=== PATIENT | female | born 1955 | race Caucasian/White ===

== ENCOUNTER 2023-07-20 09:46 | Outpatient (OUT) | payer MEDICARE, SELFPAY ==
--- NOTE | 2023-07-20 09:49 | MM_ITS ---
Patient Name: DYLLAN CONWAY MR#: [id number] : 1955 Exam Date: 07/20/2023 Ordering Doctor: DR Elin Kauffman M.D. RADIOLOGY REPORT PROCEDURE: MM TOMOSYNTHESIS SCREENING BI COMPARISON: MG MAMM SCREEN 3D OMAR CAD, 07/14/2021. MG MAMM SCREEN 3D OMAR CAD, 07/19/2022. INDICATIONS: screening Calculator Name NCI Breast Cancer Risk Assessment Tool 5 Year Breast Cancer Risk 1.80% Lifetime Breast Cancer Risk 6.60% Personal Breast Cancer No Personal Ovarian Cancer No Treatments None Family Cancers Aunt-maternal with breast cancer at age ~60. LOCATION: [facility] BREAST COMPOSITION: Scattered areas fibroglandular density. FINDINGS: DIAGNOSTIC CATEGORY 2--BENIGN FINDING. NO CHANGE FROM COMPARISON. Scattered benign-appearing nodules are present. Scattered benign-appearing calcifications are present. Scattered benign-appearing lymph nodes are present. RIGHT BREAST: No significant suspicious finding. LEFT BREAST: No significant suspicious finding. RECOMMENDATIONS: ROUTINE MAMMOGRAM AND CLINICAL EVALUATION IN 12 MONTHS. PLEASE NOTE: A NORMAL MAMMOGRAM DOES NOT EXCLUDE THE POSSIBILITY OF BREAST CANCER. A CLINICALLY SUSPICIOUS PALPABLE LUMP SHOULD BE BIOPSIED. Dictated by: Colton Guevara MD on 07/20/2023 at 12:49 Approved by: Colton Guevara MD on 07/20/2023 at 12:50
== END 2023-07-20 09:47 | disposition home or self-care (01) ==
LOC: MAMMO 09:46
PROVIDERS: PCP Family Medicine; Visit Provider Family Medicine
DX: Z12.31 Encounter for screening mammogram for malignant neoplasm of breast (principal); Z80.3 Family history of malignant neoplasm of breast
CPT/HCPCS: 77063; 77067

== ENCOUNTER 2023-11-14 07:26 | Outpatient (OUT) | payer MEDICARE, SELFPAY ==
--- OUTSIDE RECORDS SUMMARY | 2023-11-14 07:32 | XMS_ITS | CCD ---
Author Organization [facility] Care Team Providers Care Silk Brusher Name Role Phone ABHISHEK, DR DOTTIE Alejo Consulting Unavailable YUSUF, DR ELIN Chopra Primary Care Unavailable ENMA MONTES DE OCA Attending Unavailable ENMA MONTES DE OCA Admitting Unavailable KAUFFMAN, DR ELIN Chopra Consulting Unavailable ENMA MONTES DE OCA Consulting Unavailable ZENAIDA, DR William Andrews Consulting Unavailable KAUFFMAN, DR ELIN Chopra Primary Care Unavailable JAZMINE ., DR KORI Delgado Attending Unavailable LUCERO ., DR KORI Delgado Admitting Unavailable WEST, DR DOTTIE Alejo Consulting Unavailable LUCERO ., DR KORI Delgado Consulting Unavailable WEST, DR DOTTIE Alejo Consulting Unavailable YUSUF, DR ELIN Chopra Primary Care Unavailable KAUFFMAN, DR ELIN Chopra Attending Unavailable KAUFFMAN, DR ELIN Chopra Admitting Unavailable KAUFFMAN, DR ELIN Chopra Consulting Unavailable LUCERO ., DR KORI Delgado Consulting Unavailable KAUFFMAN, DR ELIN Chopra Primary Care Unavailable LUCERO ., DR KORI Delgado Attending Unavailable LUCERO ., DR KORI Delgado Admitting Unavailable MIGUEL .LEO Consulting Unavailable KAUFFMAN, DR ELIN Chopra Consulting Unavailable KAUFFMAN, DR ELIN Chopra Primary Care Unavailable LUCERO ., DR KORI Delgado Attending Unavailable LUCERO ., DR KORI Delgado Admitting Unavailable LUCERO ., DR KORI Delgado Consulting Unavailable KAUFFMAN, DR ELIN Chopra Primary Care Unavailable JAZMINE ., DR KORI Delgado Attending Unavailable LUCERO ., DR KORI Delgado Admitting Unavailable KAUFFMAN, DR ELIN Chopra Consulting Unavailable KAUFFMAN, DR ELIN Chopra Primary Care Unavailable KAUFFMAN, DR ELIN Chopra Attending Unavailable KAUFFMAN, DR ELIN Chopra Admitting Unavailable KAUFFMAN, DR ELIN Chopra Consulting Unavailable KAUFFMAN, DR ELIN Chopra Primary Care Unavailable KAUFFMAN, DR ELIN Chopra Attending Unavailable KAUFFMAN, DR ELIN Chopra Admitting Unavailable KAUFFMAN, DR ELIN Chopra Consulting Unavailable KAUFFMAN, DR ELIN Chopra Primary Care Unavailable KAUFFMAN, DR ELIN Chopra Attending Unavailable KAUFFMAN, DR ELIN Chopra Admitting Unavailable SHEAJOSH Garber Consulting Unavailable Problems Active Problems Problem Classification Problem Date Documented Da te Episodic/Chronic Joint disorders and dislocations; trauma-related (4 sources) Unspecified internal derangement of left knee; Translations: [UNS INTERNAL DERANGEMENT LEFT KNEE] Onset: 01-20-2022 Chronic Osteoarthritis (2 sources) Unilateral primary osteoarthritis, right knee; Translations: [Unilateral primary osteoarthritis, left knee] Onset: 02-27-2022 Chronic Other screening for suspected conditions (not mental disorders or infectious disease) (4 sources) Encounter for screening mammogram for malignant neoplasm of breast; Translations: [ENC SCR MAMMO MALIG NEOPLASM BREAST] Onset: 07-19-2022 Episodic Residual codes; unclassified (1 source) Family history of malignant neoplasm of breast; Translations: [FAMILY HX MALIG NEOPLASM OF BREAST] Onset: 07-20-2022 Episodic Past or Other Problems Problem Classification Problem Date Documented Da te Episodic/Chronic Joint disorders and dislocations; trauma-related (1 source) Complex tear of medial meniscus, current injury, left knee, initial encounter; Translations: [COMPLEX TEAR MM CURR LT KNEE INIT] Onset: 01-21-2022 Episodic Other connective tissue disease (1 source) Other muscle spasm; Translations: [OTHER MUSCLE SPASM] Onset: 02-27-2022 Episodic Other non-traumatic joint disorders (5 sources) Pain in left knee; Translations: [PAIN IN LEFT KNEE] Onset: 02-27-2022 Episodic Other non-traumatic joint disorders (5 sources) Pain in right knee; Translations: [PAIN IN RIGHT KNEE] Onset: 02-22-2022 Episodic Results Test Name Value Interpretation Reference Range Facility CBC AUTO DIFFon 09-27-2022 BASO # 0.1 103/ul Normal 0.0-0.1 [facility] Comment on above: Performed By: #### C BC #### [facility] [address] [place] [address] Dr. Sharif Farooq Basophils/100 WBC (Bld) 1.9 % Normal 0.2-2.0 [facility] Comment on above: Performed By: #### C BC #### [facility] [address] [address] [address] Sharif Farooq EO # 0.1 103/ul Normal 0.0-0.7 [facility] Comment on above: Performed By: #### C BC #### [facility] [address] [place] [address] Dr. Sharif Farooq Eosinophils/100 WBC (Bld) 2.3 % Normal 0.9-7.0 [facility] Comment on above: Performed By: #### C BC #### [facility] [address] [place] [address] Dr. Sharif Farooq Erythrocyte distribution width (RBC) [Ratio] 14.6 % Normal 11.0-15.0 [facility] Comment on above: Performed By: #### C BC #### [facility] [address] [place] [address] Dr. Sharif Farooq Hematocrit (Bld) [Volume fraction] 41.7 % Normal 36.0-48.0 [facility] Comment on above: Performed By: #### C BC #### [facility] [address] [place] [address] Dr. Sharif Farooq Hemoglobin (Bld) [Mass/Vol] 13.7 g/dL Normal 12.0-16.0 [facility] Comment on above: Performed By: #### C BC #### [facility] [address] [place] [address] Dr. Sharif Farooq IG # 0.01 10e3/ul Normal 0.00-0.03 [facility] Comment on above: Performed By: #### C BC #### [facility] [address] [place] [address] Dr. Sharif Farooq IG % 0.2 % Normal 0.0-0.5 [facility] Comment on above: Performed By: #### C BC #### [facility] [address] [place] [address] Dr. Sharif Farooq LYMPH # 1.6 103/ul Normal 1.2-3.8 [facility] Comment on above: Performed By: #### C BC #### [facility] [address] [place] [address] Dr. Sharif Farooq Lymphocytes/100 WBC (Bld) 34.0 % Normal 20.5-60.0 [facility] Comment on above: Performed By: #### C BC #### [facility] [address] [place] [address] Dr. Sharif Farooq MANUAL DIFF REQ NO Normal [facility] Comment on above: Performed By: #### C BC #### [facility] [address] [place] [address] Dr. Sharif Farooq MCH (RBC) [Entitic mass] 27.5 pg Normal 26.7-34.0 [facility] Comment on above: Performed By: #### C BC #### [facility] [address] [place] [address] Dr. Sharif Farooq MCHC (RBC) [Mass/Vol] 32.9 g/dL Normal 29.9-35.2 [facility] Comment on above: Performed By: #### C BC #### [facility] [address] [place] [address] Dr. Sharif Farooq MCV (RBC) [Entitic vol] 83.7 fL Normal 81.0-99.0 [facility] Comment on above: Performed By: #### C BC #### [facility] [address] [place] [address] Dr. Sharif Farooq MONO # 0.5 103/ul Normal 0.3-0.8 [facility] Comment on above: Performed By: #### C BC #### [facility] [address] [place] [address] Dr. Sharif Farooq Monocytes/100 WBC (Bld) 9.5 % Normal 1.7-12.0 [facility] Comment on above: Performed By: #### C BC #### [facility] [address] [place] [address] Dr. Sharif Farooq NEUT # 2.5 103/ul Normal 1.4-6.5 [facility] Comment on above: Performed By: #### C BC #### [facility] [address] [place] [address] Dr. Sharif Farooq Neutrophils/100 WBC (Bld) 52.1 % Normal 43.0-75.0 [facility] Comment on above: Performed By: #### C BC #### [facility] [address] [place] [address] Dr. Sharif Farooq Platelet mean volume (Bld) [Entitic vol] 10.3 fL Normal 9.5-13.5 [facility] Comment on above: Performed By: #### C BC #### [facility] [address] [place] [address] Dr. Sharif Farooq PLT 250 103/ul Normal 150-450 [facility] Comment on above: Performed By: #### C BC #### [facility] [address] [place] [address] Dr. Sharif Farooq RBC 4.98 106/ul Normal 4.20-5.40 [facility] Comment on above: Performed By: #### C BC #### [facility] [address] [place] [address] Dr. Sharif Farooq WBC 4.8 103/ul Normal 4.0-11.0 [facility] Comment on above: Performed By: #### C BC #### [facility] [address] [place] [address] Dr. Sharif Farooq GLYCOHEMOGLOBIN A1Con 2022 ADA RECOMMENDATION SEE BELOW Normal [facility] Comment on above: Result Comment: ADA RECOMMENDED LIMIT 4.0 - 6.0 ADA THERAPEUTIC TARGET < 7.0 ACTION SUGGESTED > 7.0 Performed By: #### A 1C #### [facility] [address] [place] [address] Dr. Sharif Farooq Glucose [Mass/Vol] 111 mg/dL Normal [facility] Comment on above: Performed By: #### A 1C #### [facility] [address] [place] [address] Dr. Sharif Farooq HbA1c (Bld) [Mass fraction] 5.5 % Normal 4.5-6.2 [facility] Comment on above: Performed By: #### A 1C #### [facility] [address] [place] [address] Dr. Sharif Farooq LIPID PROFILEon 09-27-2022 CHOL-HDL RATIO NORM SEE BELOW Normal [facility] Comment on above: Result Comment: 3.3 - 4.4 LOW RISK 4.4 - 7.1 AVERAGE RISK 7.1 - 11.0 MODERATE RISK >11.0 HIGH RISK Performed By: #### C BC #### [facility] [address] [place], [place] [address] Dr. Sharif Farooq Cholesterol [Mass/Vol] 180 mg/dL Normal <=200 [facility] Comment on above: Performed By: #### C BC #### [facility] [address] [place], [place] [address] Dr. Sharif Farooq Cholesterol in HDL [Mass/Vol] 61 mg/dL Critically high 40-60 [facility] Comment on above: Performed By: #### C BC #### [facility] [address] [address] [address] Sharif Farooq Cholesterol in LDL [Mass/Vol] 103.2 mg/dL Normal [facility] Comment on above: Performed By: #### C BC #### [facility] [address] [address] [address] Sharif Farooq Cholesterol.total/Cho lesterol in HDL [Mass ratio] 3.0 {ratio} Normal [facility] Comment on above: Performed By: #### C BC #### [facility] [address] [address] [address] Sharif Farooq HDL NORMAL > or = 60 mg/dl - LO W CARDIOVASCULAR RISK <40 mg/dl - HIGH CARDIOVASCULAR RISK Normal [facility] Comment on above: Performed By: #### C BC #### [facility] [address] [address] [address] Sharif Farooq LDL CALC NORMAL SEE BELOW Normal [facility] Comment on above: Result Comment: <100 mg/dl OPTIMAL 100 - 129 mg/dl NEAR OR ABOVE OPTIMAL 130 - 159 mg/dl BORDERLINE HIGH 160 - 189 mg/dl HIGH >190 mg/dl VERY HIGH Performed By: #### C BC #### [facility] [address] [address] [address] Sharif Farooq Triglyceride [Mass/Vol] 79 mg/dL Normal <=150 [facility] Comment on above: Performed By: #### C BC #### [facility] [address] [address] [address] Sharif Farooq VLDL CALC 15.8 mg/dL Normal [facility] Comment on above: Performed By: #### C BC #### [facility] [address] [place] [address] Dr. Sharif Farooq PROF 14(COMP METB)on 023 Albumin [Mass/Vol] 3.9 g/dL Normal 3.4-5.0 [facility] Comment on above: Performed By: #### C BC #### [facility] [address] [place] [address] Dr. Sharif Farooq Albumin/Globulin [Mass ratio] 1.0 {ratio} Normal [facility] Comment on above: Performed By: #### C BC #### [facility] [address] [place] [address] Dr. Sharif Farooq ALP [Catalytic activity/Vol] 84 U/L Normal 46-116 [facility] Comment on above: Performed By: #### C BC #### [facility] [address] [place] [address] Dr. Sharif Farooq ALT [Catalytic activity/Vol] 37 U/L Normal 14-59 [facility] Comment on above: Performed By: #### C BC #### [facility] [address] [place] [address] Dr. Sharif Farooq Anion gap [Moles/Vol] 13.4 mmol/L Normal [facility] Comment on above: Performed By: #### C BC #### [facility] [address] [place] [address] Dr. Sharif Farooq AST [Catalytic activity/Vol] 21 U/L Normal 15-37 [facility] Comment on above: Performed By: #### C BC #### [facility] [address] [place] [address] Dr. Sharif Farooq Bilirubin [Mass/Vol] 0.8 mg/dL Normal 0.2-1.0 [facility] Comment on above: Performed By: #### C BC #### [facility] [address] [place] [address] Dr. Sharif Farooq Calcium [Mass/Vol] 9.7 mg/dL Normal 8.5-10.1 [facility] Comment on above: Performed By: #### C BC #### [facility] [address] [address] [address] Sharif Farooq Chloride [Moles/Vol] 105 mmol/L Normal 98-107 [facility] Comment on above: Performed By: #### C BC #### [facility] [address] [address] [address] Sharif Farooq CO2 [Moles/Vol] 26.8 mmol/L Normal 21.0-32.0 [facility] Comment on above: Performed By: #### C BC #### [facility] [address] [address] [address] Sharif Farooq Creatinine [Mass/Vol] 0.94 mg/dL Normal 0.55-1.02 [facility] Comment on above: Performed By: #### C BC #### [facility] [address] [place] [address] Dr. Sharif Farooq EGFR-AF BAHRAINI >60 Normal >=60 [facility] Comment on above: Performed By: #### C BC #### [facility] [address] [address] [address] Sharif Farooq EGFR-NON AF BAHRAINI 60 mL/min/1.73m2 Normal >=60 [facility] Comment on above: Performed By: #### C BC #### [facility] [address] [place] [address] Dr. Sharif Farooq Globulin (S) [Mass/Vol] 3.9 g/dL Normal [facility] Comment on above: Performed By: #### C BC #### [facility] [address] [address] [address] Sharif Farooq Glucose [Mass/Vol] 105 mg/dL Normal 74-106 [facility] [place] Comment on above: Performed By: #### C BC #### [facility] [address] [address] [address] Sharif Farooq Potassium [Moles/Vol] 4.2 mmol/L Normal 3.5-5.1 [facility] Comment on above: Performed By: #### C BC #### [facility] [address] [address] [address] Sharif Farooq Protein [Mass/Vol] 7.8 g/dL Normal 6.4-8.2 [facility] [place] Comment on above: Performed By: #### C BC #### [facility] [address] [address] [address] Sharif Farooq Sodium [Moles/Vol] 141 mmol/L Normal 136-145 [facility] [place] Comment on above: Performed By: #### C BC #### [facility] [address] [address] [address] Sharif Farooq Urea nitrogen [Mass/Vol] 21.0 mg/dL Critically high 7.0-18.0 [facility] Comment on above: Performed By: #### C BC #### [facility] [address] [address] [address] Sharif Farooq Urea nitrogen/Creatinine [Mass ratio] 22.3 mg/mg Normal [facility] Comment on above: Performed By: #### C BC #### [facility] [address] [address] [address] Sharif Farooq TSHon 09-27-2022 TSH 3.122 uIU/mL Normal 0.358-3.740 [facility] Comment on above: Performed By: #### C BC #### [facility] [id number] Sharif Farooq MG MAMM SCREEN 3D OMAR CADon 07-19-2022 MG MAMM SCREEN 3D OMAR CAD Patient: DLYLAN CONWAY Exam Date: 07/19/2022 : 1955 Gender:F Ordering : DR ELIN KAUFFMAN M.D. Admission #: [id number] Family : Order #: [id number] CLICK HERE TO VIEW EXAM RADIOLOGY REPORT PROCEDURE: MAMMOGRAM SCREENING 3D BILATERAL CAD COMPARISON: MG MAMM SCREEN 3D OMAR CAD, 07/14/2021. MG MAMM SCREEN OMAR W CAD, 07/08/2020. INDICATIONS: Screening mammography Calculator Name NCI Breast Cancer Risk Assessment Tool 5 Year Breast Cancer Risk 1.70% Lifetime Breast Cancer Risk 6.90% Personal Breast Cancer No Personal Ovarian Cancer No Treatments None Family Cancers Aunt-maternal with breast cancer at age 60. LOCATION: [facility] BREAST COMPOSITION: Scattered areas fibroglandular density. FINDINGS: DIAGNOSTIC CATEGORY 2--BENIGN FINDING. NO CHANGE FROM COMPARISON. Scattered benign-appearing nodules are present. Scattered benign-appearing calcifications are present. Scattered benign-appearing lymph nodes are present. RIGHT BREAST: No significant suspicious finding. LEFT BREAST: No significant suspicious finding. RECOMMENDATIONS: ROUTINE MAMMOGRAM AND CLINICAL EVALUATION IN 12 MONTHS. PLEASE NOTE: A NORMAL MAMMOGRAM DOES NOT EXCLUDE THE POSSIBILITY OF BREAST CANCER. A CLINICALLY SUSPICIOUS PALPABLE LUMP SHOULD BE BIOPSIED. Dictated by: Dottie Weiss MD on 07/20/2022 at 09:20 Approved by: Dottie Weiss MD on 07/20/2022 at 09:22 Normal [facility] MRI KNEE LT WO CONon MRI KNEE LT WO CON EXAMINATION: MRI KNE E LT WO CON HISTORY: Derangement of knee COMPARISON: No relevant comparison available. TECHNIQUE: A complete multi-planar MRI was performed. FINDINGS: MEDIAL COMPARTMENT MEDIAL MENISCUS: Thinned and partially extruded. Complex tear of the body and posterior horn having a vertical and horizontal component CARTILAGE: Mild chondromalacia BONES: Mild to moderate joint space narrowing with marginal osteophyte formation MCL AND MEDIAL CAPSULE: Normal medial collateral ligament and medial capsule. LATERAL COMPARTMENT LATERAL MENISCUS: Partially extruded. Thinned body without definitive tear CARTILAGE: Moderate chondromalacia BONES: Moderate marginal osteophyte formation LCL/POSTEROLAT COMPLEX: Normal lateral collateral ligament, fascicles, lateral capsule and ligaments. ANTERIOR COMPARTMENT PATELLA: No acute fracture or dislocation. Moderate osteoarthritis CARTILAGE: Moderate to severe chondromalacia TENDONS: Normal. EFFUSION: Small joint effusion ACL: 10 in appearance possibly representing remote partial tear PCL: Increased signal proximally suggests strain MENISCOFEMORAL: Normal meniscofemoral ligaments. OTHER: Negative. IMPRESSION: Moderate tricompartmental osteoarthritis with joint space narrowing marginal osteophyte formation and chondromalacia Complex tear body and posterior horn of medial meniscus Electronically authenticated by: DOTTIE WEISS Date: 2022-01-20 18:22 Normal [facility] XR KNEE LT 4V or >on XR KNEE LT 4V or > EXAM: XR KNEE LT 4V or > HISTORY: Pain of left knee joint Knee examination Findings: There is narrowing of the medial compartment of the knee, as well as the patellofemoral joint. Osteophyte formation is seen. No acute fracture is identified. No focal lesions are identified. IMPRESSION: Degenerative changes are noted at the knee. No fracture, is seen. If there is high index of suspicion, consider MRI. Electronically authenticated by: JOSH SHEA Date: 2021-12-06 18:26 Normal [facility] CBC AUTO DIFFon 10-12-2021 BASO # 0.1 103/ul Normal 0.0-0.1 [facility] Comment on above: Performed By: #### C BC #### [facility] [address] [address] [address] Sharif Farooq Basophils/100 WBC (Bld) 1.8 % Normal 0.2-2.0 [facility] Comment on above: Performed By: #### C BC #### [facility] [address] [place] [address] Dr. Sharif Farooq EO # 0.1 103/ul Normal 0.0-0.7 [facility] Comment on above: Performed By: #### C BC #### [facility] [address] [address] [address] Sharif Farooq Eosinophils/100 WBC (Bld) 2.0 % Normal 0.9-7.0 [facility] Comment on above: Performed By: #### C BC #### [facility] [address] [address] [address] Sharif Farooq Erythrocyte distribution width (RBC) [Ratio] 14.1 % Normal 11.0-15.0 [facility] Comment on above: Performed By: #### C BC #### [facility] [address] [place] [address] Dr. Sharif Farooq Hematocrit (Bld) [Volume fraction] 41.9 % Normal 36.0-48.0 [facility] Comment on above: Performed By: #### C BC #### [facility] [address] [place] [address] Dr. Sharif Farooq Hemoglobin (Bld) [Mass/Vol] 13.6 g/dL Normal 12.0-16.0 [facility] Comment on above: Performed By: #### C BC #### [facility] [address] [place] [address] Dr. Sharif Farooq IG # 0.01 10e3/ul Normal 0.00-0.03 [facility] Comment on above: Performed By: #### C BC #### [facility] [address] [place] [address] Dr. Sharif Farooq IG % 0.2 % Normal 0.0-0.5 [facility] Comment on above: Performed By: #### C BC #### [facility] [address] [place] [address] Dr. Sharif Farooq LYMPH # 2.1 103/ul Normal 1.2-3.8 [facility] Comment on above: Performed By: #### C BC #### [facility] [address] [place] [address] Dr. Sharif Farooq Lymphocytes/100 WBC (Bld) 34.7 % Normal 20.5-60.0 [facility] Comment on above: Performed By: #### C BC #### [facility] [address] [place] [address] Dr. Sharif Farooq MANUAL DIFF REQ NO Normal [facility] Comment on above: Performed By: #### C BC #### [facility] [address] [place] [address] Dr. Sharif Farooq MCH (RBC) [Entitic mass] 27.6 pg Normal 26.7-34.0 [facility] Comment on above: Performed By: #### C BC #### [facility] [address] [place] [address] Dr. Sharif Farooq MCHC (RBC) [Mass/Vol] 32.5 g/dL Normal 29.9-35.2 [facility] Comment on above: Performed By: #### C BC #### [facility] [address] [place] [address] Dr. Sharif Farooq MCV (RBC) [Entitic vol] 85.2 fL Normal 81.0-99.0 [facility] Comment on above: Performed By: #### C BC #### [facility] [address] [place] [address] Dr. Sharif Farooq MONO # 0.6 103/ul Normal 0.3-0.8 [facility] Comment on above: Performed By: #### C BC #### [facility] [address] [place] [address] Dr. Sharif Farooq Monocytes/100 WBC (Bld) 9.8 % Normal 1.7-12.0 [facility] Comment on above: Performed By: #### C BC #### [facility] [address] [place] [address] Dr. Sharif Farooq NEUT # 3.1 103/ul Normal 1.4-6.5 [facility] Comment on above: Performed By: #### C BC #### [facility] [address] [place] [address] Dr. Sharif Farooq Neutrophils/100 WBC (Bld) 51.5 % Normal 43.0-75.0 [facility] Comment on above: Performed By: #### C BC #### [facility] [address] [place] [address] Dr. Sharif Farooq Platelet mean volume (Bld) [Entitic vol] 9.9 fL Normal 9.5-13.5 [facility] Comment on above: Performed By: #### C BC #### [facility] [address] [place] [address] Dr. Sharif Farooq PLT 233 103/ul Normal 150-450 [facility] Comment on above: Performed By: #### C BC #### [facility] [address] [place] [address] Dr. Sharif Farooq RBC 4.92 106/ul Normal 4.20-5.40 [facility] Comment on above: Performed By: #### C BC #### [facility] [address] [place] [address] Dr. Sharif Farooq WBC 6.0 103/ul Normal 4.0-11.0 [facility] Comment on above: Performed By: #### C BC #### [facility] [address] [place] [address] Dr. Sharif Farooq GLYCOHEMOGLOBIN A1Con 2021 ADA RECOMMENDATION SEE BELOW Normal [facility] Comment on above: Result Comment: ADA RECOMMENDED LIMIT 4.0 - 6.0 ADA THERAPEUTIC TARGET < 7.0 ACTION SUGGESTED > 7.0 Performed By: #### A 1C #### [facility] [address] [address] [address] Sharif Farooq Glucose [Mass/Vol] 114 mg/dL Normal [facility] Comment on above: Performed By: #### A 1C #### [facility] [address] [address] [address] Sharif Farooq HbA1c (Bld) [Mass fraction] 5.6 % Normal 4.5-6.2 [facility] Comment on above: Performed By: #### A 1C #### [facility] [address] [place] [address] Dr. Sharif Farooq LIPID PROFILEon 10-12-2021 CHOL-HDL RATIO NORM SEE BELOW Normal [facility] Comment on above: Result Comment: 3.3 - 4.4 LOW RISK 4.4 - 7.1 AVERAGE RISK 7.1 - 11.0 MODERATE RISK >11.0 HIGH RISK Performed By: #### C BC #### [facility] [address] [place] [address] Dr. Sharif Farooq Cholesterol [Mass/Vol] 157 mg/dL Normal <=200 [facility] Comment on above: Performed By: #### C BC #### [facility] [address] [address] [address] Sharif Farooq Cholesterol in HDL [Mass/Vol] 68 mg/dL Critically high 40-60 [facility] Comment on above: Performed By: #### C BC #### [facility] [address] [address] [address] Sharif Farooq Cholesterol in LDL [Mass/Vol] 66.0 mg/dL Normal [facility] Comment on above: Performed By: #### C BC #### [facility] [address] [place] [address] Dr. Sharif Farooq Cholesterol.total/Cho lesterol in HDL [Mass ratio] 2.3 {ratio} Normal [facility] Comment on above: Performed By: #### C BC #### [facility] [address] [address] [address] Sharif Farooq HDL NORMAL > or = 60 mg/dl - LO W CARDIOVASCULAR RISK <40 mg/dl - HIGH CARDIOVASCULAR RISK Normal [facility] Comment on above: Performed By: #### C BC #### [facility] [address] [place] [address] Dr. Sharif Farooq LDL CALC NORMAL SEE BELOW Normal [facility] Comment on above: Result Comment: <100 mg/dl OPTIMAL 100 - 129 mg/dl NEAR OR ABOVE OPTIMAL 130 - 159 mg/dl BORDERLINE HIGH 160 - 189 mg/dl HIGH >190 mg/dl VERY HIGH Performed By: #### C BC #### [facility] [address] [place] [address] Dr. Sharif Farooq Triglyceride [Mass/Vol] 115 mg/dL Normal <=150 [facility] Comment on above: Performed By: #### C BC #### [facility] [address] [place] [address] Dr. Sharif Farooq VLDL CALC 23.0 mg/dL Normal [facility] Comment on above: Performed By: #### C BC #### [facility] [address] [place] [address] Dr. Sharif Farooq PROF 14(COMP METB)on 022 Albumin [Mass/Vol] 4.0 g/dL Normal 3.4-5.0 [facility] Comment on above: Performed By: #### C BC #### [facility] [address] [place] [address] Dr. Sharif Farooq Albumin/Globulin [Mass ratio] 1.1 {ratio} Normal [facility] Comment on above: Performed By: #### C BC #### [facility] [address] [place] [address] Dr. Sharif Farooq ALP [Catalytic activity/Vol] 74 U/L Normal 46-116 [facility] Comment on above: Performed By: #### C BC #### [facility] [address] [place] [address] Dr. Sharif Farooq ALT [Catalytic activity/Vol] 34 U/L Normal 14-59 [facility] Comment on above: Performed By: #### C BC #### [facility] [address] [place] [address] Dr. Sharif Farooq Anion gap [Moles/Vol] 12.1 mmol/L Normal [facility] Comment on above: Performed By: #### C BC #### [facility] [address] [address] [address] Sharif Farooq AST [Catalytic activity/Vol] 22 U/L Normal 15-37 [facility] Comment on above: Performed By: #### C BC #### [facility] [address] [place] [address] Dr. Sharif Farooq Bilirubin [Mass/Vol] 1.5 mg/dL Critically high 0.2-1.0 [facility] Comment on above: Performed By: #### C BC #### [facility] [address] [place] [address] Dr. Sharif Farooq Calcium [Mass/Vol] 9.1 mg/dL Normal 8.5-10.1 [facility] Comment on above: Performed By: #### C BC #### [facility] [address] [place] [address] Dr. Sharif Farooq Chloride [Moles/Vol] 103 mmol/L Normal 98-107 [facility] Comment on above: Performed By: #### C BC #### [facility] [address] [place] [address] Dr. Sharif Farooq CO2 [Moles/Vol] 27.9 mmol/L Normal 21.0-32.0 [facility] Comment on above: Performed By: #### C BC #### [facility] [address] [place] [address] Dr. Sharif Farooq Creatinine [Mass/Vol] 0.93 mg/dL Normal 0.55-1.02 [facility] Comment on above: Performed By: #### C BC #### [facility] [address] [place] [address] Dr. Sharif Farooq EGFR-AF BAHRAINI >60 Normal >=60 [facility] Comment on above: Performed By: #### C BC #### [facility] [address] [address] [address] Sharif Farooq EGFR-NON AF BAHRAINI >60 Normal >=60 [facility] Comment on above: Performed By: #### C BC #### [facility] [address] [address] [address] Sharif Farooq Globulin (S) [Mass/Vol] 3.7 g/dL Normal [facility] Comment on above: Performed By: #### C BC #### [facility] [address] [address] [address] Sharif Farooq Glucose [Mass/Vol] 118 mg/dL Critically high 74-[address] [facility] Comment on above: Performed By: #### C BC #### [facility] [address] [place] [address] Dr. Sharif Farooq Potassium [Moles/Vol] 4.0 mmol/L Normal 3.5-5.1 [facility] Comment on above: Performed By: #### C BC #### [facility] [address] [place] [address] Dr. Sharif Farooq Protein [Mass/Vol] 7.7 g/dL Normal 6.1-8.2 [facility] Comment on above: Performed By: #### C BC #### [facility] [address] [place] [address] Dr. Sharif Farooq Sodium [Moles/Vol] 139 mmol/L Normal 136-145 [facility] [place] Comment on above: Performed By: #### C BC #### [facility] [address] [address] [address] Sharif Farooq Urea nitrogen [Mass/Vol] 14.0 mg/dL Normal 7.0-18.0 [facility] Comment on above: Performed By: #### C BC #### [facility] [address] [place] [address] Dr. Sharif Farooq Urea nitrogen/Creatinine [Mass ratio] 15.1 mg/mg Normal [facility] Comment on above: Performed By: #### C BC #### [facility] [address] [address] [address] Sharif Farooq TSHon 10-12-2021 TSH 2.998 uIU/mL Normal 0.470-4.680 [facility] Comment on above: Performed By: #### C BC #### [facility] [address] [place], [place] [address] Dr. Sharif Farooq TSH RANGE SEE BELOW Normal [facility] Comment on above: Result Comment: <0.3 4 UIU/ml HYPERTHYROID 0.34-5.60 UIU/ml EUTHYROID >5.60 UIU/ml HYPOTHYROID Performed By: #### C BC #### [facility] [address] [address] [address] Sharif Farooq Encounters Encounter Date Encounter Type Care Provider Facility Start: 10-02-2022 Encounter for genera l adult medical examination without abnormal findings DR ELIN KAUFFMAN [facility] Start: 09-27-2022 End: 09-28-[address] ELIN KAUFFMAN Facility:[facility] Start: 09-27-2022 End: 09-28-2022 Encounter for general adult medical examination without abnormal findings DR ELIN KAUFFMAN Facility:[facility] Start: 07-19-2022 End: 07-20-[address] DOTTIE WEISS Facility:[facility] Start: 03-22-2022 End: 03-23-[address] KORI Stafford Facility:[facility] Start: 03-01-[address] ELIN KAUFFMAN [facility] ity:[facility] Start: 02-22-2022 End: 02-23-[address] William PARNELL Facility:[facility] Start: 02-22-2022 End: 02-23-[address] ELIN KAUFFMAN Facility:[facility] Start: 01-20-2022 End: 01-21-[address] DOTTEI WEISS Facility:[facility] Start: 12-06-2021 End: 12-07-[address] ELIN KAUFFMAN Facility:[facility] Start: 10-12-2021 End: 10-13-[address] ELIN KAUFFMAN Facility:[facility] Payers Date Payer Category Payer Unknown [id number] 2019 Unknown [id number] 1955 Unknown [id number] 2.16.84 [id number] 1955 Unknown [id number] 2.16.84 [id number] 1955 Unknown [id number] 2.16.84 [id number] 1955 Unknown [id number] 2.16.84 [id number] 1955 Unknown [id number] 2.16.84 [id number] 1957 Unknown [id number] 2.16.84 [id number] 1955 Unknown [id number] 2.16.84 [id number] 1955 Unknown [id number] 2.16.84 [id number] 1955 Unknown [id number] 2.16.84 [id number] Consultation note 03-22-2022 Note Date & Type Note Facility 03-22-2022 Note CONSULTATION CONSULTATION DATE: 03/22/2022 CHIEF COMPLAINT: Bilateral knee pain. HISTORY OF PRESENT ILLNESS: This is a 66-year-old female who has pain along the medial aspect of her knees bilaterally. We had performed trigger point injections and had done some myofascial release. This afforded the patient substantial improvement. The patient has been applying a topical heat rub to her knees and massaging this area. The patient was also changed over to diclofenac which is affording her increased improvement along with the magnesium glycinate. The patient states pushing, pulling, activities, climbing stairs aggravate the pain; however, it is much more manageable. She rates the pain at a 2/10, a burning, throbbing sensation. The patient's PAST MEDICAL HISTORY / SURGICAL HISTORY / REVIEW OF SYSTEMS are noted on the chart, along with the MEDICATION LIST / ALLERGIES and X-RAY which was reviewed in office with the patient. PHYSICAL EXAMINATION: GENERAL: Upon physical examination, this is a pleasant, cooperative female, who does not appear to be in any acute distress, and appears to be significantly more comfortable. VITAL SIGNS: Her blood pressure is elevated at 177/88 with a heart rate of 62. At a height a 5'6 , the patient weighs 108 kg. FOCUSED EVALUATION ALONG THE LEGS: Decreased tenderness is noted along the vastus lateralis bilaterally. With regards to the vastus medialis, right hand side still has some fullness. The patient ambulates without any assistive devices. Fluid in her gait. IMPRESSION: Current working diagnosis on the patient is early arthritic changes noted on the left hand side with a slight lateral listhesis. Bilateral knee pain. PLAN: The patient will add Vitamin D3 to her regimen. Extension exercises with weights have been suggested for quad strengthening of the legs bilaterally. The patient is discharged from the office, to return on a p.r.n. basis. CC: Elin Kauffman M.D. [facility] Clinical Note 02-22-2022 Note Date & Type Note Facility 02-22-2022 Note PROCEDURE: XR KNEE R T 4V or > COMPARISON: None. HISTORY: Pain in right knee FINDINGS: BONES:No acute fracture or dislocation. Mild to moderate tricompartmental osteoarthropathy with marginal osteophyte formation SOFT TISSUES:Negative. No visible soft tissue swelling. EFFUSION:None visible. OTHER: Negative. IMPRESSION: Mild to moderate osteoarthritis Electronically authenticated by: DOTTIE WEISS Date: 2022-02-22 15:12 [facility] Consultation note 02-22-2022 Note Date & Type Note Facility 02-22-2022 Note CONSULTATION CONSULTATION DATE: 02/22/2022 CHIEF COMPLAINT: Bilateral knee pain. HISTORY OF PRESENT ILLNESS: This is a very pleasant, 66-year-old female who is referred to us by Dr. Parnell. The patient has left knee pathology. The patient has had left knee steroid injections with improvement; however, the pain continues. She rates the pain in the left knee as 5/10. Her right knee is also bothering her, which she rates as a 7/10; a throbbing, aching, burning sensation on the right knee, at times gets to a 9/10. The patient does not have any radiological images of her right knee. Sitting mitigates the pain. Lying down, activities aggravate the patient's pain. The patient has recently retired and has been very active. She states she attributes part of her discomfort to that. The patient takes nabumetone or ibuprofen on a p.r.n. basis, Tylenol on a p.r.n. basis, and uses the Voltaren gel. The patient's PAST MEDICAL HISTORY / SURGICAL HISTORY / REVIEW OF SYSTEMS are noted on the chart, along with the MEDICATION LIST / ALLERGIES and the X-RAY and the MRI of the right knee. PHYSICAL EXAMINATION: GENERAL APPEARANCE: Upon physical examination, this is a pleasant, cooperative female, who is endomorphic in structure. VITAL SIGNS: Stable at 184/87 with a heart rate of 71. At a height of 5'6 , the patient weighs 108 kg. FOCUSED EVALUATION OF THE KNEE: The patient has slight favoring when she stands up. The patient has lateral discomfort on her knee. Effusion is noted in the left knee. Drawer test is negative. Slight crepitus is present; however, not extreme. On the right knee same. With regards to the musculature, the vastus lateralis and vastus medialis have significant trigger points that are able to reproduce a component of the patient's pain symptomatology. Motor examination is within normal limits. NEUROLOGICALLY: The patient is intact. PSYCHIATRICALLY: Affect is appropriate. IMPRESSION: Bilateral knee pain, osteoarthritis of the left knee, spasming along the vastus lateralis and vastus medialis muscle. PLAN: We have suggested an x-ray of the right knee. The patient is to apply a heat rub to her knee on a nightly basis. She will add magnesium glycinate 400 mg. Diclofenac 75 mg b.i.d. has been prescribed for the patient. We will perform trigger point injections along the knees bilaterally, along the vastus medialis and vastus lateralis. The patient understands and would like to progress. CC: Joe Parnell D.O. [facility] Consultation note 02-22-2022 Note Date & Type Note Facility 02-22-2022 Note CONSULTATION PROCEDURE DATE: 02/22/2022 PREOPERATIVE DIAGNOSIS: Bilateral knee pain, spasming along the vastus lateralis and vastus medialis muscle. POSTOPERATIVE DIAGNOSIS: Bilateral knee pain, spasming along the vastus lateralis and vastus medialis muscle. PROCEDURE: Subsequent to obtaining informed consent, the patient was placed in the sitting position. Alcohol prep was used to sterilize the site. A 25 gauge needle was advanced along trigger points that were identified along the knees bilaterally, along the vastus lateralis and vastus medialis. Negative aspiration. Marcaine 0.125% along with Kenalog 20 mg per side. Positive heme on the left hand side. Compression was applied. The patient tolerated the procedure well without any overt complication. Will be followed up in the office in four weeks. [facility] Summary Purpose Family History No Family History Records Found Advance Directives No Advanced Directives Records Found Additional Source Comments INFORMATION SOURCE (unrecogn ized section and content) DATE CREATED AUTHOR 10/02/2022 [facility] FOR RECORDS PERTAINING TO PATIENTS WHO ARE OR HAVE BEEN ENROLLED IN A CHEMICAL DEPENDENCY/SUBSTANCEABUSE PROGRAM, SOME INFORMATION MAY BE OMITTED. This clinical summary was aggregated from multiple sources. Caution should be exercised in using it in the provision of clinical care. This summary normalizes information from multiple sources, and as a consequence, information in this document may materially change the coding, format and clinical context of patient data. In addition, data may be omitted in some cases. CLINICAL DECISIONS SHOULD BE BASED ON THE PRIMARY CLINICAL RECORDS. [employer] provides no warranty or guarantee of the accuracy or completeness of information in this document.
[2023-11-14 08:15] LABS: Basophils Absolute Auto 0.1 10^3/uL (0.0-0.1); Basophils Percent Auto 2.3 % (0.2-2.0); Eosinophils Absolute Auto 0.2 10^3/uL (0.0-0.7); Eosinophils Percent Auto 3.1 % (0.9-7.0); Hematocrit 38.9 % (36.0-48.0); Hemoglobin 12.6 g/dL (12.0-16.0); Immature Granulocytes Abs Auto 0.02 10^3/uL (0.00-0.03); Immature Granulocytes Pct Auto 0.3 % (0.0-0.5); Lymphocytes Absolute Auto 2.1 10^3/uL (1.2-3.8); Lymphocytes Percent Auto 37.4 % (20.5-60.0); Mean Corpuscular HGB Conc 32.4 g/dL (29.9-35.2); Mean Corpuscular Hemoglobin 27.8 pg (26.7-34.0); Mean Corpuscular Volume 85.9 fL (81.0-99.0); Mean Platelet Volume 10.5 fL (9.5-13.5); Monocytes Absolute Auto 0.6 10^3/uL (0.3-0.8); Monocytes Percent Auto 9.6 % (1.7-12.0); Neutrophils Absolute Auto 2.7 10^3/uL (1.4-6.5); Neutrophils Percent Auto 47.3 % (43.0-75.0); Platelet Count 244 10^3/uL (150-450); Red Blood Count 4.53 10^6/uL (4.20-5.40); Red Cell Distribution Width 13.6 % (11.0-15.0); White Blood Count 5.7 10^3/uL (4.0-11.0)
[2023-11-14 08:43] LABS: Alanine Aminotransferase 35 U/L (14-59); Albumin Globulin Ratio 1.2; Albumin Level 3.8 g/dL (3.4-5.0); Alkaline Phosphatase 121 U/L (46-116); Anion Gap 11.1; Aspartate Amino Transferase 20 U/L (15-37); BUN Creatinine Ratio 21.1; Calcium 9.2 mg/dL (8.5-10.1); Chloride 105 mmol/L (98-107); Chol HDL Ratio 2.4; Cholesterol 163 mg/dL (<=200); Estimated GFR (African America >60 (>=60); Estimated GFR (Non-African Ame 59 (>=60); Globulin 3.3 g/dL; Glucose 93 mg/dL (74-106); HDL Cholesterol 69 mg/dL (40-60); Potassium 4.1 mmol/L (3.5-5.1); Sodium 142 mmol/L (136-145); Total Protein 7.1 g/dL (6.4-8.2); Triglycerides 64 mg/dL (<=150); VLDL CHOLESTEROL 12.8 mg/dL
[2023-11-14 09:37] LABS: Microalbumin Urine Random <1.3 mg/dL (<=30.0)
== END 2023-11-14 07:27 | disposition home or self-care (01) ==
LOC: LAB 07:29
PROVIDERS: PCP Family Medicine; Visit Provider Family Medicine
DX: E78.5 Hyperlipidemia, unspecified (principal); E03.9 Hypothyroidism, unspecified; I10 Essential (primary) hypertension
CPT/HCPCS: 36415; 80053; 80061; 82043; 84439; 84443; 85025

== ENCOUNTER 2024-07-23 09:55 | Outpatient (OUT) | payer MEDICARE, SELFPAY ==
--- NOTE | 2024-07-23 09:57 | MM_ITS ---
Patient Name: DYLLAN CONWAY MR#: [id number] : 1955 Exam Date: 07/23/2024 Ordering Doctor: DR Elin Kauffman M.D. RADIOLOGY REPORT PROCEDURE: MM TOMOSYNTHESIS SCREENING BI COMPARISON: MM TOMOSYNTHESIS SCREENING BI, 07/20/2023. MG MAMM SCREEN 3D OMAR CAD, 07/19/2022. INDICATIONS: Screening Calculator Name NCI Breast Cancer Risk Assessment Tool 5 Year Breast Cancer Risk 1.80% Lifetime Breast Cancer Risk 6.40% Personal Breast Cancer No Personal Ovarian Cancer No Treatments None Family Cancers Aunt-maternal with breast cancer at age ~60. LOCATION: [facility] BREAST COMPOSITION: There are scattered areas of fibroglandular density. FINDINGS: DIAGNOSTIC CATEGORY 2--BENIGN FINDING. NO CHANGE FROM COMPARISON. Scattered benign-appearing nodules are present. Scattered benign-appearing calcifications are present. Scattered benign-appearing lymph nodes are present. RIGHT BREAST: No significant suspicious finding. LEFT BREAST: No significant suspicious finding. RECOMMENDATIONS: ROUTINE MAMMOGRAM AND CLINICAL EVALUATION IN 12 MONTHS. PLEASE NOTE: A NORMAL MAMMOGRAM DOES NOT EXCLUDE THE POSSIBILITY OF BREAST CANCER. A CLINICALLY SUSPICIOUS PALPABLE LUMP SHOULD BE BIOPSIED. Dictated by: Colton Guevara MD on 07/23/2024 at 11:36 Approved by: Colton Guevara MD on 07/23/2024 at 11:37
--- OUTSIDE RECORDS SUMMARY | 2024-07-23 10:11 | XMS_ITS | CCD ---
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 Name Role Phone ABHISHEK, DR DOTTIE Alejo Consulting Unavailable GOLDBERG, DR ELIN Chopra Primary Care Unavailable ENMA WYNNE Attending Unavailable RICCI, ENMA Obando Admitting Unavailable GOLDBERG, DR ELIN Chopra Consulting Unavailable ENMA WYNNE Consulting Unavailable SOHEILA, DR William Andrews Consulting Unavailable GOLDBERG, DR ELIN Chopra Primary Care Unavailable KAN ., DR KORI Delgado Attending Unavailable KAN ., DR KORI Delgado Admitting Unavailable WEST, DR DOTTIE Alejo Consulting Unavailable KAN ., DR KORI Delgado Consulting Unavailable WEST, DR DOTTIE Alejo Consulting Unavailable GOLDBERG, DR ELIN Chopra Primary Care Unavailable GOLDBERG, DR ELIN Chopra Attending Unavailable GOLDBERG, DR ELIN Chopra Admitting Unavailable GOLDBERG, DR ELIN Chopra Consulting Unavailable KAN ., DR KORI Delgado Consulting Unavailable GOLDBERG, DR ELIN Chopra Primary Care Unavailable KAN ., DR KORI Delgado Attending Unavailable KAN ., DR KORI Delgado Admitting Unavailable MIGUEL .LEO Consulting Unavailable GOLDBERG, DR ELIN Chpora Consulting Unavailable GOLDBERG, DR ELIN Chopra Primary Care Unavailable KAN ., DR KORI Delgado Attending Unavailable KAN ., DR KORI Delgado Admitting Unavailable KAN ., DR KORI Delgado Consulting Unavailable GOLDBERG, DR ELIN Chopra Primary Care Unavailable KAN ., DR KROI Delgado Attending Unavailable KAN ., DR KORI Delgado Admitting Unavailable GOLDBERG, DR ELIN Chopra Consulting Unavailable GOLDBERG, DR ELIN Chopra Primary Care Unavailable GOLDBERG, DR ELIN Chopra Attending Unavailable GOLDBERG, DR ELIN Chopra Admitting Unavailable GOLDBERG, DR ELIN Chopra Consulting Unavailable GOLDBERG, DR ELIN Chopra Primary Care Unavailable GOLDBERG, DR ELIN Chopra Attending Unavailable GOLDBERG, DR ELIN Chopra Admitting Unavailable GOLDBERG, DR ELIN Chopra Consulting Unavailable GOLDBERG, DR ELIN Chopra Primary Care Unavailable GOLDBERG, DR ELIN Chopra Attending Unavailable GOLDBERG, DR ELIN Chopra Admitting Unavailable SHEAJOSH Garber Consulting Unavailable ENMA WYNNE Attending Unavailable DEREK PARNELL Attending Unavailable DEREK PARNELL Attending Unavailable DEREK PARNELL Attending Unavailable RUPAL BUCKNER Attending Unavailable Elin Goldberg MD Primary Care Provider Allergies Allergy Classification Reported Allergen(s) Allergy Type Date of Onset Reaction(s) Facility (14 sources) Prednisone Allergy to substance 01-31-2024 Unknown [facility] Medications Current Medications Medication Drug Class(es) Dates Sig (Normalized) Sig (Original) calcium carbonate 500 mg oral tablet (14 sources) calcium carbonat e (Os-Richard) 1250 (500 Ca) MG tablet Take by mouth Daily Active diclofenac sodium 75 mg delayed release oral tablet (14 sources) Nonsteroidal Anti-inflammatory Drug Start: 12-28-2023 diclofenac (Voltaren) 75 MG EC tablet 12/28/2023 Active estradiol 0.1 mg/ml vaginal cream (2 sources) Estrogen Start: 04-24-2024 End: 05-24-2024 estradiol (Estrace) 0.1 MG/GM vaginal cream Indications: Menopausal state Insert 2 g into the vagina Daily Apply 1/2 APPLICATOR daily for 2 weeks, then twice weekly thereafter. 42.5 g 11 04/24/2024 05/24/2024 Active levothyroxine sodium 0.088 mg oral tablet (19 sources) l-Thyroxine Start: 01-30-2024 levothyroxine (Synthroid, Levoxyl) 88 MCG tablet 01/30/2024 Active End: 02-13-2024 Synthroid 75 MCG tablet 1 (o ne) time each day at the same time 02/13/2024 Discontinued (Med list cleanup) magnesium gluconate 550 mg oral tablet (14 sources) take 1 tablet by mouth in the morning magnesium 30 MG tablet Take 30 mg by mouth in the morning and 30 mg before bedtime. Active 24 hr metoprolol succinate 100 mg extended release oral tablet (14 sources) beta-Adrenergic Paulette metoprolol succinate XL (Toprol-XL) 100 MG 24 hr tablet 1 (one) time each day at the same time Active rosuvastatin calcium 10 mg oral tablet (14 sources) HMG-CoA Reductase Inhibitor take 1 tablet by mouth once daily Crestor 10 MG tablet take 1 tablet by oral route every day Oral Active Completed/Discontinued Medications Medication Drug Class(es) Dates Sig (Normalized) Sig (Original) etodolac 400 mg oral tablet (5 sources) Nonsteroidal Anti-inflammatory Drug End: 02-13-2024 etodolac (Lodine) 400 MG tablet every 12 (twelve) hours 02/13/2024 Discontinued (Therapy completed) 2 ml sodium hyaluronate 10 mg/ml prefilled syringe (12 sources) Start: 02-27-2024 End: 02-27-2024 Sodium Hyaluronate (Viscosup) injection 2 mL Start: 02-27-2024 End: 02-27-2024 2 mL, Intra-articular, Once PRN Procedure, Starting on Mon02/27/24 at 1019, For 1 dose Start: 02-20-2024 End: 02-20-2024 Sodium Hyaluronate (Viscosup ) injection 2 mL Start: 02-20-2024 End: 02-20-2024 2 mL, Intra-articular, Once PRN Procedure, Starting on Mon02/20/24 at 1026, For 1 dose Start: 02-13-2024 End: 02-13-2024 Sodium Hyaluronate (Viscosup ) injection 2 mL Start: 02-13-2024 End: 02-13-2024 2 mL, Intra-articular, Once PRN Procedure, Starting on Mon02/13/24 at 1227, For 1 dose ibuprofen 600 mg oral tablet (5 sources) Nonsteroidal Anti-inflammatory Drug End: 02-13-2024 ibuprofen 600 MG tablet every 8 (eight) hours 02/13/2024 Discontinued (Therapy completed) 1 ml methylPREDNISolone acetate 40 mg/ml injection (4 sources) Corticosteroid Start: 01-31-2024 End: 01-31-2024 methylPREDNISolone acetate (DEPO-Medrol) injection 40 mg Start: 01-31-2024 End: 01-31-2024 40 mg, Intra-articular, Once PRN Procedure, Starting on Mon01/31/24 at 1105, For 1 dose nabumetone 500 mg oral tablet (5 sources) Nonsteroidal Anti-inflammatory Drug Start: 01-25-2022 End: 02-13-2024 nabumetone (Relafen) 500 MG tablet every 12 (twelve) hours 01/25/2022 02/13/2024 Discontinued (Therapy completed) Problems Active Problems Problem Classification Problem Date Documented Da te Episodic/Chronic Disorders of lipid metabolism (14 sources) Hyperlipidemia; Translations: [Hyperlipidemia, unspecified] Onset: 03-12-2013 01-31-2024 Chronic Essential hypertension (14 sources) Essential hypertension; Translations: [Essential (primary) hypertension] Onset: 03-12-2013 01-31-2024 Chronic Joint disorders and dislocations; trauma-related (18 sources) Unspecified internal derangement of left knee; Translations: [Derangement of left knee] Onset: 01-20-2022 Chronic Menopausal disorders (4 sources) Menopausal syndrome; Translations: [Menopausal and female climacteric states] Onset: 04-24-2024 04-24-2024 Chronic Osteoarthritis (20 sources) Unilateral primary osteoarthritis, right knee; Translations: [Unilateral primary osteoarthritis, left knee] Onset: 02-27-2022 01-31-2024 Chronic Other nervous system disorders (14 sources) Chronic pain; Translations: [Other chronic pain] Onset: 01-31-2024 01-31-2024 Chronic Other screening for suspected conditions (not mental disorders or infectious disease) (4 sources) Encounter for screening mammogram for malignant neoplasm of breast; Translations: [ENC SCR MAMMO MALIG NEOPLASM BREAST] Onset: 07-19-2022 Episodic Prolapse of female genital organs (2 sources) Uterine prolapse; Translations: [Uterovaginal prolapse, unspecified] 04-23-2024 Chronic Residual codes; unclassified (1 source) Family history of malignant neoplasm of breast; Translations: [FAMILY HX MALIG NEOPLASM OF BREAST] Onset: 07-20-2022 Episodic Past or Other Problems Problem Classification Problem Date Documented Da te Episodic/Chronic Headache; including migraine (14 sources) Headache; Translations: [Headache] Onset: 03-12-2013 01-31-2024 Episodic Joint disorders and dislocations; trauma-related (1 source) Complex tear of medial meniscus, current injury, left knee, initial encounter; Translations: [COMPLEX TEAR MM CURR LT KNEE INIT] Onset: 01-21-2022 Episodic Other connective tissue disease (1 source) Other muscle spasm; Translations: [OTHER MUSCLE SPASM] Onset: 02-27-2022 Episodic Other connective tissue disease (14 sources) Pain in limb; Translations: [Pain in unspecified limb] Onset: 01-31-2024 01-31-2024 Episodic Other non-traumatic joint disorders (9 sources) Pain in left knee; Translations: [Pain in joint, lower leg] Onset: 02-27-2022 Episodic Other non-traumatic joint disorders (5 sources) Pain in right knee; Translations: [PAIN IN RIGHT KNEE] Onset: 02-22-2022 Episodic Results Test Name Value Interpretation Reference Range Facility No Panel Informationon 02-26 Derek Parnell, DO 02/27/2024 3:31 PM L Inj/Asp: L knee on 02/27/2024 10:19 AM Indications: pain Details: 21 G needle, anterolateral approach Medications: 2 mL SynoJoynt 20 MG/2ML Outcome: tolerated well, no immediate complications Procedure, treatment alternatives, risks and benefits explained, specific risks discussed. Consent was given by the patient. [facility] No Panel Informationon 02-19 Derek Parnell, DO 02/20/2024 3:56 PM L Inj/Asp: L knee on 02/20/2024 10:26 AM Indications: pain Details: 21 G needle, anterolateral approach Medications: 2 mL SynoJoynt 20 MG/2ML Outcome: tolerated well, no immediate complications Procedure, treatment alternatives, risks and benefits explained, specific risks discussed. Consent was given by the patient. [facility] No Panel Informationon 02-12 Derek Parnell, DO 02/13/2024 2:38 PM L Inj/Asp: L knee on 02/13/2024 12:27 PM Indications: pain Details: 21 G needle, anterolateral approach Medications: 2 mL SynoJoynt 20 MG/2ML Outcome: tolerated well, no immediate complications Procedure, treatment alternatives, risks and benefits explained, specific risks discussed. Consent was given by the patient. [facility] No Panel Informationon 01-30 Enma Wynne NP 01/31/2024 11:07 AM L Inj/Asp: L knee on 01/31/2024 11:05 AM Indications: pain Details: 20 G needle, anterolateral approach Medications: 40 mg methylPREDNISolone acetate 40 MG/ML UTILIZING ASEPTIC TECHNIQUE PT GIVEN INJECTION IN LEFT KNEE, NEUROVASC INTACT S/P INJ, TOLERATED WELL Procedure, treatment alternatives, risks and benefits explained, specific risks discussed. Consent was given by the patient. [facility] CBC AUTO DIFFon 09-27-2022 BASO # 0.1 103/ul Normal 0.0-0.1 [facility] Comment on above: Performed By: #### C BC #### [facility] [address] [address] [address] Sharif Farooq Basophils/100 WBC (Bld) 1.9 % Normal 0.2-2.0 [facility] Comment on above: Performed By: #### C BC #### [facility] [address] [place] [address] Dr. Sharif Farooq EO # 0.1 103/ul Normal 0.0-0.7 [facility] Comment on above: Performed By: #### C BC #### [facility] [address] [place] [address] Dr. Sharif Farooq Eosinophils/100 WBC (Bld) 2.3 % Normal 0.9-7.0 [facility] Comment on above: Performed By: #### C BC #### [facility] [address] [place] [address] Dr. Sharif Farooq Erythrocyte distribution width (RBC) [Ratio] 14.6 % Normal 11.0-15.0 [facility] Comment on above: Performed By: #### C BC #### [facility] [address] [place] [address] Dr. Sharif Farooq Hematocrit (Bld) [Volume fraction] 41.7 % Normal 36.0-48.0 [facility] Comment on above: Performed By: #### C BC #### [facility] [address] [place] [address] Dr. Sharif Farooq Hemoglobin (Bld) [Mass/Vol] 13.7 g/dL Normal 12.0-16.0 [facility] Comment on above: Performed By: #### C BC #### [facility] [address] [place] [address] Dr. Sharif Farooq IG # 0.01 10e3/ul Normal 0.00-0.03 [facility] Comment on above: Performed By: #### C BC #### [facility] [address] [place] [address] Dr. Sharif Farooq IG % 0.2 % Normal 0.0-0.5 [facility] Comment on above: Performed By: #### C BC #### [facility] [address] [place] [address] Dr. Sharif Farooq LYMPH # 1.6 103/ul Normal 1.2-3.8 [facility] Comment on above: Performed By: #### C BC #### [facility] [address] [place] [address] Dr. Sharif Farooq Lymphocytes/100 WBC (Bld) 34.0 % Normal 20.5-60.0 [facility] Comment on above: Performed By: #### C BC #### [facility] [address] [place] [address] Dr. Sharif Farooq MANUAL DIFF REQ NO Normal [place] Comment on above: Performed By: #### C BC #### [facility] [address] [place] [address] Dr. Sharif Farooq MCH (RBC) [Entitic mass] 27.5 pg Normal 26.7-34.0 [facility] Comment on above: Performed By: #### C BC #### [facility] [address] [place] [address] Dr. Sharif Farooq MCHC (RBC) [Mass/Vol] 32.9 g/dL Normal 29.9-35.2 [facility] Comment on above: Performed By: #### C BC #### [facility] [address] [place] [address] Dr. Sharif Farooq MCV (RBC) [Entitic vol] 83.7 fL Normal 81.0-99.0 [facility] Comment on above: Performed By: #### C BC #### [facility] [address] [place] [address] Dr. Sharif Farooq MONO # 0.5 103/ul Normal 0.3-0.8 [facility] Comment on above: Performed By: #### C BC #### [facility] [address] [place] [address] Dr. Sharif Farooq Monocytes/100 WBC (Bld) 9.5 % Normal 1.7-12.0 [facility] Comment on above: Performed By: #### C BC #### [facility] [address] [place] [address] Dr. Sharif Farooq NEUT # 2.5 103/ul Normal 1.4-6.5 [facility] Comment on above: Performed By: #### C BC #### [facility] [address] [place] [address] Dr. Sharif Farooq Neutrophils/100 WBC (Bld) 52.1 % Normal 43.0-75.0 [facility] Comment on above: Performed By: #### C BC #### [facility] [address] [place] [address] Dr. Sharif Farooq Platelet mean volume (Bld) [Entitic vol] 10.3 fL Normal 9.5-13.5 [facility] Comment on above: Performed By: #### C BC #### [facility] [address] [place] [address] Dr. Sharif Farooq PLT 250 103/ul Normal 150-450 [facility] Comment on above: Performed By: #### C BC #### [facility] [address] [place] [address] Dr. Sharif Farooq RBC 4.98 106/ul Normal 4.20-5.40 [facility] Comment on above: Performed By: #### C BC #### [facility] [address] [place] [address] Dr. Sharif Farooq WBC 4.8 103/ul Normal 4.0-11.0 [facility] Comment on above: Performed By: #### C BC #### [facility] [address] [place] [address] Dr. Sharif Farooq GLYCOHEMOGLOBIN A1Con 2022 ADA RECOMMENDATION SEE BELOW Normal [facility] Comment on above: Result Comment: ADA RECOMMENDED LIMIT 4.0 - 6.0 ADA THERAPEUTIC TARGET < 7.0 ACTION SUGGESTED > 7.0 Performed By: #### A 1C #### [facility] [address] [place] [address] Dr. Sharif Farooq Glucose [Mass/Vol] 111 mg/dL Normal [facility] Comment on above: Performed By: #### A 1C #### [facility] [address] [place] [address] Dr. Sharif Farooq HbA1c (Bld) [Mass fraction] 5.5 % Normal 4.5-6.2 [facility] Comment on above: Performed By: #### A 1C #### [facility] [address] [place] [address] Dr. Sharif Farooq LIPID PROFILEon 09-27-2022 CHOL-HDL RATIO NORM SEE BELOW Normal [facility] Comment on above: Result Comment: 3.3 - 4.4 LOW RISK 4.4 - 7.1 AVERAGE RISK 7.1 - 11.0 MODERATE RISK >11.0 HIGH RISK Performed By: #### C BC #### [facility] [address] [place] [address] Dr. Sharif Farooq Cholesterol [Mass/Vol] 180 mg/dL Normal <=200 [facility] Comment on above: Performed By: #### C BC #### [facility] [address] [place] [address] Dr. Sharif Farooq Cholesterol in HDL [Mass/Vol] 61 mg/dL Critically high 40-60 [facility] Comment on above: Performed By: #### C BC #### [facility] [address] [place] [address] Dr. Sharif Farooq Cholesterol in LDL [Mass/Vol] 103.2 mg/dL Normal [facility] Comment on above: Performed By: #### C BC #### [facility] [address] [place] [address] Dr. Sharif Farooq Cholesterol.total/Ch olesterol in HDL [Mass ratio] 3.0 {ratio} Normal [facility] Comment on above: Performed By: #### C BC #### [facility] [address] [place] [address] Dr. Sharif Farooq HDL NORMAL > or = 60 mg/dl - LO W CARDIOVASCULAR RISK <40 mg/dl - HIGH CARDIOVASCULAR RISK Normal [facility] Comment on above: Performed By: #### C BC #### [facility] [address] [place] [address] Dr. Sharif Farooq LDL CALC NORMAL SEE BELOW Normal [place] Comment on above: Result Comment: <100 mg/dl OPTIMAL 100 - 129 mg/dl NEAR OR ABOVE OPTIMAL 130 - 159 mg/dl BORDERLINE HIGH 160 - 189 mg/dl HIGH >190 mg/dl VERY HIGH Performed By: #### C BC #### [facility] [address] [address] [address] Sharif Farooq Triglyceride [Mass/Vol] 79 mg/dL Normal <=150 [facility] Comment on above: Performed By: #### C BC #### [facility] [address] [address] [address] Sharif Farooq VLDL CALC 15.8 mg/dL Normal [facility] Comment on above: Performed By: #### C BC #### [facility] [address] [place] [address] Dr. Sharif Farooq PROF 14(COMP METB)on 023 Albumin [Mass/Vol] 3.9 g/dL Normal 3.4-5.0 [facility] Comment on above: Performed By: #### C BC #### [facility] [address] [place] [address] Dr. Sharif Farooq Albumin/Globulin [Mass ratio] 1.0 {ratio} Normal [facility] Comment on above: Performed By: #### C BC #### [facility] [address] [place] [address] Dr. Sharif Farooq ALP [Catalytic activity/Vol] 84 U/L Normal 46-116 [facility] Comment on above: Performed By: #### C BC #### [facility] [address] [place] [address] Dr. Sharif Farooq ALT [Catalytic activity/Vol] 37 U/L Normal 14-59 [facility] Comment on above: Performed By: #### C BC #### [facility] [address] [place] [address] Dr. Sharif Farooq Anion gap [Moles/Vol] 13.4 mmol/L Normal [facility] Comment on above: Performed By: #### C BC #### [facility] [address] [place] [address] Dr. Sharif Farooq AST [Catalytic activity/Vol] 21 U/L Normal 15-37 [facility] Comment on above: Performed By: #### C BC #### [facility] [address] [address] [address] Sharif Farooq Bilirubin [Mass/Vol] 0.8 mg/dL Normal 0.2-1.0 [facility] Comment on above: Performed By: #### C BC #### [facility] [address] [address] [address] Sharif Farooq Calcium [Mass/Vol] 9.7 mg/dL Normal 8.5-10.1 [facility] Comment on above: Performed By: #### C BC #### [facility] [address] [address] [address] Sharif Farooq Chloride [Moles/Vol] 105 mmol/L Normal 98-107 [facility] Comment on above: Performed By: #### C BC #### [facility] [address] [address] [address] Sharif Farooq CO2 [Moles/Vol] 26.8 mmol/L Normal 21.0-32.0 [facility] Comment on above: Performed By: #### C BC #### [facility] [address] [place] [address] Dr. Sharif Farooq Creatinine [Mass/Vol] 0.94 mg/dL Normal 0.55-1.02 [facility] Comment on above: Performed By: #### C BC #### [facility] [address] [address] [address] Sharif Farooq EGFR-AF MALIAN >60 Normal >=60 [facility] Comment on above: Performed By: #### C BC #### [facility] [address] [address] [address] Sharif Farooq EGFR-NON AF MALIAN 60 mL/min/1.73m2 Normal >=60 [facility] Comment on above: Performed By: #### C BC #### [facility] [address] [address] [address] Sharif Farooq Globulin (S) [Mass/Vol] 3.9 g/dL Normal [facility] Comment on above: Performed By: #### C BC #### [facility] [address] [place] [address] Dr. Sharif Farooq Glucose [Mass/Vol] 105 mg/dL Normal 74-106 [facility] Comment on above: Performed By: #### C BC #### [facility] [address] [address] [address] Sharif Farooq Potassium [Moles/Vol] 4.2 mmol/L Normal 3.5-5.1 [facility] Comment on above: Performed By: #### C BC #### [facility] [address] [place] [address] Dr. Sharif Farooq Protein [Mass/Vol] 7.8 g/dL Normal 6.4-8.2 [facility] Comment on above: Performed By: #### C BC #### [facility] [address] [place] [address] Dr. Sharif Farooq Sodium [Moles/Vol] 141 mmol/L Normal 136-145 [facility] Comment on above: Performed By: #### C BC #### [facility] [address] [place] [address] Dr. Sharif Farooq Urea nitrogen [Mass/Vol] 21.0 mg/dL Critically high 7.0-18.0 [facility] Comment on above: Performed By: #### C BC #### [facility] [address] [place] [address] Dr. Sharif Farooq Urea nitrogen/Creatinine [Mass ratio] 22.3 mg/mg Normal [facility] Comment on above: Performed By: #### C BC #### [facility] [address] [address] [address] Sharif Farooq TSHon 09-27-2022 TSH 3.122 uIU/mL Normal 0.358-3.740 [facility] Comment on above: Performed By: #### C BC #### [facility] [address] [place] [address] Dr. Sharif Farooq MG MAMM SCREEN 3D OMAR CADon 07-19-2022 MG MAMM SCREEN 3D OMAR CAD Patient: IRINA XIONG Exam Date: 07/19/2022 : 1955 Gender:F Ordering : DR ELIN GOLDBERG M.D. Admission #: [id number] Family : Order #: [id number] CLICK HERE TO VIEW EXAM RADIOLOGY REPORT [...] breast cancer at age 62. LOCATION: [facility] BREAST COMPOSITION: Scattered areas fibroglandular density. FINDINGS: [...] Weiss MD on 07/20/2022 at 09:22 Normal [facility] MRI KNEE LT WO CONon 11-2 022 MRI KNEE LT WO CON EXAMINATION: MRI [...] by: DOTTIE WEISS Date: 2022-01-20 18:22 Normal [facility] XR KNEE LT 4V or >on 022 XR KNEE LT 4V or > EXAM: [...] JOSH SHEA Date: 2021-12-06 18:26 Normal [facility] CBC AUTO DIFFon 10-12-2021 BASO # 0.1 103/ul Normal 0.0-0.1 [facility] Comment on above: Performed By: #### C BC #### [facility] [address] [place] [address] Dr. Sharif Farooq Basophils/100 WBC (Bld) 1.8 % Normal 0.2-2.0 [facility] Comment on above: Performed By: #### C BC #### [facility] [address] [place] [address] Dr. Sharif Farooq EO # 0.1 103/ul Normal 0.0-0.7 [facility] Comment on above: Performed By: #### C BC #### [facility] [address] [place] [address] Dr. Sharif Farooq Eosinophils/100 WBC (Bld) 2.0 % Normal 0.9-7.0 [facility] Comment on above: Performed By: #### C BC #### [facility] [address] [place] [address] Dr. Sharif Farooq Erythrocyte distribution width (RBC) [Ratio] 14.1 % Normal 11.0-15.0 [facility] Comment on above: Performed By: #### C BC #### [facility] [address] [place] [address] Dr. Sharif Faroqo Hematocrit (Bld) [Volume fraction] 41.9 % Normal 36.0-48.0 [facility] Comment on above: Performed By: #### C BC #### [facility] [address] [place] [address] Dr. Sharif Farooq Hemoglobin (Bld) [Mass/Vol] 13.6 g/dL Normal 12.0-16.0 [facility] Comment on above: Performed By: #### C BC #### [facility] [address] [place] [address] Dr. Sharif Farooq IG # 0.01 10e3/ul Normal 0.00-0.03 [facility] Comment on above: Performed By: #### C BC #### [facility] [address] [place] [address] Dr. Sharif Farooq IG % 0.2 % Normal 0.0-0.5 [facility] Comment on above: Performed By: #### C BC #### [facility] [address] [place] [address] Dr. Sharif Farooq LYMPH # 2.1 103/ul Normal 1.2-3.8 [facility] Comment on above: Performed By: #### C BC #### [facility] [address] [place] [address] Dr. Sharif Farooq Lymphocytes/100 WBC (Bld) 34.7 % Normal 20.5-60.0 [facility] Comment on above: Performed By: #### C BC #### [facility] [address] [place] [address] Dr. Sharif Farooq MANUAL DIFF REQ NO Normal [place] Comment on above: Performed By: #### C BC #### [facility] [address] [place] [address] Dr. Sharif Farooq MCH (RBC) [Entitic mass] 27.6 pg Normal 26.7-34.0 [facility] Comment on above: Performed By: #### C BC #### [facility] [address] [address] [address] Sharif Farooq MCHC (RBC) [Mass/Vol] 32.5 g/dL Normal 29.9-35.2 [facility] Comment on above: Performed By: #### C BC #### [facility] [address] [place] [address] Dr. Sharif Farooq MCV (RBC) [Entitic vol] 85.2 fL Normal 81.0-99.0 [facility] Comment on above: Performed By: #### C BC #### [facility] [address] [place] [address] Dr. Sharif Farooq MONO # 0.6 103/ul Normal 0.3-0.8 [facility] Comment on above: Performed By: #### C BC #### [facility] [address] [place] [address] Dr. Sharif Farooq Monocytes/100 WBC (Bld) 9.8 % Normal 1.7-12.0 [facility] Comment on above: Performed By: #### C BC #### [facility] [address] [place] [address] Dr. Sharif Farooq NEUT # 3.1 103/ul Normal 1.4-6.5 [facility] Comment on above: Performed By: #### C BC #### [facility] [address] [place] [address] Dr. Sharif Farooq Neutrophils/100 WBC (Bld) 51.5 % Normal 43.0-75.0 [facility] Comment on above: Performed By: #### C BC #### [facility] [address] [place] [address] Dr. Sharif Farooq Platelet mean volume (Bld) [Entitic vol] 9.9 fL Normal 9.5-13.5 [facility] Comment on above: Performed By: #### C BC #### [facility] [address] [place] [address] Dr. Sharif Farooq PLT 233 103/ul Normal 150-450 [facility] Comment on above: Performed By: #### C BC #### [facility] [address] [address] [address] Sharif Farooq RBC 4.92 106/ul Normal 4.20-5.40 [facility] Comment on above: Performed By: #### C BC #### [facility] [address] [place] [address] Dr. Sharif Farooq WBC 6.0 103/ul Normal 4.0-11.0 [facility] Comment on above: Performed By: #### C BC #### [facility] [address] [place] [address] Dr. Sharif Farooq GLYCOHEMOGLOBIN A1Con 2021 ADA RECOMMENDATION SEE BELOW Normal [facility] Comment on above: Result Comment: ADA RECOMMENDED LIMIT 4.0 - 6.0 ADA THERAPEUTIC TARGET < 7.0 ACTION SUGGESTED > 7.0 Performed By: #### A 1C #### [facility] [address] [place] [address] Dr. Sharif Farooq Glucose [Mass/Vol] 114 mg/dL Normal [facility] Comment on above: Performed By: #### A 1C #### [facility] [address] [place] [address] Dr. Sharif Farooq HbA1c (Bld) [Mass fraction] 5.6 % Normal 4.5-6.2 [facility] Comment on above: Performed By: #### A 1C #### [facility] [address] [place] [address] Dr. Sharif Farooq LIPID PROFILEon 10-12-2021 CHOL-HDL RATIO NORM SEE BELOW Normal [facility] Comment on above: Result Comment: 3.3 - 4.4 LOW RISK 4.4 - 7.1 AVERAGE RISK 7.1 - 11.0 MODERATE RISK >11.0 HIGH RISK Performed By: #### C BC #### [facility] [address] [place] [address] Dr. Sharif Farooq Cholesterol [Mass/Vol] 157 mg/dL Normal <=200 [facility] Comment on above: Performed By: #### C BC #### [facility] [address] [address] [address] Sharif Farooq Cholesterol in HDL [Mass/Vol] 68 mg/dL Critically high 40-60 [facility] Comment on above: Performed By: #### C BC #### [facility] [id number] Sharif Farooq Cholesterol in LDL [Mass/Vol] 66.0 mg/dL Normal [facility] Comment on above: Performed By: #### C BC #### [facility] [address] [address] [address] Sharif Farooq Cholesterol.total/Ch olesterol in HDL [Mass ratio] 2.3 {ratio} Normal [facility] Comment on above: Performed By: #### C BC #### [facility] [address] [place] [address] Dr. Sharif Farooq HDL NORMAL > or = 60 mg/dl - LO W CARDIOVASCULAR RISK <40 mg/dl - HIGH CARDIOVASCULAR RISK Normal [facility] Comment on above: Performed By: #### C BC #### [facility] [address] [address] [address] Shairf Farooq LDL CALC NORMAL SEE BELOW Normal [facility] Comment on above: Result Comment: <100 mg/dl OPTIMAL 100 - 129 mg/dl NEAR OR ABOVE OPTIMAL 130 - 159 mg/dl BORDERLINE HIGH 160 - 189 mg/dl HIGH >190 mg/dl VERY HIGH Performed By: #### C BC #### [facility] [address] [place] [address] Dr. Sharif Farooq Triglyceride [Mass/Vol] 115 mg/dL Normal <=150 [facility] Comment on above: Performed By: #### C BC #### [facility] [address] [address] [address] Sharif Farooq VLDL CALC 23.0 mg/dL Normal [facility] Comment on above: Performed By: #### C BC #### [facility] [address] [address] [address] Sharif Farooq PROF 14(COMP METB)on 022 Albumin [Mass/Vol] 4.0 g/dL Normal 3.4-5.0 [facility] Comment on above: Performed By: #### C BC #### [facility] [address] [address] [address] Sharif Farooq Albumin/Globulin [Mass ratio] 1.1 {ratio} Normal [facility] Comment on above: Performed By: #### C BC #### [facility] [address] [place] [address] Dr. Sharif Farooq ALP [Catalytic activity/Vol] 74 U/L Normal 46-116 [facility] Comment on above: Performed By: #### C BC #### [facility] [address] [place] [address] Dr. Sharif Farooq ALT [Catalytic activity/Vol] 34 U/L Normal 14-59 [facility] Comment on above: Performed By: #### C BC #### [facility] [address] [place] [address] Dr. Sharif Farooq Anion gap [Moles/Vol] 12.1 mmol/L Normal [facility] Comment on above: Performed By: #### C BC #### [facility] [address] [place] [address] Dr. Sharif Farooq AST [Catalytic activity/Vol] 22 U/L Normal 15-37 [facility] Comment on above: Performed By: #### C BC #### [facility] [address] [place] [address] Dr. Sharif Farooq Bilirubin [Mass/Vol] 1.5 mg/dL Critically high 0.2-1.0 [facility] Comment on above: Performed By: #### C BC #### [facility] [address] [place] [address] Dr. Sharif Farooq Calcium [Mass/Vol] 9.1 mg/dL Normal 8.5-10.1 [facility] Comment on above: Performed By: #### C BC #### [facility] [address] [place] [address] Dr. Sharif Farooq Chloride [Moles/Vol] 103 mmol/L Normal 98-107 [facility] Comment on above: Performed By: #### C BC #### [facility] [address] [address] [address] Sharif Farooq CO2 [Moles/Vol] 27.9 mmol/L Normal 21.0-32.0 [facility] Comment on above: Performed By: #### C BC #### [facility] [address] [address] [address] Sharif Farooq Creatinine [Mass/Vol] 0.93 mg/dL Normal 0.55-1.02 [facility] Comment on above: Performed By: #### C BC #### [facility] [address] [address] [address] Sharif Farooq EGFR-AF MALIAN >60 Normal >=60 [facility] Comment on above: Performed By: #### C BC #### [facility] [address] [place] [address] Dr. Sharif Farooq EGFR-NON AF MALIAN >60 Normal >=60 [facility] Comment on above: Performed By: #### C BC #### [facility] [address] [address] [address] Sharif Farooq Globulin (S) [Mass/Vol] 3.7 g/dL Normal [facility] Comment on above: Performed By: #### C BC #### [facility] [address] [place] [address] Dr. Sharif Farooq Glucose [Mass/Vol] 118 mg/dL Critically high 74-106 [facility] Comment on above: Performed By: #### C BC #### [facility] [address] [place] [address] Dr. Sharif Farooq Potassium [Moles/Vol] 4.0 mmol/L Normal 3.5-5.1 [facility] Comment on above: Performed By: #### C BC #### [facility] [address] [place] [address] Dr. Sharif Farooq Protein [Mass/Vol] 7.7 g/dL Normal 6.1-8.2 [facility] Comment on above: Performed By: #### C BC #### [facility] [address] [place] [address] Dr. Sharif Farooq Sodium [Moles/Vol] 139 mmol/L Normal 136-145 [facility] Comment on above: Performed By: #### C BC #### [facility] [address] [place] [address] Dr. Sharif Farooq Urea nitrogen [Mass/Vol] 14.0 mg/dL Normal 7.0-18.0 [facility] Comment on above: Performed By: #### C BC #### [facility] [address] [place] [address] Dr. Sharif Farooq Urea nitrogen/Creatinine [Mass ratio] 15.1 mg/mg Normal [facility] Comment on above: Performed By: #### C BC #### [facility] [address] [place] [address] Dr. Sharif Farooq TSHon 10-12-2021 TSH 2.998 uIU/mL Normal 0.470-4.680 [facility] Comment on above: Performed By: #### C BC #### [facility] [address] [place] [address] Dr. Sharif Farooq TSH RANGE SEE BELOW Normal [facility] Comment on above: Result Comment: <0.3 4 UIU/ml HYPERTHYROID 0.34-5.60 UIU/ml EUTHYROID >5.60 UIU/ml HYPOTHYROID Performed By: #### C BC #### [facility] [address] [place] [address] Dr. Sharif Farooq Cytology Cervical or vaginal smear or scraping studyon 04-23-2021 [facility] Vital Signs Date Time Vital Sign Value Performing Clinician Faci lity 04-23-2024 13:50-0500 Body height 167.6 cm Rupal HERMAN Work Phone: [facility] 04-23-2024 13:50-0500 Body mass index (BMI) [Ratio] 32.35 kg/m2 Rupal HERMAN Work Phone: [facility] 04-23-2024 13:50-0500 Body weight 90.9 kg Rupal HERMAN Work Phone: [facility] 04-23-2024 13:50-0500 Diastolic blood pressure 84 mm[Hg] Rupal HERMAN Work Phone: [facility] 04-23-2024 13:50-0500 Systolic blood pressure 136 mm[Hg] Rupal HERMAN Work Phone: [facility] 01-31-2024 10:27-0400 Body height 167.6 cm Enma Merazing SENIOR MANUFACTURING TECHNICIAN Work Phone: [facility] 01-31-2024 10:27-0400 Body mass index (BMI) [Ratio] 32.28 kg/m2 Enma Apling SENIOR MANUFACTURING TECHNICIAN Work Phone: [facility] 01-31-2024 10:270400 Body weight 90.72 kg Enma Apling SENIOR MANUFACTURING TECHNICIAN Work Phone: [facility] Encounters Encounter Date Encounter Type Care Provider Facility Start: 04-23-2024 End: 04-23-2024 Bamboo flowsheet Rupal HERMAN Work Phone: [facility] Start: 04-23-2024 End: 04-23-2024 Bamboo flowsheet Rupal HERMAN Work Phone: [facility] Start: 04-23-2024 End: 04-23-2024 Office outpatient visit 15 minutes Rupal HERMAN Work Phone: [facility] Comment on above: Uterine prolapse; Menopausal state Start: 04-23-2024 End: 04-23-2024 ambulatory RUPAL BUCKNER Not Available Start: 02-27-2024 End: 02-27-2024 Bamboo flowsheet Derek Parnell DO Work Phone: [facility] Start: 02-27-2024 End: 02-27-2024 Bamboo flowsheet Derek Parnell DO Work Phone: [facility] Start: 02-27-2024 End: 02-27-2024 Postop follow up visit related to original px Derek Parnell DO Work Phone: [facility] Comment on above: Arthritis of left kn ee Start: 02-27-2024 End: 02-27-2024 ambulatory DEREK PARNELL Not Available Start: 02-20-2024 End: 02-20-2024 Bamboo flowsheet Derek Parnell DO Work Phone: [facility] Start: 02-20-2024 End: 02-20-2024 Bamboo flowsheet Derek Parnell DO Work Phone: [facility] Start: 02-20-2024 End: 02-20-2024 Postop follow up visit related to original px Derek Parnell DO Work Phone: [facility] Comment on above: Arthritis of left kn ee Start: 02-20-2024 End: 02-20-2024 ambulatory DEREK PARNELL Not Available Start: 02-13-2024 End: 02-13-2024 Bamboo flowsheet Derek Parnell DO Work Phone: [facility] Start: 02-13-2024 End: 02-13-2024 Bamboo flowsheet Derek Parnell DO Work Phone: [facility] Start: 02-13-2024 End: 02-13-2024 Office outpatient visit 25 minutes Derek Parnell DO Work Phone: [facility] Comment on above: Left knee pain, unsp ecified chronicity (Primary Dx); Arthritis of left knee Start: 02-13-2024 End: 02-13-2024 ambulatory DEREK PARNELL Not Available Start: 01-31-2024 End: 01-31-2024 Bamboo flowsheet Enma Obando Apling SENIOR MANUFACTURING TECHNICIAN Work Phone: [facility] Start: 01-31-2024 End: 01-31-2024 Bamboo flowsheet Enma Obando Apling SENIOR MANUFACTURING TECHNICIAN Work Phone: [facility] Start: 01-31-2024 End: 01-31-2024 Office outpatient visit 25 minutes Enma Obando Apldoug SENIOR MANUFACTURING TECHNICIAN Work Phone: [facility] Comment on above: Arthritis of left kn ee (Primary Dx); Left knee pain, unspecified chronicity Start: 01-31-2024 End: 01-31-2024 ambulatory ENMA WYNNE Not Available Start: 10-02-2022 Encounter for genera l adult medical examination without abnormal findings DR ELIN GOLDBERG [facility] Start: 09-27-2022 End: 09-28-[address] ELIN GOLDBERG Facility:[facility] Start: 09-27-2022 End: 09-28-2022 Encounter for general adult medical examination without abnormal findings DR ELIN GOLDBERG Facility:[facility] Start: 07-19-2022 End: 07-20-[address] DOTTIE WEISS Facility:[facility] Start: 03-22-2022 End: 03-23-[address] KORI Stafford Facility:[facility] Start: 03-01-[address] ELIN GOLDBERG [facility] ity:[facility] Start: 02-22-2022 End: 02-23-[address] William PARNELL Facility:[facility] Start: 02-22-2022 End: 02-23-[address] ELIN GOLDBERG Facility:[facility] Start: 01-20-2022 End: 01-21-[address] DOTTIE WEISS Facility:[facility] Start: 12-06-2021 End: 12-07-[address] ELIN GOLDBERG Facility:[facility] Start: 10-12-2021 End: 10-13-[address] ELIN GOLDBERG Facility:[facility] Procedures Date Procedure Procedure Detail Performing Clinician Start: 02-27-2024 Arthrocentesis aspir &/inj major jt/bursa w/o us Derek Parnell DO Work Phone: Start: 02-20-2024 Arthrocentesis aspir &/inj major jt/bursa w/o us Derek Parnell DO Work Phone: Start: 02-13-2024 Arthrocentesis aspir &/inj major jt/bursa w/o us Derek Parnell DO Work Phone: Start: 01-31-2024 Arthrocentesis aspir &/inj major jt/bursa w/o us Enma Wynne SENIOR MANUFACTURING TECHNICIAN Work Phone: Start: 04-23-2021 Cytp cerv/vag auto t hin layer prep mnl screen Elin Goldberg MD Work Phone: Plan of Treatment Date Care Activity Detail Author Start: 06-18-2024 End: 06-18-2024 Patient encounter procedure 06/18/2024 8:30 AM EST Office Visit [facility] [address] [place] [id number] Rupal Buckner PA [address] [place] [address] [facility] Start: 02-27-2024 End: 02-27-2024 Patient encounter procedure [facility] Comment on above: Arthritis of left kn ee Start: 02-20-2024 End: 02-20-2024 Patient encounter procedure [facility] Comment on above: Arthritis of left kn ee Start: 02-13-2024 End: 02-13-2024 Patient encounter procedure 02/13/2024 10:15 AM EDT Office Visit [facility] [address] [place] [address] Derek Parnell DO [address] [place] [address] Arrived [facility] Comment on above: Arrived Start: 02-11-2024 Influenza vaccination Influenza Vacc ine (#1) [facility] Start: 01-31-2024 End: 01-31-2024 Patient encounter procedure 01/31/2024 10:30 AM EDT Office Visit [facility] [address] [place] [address] Enma Wynne, SENIOR MANUFACTURING TECHNICIAN [address] [place] [address] Left knee pain, unspecified chronicity [facility] Comment on above: Left knee pain, unsp ecified chronicity Start: 1997 Screening for malign ant neoplasm of breast Mammogram [facility] Start: 1957 Screening for malign ant neoplasm of colon [facility] Immunizations Immunization Date Immunization Notes Care Provider Michael palmer 02-15-2024 influenza virus vacc ine, unspecified formulation Derek Parnell DO Work Phone: [facility] 02-15-2023 Influenza, Seasonal, Quadrivalent, Adjuvanted Enma Apling SENIOR MANUFACTURING TECHNICIAN Work Phone: [facility] 02-15-2023 Pneumococcal Conjuga te PCV 20 Enma Apling SENIOR MANUFACTURING TECHNICIAN Work Phone: [facility] 02-15-2023 influenza virus vacc ine, unspecified formulation Enma Apling SENIOR MANUFACTURING TECHNICIAN Work Phone: [facility] 03-03-2022 Influenza, injectabl e, Madin [place] Canine Kidney, preservative free, quadrivalent Enma Apling SENIOR MANUFACTURING TECHNICIAN Work Phone: [facility] 04-20-2009 novel influenza-H1N1 -09, preservative-free, injectable Enma Apling SENIOR MANUFACTURING TECHNICIAN Work Phone: [facility] Payers Date Payer Category Payer Private Health Insurance [id number] 2024 Private Health Insurance CLI [id number] 2022 Medicare [id number] 2022 Medicare [id number] 2022 Unknown [id number] 2019 Unknown [id number] 1957 Unknown [id number] 2.16.84 [id number] 1957 Unknown [id number] 2.16.84 [id number] 1957 Unknown [id number] 2.16.84 [id number] 1957 Unknown [id number] 2.16.84 [id number] 1957 Unknown [id number] 2.16.84 [id number] 1957 Unknown [id number] 2.16.84 [id number] 1957 Unknown [id number] 2.16.84 [id number] 1957 Unknown [id number] 2.16.84 [id number] 1957 Unknown [id number] 2.16.84 [id number] 1957 Unknown [id number] 2.16.84 [id number] 1957 Unknown [id number] 2.16.84 [id number] 1957 Unknown [id number] 2.16.84 [id number] 1957 Unknown [id number] 2.16.84 [id number] 1957 Unknown [id number] 2.16.84 [id number] Social History Date Type Detail Facility Start: 01-31-2024 Tobacco smoking status NJIS Never smoked tobacco [facility] Start: 01-31-2024 Tobacco use and exposure Smokeless tobacco non-user [facility] Start: 01-31-2024 History of Social function [facility] Start: 01-31-2024 Tobacco use panel [facility] Start: 1955 Sex assigned at Not on file [facility] Tobacco smoking status NJIS Tobacco smoking consumption unknown [facility] NEGATED: Highlighted rowStart: NINF History of tobacco use Passive smoker [facility] Clinical Notes 02-22-2022 to 04-23-2024 VIRGIL Monzon - 04/23/2024 1:40 PM Nirali Parnell DO - 02/27/2024 10:15 AM Randee Juliana oSheila, DO - 02/20/2024 10:15 AM Randee Juliana Soheila, DO - 02/13/2024 10:15 AM EDT Note Date & Type Note Facility 04-23-2024 History of Present illness Narrative Reason for Appointment: Patient ID: Irina Xiong is a 68 y.o. female who presents for Bladder Prolapse (Patient voiced that about a week ago she felt a prolapse vaginally. Denies urinary incontinence, but does have frequency. ) Patient presents today for Acute Visit. MEDICATIONS Current Outpatient Medications Medication Instructions calcium carbonate (Os-Richard) 1250 (500 Ca) MG tablet Oral, Daily Crestor 10 MG tablet take 1 tablet by oral route every day Oral diclofenac (Voltaren) 75 MG EC tablet levothyroxine (Synthroid, Levoxyl) 88 MCG tablet magnesium 30 mg, Oral, 2 times daily metoprolol succinate XL (Toprol-XL) 100 MG 24 hr tablet Every 24 hours ALLERGIES Allergies Allergen Reactions Prednisone Unknown PROBLEMS Active Ambulatory Problems Diagnosis Date Noted Essential hypertension ([facility]/HCC) 03/12/2013 Headache 03/12/2013 Pain in limb 01/31/2024 Hyperlipidemia (CMS/HCC) 03/12/2013 Arthritis of left knee 01/31/2024 Internal derangement of left knee 01/31/2024 Other chronic pain 01/31/2024 Osteoarthritis of knee 01/31/2024 Primary osteoarthritis 01/31/2024 Resolved Ambulatory Problems Diagnosis Date Noted No Resolved Ambulatory Problems Past Medical History: Diagnosis Date Hypertension ([facility]) HISTORY PAST MEDICAL HISTORY SOCIAL HISTORY Past Medical History: Diagnosis Date Hyperlipidemia ([facility]) Hypertension ([facility]) Social History Tobacco Use Smoking status: Never Passive exposure: Never Smokeless tobacco: Never Substance Use Topics Alcohol use: Not on file Drug use: Not on file FAMILY HISTORY No family history on file. SURGICAL HISTORY Past Surgical History: Procedure Laterality Date CHOLECYSTECTOMY 2014 lap REVIEW OF SYSTEMS Review of Systems: Review of Systems Constitutional: Negative. HENT: Negative. Eyes: Negative. Respiratory: Negative. Cardiovascular: Negative. Gastrointestinal: Negative. Genitourinary: Negative. Musculoskeletal: Negative. Skin: Negative. Neurological: Negative. Psychiatric/Behavioral: Negative. All other systems reviewed and are negative. Hematological: Negative. Endocrine: Negative. Allergic/Immunologic: Negative. OBJECTIVE Objective: Physical Exam Constitutional: Appearance: Normal appearance. She is normal weight. Genitourinary: No vaginal discharge. No vaginal prolapse present. No vaginal atrophy present. Uterus is prolapsed. HENT: Head: Normocephalic. Cardiovascular: Rate and Rhythm: Normal rate. Pulses: Normal pulses. Pulmonary: Effort: Pulmonary effort is normal. Breath sounds: Normal breath sounds. Abdominal: Palpations: Abdomen is soft. Musculoskeletal: General: Normal range of motion. Neurological: General: No focal deficit present. Mental Status: She is alert and oriented to person, place, and time. Psychiatric: Mood and Affect: Mood normal. Behavior: Behavior normal. Thought Content: Thought content normal. Judgment: Judgment normal. Vitals and nursing note reviewed. Vitals: Estimated body mass index is 32.35 kg/m as calculated from the following: Height as of this encounter: 5' 6 . Weight as of this encounter: 200 lb 6.4 oz. BP: 136/84 No LMP recorded. ASSESSMENT & PLAN ICD-10-CM 1. Uterine prolapse N81.4 Patient evaluated today for uterine prolapse. Patient examined by DR Dickson. Surgical options discussed. Patient is going to use estrogen cream for the next several weeks as discussed and follow up via telehealth in 6-8 weeks to see if irritation has improved. We will readdress surgical options at that time. Documented by VIRGIL Monzon on behalf of: VIRGIL Monzon documented in this encounter [facility] 02-27-2024 History of Present illness Narrative Associated Order(s): L Inj/Asp: L knee Post-Procedure Diagnose(s): Arthritis of left knee Images from the original note were not included. Patient ID: Irina Xiong is a 68 y.o. female. L Inj/Asp: L knee on 02/27/2024 10:19 AM Indications: pain Details: 21 G needle, anterolateral approach Medications: 2 mL SynoJoynt 20 MG/2ML Outcome: tolerated well, no immediate complications Procedure, treatment alternatives, risks and benefits explained, specific risks discussed. Consent was given by the patient. Follow up in 6 weeks, any issues/concerns follow up sooner. Dr. Parnell obtained history and examined the patient, I am acting as scribe for Dr. Parnell/patrick documented in this encounter [facility] 02-20-2024 History of Present illness Narrative Associated Order(s): L Inj/Asp: L knee Post-Procedure Diagnose(s): Arthritis of left knee Images from the original note were not included. Patient ID: Irina Xiong is a 68 y.o. female. L Inj/Asp: L knee on 02/20/2024 10:26 AM Indications: pain Details: 21 G needle, anterolateral approach Medications: 2 mL SynoJoynt 20 MG/2ML Outcome: tolerated well, no immediate complications Procedure, treatment alternatives, risks and benefits explained, specific risks discussed. Consent was given by the patient. Follow up in one week, any issues/concerns follow up sooner. Dr. Parnell obtained history and examined the patient, I am acting as scribe for Dr. Parnell/patrick documented in this encounter [facility] 02-13-2024 History of Present illness Narrative Associated Order(s): L Inj/Asp: L knee Post-Procedure Diagnose(s): Arthritis of left knee Images from the original note were not included. HISTORY OF PRESENT ILLNESS: Irina Xiong is an 68 y.o. @ female. Chief complaint LT knee pain LT Knee: 2 weeks s/p depo injx 01/30 by Erica with 15% improvement. Had two kenalog injections December 2021 (Erica) and had an MRI at [facility]. She went to pain management at [facility] with dr. Kan for injection (trigger point) in 02/2022. Dr. Kan had given her diclofenac oral and had been helping with the pain. Beginning of January 2024, she was in the pool playing volleyball and she went up and when she came down she landed in the bottom of the pool standing up and she felt something pop in the knee. She notes she has been waiting to see if it gets better. She notes on 01/27 she went up a lot of bleachers and had a lot of pain later in the evening. Pain is medial, pain at rest 0/10 with activities (she notes intermittent locking and twisting increases the pain) 6-10/10. She notes sometimes in the am she has to hang on to things due to increased pain in the am. The more active she is the more it hurts. Admits stiffness. She has not gotten back to where she was prior to 2021. Taking diclofenac bid and vicks prn, magnesium and capsicin. Not using ice or heat. Wearing a knee sleeve prn. Does not usually wake her at HS. She does not walk normally . [place]: XR [facility] 12/06/21, kenalog injection 12/22/21,and 01/05/22, MRI [facility] 01/20/22, pain management 02/2022 dr kan, magnesium, taking osteobiflex, diclofenac, depo injx 01/31/24 (Erica) MEDICATION: Current Outpatient Medications on File Prior to Visit Medication Sig Dispense Refill calcium carbonate (Os-Richard) 1250 (500 Ca) MG tablet Take by mouth Daily Crestor 10 MG tablet take 1 tablet by oral route every day Oral diclofenac (Voltaren) 75 MG EC tablet levothyroxine (Synthroid, Levoxyl) 88 MCG tablet magnesium 30 MG tablet Take 30 mg by mouth in the morning and 30 mg before bedtime. metoprolol succinate XL (Toprol-XL) 100 MG 24 hr tablet 1 (one) time each day at the same time Synthroid 75 MCG tablet 1 (one) time each day at the same time [DISCONTINUED] etodolac (Lodine) 400 MG tablet every 12 (twelve) hours [DISCONTINUED] ibuprofen 600 MG tablet every 8 (eight) hours [DISCONTINUED] nabumetone (Relafen) 500 MG tablet every 12 (twelve) hours No current facility-administered medications on file prior to visit. MEDICAL HISTORY: No past medical history on file. ALLERGIES: Allergies Allergen Reactions Prednisone Unknown VITALS: Visit Vitals Smoking Status Never PHYSICAL EXAM: Ortho Exam [place]. Tenderness over the medial joint line of the left knee. Mild crepitus. Range of motion is 10-95. There is no instability. IMAGING: X-rays of the left knee from the [facility] dated December 06, 2021. The x-rays are nonweightbearing. On the x-rays there are marginal osteophytes noted Both in the medial and lateral joint line. Patella is sitting laterally within the femoral trochlea. MRI from the [facility] dated January 20, 2022. MRI reveals absence of articular cartilage along the undersurface of patella with subchondral edema in the patella. There is also marked thinning of the articular cartilage throughout the remaining portions the need with areas of what appeared to be complete loss of articular cartilage along the medial femoral condyle and extrusion of the medial meniscus. No fractures noted. ASSESSMENT: ICD-10-CM 1. Left knee pain, unspecified chronicity M25.562 2. Arthritis of left knee M17.12 L Inj/Asp: L knee L Inj/Asp: L knee on 02/13/2024 12:27 PM Indications: pain Details: 21 G needle, anterolateral approach Medications: 2 mL SynoJoynt 20 MG/2ML Outcome: tolerated well, no immediate complications Procedure, treatment alternatives, risks and benefits explained, specific risks discussed. Consent was given by the patient. PLAN: I explained the diagnosis and reviewed treatment options. I discussed options of viscosupplementation. I advised the patient of risks associated with an injection including a reaction to medication, infection, failure to improve and possible worsening. The patient demonstrated understanding. Patient requesting injection. She would like to try this. Injection requested. 2ml of Synojoynt injected into Left knee using aseptic technique, patient tolerated well. Follow up in one week. Dr. Parnell obtained history and examined the patient, I am acting as scribe for Dr. Parnell/patrick. Joe Parnell D.O. documented in this encounter [facility] 01-31-2024 History of Present illness Narrative Associated Order(s): L Inj/Asp: L knee Post-Procedure Diagnose(s): Arthritis of left knee Subjective Patient ID: Irina Xiong is a 68 y.o. female. LT Knee no recent studies *Previously saw Erica in December of 2021 for LT knee pain and received two kenalog injections and had an MRI at [facility]. She went to pain management at [facility] with dr. Kan for injection (trigger point) in 02/2022. Dr. Kan had given her diclofenac oral and had been helping with the pain. Beginning of January 2024, she was in the pool playing volleyball and she went up and when she came down she landed in the bottom of the pool standing up and she felt something pop in the knee. She notes she has been waiting to see if it gets better. She notes on Monday she went up a lot of bleachers and had a lot of pain later in the evening. Pain is medial, pain at rest 0/10 with activities (she notes intermittent locking and twisting increases the pain) 6-10/10. She notes sometimes in the am she has to hang on to things due to increased pain in the am. She notes somedays she has pain and other days she does not. She always has stiffness. She has not gotten back to where she was prior to 2021. Using voltaren gel prn and vicks prn, magnesium and capsicin. Not using ice or heat. Wearing a knee sleeve prn. TX: XR [facility] 12/06/21, kenalog injection 12/22/21,and 01/05/22, MRI [facility] 01/20/22, pain management 02/2022 dr kan, diclofenac Objective Ortho Exam Knee Musculoskeletal Exam Inspection Left Erythema: none Effusion: mild Edema: none Ecchymosis: none Palpation Left Crepitus: patellofemoral Tenderness: present Medial joint line: moderate Range of Motion Left Active extension: 0 Active flexion: 90 Strength Left Extension: 4/5. Flexion: 4/5. L Inj/Asp: L knee on 01/31/2024 11:05 AM Indications: pain Details: 20 G needle, anterolateral approach Medications: 40 mg methylPREDNISolone acetate 40 MG/ML UTILIZING ASEPTIC TECHNIQUE PT GIVEN INJECTION IN LEFT KNEE, NEUROVASC INTACT S/P INJ, TOLERATED WELL Procedure, treatment alternatives, risks and benefits explained, specific risks discussed. Consent was given by the patient. Assessment/Plan Encounter Diagnoses: ICD-10-CM 1. Arthritis of left knee M17.12 2. Left knee pain, unspecified chronicity M25.562 Discussion of options, pt notes she would like an injection, side effects of bleeding and infection discussed, would like to proceed with the injection, using aspectic technique 40 mg of depo medrol was injected into the left lateral knee, pt tolerated well, bandaid applied, may do activities as tolerated, f/u in 2 weeks. Will have her f/U with dr. Parnell in [facility] to possible visco injections documented in this encounter [facility] 03-22-2022 Note CONSULTATION CONSULTATION DATE: 03/22/2022 CHIEF [...] return on a p.r.n. basis. CC: Elin Goldberg M.D. [facility] 02-22-2022 Note PROCEDURE: XR KNEE R T 4V or > COMPARISON: None. HISTORY: Pain in right knee FINDINGS: BONES:No acute fracture or dislocation. Mild to moderate tricompartmental osteoarthropathy with marginal osteophyte formation SOFT TISSUES:Negative. No visible soft tissue swelling. EFFUSION:None visible. OTHER: Negative. IMPRESSION: Mild to moderate osteoarthritis Electronically authenticated by: DOTTIE WEISS Date: 2022-02-22 15:12 [facility] 02-22-2022 Note CONSULTATION CONSULTATION DATE: 02/22/2022 CHIEF [...] understands and would like to progress. CC: Jeo Parnell D.O. [facility] 02-22-2022 Note CONSULTATION PROCEDURE DATE: 02/22/2022 PREOPERATIVE [...] in the office in four weeks. [facility] Evaluation note Diagnosis Uterine prolapse Uterine prolapse without mention of vaginal wall prolapse Menopausal state Symptomatic menopausal or female climacteric states [facility] Diagnosis Arthritis of left knee [facility] Diagnosis Arthritis of left knee- Primary Left knee pain, unspecified chronicity [facility] Diagnosis Left knee pain, unspecified chronicity- Primary Arthritis of left knee [facility] Diagnosis Arthritis of left knee documented [facility] Summary Purpose Family History No Family History Records FoundNo Family History Records Found Advance Directives No Advanced Directives Records FoundNo Advanced Directives Records Found Reason for Referral Specialty Diagnoses / Procedures Referred By Garrett roberts Referred To Contact Orthopaedic Surgery Diagnoses Arthritis of left knee Procedures L Inj/Asp: L knee Derek Parnell, DO [address] [place] [address] Referral ID Status Reason Start Date Expiration Date V isits Requested Visits Authorized [id number] Authorized 02/27/2024 08/25/2024 1 1 Specialty Diagnoses / Procedures Referred By Contac t Referred To Contact Orthopaedic Surgery Diagnoses Arthritis of left knee Procedures L Inj/Asp: L knee Ricci Enma Obando, SENIOR MANUFACTURING TECHNICIAN [address] [place] [address] Referral ID Status Reason Start Date Expiration Date V isits Requested Visits Authorized [id number] Authorized 01/31/2024 07/29/2024 1 1 Referral ID Status Reason Start Date Expiration Date V isits Requested Visits Authorized [id number] Authorized 02/13/2024 08/11/2024 1 1 Referral ID Status Reason Start Date Expiration Date V isits Requested Visits Authorized [id number] Authorized 02/20/2024 08/18/2024 1 1 Additional Source Comments INFORMATION SOURCE (unrecogn ized section and content) DATE CREATED AUTHOR 10/02/2022 [facility] DATE CREATED AUTHOR AUTHOR'S ORGANIZ ATION 04/25/2024 [facility] EPIC Care Teams (unrecognized sec tion and content) Cloth Dyeing Range Tender Relationship Specialty Start Date End Date Elin Goldberg MD [address] [place] [address] PCP - General Family Medicine 01/31/24 Cloth Dyeing Range Tender Relationship Specialty Start Date End Date Elin Goldberg MD [address] [place] [id number] PCP - General Family Medicine 01/31/24 Cloth Dyeing Range Tender Relationship Specialty Start Date End Date Elin Goldberg MD [address] [place] [address] PCP - General Family Medicine 01/31/24 Cloth Dyeing Range Tender Relationship Specialty Start Date End Date Elin Goldberg MD [address] [place] [facility] [place] [address] PCP - General Family Medicine 01/31/24 Cloth Dyeing Range Tender Relationship Specialty Start Date End Date Elin Goldberg MD [address] [facility] [place] [address] PCP - General Family Medicine 01/31/24 Cloth Dyeing Range Tender Relationship Specialty Start Date End Date Elin Goldberg MD [address] [facility] [place] [address] PCP - General Family Medicine 01/31/24 Cloth Dyeing Range Tender Relationship Specialty Start Date End Date Elin Goldberg MD [address] [facility] [place] [address] PCP - General Family Medicine 01/31/24 Cloth Dyeing Range Tender Relationship Specialty Start Date End Date Elin Goldberg MD [address] [facility] [place] [address] PCP - General Family Medicine 01/31/24 Cloth Dyeing Range Tender Relationship Specialty Start Date End Date Elin Goldberg MD [address] [place] [facility] [place] [address] PCP - General Family Medicine 01/31/24 Cloth Dyeing Range Tender Relationship Specialty Start Date End Date Elin Goldberg MD [address] [facility] [place] [address] PCP - General Family Medicine 01/31/24 Reason for Visit (unrecogniz ed section and content) Reason Comments Bladder Prolapse Patient voiced that about a week ago she felt a prolapse vaginally. Denies urinary incontinence, but does have frequency. Reason Comments Injections Reason Comments Follow-up FOR RECORDS PERTAINING TO PATIENTS WHO ARE [...] BE BASED ON THE PRIMARY CLINICAL RECORDS. [employer] provides no warranty or guarantee of the accuracy or completeness of information in this document.
== END 2024-07-23 09:56 | disposition home or self-care (01) ==
LOC: MAMMO 09:55
PROVIDERS: PCP Family Medicine; Visit Provider Family Medicine
DX: Z12.31 Encounter for screening mammogram for malignant neoplasm of breast (principal); Z80.3 Family history of malignant neoplasm of breast
CPT/HCPCS: 77063; 77067

== ENCOUNTER 2024-07-31 15:20 | Outpatient (RCR) | payer MEDICARE, SELFPAY | END 2024-09-14 11:54 | disposition home or self-care (01) | LOC: PT 15:20 | PROVIDERS: PCP Family Medicine; Visit Provider Family Medicine | DX: M51.361 Other intervertebral disc degeneration, lumbar region with lower extremity pain only (principal); M54.50 Low back pain, unspecified; M54.16 Radiculopathy, lumbar region | CPT/HCPCS: 97010; 97012; 97110; 97113; 97140; 97162; G0283 ==

== ENCOUNTER 2024-07-31 17:01 | Outpatient (OUT) | payer MEDICARE, SELFPAY ==
--- NOTE | 2024-07-31 | XR_ITS ---
The [place] [id number] Patient Name: DYLLAN CONWAY MRN: [id number] date: 1955 Sex: F Assigned Patient Location: [facility] Current Patient Location: Accession/Order Number: [id number] Exam Date: 08/01/2024 12:47 Report Date: 08/01/2024 12:49 At the request of: CHRISTIANO GOLDBERG MD Procedure: XR lumbar spine 2-3V LUMBAR SPINE - 2 views CLINICAL HISTORY: Sciatica of left side COMPARISON: None FINDINGS: Vertebral body heights appear maintained. Scattered endplate and facet joint degenerative changes with diffuse disc space narrowing, worst at L5-S1. There is approximately 8 mm of anterolisthesis of L3 on L4. SI joints demonstrate degenerative change. XR/XR lumbar spine 2-3V IMPRESSION: DIFFUSE DEGENERATIVE DISC DISEASE WORST AT L5-S1 WITH 8 MM OF ANTEROLISTHESIS OF L3 ON L4. Impression dictated by: Stephen Lay Jr., DRiveraORivera08/01/2024 12:49 PM Dictation Location: [facility] Electronically authenticated by: [id number] Y Date: 08/01/2024 12:49
== END 2024-07-31 17:02 | disposition home or self-care (01) ==
PROVIDERS: PCP Family Medicine; Visit Provider Family Medicine
DX: M54.32 Sciatica, left side (principal); M51.369 Other intervertebral disc degeneration, lumbar region without mention of lumbar back pain or lower extremity pain
CPT/HCPCS: 72100

== ENCOUNTER 2024-08-16 08:43 | Outpatient (OUT) | payer MEDICARE, SELFPAY ==
--- NOTE | 2024-08-16 08:45 | XR_ITS ---
The [place] [id number] Patient Name: DYLLAN CONWAY MRN: [id number] date: 1955 Sex: F Assigned Patient Location: MRI Current Patient Location: MRI Accession/Order Number: [id number] Exam Date: 08/16/2024 10:19 Report Date: 08/16/2024 10:22 At the request of: ROSALBA CALDERÓN APRN Procedure: XR hip LT 2V w/ pelvis LEFT HIP WITH AP PELVIS - 3 views COMPARISON: None available CLINICAL DATA: Left hip pain chronically, without history. AP view of the pelvis as well as AP and frog-lateral views of the left hip were obtained. No fracture or dislocation is identified. The hip joint spaces are maintained. There is no significant arthritic disease. Mild enthesophyte formation is seen at the iliac crests and greater trochanters. The SI joints are intact. There is suggestion of slight dextroscoliotic curvature as well as degenerative change at the lower imaged lumbar spine. No soft tissue abnormalities are present. XR/XR hip LT 2V w/ pelvis IMPRESSION: NO ACUTE BONY FINDINGS. Impression dictated by: Sharlene Dangelo M.D.08/16/2024 10:22 AM Dictation Location: [place] [address] Electronically authenticated by: [id number] Y Date: 08/16/2024 10:22
--- NOTE | 2024-08-16 08:46 | MR_ITS ---
[address] [address] Patient Name: DYLLAN CONWAY MRN: [facility]:[id number] date: 1955 Sex: F Assigned Patient Location: MRI Current Patient Location: Accession/Order Number: [id number] Exam Date: 08/17/2024 17:08 Report Date: 08/17/2024 17:23 At the request of: ROSALBA CALDERÓN APRN Procedure: MR lumbar spine wo con MRI Lumbar Spine withoutcontrast TECHNIQUE: Multiplanar T1 and T2-weighted imaging of lumbar spine obtained without contrast. HISTORY: Acute lumbar pain with radiculopathy. Left hip pain for 5 weeks. COMPARISON: Plain film imaging 07/31/2024 The last fully segmented vertebral pair is operationally defined as L5/S1. POST SURGERY CHANGES: None BONE MARROW INFILTRATION: None BONE MARROW EDEMA: None BONY ALIGNMENT: Adequate bony alignment identified. SPINAL CANAL: No significant central canal narrowing. LUMBAR FRACTURE: None BONY LESIONS: None KIDNEYS: No hydronephrosis is identified. AORTA: No aortic aneurysm is seen. CONUS MEDULLARIS : The distal spinal cord is in adequate position without abnormality. Additional findings CONJOINED NERVE ROOT: None Lower thoracic level: Unremarkable L1-2 :Mild disc space narrowing. No obvious disc bulge. No central canal stenosis. Mild Posterior elements are present. Mild bilateral neural foraminal narrowing. L2-3: Unremarkable space narrowing. Diffuse disc bulge with flattening of the anterior thecal sac. Severe central canal stenosis. Posterior element hypertrophy. Facet diastases. Marked bilateral neural foramina narrowing. L3-4: Mild disc space narrowing. The diffuse disc central disc protrusion. Concavity of the intrathecal sac. Moderate to severe central canal stenosis. Posterior element hypertrophy. Facet diastases. Moderate bilateral neural foraminal narrowing. L4-5: Moderate disc space narrowing. Mild degenerative anterolisthesis. A diffuse disc bulge. Mild to moderate central canal stenosis. Posterior element hypertrophy. Facet diastases. Moderate bilateral neural foraminal narrowing L5-S1: Moderate disc space narrowing. Endplate spurring. Mild anterolisthesis. A diffuse disc bulge. No central canal stenosis. Posterior element hypertrophy. Moderate left and mild right neural foraminal narrowing MR/MR lumbar spine wo con IMPRESSION: Multilevel discovertebral degenerative changes. Significant stenoses at L2-3, L3-4 and L4-5 levels. Neuroforaminal narrowing as above. Pre-MRI plain film assessment: None Impression dictated by: Gopal Blas M.D.08/17/2024 5:23 PM Dictation Location: [place] [address] Electronically authenticated by: [id number] Y Date: 08/17/2024 17:23
--- OUTSIDE RECORDS SUMMARY | 2024-08-16 09:05 | XMS_ITS | CCD ---
Author Organization [facility] Care Team Providers Care Churn Operator Name Role Phone ABHISHEK, DR DOTTIE Alejo Consulting Unavailable GOLDBERG, DR ELIN Chopra Primary Care Unavailable ENMA WYNNE Attending Unavailable FALGUNI, ENMA Obando Admitting Unavailable GOLDBERG, DR ELIN [...] MIGUEL .LEO Consulting Unavailable GOLDBERG, DR ELIN Chopra Consulting Unavailable [...] MG tablet Take by mouth Daily Active Diclofenac Sodium 75 mg tablet,delayed release (DR/EC) (2 sources) Start: 12-28-2023 Diclofenac Sodium 75 mg tablet,delayed release (DR/EC) Active 0 .ROUTE .COMPLEX 180 December 28, 2023 7:50am TAKE 1 TABLET TWICE DAILY estradiol 0.1 mg/ml vaginal cream (4 sources) Estrogen Start: 07-26-2024 Estradiol 0.01 % (0.1 mg/gram) cream Active 1 APPLICATOR VAGINAL Daily July 26, 2024 12:00am for 14 days Start: 04-24-2024 End: 05-24-2024 estradiol (Estrace) 0.1 MG/G M vaginal cream Indications: Menopausal state Insert 2 g into the vagina Daily Apply 1/2 APPLICATOR daily for 2 weeks, then twice weekly thereafter. 42.5 g 04/24/2024 05/24/2024 Active levothyroxine sodium 0.088 mg oral tablet (20 sources) l-Thyroxine Start: 01-30-2024 Levothyroxine 88 mcg tablet Active 0 .ROUTE .COMPLEX January 30, 2024 7:36am TAKE 1 TABLET EVERY DAY Start: 11-16-2023 End: 01-30-2024 take 1 tablet by mouth once daily Levothyroxine 88 mcg tablet Discontinued 88 MCG PO Daily November 16, 2023 10:20am January 30, 2024 7:36am Start: 08-15-2023 End: 02-13-2024 take 1 tablet by mouth once daily Levothyroxine (Synthroid) 75 mcg tablet Discontinued 75 MCG PO Daily August 15, 2023 12:00am November 16, 2023 10:21am FreeTextSig: TAKE 1 TABLET EVERY DAY; Note: Source Status: Start; Refills: 3; Qty: 90 Tablet; Provider: Daly Worthington ( ) magnesium gluconate 550 mg oral tablet (14 sources) take 1 tablet by mouth in the morning magnesium 30 MG tablet Take 30 mg by mouth in the morning and 30 mg before bedtime. Active 24 hr metoprolol succinate 100 mg extended release oral tablet (18 sources) beta-Adrenergic Paulette Start: 03-12-2024 Metoprolol Succinate 100 mg tablet extended release 24 hr Active 0 .ROUTE .COMPLEX March 12, 2024 9:58am TAKE 1 TABLET EVERY DAY Start: 08-15-2023 End: 03-12-2024 take 1 tablet by mouth once daily Metoprolol Succinate 100 mg tablet extended release 24 hr Discontinued 100 MG PO Daily August 15, 2023 12:00am March 12, 2024 9:58am FreeTextSig: TAKE 1 TABLET EVERY DAY; Note: Source Status: Start; Refills: 3; Qty: 90 Tablet; Provider: Daly Worthington ( ) rosuvastatin (18 sources) HMG-CoA Reductase Inhibitor Start: 03-12-2024 Rosuvastatin 10 mg t ablet Active 0 .ROUTE .COMPLEX March 12, 2024 9:58am TAKE 1 TABLET EVERY DAY Start: 08-15-2023 End: 03-12-2024 take 1 tablet by mouth once daily Rosuvastatin 10 mg tablet Discontinued 10 MG PO Daily August 15, 2023 12:00am March 12, 2024 9:58am FreeTextSig: TAKE 1 TABLET EVERY DAY; Note: Source Status: Start; Refills: 3; Qty: 90 Tablet; Provider: Daly Worthington ( ) Completed/Discontinued Medications Medication Drug Class(es) Dates Sig (Normalized) Sig (Original) diclofenac sodium 75 mg delayed release oral tablet (20 sources) Nonsteroidal Anti-inflammatory Drug Start: 08-03-2023 End: 12-28-2023 take 1 tablet by mouth twice daily Diclofenac Sodium 75 mg tablet,delayed release (DR/EC) Discontinued 75 MG PO Twice daily 60 August 03, 2023 2:10pm December 28, 2023 7:51am etodolac 400 mg oral tablet (5 sources) [...] Da te Episodic/Chronic Disorders of lipid metabolism (16 sources) Hyperlipidemia; Translations: [Hyperlipidemia, unspecified] Onset: 03-12-2013 01-31-2024 Chronic Essential hypertension (16 sources) Essential hypertension; Translations: [Essential (primary) hypertension] [...] osteoarthritis, left knee] Onset: 02-27-2022 01-31-2024 Chronic Osteoporosis (2 sources) Senile osteoporosis; Translations: [Age-related osteoporosis without current pathological fracture] Onset: 04-08-2015 08-14-2023 Chronic Other nervous system disorders (14 sources) [...] MALIG NEOPLASM OF BREAST] Onset: 07-20-2022 Episodic Spondylosis; intervertebral disc disorders; other back problems (4 sources) Disorder of left sciatic nerve; Translations: [Sciatica, left side] 07-26-2024 Episodic Thyroid disorders (2 sources) Hypothyroidism; Translations: [Hypothyroidism, unspecified] 08-15-2023 Chronic Past or Other Problems Problem Classification Problem [...] [facility] Facility No Panel Informationon 02-26 Derek Andrews Soheila, DO 02/27/2024 3:31 PM L Inj/Asp: L knee on 02/27/2024 10:19 AM Indications: pain Details: 21 G needle, anterolateral approach Medications: 2 mL SynoJoynt 20 MG/2ML Outcome: tolerated well, no immediate complications Procedure, treatment alternatives, risks and benefits explained, specific risks discussed. Consent was given by the patient. [facility] No Panel Informationon 02-19 Derek Andrews Soheila, DO 02/20/2024 3:56 PM L Inj/Asp: L knee on 02/20/2024 10:26 AM Indications: pain Details: 21 G needle, anterolateral approach Medications: 2 mL SynoJoynt 20 MG/2ML Outcome: tolerated well, no immediate complications Procedure, treatment alternatives, risks and benefits explained, specific risks discussed. Consent was given by the patient. [facility] No Panel Informationon 02-12 Derek Parnell, DO 02/13/2024 2:38 PM L Inj/Asp: L knee on 02/13/2024 12:27 PM Indications: pain Details: 21 G needle, anterolateral approach Medications: 2 mL SynoJoynt 20 MG/2ML Outcome: tolerated well, no immediate complications Procedure, treatment alternatives, risks and benefits explained, specific risks discussed. Consent was given by the patient. [facility] No Panel Informationon 01-30 Enma Wynne [...] discussed. Consent was given by the patient. [facility] CBC AUTO DIFFon 09-27-2022 BASO # 0.1 103/ul Normal 0.0-0.1 [facility] Comment on above: Performed By: #### C BC #### [facility] [address] [address] [address] Sharif Farooq Basophils/100 WBC (Bld) 1.9 % Normal 0.2-2.0 [facility] Comment on above: Performed By: #### C BC #### [facility] [address] [place] [address] Dr. Sharif Farooq EO # 0.1 103/ul Normal 0.0-0.7 [facility] Comment on above: Performed By: #### C BC #### [facility] [address] [place] [address] Dr. Sharif Farooq Eosinophils/100 WBC (Bld) 2.3 % Normal 0.9-7.0 [facility] Comment on above: Performed By: #### C BC #### [facility] [address] [place] [address] Dr. Sharif Farooq Erythrocyte distribution width (RBC) [Ratio] 14.6 % Normal 11.0-15.0 [facility] Comment on above: Performed By: #### C BC #### [facility] [address] [place] [address] Dr. Sharif Farooq Hematocrit (Bld) [Volume fraction] 41.7 % Normal 36.0-48.0 [facility] Comment on above: Performed By: #### C BC #### [facility] [address] [place] [address] Dr. Sharif Farooq Hemoglobin (Bld) [Mass/Vol] 13.7 g/dL Normal 12.0-16.0 [facility] Comment on above: Performed By: #### C BC #### [facility] [address] [place] [address] Dr. Sharif Farooq IG # 0.01 10e3/ul Normal 0.00-0.03 [facility] Comment on above: Performed By: #### C BC #### [facility] [address] [place] [address] Dr. Sharif Farooq IG % 0.2 % Normal 0.0-0.5 [facility] Comment on above: Performed By: #### C BC #### [facility] [address] [place] [address] Dr. Sharif Farooq LYMPH # 1.6 103/ul Normal 1.2-3.8 [facility] Comment on above: Performed By: #### C BC #### [facility] [address] [place] [address] Dr. Sharif Farooq Lymphocytes/100 WBC (Bld) 34.0 % Normal 20.5-60.0 [facility] Comment on above: Performed By: #### C BC #### [facility] [address] [place] [address] Dr. Sharif Farooq MANUAL DIFF REQ NO Normal [facility] Comment on above: Performed By: #### C BC #### [facility] [address] [place] [address] Dr. Sharif Farooq MCH (RBC) [Entitic mass] 27.5 pg Normal 26.7-34.0 [facility] Comment on above: Performed By: #### C BC #### [facility] [address] [place] [address] Dr. Sharif Farooq MCHC (RBC) [Mass/Vol] 32.9 g/dL Normal 29.9-35.2 [facility] Comment on above: Performed By: #### C BC #### [facility] [address] [place] [address] Dr. Sharif Farooq MCV (RBC) [Entitic vol] 83.7 fL Normal 81.0-99.0 [facility] Comment on above: Performed By: #### C BC #### [facility] [address] [place] [address] Dr. Sharif Farooq MONO # 0.5 103/ul Normal 0.3-0.8 [facility] Comment on above: Performed By: #### C BC #### [facility] [address] [place] [address] Dr. Sharif Farooq Monocytes/100 WBC (Bld) 9.5 % Normal 1.7-12.0 [facility] Comment on above: Performed By: #### C BC #### [facility] [address] [place] [address] Dr. Sharif Farooq NEUT # 2.5 103/ul Normal 1.4-6.5 [facility] Comment on above: Performed By: #### C BC #### [facility] [address] [place] [address] Dr. Sharif Farooq Neutrophils/100 WBC (Bld) 52.1 % Normal 43.0-75.0 [facility] Comment on above: Performed By: #### C BC #### [facility] [address] [place] [address] Dr. Sharif Farooq Platelet mean volume (Bld) [Entitic vol] 10.3 fL Normal 9.5-13.5 [facility] Comment on above: Performed By: #### C BC #### [facility] [address] [place] [address] Dr. Sharif Farooq PLT 250 103/ul Normal 150-450 [facility] Comment on above: Performed By: #### C BC #### [facility] [address] [place] [address] Dr. Sharif Farooq RBC 4.98 106/ul Normal 4.20-5.40 [facility] Comment on above: Performed By: #### C BC #### [facility] [address] [place] [address] Dr. Sharif Farooq WBC 4.8 103/ul Normal 4.0-11.0 [facility] Comment on above: Performed By: #### C BC #### [facility] [address] [place] [address] Dr. Sharif Farooq GLYCOHEMOGLOBIN A1Con 2022 ADA RECOMMENDATION SEE BELOW Normal [facility] Comment on above: Result Comment: ADA RECOMMENDED LIMIT 4.0 - 6.0 ADA THERAPEUTIC TARGET < 7.0 ACTION SUGGESTED > 7.0 Performed By: #### A 1C #### [facility] [address] [place] [address] Dr. Sharif Farooq Glucose [Mass/Vol] 111 mg/dL Normal [facility] Comment on above: Performed By: #### A 1C #### [facility] [address] [address] [address] Sharif Farooq HbA1c (Bld) [Mass fraction] 5.5 % Normal 4.5-6.2 [facility] Comment on above: Performed By: #### A 1C #### [facility] [address] [place] [address] Dr. Sharif Farooq LIPID PROFILEon 09-27-2022 CHOL-HDL RATIO NORM SEE BELOW Normal [facility] Comment on above: Result Comment: 3.3 - 4.4 LOW RISK 4.4 - 7.1 AVERAGE RISK 7.1 - 11.0 MODERATE RISK >11.0 HIGH RISK Performed By: #### C BC #### [facility] [address] [place] [address] Dr. Sharif Farooq Cholesterol [Mass/Vol] 180 mg/dL Normal <=200 [facility] Comment on above: Performed By: #### C BC #### [facility] [address] [place] [address] Dr. Sharif Farooq Cholesterol in HDL [Mass/Vol] 61 mg/dL Critically high 40-60 [facility] Comment on above: Performed By: #### C BC #### [facility] [address] [place] [address] Dr. Sharif Farooq Cholesterol in LDL [Mass/Vol] 103.2 mg/dL Normal [facility] Comment on above: Performed By: #### C BC #### [facility] [address] [place] [address] Dr. Sharif Farooq Cholesterol.total/Ch olesterol in HDL [Mass ratio] 3.0 {ratio} Normal [facility] Comment on above: Performed By: #### C BC #### [facility] [address] [address] [address] Sharif Farooq HDL NORMAL > or = 60 mg/dl - LO W CARDIOVASCULAR RISK <40 mg/dl - HIGH CARDIOVASCULAR RISK Normal [facility] Comment on above: Performed By: #### C BC #### [facility] [address] [place] [address] Dr. Sharif Farooq LDL CALC NORMAL SEE BELOW Normal [facility] Comment on above: Result Comment: <100 mg/dl OPTIMAL 100 - 129 mg/dl NEAR OR ABOVE OPTIMAL 130 - 159 mg/dl BORDERLINE HIGH 160 - 189 mg/dl HIGH >190 mg/dl VERY HIGH Performed By: #### C BC #### [facility] [address] [address] [address] Sharif Farooq Triglyceride [Mass/Vol] 79 mg/dL Normal <=150 [facility] Comment on above: Performed By: #### C BC #### [facility] [address] [place] [address] Dr. Sharif Farooq VLDL CALC 15.8 mg/dL Normal [facility] Comment on above: Performed By: #### C BC #### [facility] [address] [place] [address] Dr. Sharif Farooq PROF 14(COMP METB)on 023 Albumin [Mass/Vol] 3.9 g/dL Normal 3.4-5.0 [facility] Comment on above: Performed By: #### C BC #### [facility] [address] [place] [address] Dr. Sharif Farooq Albumin/Globulin [Mass ratio] 1.0 {ratio} Normal [facility] Comment on above: Performed By: #### C BC #### [facility] [address] [address] [address] Sharif Farooq ALP [Catalytic activity/Vol] 84 U/L Normal 46-116 [facility] Comment on above: Performed By: #### C BC #### [facility] [address] [address] [address] Sharif Farooq ALT [Catalytic activity/Vol] 37 U/L Normal 14-59 [facility] Comment on above: Performed By: #### C BC #### [facility] [address] [address] [address] Sharif Farooq Anion gap [Moles/Vol] 13.4 mmol/L Normal [facility] Comment on above: Performed By: #### C BC #### [facility] [address] [address] [address] Sharif Farooq AST [Catalytic activity/Vol] 21 U/L Normal 15-37 [facility] Comment on above: Performed By: #### C BC #### [facility] [address] [address] [address] Sharif Farooq Bilirubin [Mass/Vol] 0.8 mg/dL Normal 0.2-1.0 [facility] Comment on above: Performed By: #### C BC #### [facility] [address] [place] [address] Dr. Sharif Farooq Calcium [Mass/Vol] 9.7 mg/dL Normal 8.5-10.1 [facility] Comment on above: Performed By: #### C BC #### [facility] [address] [address] [address] Sharif Farooq Chloride [Moles/Vol] 105 mmol/L Normal 98-107 [facility] Comment on above: Performed By: #### C BC #### [facility] [address] [place] [address] Dr. Sharif Farooq CO2 [Moles/Vol] 26.8 mmol/L Normal 21.0-32.0 [facility] Comment on above: Performed By: #### C BC #### [facility] [address] [place] [address] Dr. Sharif Farooq Creatinine [Mass/Vol] 0.94 mg/dL Normal 0.55-1.02 [facility] Comment on above: Performed By: #### C BC #### [facility] [address] [place] [address] Dr. Sharif Fraooq EGFR-AF BELIZEAN >60 Normal >=60 [facility] Comment on above: Performed By: #### C BC #### [facility] [address] [address] [address] Sharif Farooq EGFR-NON AF BELIZEAN 60 mL/min/1.73m2 Normal >=60 [facility] Comment on above: Performed By: #### C BC #### [facility] [address] [place] [address] Dr. Sharif Farooq Globulin (S) [Mass/Vol] 3.9 g/dL Normal [facility] Comment on above: Performed By: #### C BC #### [facility] [address] [address] [address] Sharif Farooq Glucose [Mass/Vol] 105 mg/dL Normal 74-106 [facility] Comment on above: Performed By: #### C BC #### [facility] [address] [place] [address] Dr. Sharif Farooq Potassium [Moles/Vol] 4.2 mmol/L Normal 3.5-5.1 [facility] Comment on above: Performed By: #### C BC #### [facility] [address] [place] [address] Dr. Sharif Farooq Protein [Mass/Vol] 7.8 g/dL Normal 6.4-8.2 [facility] Comment on above: Performed By: #### C BC #### [facility] [address] [place] [address] Dr. Sharif Farooq Sodium [Moles/Vol] 141 mmol/L Normal 136-145 [facility] Comment on above: Performed By: #### C BC #### [facility] [address] [place] [address] Dr. Sharif Farooq Urea nitrogen [Mass/Vol] 21.0 mg/dL Critically high 7.0-18.0 [facility] Comment on above: Performed By: #### C BC #### [facility] [address] [place] [address] Dr. Sharif Farooq Urea nitrogen/Creatinine [Mass ratio] 22.3 mg/mg Normal [facility] Comment on above: Performed By: #### C BC #### [facility] [address] [place] [address] Dr. Sharif Farooq TSHon 09-27-2022 TSH 3.122 uIU/mL Normal 0.358-3.740 [facility] Comment on above: Performed By: #### C BC #### [facility] [address] [address] [address] Sharif Farooq MG MAMM SCREEN 3D OMAR CADon 07-19-2022 MG MAMM SCREEN 3D OMAR CAD Patient: IRINA XIONG Exam Date: 07/19/2022 : 1955 Gender:F Ordering : DR ELIN GOLDBERG M.D. Admission #: [id number] Family : Order #: [id number] CLICK HERE TO VIEW EXAM RADIOLOGY REPORT [...] breast cancer at age 62. LOCATION: [facility] BREAST COMPOSITION: Scattered areas fibroglandular density. FINDINGS: [...] MD on 07/20/2022 at 09:[address] [facility] MRI KNEE LT WO CONon 022 MRI KNEE LT WO CON EXAMINATION: [...] DOTTIE WEISS Date: 2022-01-20 18:[address] [facility] XR KNEE LT 4V or >on 12-06- 022 XR KNEE LT 4V or > [...] JOSH SHEA Date: 2021-12-06 18:[address] [facility] CBC AUTO DIFFon 10-12-2021 BASO # 0.1 103/ul Normal 0.0-0.[address] [facility] Comment on above: Performed By: #### C BC #### [facility] [address] [address] [address] Sharif Farooq Basophils/100 WBC (Bld) 1.8 % Normal 0.2-2.0 [facility] Comment on above: Performed By: #### C BC #### [facility] [address] [address] [address] Sharif Farooq EO # 0.1 103/ul Normal 0.0-0.7 [facility] Comment on above: Performed By: #### C BC #### [facility] [address] [place] [address] Dr. Sharif Farooq Eosinophils/100 WBC (Bld) 2.0 % Normal 0.9-7.[address] [facility] Comment on above: Performed By: #### C BC #### [facility] [address] [place] [address] Dr. Sharif Farooq Erythrocyte distribution width (RBC) [Ratio] 14.1 % Normal 11.0-15.[address] [facility] Comment on above: Performed By: #### C BC #### [facility] [address] [place] [address] Dr. Sharif Farooq Hematocrit (Bld) [Volume fraction] 41.9 % Normal 36.0-48.[address] [facility] Comment on above: Performed By: #### C BC #### [facility] [address] [place] [address] Dr. Sharif Farooq Hemoglobin (Bld) [Mass/Vol] 13.6 g/dL Normal 12.0-16.[address] [facility] Comment on above: Performed By: #### C BC #### [facility] [address] [place] [address] Dr. Sharif Farooq IG # 0.01 10e3/ul Normal 0.00-0.[address] [facility] Comment on above: Performed By: #### C BC #### [facility] [address] [place] [address] Dr. Sharif Farooq IG % 0.2 % Normal 0.0-0.[address] [facility] Comment on above: Performed By: #### C BC #### [facility] [address] [place] [address] Dr. Sharif Farooq LYMPH # 2.1 103/ul Normal 1.2-3.[address] [facility] Comment on above: Performed By: #### C BC #### [facility] [address] [place] [address] Dr. Sharif Farooq Lymphocytes/100 WBC (Bld) 34.7 % Normal 20.5-60.[address] [facility] Comment on above: Performed By: #### C BC #### [facility] [address] [place] [address] Dr. Sharif Farooq MANUAL DIFF REQ NO Normal [facility] Comment on above: Performed By: #### C BC #### [facility] [address] [place] [address] Dr. Sharif Farooq MCH (RBC) [Entitic mass] 27.6 pg Normal 26.7-34.0 [facility] Comment on above: Performed By: #### C BC #### [facility] [address] [place] [address] Dr. Sharif Farooq MCHC (RBC) [Mass/Vol] 32.5 g/dL Normal 29.9-35.2 [facility] Comment on above: Performed By: #### C BC #### [facility] [address] [place] [address] Dr. Sharif Farooq MCV (RBC) [Entitic vol] 85.2 fL Normal 81.0-99.0 [facility] Comment on above: Performed By: #### C BC #### [facility] [address] [place] [address] Dr. Sharif Farooq MONO # 0.6 103/ul Normal 0.3-0.8 [facility] Comment on above: Performed By: #### C BC #### [facility] [address] [place] [address] Dr. Sharif Farooq Monocytes/100 WBC (Bld) 9.8 % Normal 1.7-12.0 [facility] Comment on above: Performed By: #### C BC #### [facility] [address] [place] [address] Dr. Sharif Farooq NEUT # 3.1 103/ul Normal 1.4-6.[address] [facility] Comment on above: Performed By: #### C BC #### [facility] [address] [place] [address] Dr. Sharif Farooq Neutrophils/100 WBC (Bld) 51.5 % Normal 43.0-75.0 [facility] Comment on above: Performed By: #### C BC #### [facility] [address] [place] [address] Dr. Sharif Farooq Platelet mean volume (Bld) [Entitic vol] 9.9 fL Normal 9.5-13.5 [facility] Comment on above: Performed By: #### C BC #### [facility] [address] [place] [address] Dr. Sharif Farooq PLT 233 103/ul Normal 150-450 [facility] Comment on above: Performed By: #### C BC #### [facility] [address] [place] [address] Dr. Sharif Farooq RBC 4.92 106/ul Normal 4.20-5.40 [facility] Comment on above: Performed By: #### C BC #### [facility] [address] [place] [address] Dr. Sharif Farooq WBC 6.0 103/ul Normal 4.0-11.0 [facility] Comment on above: Performed By: #### C BC #### [facility] [address] [place] [address] Dr. Sharif Farooq GLYCOHEMOGLOBIN A1Con 2021 ADA RECOMMENDATION SEE BELOW Normal [facility] Comment on above: Result Comment: ADA RECOMMENDED LIMIT 4.0 - 6.0 ADA THERAPEUTIC TARGET < 7.0 ACTION SUGGESTED > 7.0 Performed By: #### A 1C #### [facility] [address] [place] [address] Dr. Sharif Farooq Glucose [Mass/Vol] 114 mg/dL Normal [facility] Comment on above: Performed By: #### A 1C #### [facility] [address] [place] [address] Dr. Sharif Farooq HbA1c (Bld) [Mass fraction] 5.6 % Normal 4.5-6.2 [facility] Comment on above: Performed By: #### A 1C #### [facility] [address] [place] [address] Dr. Sharif Farooq LIPID PROFILEon 10-12-2021 CHOL-HDL RATIO NORM SEE BELOW Normal [facility] Comment on above: Result Comment: 3.3 - 4.4 LOW RISK 4.4 - 7.1 AVERAGE RISK 7.1 - 11.0 MODERATE RISK >11.0 HIGH RISK Performed By: #### C BC #### [facility] [address] [place], [place] [address] Dr. Sharif Farooq Cholesterol [Mass/Vol] 157 mg/dL Normal <=200 [facility] Comment on above: Performed By: #### C BC #### [facility] [address] [place], [place] [address] Dr. Sharif Farooq Cholesterol in HDL [Mass/Vol] 68 mg/dL Critically high 40-60 [facility] Comment on above: Performed By: #### C BC #### [facility] [address] [place] [address] [address] Sharif Farooq Cholesterol in LDL [Mass/Vol] 66.0 mg/dL Normal [facility] Comment on above: Performed By: #### C BC #### [facility] [address] [address] [address] Sharif Farooq Cholesterol.total/Ch olesterol in HDL [Mass ratio] 2.3 {ratio} Normal [facility] Comment on above: Performed By: #### C BC #### [facility] [address] [address] [address] Sharif Farooq HDL NORMAL > or = 60 mg/dl - LO W CARDIOVASCULAR RISK <40 mg/dl - HIGH CARDIOVASCULAR RISK Normal [facility] Comment on above: Performed By: #### C BC #### [facility] [address] [address] [address] Sharif Farooq LDL CALC NORMAL SEE BELOW Normal [facility] Comment on above: Result Comment: <100 mg/dl OPTIMAL 100 - 129 mg/dl NEAR OR ABOVE OPTIMAL 130 - 159 mg/dl BORDERLINE HIGH 160 - 189 mg/dl HIGH >190 mg/dl VERY HIGH Performed By: #### C BC #### [facility] [address] [address] [address] Sharif Farooq Triglyceride [Mass/Vol] 115 mg/dL Normal <=150 [facility] Comment on above: Performed By: #### C BC #### [facility] [address] [address] [address] Sharif Farooq VLDL CALC 23.0 mg/dL Normal [facility] Comment on above: Performed By: #### C BC #### [facility] [address] [address] [address] Sharif Farooq PROF 14(COMP METB)on 022 Albumin [Mass/Vol] 4.0 g/dL Normal 3.4-5.0 [facility] Comment on above: Performed By: #### C BC #### [facility] [address] [place] [address] Dr. Sharif Farooq Albumin/Globulin [Mass ratio] 1.1 {ratio} Normal [facility] Comment on above: Performed By: #### C BC #### [facility] [address] [place] [address] Dr. Sharif Farooq ALP [Catalytic activity/Vol] 74 U/L Normal 46-116 [facility] Comment on above: Performed By: #### C BC #### [facility] [address] [place] [address] Dr. Sharif Farooq ALT [Catalytic activity/Vol] 34 U/L Normal 14-59 [facility] Comment on above: Performed By: #### C BC #### [facility] [address] [place] [address] Dr. Sharif Farooq Anion gap [Moles/Vol] 12.1 mmol/L Normal [facility] Comment on above: Performed By: #### C BC #### [facility] [address] [place] [address] Dr. Sharif Farooq AST [Catalytic activity/Vol] 22 U/L Normal 15-37 [facility] Comment on above: Performed By: #### C BC #### [facility] [address] [place] [address] Dr. Sharif Farooq Bilirubin [Mass/Vol] 1.5 mg/dL Critically high 0.2-1.0 [facility] Comment on above: Performed By: #### C BC #### [facility] [address] [place] [address] Dr. Sharif Farooq Calcium [Mass/Vol] 9.1 mg/dL Normal 8.5-10.1 [facility] Comment on above: Performed By: #### C BC #### [facility] [address] [address] [address] Sharif Farooq Chloride [Moles/Vol] 103 mmol/L Normal 98-107 [facility] Comment on above: Performed By: #### C BC #### [facility] [address] [address] [address] Sharif Farooq CO2 [Moles/Vol] 27.9 mmol/L Normal 21.0-32.0 [facility] Comment on above: Performed By: #### C BC #### [facility] [address] [address] [address] Sharif Farooq Creatinine [Mass/Vol] 0.93 mg/dL Normal 0.55-1.02 [facility] Comment on above: Performed By: #### C BC #### [facility] [address] [place] [address] Dr. Sharif Farooq EGFR-AF BELIZEAN >60 Normal >=60 [facility] Comment on above: Performed By: #### C BC #### [facility] [address] [place] [address] Dr. Sharif Farooq EGFR-NON AF BELIZEAN >60 Normal >=60 [facility] Comment on above: Performed By: #### C BC #### [facility] [address] [place] [address] Dr. Sharif Farooq Globulin (S) [Mass/Vol] 3.7 g/dL Normal [facility] Comment on above: Performed By: #### C BC #### [facility] [address] [place] [address] Dr. Sharif Farooq Glucose [Mass/Vol] 118 mg/dL Critically high 74-106 [facility] Comment on above: Performed By: #### C BC #### [facility] [address] [place] [address] Dr. Sharif Farooq Potassium [Moles/Vol] 4.0 mmol/L Normal 3.5-5.1 [facility] Comment on above: Performed By: #### C BC #### [facility] [address] [address] [address] Sharif Farooq Protein [Mass/Vol] 7.7 g/dL Normal 6.1-8.2 [facility] Comment on above: Performed By: #### C BC #### [facility] [address] [place] [address] Dr. Sharif Farooq Sodium [Moles/Vol] 139 mmol/L Normal 136-145 [facility] Comment on above: Performed By: #### C BC #### [facility] [address] [address] [address] Sharif Farooq Urea nitrogen [Mass/Vol] 14.0 mg/dL Normal 7.0-18.0 [facility] Comment on above: Performed By: #### C BC #### [facility] [address] [place] [address] Dr. Sharif Farooq Urea nitrogen/Creatinine [Mass ratio] 15.1 mg/mg Normal [facility] Comment on above: Performed By: #### C BC #### [facility] [address] [place] [address] Dr. Sharif Farooq TSHon 10-12-2021 TSH 2.998 uIU/mL Normal 0.470-4.680 [facility] Comment on above: Performed By: #### C BC #### [facility] [address] [place] [address] Dr. Sharif Farooq TSH RANGE SEE BELOW Normal [facility] Comment on above: Result Comment: <0.3 4 UIU/ml HYPERTHYROID 0.34-5.60 UIU/ml EUTHYROID >5.60 UIU/ml HYPOTHYROID Performed By: #### C BC #### [facility] [address] [place] [address] Dr. Sharif Farooq Cytology Cervical or vaginal smear or scraping studyon 04-23-2021 [facility] Vital Signs Date Time Vital Sign Value Performing Clinician Faci lity 08-08-2024 14:38-0500 Body height 167.64 cm [facility] 08-08-2024 14:38-0500 Body mass index (BMI) [Ratio] 32.3 kg/m2 [facility] 08-08-2024 14:38-0500 Body weight 90.7 kg [facility] 07-26-2024 11:30-0500 Body height 167.64 cm [facility] 07-26-2024 11:30-0500 Body mass index (BMI) [Ratio] 33.2 kg/m2 [facility] 07-26-2024 11:30-0500 Body weight 93.44 kg [facility] 07-26-2024 11:30-0500 Diastolic blood pressure 84 mm[Hg] [facility] 07-26-2024 11:30-0500 Heart rate 61 /min [facility] 07-26-2024 11:30-0500 Systolic blood pressure 152 mm[Hg] [facility] 04-23-2024 13:50-0500 Body height 167.6 cm Rupal Buckner PA Work Phone: [facility] 04-23-2024 13:50-0500 Body mass index (BMI) [Ratio] 32.35 kg/m2 Rupal Jayey PA Work Phone: [facility] 04-23-2024 13:50-0500 Body weight 90.9 kg Rupal Jorden PA Work Phone: [facility] 04-23-2024 13:50-0500 Diastolic blood pressure 84 mm[Hg] Rupal Jorden PA Work Phone: [facility] 04-23-2024 13:50-0500 Systolic blood pressure 136 mm[Hg] Rupal Jayey PA Work Phone: [facility] 01-31-2024 10:27-0400 Body height 167.6 cm Enma Apling [employer] Work Phone: [facility] 01-31-2024 10:27-0400 Body mass index (BMI) [Ratio] 32.28 kg/m2 Enma Apling [employer] Work Phone: [facility] 01-31-2024 10:27-0400 Body weight 90.72 kg Enma Apling [employer] Work Phone: [facility] Healthcare Encounters Encounter Date Encounter Type Care Provider Facility Start: 08-08-2024 End: 08-08-2024 ambulatory [facility] Work Phone: Start: 08-08-2024 End: 08-08-2024 Patient encounter procedure [facility] Physician [facility] Work Phone: Start: 07-26-2024 End: 07-26-2024 ambulatory [facility] Work Phone: Start: 07-26-2024 End: 07-26-2024 Patient encounter procedure [facility] Physician [facility] Work Phone: Start: 04-23-2024 End: 04-23-2024 Bamboo flowsheet Rupal HERMAN Work Phone: [facility] Start: 04-23-2024 End: 04-23-2024 Bamboo flowsheet Rupal HERMAN Work Phone: [facility] Start: 04-23-2024 End: 04-23-2024 Office outpatient visit 15 minutes Rupal HERMAN Work Phone: [facility] Comment on above: Uterine prolapse; Menopausal state Start: 04-23-2024 End: 04-23-2024 ambulatory RUPAL BUCKNER Not Available Start: 02-27-2024 End: 02-27-2024 Bamboo flowsheet Derek Parnell DO Work Phone: [facility] Start: 02-27-2024 End: 02-27-2024 Bamboo flowsheet Derek Parnell DO Work Phone: [facility] Start: 02-27-2024 End: 02-27-2024 Postop follow up visit related to original px Derek Parnell DO Work Phone: [facility] Comment on above: Arthritis of left kn ee Start: 02-27-2024 End: 02-27-2024 ambulatory DEREK PARNELL Not Available Start: 02-20-2024 End: 02-20-2024 Bamboo flowsheet Derek Parnell DO Work Phone: [facility] Start: 02-20-2024 End: 02-20-2024 Bamboo flowsheet Derek Parnell DO Work Phone: [facility] Start: 02-20-2024 End: 02-20-2024 Postop follow up visit related to original px Derek Parnell DO Work Phone: [facility] Comment on above: Arthritis of left kn ee Start: 02-20-2024 End: 02-20-2024 ambulatory DEREK PARNELL Not Available Start: 02-13-2024 End: 02-13-2024 Bamboo flowsheet Derek Parnell DO Work Phone: [facility] Start: 02-13-2024 End: 02-13-2024 Bamboo flowsheet Derek Parnell DO Work Phone: [facility] Start: 02-13-2024 End: 02-13-2024 Office outpatient visit 25 minutes Derek Parnell DO Work Phone: [facility] Comment on above: Left knee pain, unsp ecified chronicity (Primary Dx); Arthritis of left knee Start: 02-13-2024 End: 02-13-2024 ambulatory DEREK PARNELL Not Available Start: 01-31-2024 End: 01-31-2024 Bamboo flowsheet Enma Obando Apling [employer] Work Phone: [facility] Start: 01-31-2024 End: 01-31-2024 Bamboo flowsheet Enma Obando Apling [employer] Work Phone: [facility] Start: 01-31-2024 End: 01-31-2024 Office outpatient visit 25 minutes Enma Obando Apling [employer] Work Phone: [facility] Comment on above: Arthritis of left kn ee (Primary Dx); Left knee pain, unspecified chronicity Start: 01-31-2024 End: 01-31-2024 ambulatory ENMA Obando APLING Not Available Start: 08-15-2023 Patient encounter status [facility] Start: 10-02-2022 Encounter for genera l adult medical examination without abnormal findings DR ELIN GOLDBERG [facility] Start: 09-27-2022 End: 09-28-[address] ELIN GOLDBERG Facility:[facility] Start: 09-27-2022 End: 09-28-2022 Encounter for general adult medical examination without abnormal findings DR ELIN GOLDBERG Facility:[facility] Start: 07-19-2022 End: 07-20-[address] DOTTIE WEISS Facility:[facility] Start: 03-22-2022 End: 03-23-[address] KORI Stafford Facility:[facility] Start: 03-01-[address] ELIN GOLDBERG Facil ity:[facility] Start: 02-22-2022 End: 02-23-[address] [...] &/inj major jt/bursa w/o us Enma Wynne [employer] Work Phone: Start: 04-23-2021 Cytp cerv/vag auto t hin layer prep mnl screen Elin Goldberg MD Work Phone: Plan of Treatment Date Care Activity Detail Author Start: 06-18-2024 End: 06-18-2024 Patient encounter procedure 06/18/2024 8:30 AM EST Office Visit [facility] [address] [place] [id number] Rupal Buckner PA [address] [place] [address] [facility] Start: 02-27-2024 End: 02-27-2024 Patient encounter procedure [facility] Comment on above: Arthritis of left kn ee Start: 02-20-2024 End: 02-20-2024 Patient encounter procedure [facility] Comment on above: Arthritis of left kn ee Start: 02-13-2024 End: 02-13-2024 Patient encounter procedure 02/13/2024 10:15 AM EDT Office Visit [facility] [address] [place] [address] Derek Parnell DO [address] [place] [address] Arrived [facility] Comment on above: Arrived Start: 02-11-2024 Influenza vaccination Influenza Vacc ine (#1) [facility] Start: 01-31-2024 End: 01-31-2024 Patient encounter procedure 01/31/2024 10:30 AM EDT Office Visit [facility] [address] [place] [address] Enma Wynne, MARIANA [address] [place] [address] Left knee pain, unspecified chronicity [facility] Comment on above: Left knee pain, unsp ecified chronicity Start: 1997 Screening for malignant neoplasm of breast Mammogram [facility] Start: 1957 Screening for malignant neoplasm of colon [facility] XR Lumbar spine 2 or 3 Views [facility] [place] Immunizations Immunization Date Immunization Notes Care Provider Fa cility 02-15-2024 influenza virus vacc ine, unspecified formulation Derek Parnell DO Work Phone: [facility] 02-15-2023 Influenza, Seasonal, Quadrivalent, Adjuvanted Enma Wynne [employer] Work Phone: [facility] 02-15-2023 Pneumococcal Conjuga te PCV 20 Enma Apldoug [employer] Work Phone: [facility] 02-15-2023 influenza virus vacc ine, unspecified formulation Enma Apling [employer] Work Phone: [facility] 03-03-2022 Influenza, injectabl e, Madin Caldwell Canine Kidney, preservative free, quadrivalent Enma Apling [employer] Work Phone: [facility] 04-20-2009 novel influenza-H1N1 -09, preservative-free, injectable Enma Wynne [employer] Work Phone: [facility] Healthcare Payers Date Payer Category Payer Private Health Insurance [id number] 2024 Private Health Insurance CLI [id number] 2022 Medicare [id number] 2022 Medicare [id number] 2022 Unknown [id number] 2019 Unknown [id number] 1957 Unknown [id number] 2.16.84 [id number] 1957 Unknown [id number] 2.16.84 [id number] 1957 Unknown [id number] 2.16.84 [id number] 1957 Unknown [id number] 2.16.84 [id number] 1957 Unknown [id number] 2.16.84 [id number] 1957 Unknown [id number] 2.16.84 [id number] 1957 Unknown [id number] 2.16.84 [id number] 1957 Unknown [id number] 2.16.84 [id number] 1957 Unknown [id number] 2.16.84 [id number] 1957 Unknown [id number] 2.16.84 0.1.155816.3.579.2.1259 1957 Unknown [id number] 2.16.84 0.1.811726.3.579.2.1259 1957 Unknown [id number] 2.16.84 0.1.185126.3.579.2.1259 1957 Unknown [id number] 2.16.84 [id number] 1957 Unknown [id number] 2.16.84 [id number] Social History Date Type Detail Facility Start: 08-02-2023 End: 01-31-2024 Tobacco smoking status TXIS Never smoked tobacco [facility] Start: 01-31-2024 Tobacco use and exposure Smokeless tobacco non-user [facility] Start: 01-31-2024 History of Social function [facility] Start: 01-31-2024 Tobacco use panel [facility] Start: 1955 Sex assigned at Not on file [facility] Tobacco smoking status TXIS Tobacco smoking consumption unknown [facility] Start: 07-26-2024 End: 08-08-2024 Sex Female (finding) [facility] Start: 1955 Sex Assigned At Female [facility] NEGATED: Highlighted rowStart: NINF History of tobacco use Passive smoker [facility] Clinical Notes 02-22-2022 to 07-26-2024 Note Date & Type Note Facility 07-26-2024 Evaluation note Diagnosis Onset Date Resolution Left sided sciatica acute Febru brien 2024 11:21am [facility] Work Phone: [phone]) 182-345511-12-2024 History of Present illness Narrative* VIRGIL Monzon - 04/23/2024 1:40 PM EST Reason for Appointment: Patient ID: Irina Xiong [...] Ambulatory Problems Diagnosis Date Noted Essential hypertension (CMS/HCC) 03/12/2013 Headache 03/12/2013 Pain in limb 01/31/2024 Hyperlipidemia (CMS/HCC) 03/12/2013 Arthritis of left knee 01/31/2024 Internal derangement of left knee 01/31/2024 Other chronic pain 01/31/2024 Osteoarthritis of knee 01/31/2024 Primary osteoarthritis 01/31/2024 Resolved Ambulatory Problems Diagnosis Date Noted No Resolved Ambulatory Problems Past Medical History: Diagnosis Date Hypertension (CMS/HCC) HISTORY PAST MEDICAL HISTORY SOCIAL HISTORY Past Medical History: Diagnosis Date Hyperlipidemia (CMS/HCC) Hypertension (CMS/HCC) Social History Tobacco Use Smoking status: Never [...] behalf of: VIRGIL Monzon documented in this encounterNevada Regional Medical [id number] History of Present illness Narrative* Derek Parnell, - 02/27/2024 10:15 AM EDTAssociated Order(s): L Inj/Asp: L knee Post-Procedure Diagnose(s): [...] scribe for Dr. Parnell/patrick documented in this encounterNevada Regional Medical [id number] History of Present illness Narrative* Derek Parnell DO - 02/20/2024 10:15 AM EDTAssociated Order(s): L Inj/Asp: L knee Post-Procedure Diagnose(s): [...] scribe for Dr. Parnell/patrick documented in this encounterNevada Regional Medical [id number] History of Present illness Narrative* Derek Parnell DO - 02/13/2024 10:15 AM EDTAssociated Order(s): L Inj/Asp: L knee Post-Procedure Diagnose(s): Arthritis of left knee Images from the original note were not included. HISTORY OF PRESENT ILLNESS: Irina Xiong is an 68 y.o. @ female. Chief complaint LT knee pain LT Knee: 2 weeks s/p depo injx 01/30 by Erica with 15% improvement. Had two kenalog injections December 2021 (Erica) and had an MRI at [facility]. She went to pain management at [facility] with dr. Kan for injection (trigger [...] to hang on to things due to increasedpain in the am. The more active she is the more it hurts. Admits stiffness. She has not gotten backto where she was prior to 2021. Taking diclofenac bid and vicks prn, magnesium and capsicin. Not using ice or heat. Wearing a knee sleeve prn. Does not usually wake her at HS. She does not walk normally . [place]: XR [facility] 12/06/21, kenalog injection 12/22/21,and 01/05/22, MRI [facility] 01/20/22, pain management 02/2022 dr kan, magnesium, [...] X-rays of the left knee from the [facility] dated December 06, 2021. The x- rays are nonweightbearing. On the x-rays there are marginal osteophytes noted Both in the medial and lateral joint line. Patella is sitting laterally within the femoral trochlea. MRI from the [facility] dated January 20, 2022. MRI reveals absence of articular cartilage along the undersurface of patella with subchondral edema in the patella. There is also marked thinningof the articular cartilage throughout the remaining portions [...] well. Follow up in one week. Dr. Pranellobtained history and examined the patient, I am acting as scribe for Dr. Parnell/patrick. Joe Parnell D.O. documented in this encounterNevada Regional Medical [id number] History of Present illness Narrative* Enma Wynne NP - 01/31/2024 10:30 AM EDTAssociated Order(s): L Inj/Asp: L knee Post-Procedure Diagnose(s): Arthritis of left knee Subjective Patient ID: Irina Xiong is a 68 y.o. female. LT Knee no recent studies *Previously saw Erica in December of 2021 for LT knee pain and received two kenalog injections and had an MRI at [facility]. She went to pain management at [facility] with dr. Kan for injection (trigger [...] Wearing a knee sleeve prn. [place]: XR [facility] 12/06/21, kenalog injection 12/22/21,and 01/05/22, MRI [facility] 01/20/22, pain management 02/2022 dr kan, [...] an injection, side effects of bleeding and infectiondiscussed, would like to proceed with the injection, using aspectic technique 40 mg of depo medrol was injected into the left lateral knee, pt tolerated well, bandaid applied, may do activities as tolerated, f/u in 2 weeks. Will have her f/U with [facility] to possible visco injections documented in this encounterNevada Regional Medical [id number] NoteCONSULTATION CONSULTATION DATE: 03/22/2022 CHIEF COMPLAINT: Bilateral knee [...] on a p.r.n. basis. CC: Elin Goldberg M.D.[facility] [id number] NotePROCEDURE: XR KNEE RT 4V or > COMPARISON: None. HISTORY: Pain in right knee FINDINGS: BONES:No acute fracture or dislocation. Mild to moderate tricompartmental osteoarthropathy with marginal osteophyte formation SOFT TISSUES:Negative. No visible soft tissue swelling. EFFUSION:None visible. OTHER: Negative. IMPRESSION: Mild to moderate osteoarthritis Electronically authenticated by: DOTTIE WEISS Date: 2022-02-22 15:12[facility] [id number] NoteCONSULTATION CONSULTATION DATE: 02/22/2022 CHIEF COMPLAINT: Bilateral knee [...] would like to progress. CC: Joe Parnell D.O.[facility] [id number] NoteCONSULTATION PROCEDURE DATE: 02/22/2022 PREOPERATIVE DIAGNOSIS: Bilateral knee [...] followed up in the office in four weeks.[facility]* Diagnosis Uterine prolapse Uterine prolapse without mention [...] in this encounter [facility]* Diagnosis Onset Date Resolution Status Admit Date Left sided sciatica acute Febru brien 2024 11:21am [facility] Work Phone: Summary Purpose Family History No Family History Records FoundNo Family History Records Found Advance Directives Advance Directive Response Recorded Date/ Time Advance Directives No July 10:50am Reason for Referral Specialty Diagnoses / Procedures Referred By Garrett t Referred To Contact Orthopaedic Surgery Diagnoses Arthritis of left knee Procedures L Inj/Asp: L knee Derek Parnell, DO [address] [place] [address] Referral ID Status Reason Start Date Expiration Date V isits Requested Visits Authorized [id number] Authorized 02/27/2024 08/25/2024 1 1 Specialty Diagnoses / Procedures Referred By Garrett t Referred To Contact Orthopaedic Surgery Diagnoses Arthritis of left knee Procedures L Inj/Asp: L knee Enma Wynne, [employer] [address] [place] [address] Referral ID Status Reason Start Date Expiration Date V isits Requested Visits Authorized [id number] Authorized 01/31/2024 07/29/2024 1 1 Referral ID Status Reason Start Date Expiration Date V isits Requested Visits Authorized [id number] Authorized 02/13/2024 08/11/2024 1 1 Referral ID Status Reason Start Date Expiration Date V isits Requested Visits Authorized [id number] Authorized 02/20/2024 08/18/2024 1 1 Chief Complaint and Reason for Visit Chief Complaint Admit Date Back Pain July 26, 2024 11:21am low back pain August 08, 2024 2:32pm Reason for Visit Admit Date Left sided sciatica July 26, 2024 11:21am Chief Complaint Admit Date Back Pain July 26, 2024 11:21am Reason for Visit Admit Date Left sided sciatica July 26, 2024 11:21am Chief Complaint Admit Date Back Pain July 26, 2024 11:21am low back pain August 08, 2024 2:32pm Additional Source Comments INFORMATION SOURCE (unrecogn ized section and content) DATE CREATED AUTHOR 10/02/2022 [facility] DATE CREATED AUTHOR AUTHOR'S ORGANIZ ATSONIA 04/25/2024 [facility] Care Teams (unrecognized sec tion and content) Churn Operator Relationship Specialty Start Date End Date Elin Goldberg MD [address] [place] [address] PCP - General Family Medicine 01/31/24 Churn Operator Relationship Specialty Start Date End Date Elin Goldberg MD [address] [place] [phone] PCP - General Family Medicine 01/31/24 Churn Operator Relationship Specialty Start Date End Date Elin Goldberg MD [address] [place] [address] PCP - General Family Medicine 01/31/24 Churn Operator Relationship Specialty Start Date End Date Elin Goldberg MD [address] [place] [phone] PCP - General Family Medicine 01/31/24 Churn Operator Relationship Specialty Start Date End Date Elin Goldberg MD [address] [place] [phone] PCP - General Family Medicine 01/31/24 Churn Operator Relationship Specialty Start Date End Date Elin Goldberg MD [address] [place] [phone] PCP - General Family Medicine 01/31/24 Churn Operator Relationship Specialty Start Date End Date Elin Goldberg MD [address] [place] [phone] PCP - General Family Medicine 01/31/24 Churn Operator Relationship Specialty Start Date End Date Elin Goldberg MD [address] [place] [phone] PCP - General Family Medicine 01/31/24 Churn Operator Relationship Specialty Start Date End Date Elin Goldberg MD [address] [place] [phone] PCP - General Family Medicine 01/31/24 Churn Operator Relationship Specialty Start Date End Date Elin Goldberg MD [address] [place] [phone] PCP - General Family Medicine 01/31/24 Team Status: Active Member Role Status Dates Elin Goldberg MD Primary Care Provider Active Team Status: Inactive Member Role Status Dates Elin Goldberg MD Primary Care Provide r, Attending Provider Active Start: July 26, 2024 End: July 26, 2024 Team Status: Inactive Member Role Status Dates Elin Goldberg MD Primary Care Provider Active Start: August 08, 2024 End: August 08, 2024 Helene Swan APRN Attending Provider Active Start: August 08, 2024 End: August 08, 2024 Reason for Visit (unrecogniz ed section and content) Reason Comments Bladder Prolapse Patient voiced that about a week ago she felt a prolapse vaginally. Denies urinary incontinence, but does have frequency. Reason Comments Injections Reason Comments Follow-up Goals (unrecognized section and content) Goals may be documented in a n alternate sectionGoals may be documented in an alternate section FOR RECORDS PERTAINING TO PATIENTS WHO ARE [...] BE BASED ON THE PRIMARY CLINICAL RECORDS. [facility] [employer] [facility]. provides no warranty or guarantee of the accuracy or completeness of information in this document.
== END 2024-08-16 08:44 | disposition home or self-care (01) ==
LOC: MRI 08:43
PROVIDERS: PCP Family Medicine
DX: M54.50 Low back pain, unspecified (principal); M54.16 Radiculopathy, lumbar region; M54.32 Sciatica, left side; M25.552 Pain in left hip; M51.369 Other intervertebral disc degeneration, lumbar region without mention of lumbar back pain or lower extremity pain; M48.062 Spinal stenosis, lumbar region with neurogenic claudication
CPT/HCPCS: 72148; 73502

== ENCOUNTER 2024-09-02 13:50 | Outpatient (OUT) | payer MEDICARE, SELFPAY ==
--- NOTE | 2024-09-02 14:50 | P.CN_ITS ---
Consult Note: HPI Data of Consult Patient: new to practice Consult date: 09/02/24 Requesting Physician: Arturo Amos MD Primary Care Provider: Elin Kauffman MD Consult Narrative Reason for consult: low back, bilateral leg pain Narrative: 68yof who presents for evaluation. longstanding history of low back, bilateral lower extremity pain. recently saw back surgeon and states that she would like to remain as conservative as possible. lumbar mri reviewed, significant for multilevel moderate to severe canal stenosis from L2-5. also multilevel spondylosis noted. has continued in physical therapy weekly, without significant lasting benefit. tried flexeril, with some benefit. uses diclofenac. denies adverse med side effects. cc:: CC: Arturo Amos MD Review of Systems ROS Status of ROS 10 or more systems reviewed and unremark able except as noted in history and below Exam Narrative Exam Narrative: Psych-alert and oriented x 3. Attentive and appropriate, constitutionally normal, displays normal mood and affect per situation. There are no obvious deficits in memory, reasoning, or intellect.? Skin-no obvious rashes, bruising, erythema noted to the patient's area of pain.? Extremities- extremities are warm with minimal edema and palpable pulses. Lumbar-tenderness to palpation noted in the lumbar spine and paraspinal musculature. Pain is elicited with flexion, extension, and lateral rotation of the lumbar spine. Range of motion is diminished with these motions. Facet loading maneuvers are positive.? Strength-noted to be unremarkable with the exception of decreased strength rated at 4 out of 5 in bilateral quadriceps femoris, anterior tibialis. Sensory-no notable sensory deficits in the bilateral lower extremities to touch or pinprick in all dermatomal distributions with the exception to decreased sensation to the bilateral L3, 4, 5 dermatomal distribution Sacroiliac - tender to palpation to bilateral PSIS. positive db's bilaterally. positive thigh thrust bilaterally. Coordination remains intact.? Gait remains non-antalgic. Assessment and Plan Assessment and Plan (1) Lumbar stenosis with neurogenic claudication: (2) Lumbar spondylosis: (3) Sacroiliac joint disease: Plan 68yof who presents for evaluation. failed conservative measures, as noted. imaging reviewed, as noted. given symptoms and imaging, prudent to attempt bilateral L3-4 transforaminal epidural steroid injection under fluoroscopic guidance. may even benefit from bilateral si joint injection under fluoroscopic guidance. she is in agreement. meds reviewed, will trial gabapentin 300mg tid and flexeril 5mg tid prn. follow up after procedure.
== END 2024-09-02 13:51 | disposition home or self-care (01) ==
LOC: PM 13:51
PROVIDERS: PCP Family Medicine; Visit Provider Anesthesiology
DX: M48.062 Spinal stenosis, lumbar region with neurogenic claudication (principal); M47.816 Spondylosis without myelopathy or radiculopathy, lumbar region; M53.3 Sacrococcygeal disorders, not elsewhere classified
CPT/HCPCS: G0463

== ENCOUNTER 2024-09-09 06:58 | Day surgery (SDC) | payer MEDICARE, SELFPAY ==
--- OUTSIDE RECORDS SUMMARY | 2024-09-09 07:01 | XMS_ITS | CCD ---
Author Organization [facility] Care Team Providers Care Home Health Administrator Name Role Phone WEST, DR DOTTIE Alejo Consulting Unavailable YUSUF, DR ELIN Chopra Primary Care Unavailable ENMA WYNNE Attending Unavailable ENAM WYNNE Admitting Unavailable YUSUF, DR ELIN Chopra Consulting Unavailable ENMA WYNNE Consulting Unavailable SOHEILA, DR William Andrews Consulting Unavailable GOLDBERG, DR ELIN Chopra Primary Care Unavailable JAZMINE ., DR KROI Delgado Attending Unavailable KAN ., DR KORI Delgado Admitting Unavailable WEST, DR DOTTIE Alejo Consulting Unavailable KAN ., DR KORI Delgado Consulting Unavailable NEW VINEYARD, DR DOTTIE Alejo Consulting Unavailable GOLDBERG, DR ELIN Chopra Primary Care Unavailable GOLDBERG, DR ELIN Chopra Attending Unavailable GOLDBERG, DR ELIN Chopra Admitting Unavailable GOLDBERG, DR ELIN Chopra Consulting Unavailable KAN ., DR KORI Delgado Consulting Unavailable GOLDBERG, DR ELIN Chopra Primary Care Unavailable KAN ., DR KORI Delgado Attending Unavailable KAN ., DR KORI Delgado Admitting Unavailable RIVERA .LEO Consulting Unavailable GOLDBERG, DR ELIN Chopra [...] PARNELL Attending Unavailable RUPAL BUCKNER Attending Unavailable Yusuf CUNNINGHAM, Elin Primary Care Provider Bette CUNNINGHAM, Arturo Blackman Attending Unavailable Allergies Allergy Classification Reported Allergen(s) Allergy Type Date of Onset Reaction(s) Facility (14 sources) Prednisone Allergy to substance 01-31-2024 Unknown [facility] Medications Current Medications Medication Drug Class(es) Dates Sig (Normalized) Sig (Original) calcium carbonate 500 mg oral tablet (14 sources) calcium carbonat e (Os-Richard) 1250 (500 Ca) MG tablet Take by mouth Daily Active Diclofenac Sodium 75 mg tablet,delayed release (DR/EC) (3 sources) Start: 12-28-2023 Diclofenac Sodium 75 mg tablet,delayed release (DR/EC) Active 0 .ROUTE .COMPLEX 180 December 28, 2023 8:50am On Hold: None TAKE 1 TABLET TWICE DAILY Start: 12-28-2023 Diclofenac Sod ium 75 mg tablet,delayed release (DR/EC) Active 0 .ROUTE .COMPLEX 180 December 28, 2023 7:50am TAKE 1 TABLET TWICE DAILY estradiol 0.1 mg/ml vaginal cream (5 sources) Estrogen Start: 07-26-2024 Estradiol 0.01 % (0.1 mg/gram) cream Active 1 APPLICATOR VAGINAL Daily July 26, 2024 1:00am for 14 days Start: 04-24-2024 End: 05-24-2024 estradiol (Estrace) 0.1 MG/G M vaginal cream Indications: Menopausal state Insert 2 g into the vagina Daily Apply 1/2 APPLICATOR daily for 2 weeks, then twice weekly thereafter. 42.5 g 11 04/24/2024 05/24/2024 Active levothyroxine sodium 0.088 mg oral tablet (20 sources) l-Thyroxine Start: 08-22-2024 take 1 tablet by mouth once daily Levothyroxine 88 mcg tablet Active 88 MCG PO Daily August 22, 2024 10:20am Start: 01-30-2024 End: 08-22-2024 Levothyroxine 88 mcg tablet Discontinued 0 .ROUTE .COMPLEX 90 January 30, 2024 8:36am August 22, 2024 10:21am TAKE 1 TABLET EVERY DAY Start: 11-16-2023 End: 01-30-2024 take 1 tablet by mouth once daily Levothyroxine 88 mcg tablet Discontinued 88 MCG PO Daily November 16, 2023 11:20am January 30, 2024 8:36am Start: 08-15-2023 End: 02-13-2024 take 1 tablet by mouth once daily Levothyroxine (Synthroid) 75 mcg tablet Discontinued 75 MCG PO Daily August 15, 2023 1:00am November 16, 2023 11:21am FreeTextSig: TAKE 1 TABLET EVERY DAY; Note: Source Status: Start; Refills: 3; Qty: 90 Tablet; Provider: Yusuf Worthington ( ) magnesium gluconate 550 mg oral tablet (14 sources) take 1 tablet by mouth in the morning magnesium 30 MG tablet Take 30 mg by mouth in the morning and 30 mg before bedtime. Active 24 hr metoprolol succinate 100 mg extended release oral tablet (20 sources) beta-Adrenergic Paulette Start: 08-22-2024 take 1 tablet by mouth once daily Metoprolol Succinate 100 mg tablet extended release 24 hr Active 100 MG PO Daily August 22, 2024 10:21am Start: 03-12-2024 End: 08-22-2024 Metoprolol Succinate 100 mg tablet extended release 24 hr Discontinued 0 .ROUTE .COMPLEX March 12, 2024 10:58am August 22, 2024 10:21am TAKE 1 TABLET EVERY DAY Start: 08-15-2023 End: 03-12-2024 take 1 tablet by mouth once daily Metoprolol Succinate 100 mg tablet extended release 24 hr Discontinued 100 MG PO Daily August 15, 2023 1:00am March 12, 2024 10:58am FreeTextSig: TAKE 1 TABLET EVERY DAY; Note: Source Status: Start; Refills: 3; Qty: 90 Tablet; Provider: Yusuf Worthington ( ) rosuvastatin calcium 10 mg oral tablet (20 sources) HMG-CoA Reductase Inhibitor Start: 08-22-2024 take 1 tablet by mouth once daily Rosuvastatin 10 mg tablet Active 10 MG PO Daily August 22, 2024 10:21am Start: 03-12-2024 End: 08-22-2024 Rosuvastatin 10 mg tablet Discontinued 0 .ROUTE .COMPLEX March 12, 2024 10:58am August 22, 2024 10:21am TAKE 1 TABLET EVERY DAY Start: 03-12-2024 Rosuvastatin 1 0 mg tablet Active 0 .ROUTE .COMPLEX 90 March 12, 2024 9:58am TAKE 1 TABLET EVERY DAY Start: 08-15-2023 End: 03-12-2024 take 1 tablet by mouth once daily Rosuvastatin 10 mg tablet Discontinued 10 MG PO Daily August 15, 2023 1:00am March 12, 2024 10:58am FreeTextSig: TAKE 1 TABLET EVERY DAY; Note: Source Status: Start; Refills: 3; Qty: 90 Tablet; Provider: Yusuf Worthington ( ) Completed/Discontinued Medications Medication Drug Class(es) Dates Sig (Normalized) Sig (Original) diclofenac sodium 75 mg delayed release oral tablet (20 sources) Nonsteroidal Anti-inflammatory Drug Start: 08-03-2023 End: 12-28-2023 take 1 tablet by mouth twice daily Diclofenac Sodium 75 mg tablet,delayed release (DR/EC) Discontinued 75 MG PO Twice daily 60 August 03, 2023 3:10pm December 28, 2023 8:51am etodolac 400 mg oral tablet (5 sources) [...] Da te Episodic/Chronic Disorders of lipid metabolism (17 sources) Hyperlipidemia; Translations: [Hyperlipidemia, unspecified] Onset: 03-12-2013 01-31-2024 Chronic Essential hypertension (17 sources) Essential hypertension; Translations: [Essential (primary) hypertension] [...] left knee] Onset: 02-27-2022 01-31-2024 Chronic Osteoporosis (3 sources) Senile osteoporosis; Translations: [Age-related osteoporosis without current pathological fracture] Onset: 04-08-2015 08-14-2023 Chronic Other nervous system disorders (14 sources) Chronic pain; Translations: [Other chronic pain] Onset: 01-31-2024 01-31-2024 Chronic Other non-traumatic joint disorders (1 source) Hip pain; Translations: [Pain in left hip] 08-08-2024 Episodic Other non-traumatic joint disorders (2 sources) Pain in left hip; Translations: [Pain in joint, pelvic region and thigh] 08-08-2024 Episodic Other screening for suspected conditions (not mental [...] Spondylosis; intervertebral disc disorders; other back problems (13 sources) Disorder of left sciatic nerve; Translations: [Sciatica, left side] 07-26-2024 Episodic Thyroid disorders (3 sources) Hypothyroidism; Translations: [Hypothyroidism, unspecified] 08-15-2023 Chronic [...] Range Facility No Panel Informationon 02-26 Derek Parnell DO 02/27/2024 3:31 PM L Inj/Asp: L knee on 02/27/2024 10:19 AM Indications: pain Details: 21 G needle, anterolateral approach Medications: 2 mL SynoJoynt 20 MG/2ML Outcome: tolerated well, no immediate complications Procedure, treatment alternatives, risks and benefits explained, specific risks discussed. Consent was given by the patient. [facility] No Panel Informationon 02-19 Derek Parnell, DO 02/20/2024 3:56 PM L Inj/Asp: L knee on 02/20/2024 10:26 AM Indications: pain Details: 21 G needle, anterolateral approach Medications: 2 mL SynoJoynt 20 MG/2ML Outcome: tolerated well, no immediate complications Procedure, treatment alternatives, risks and benefits explained, specific risks discussed. Consent was given by the patient. [facility] No Panel Informationon 02-12 Derek Parnell, DO 02/13/2024 2:38 PM L Inj/Asp: L knee on 02/13/2024 12:27 PM Indications: pain Details: 21 G needle, anterolateral approach Medications: 2 mL SynoJoynt 20 MG/2ML Outcome: tolerated well, no immediate complications Procedure, treatment alternatives, risks and benefits explained, specific risks discussed. Consent was given by the patient. [facility] No Panel Informationon 01-30 Enma Wynne NP [...] discussed. Consent was given by the patient. [facility] CBC AUTO DIFFon 09-27-2022 BASO # 0.1 103/ul Normal 0.0-0.1 [facility] Comment on above: Performed By: #### C BC #### [facility] [address] [place] [address] Dr. Sharif Farooq Basophils/100 WBC (Bld) 1.9 % Normal 0.2-2.0 [facility] Comment on above: Performed By: #### C BC #### [facility] [address] [place] [address] Dr. Sharif Farooq EO # 0.1 103/ul Normal 0.0-0.7 [facility] Comment on above: Performed By: #### C BC #### [facility] [address] [place] [address] Dr. Sharif Farooq Eosinophils/100 WBC (Bld) 2.3 % Normal 0.9-7.0 [facility] Comment on above: Performed By: #### C BC #### [facility] [address] [place] [address] Dr. Sharif Farooq Erythrocyte distribution width (RBC) [Ratio] 14.6 % Normal 11.0-15.0 [facility] Comment on above: Performed By: #### C BC #### [facility] [address] [place] [address] Dr. Sharif Farooq Hematocrit (Bld) [Volume fraction] 41.7 % Normal 36.0-48.0 [facility] Comment on above: Performed By: #### C BC #### [facility] [address] [place] [address] Dr. Sharif Farooq Hemoglobin (Bld) [Mass/Vol] 13.7 g/dL Normal 12.0-16.0 [facility] Comment on above: Performed By: #### C BC #### [facility] [address] [place] [address] Dr. Sharif Farooq IG # 0.01 10e3/ul Normal 0.00-0.03 [facility] Comment on above: Performed By: #### C BC #### [facility] [address] [place] [address] Dr. Sharif Farooq IG % 0.2 % Normal 0.0-0.5 [facility] Comment on above: Performed By: #### C BC #### [facility] [address] [place] [address] Dr. Sharif Farooq LYMPH # 1.6 103/ul Normal 1.2-3.8 [facility] Comment on above: Performed By: #### C BC #### [facility] [address] [place] [address] Dr. Sharif Farooq Lymphocytes/100 WBC (Bld) 34.0 % Normal 20.5-60.0 [facility] Comment on above: Performed By: #### C BC #### [facility] [address] [place] [address] Dr. Sharif Farooq MANUAL DIFF REQ NO Normal [facility] Comment on above: Performed By: #### C BC #### [facility] [address] [place] [address] Dr. Sharif Farooq MCH (RBC) [Entitic mass] 27.5 pg Normal 26.7-34.0 [facility] Comment on above: Performed By: #### C BC #### [facility] [address] [place] [address] Dr. Sharif Farooq MCHC (RBC) [Mass/Vol] 32.9 g/dL Normal 29.9-35.2 [facility] Comment on above: Performed By: #### C BC #### [facility] [address] [place] [address] Dr. Sharif Farooq MCV (RBC) [Entitic vol] 83.7 fL Normal 81.0-99.0 [facility] Comment on above: Performed By: #### C BC #### [facility] [address] [place] [address] Dr. Sharif Farooq MONO # 0.5 103/ul Normal 0.3-0.8 [facility] Comment on above: Performed By: #### C BC #### [facility] [address] [place] [address] Dr. Sharif Farooq Monocytes/100 WBC (Bld) 9.5 % Normal 1.7-12.0 [facility] Comment on above: Performed By: #### C BC #### [facility] [address] [place] [address] Dr. Sharif Farooq NEUT # 2.5 103/ul Normal 1.4-6.5 [facility] Comment on above: Performed By: #### C BC #### [facility] [address] [address] [address] Sharif Farooq Neutrophils/100 WBC (Bld) 52.1 % Normal 43.0-75.0 [facility] Comment on above: Performed By: #### C BC #### [facility] [address] [place] [address] Dr. Sharif Farooq Platelet mean volume (Bld) [Entitic vol] 10.3 fL Normal 9.5-13.5 [facility] Comment on above: Performed By: #### C BC #### [facility] [address] [place] [address] Dr. Sharif Farooq PLT 250 103/ul Normal 150-450 [facility] Comment on above: Performed By: #### C BC #### [facility] [address] [place] [address] Dr. Sharif Farooq RBC 4.98 106/ul Normal 4.20-5.40 [facility] Comment on above: Performed By: #### C BC #### [facility] [address] [place] [address] Dr. Sharif Farooq WBC 4.8 103/ul Normal 4.0-11.0 [facility] Comment on above: Performed By: #### C BC #### [facility] [address] [place] [address] Dr. Sharif Farooq GLYCOHEMOGLOBIN A1Con 2022 ADA RECOMMENDATION SEE BELOW Normal [facility] Comment on above: Result Comment: ADA RECOMMENDED LIMIT 4.0 - 6.0 ADA THERAPEUTIC TARGET < 7.0 ACTION SUGGESTED > 7.0 Performed By: #### A 1C #### [facility] [address] [place] [address] Dr. Sharif Farooq Glucose [Mass/Vol] 111 mg/dL Normal The [facility] Comment on above: Performed By: #### A 1C #### [facility] [address] [place] [address] Dr. Sharif Farooq HbA1c (Bld) [Mass fraction] 5.5 % Normal 4.5-6.2 [facility] Comment on above: Performed By: #### A 1C #### [facility] [address] [address] [address] Sharif Farooq LIPID PROFILEon 09-27-2022 CHOL-HDL RATIO NORM SEE BELOW Normal [facility] Comment on above: Result Comment: 3.3 - 4.4 LOW RISK 4.4 - 7.1 AVERAGE RISK 7.1 - 11.0 MODERATE RISK >11.0 HIGH RISK Performed By: #### C BC #### [facility] [address] [address] [address] Sharif Farooq Cholesterol [Mass/Vol] 180 mg/dL Normal <=200 [facility] Comment on above: Performed By: #### C BC #### [facility] [address] [address] [address] Sharif Farooq Cholesterol in HDL [Mass/Vol] 61 mg/dL Critically high 40-60 [facility] Comment on above: Performed By: #### C BC #### [facility] [address] [address] [address] Sharif Farooq Cholesterol in LDL [Mass/Vol] 103.2 mg/dL Normal [facility] Comment on above: Performed By: #### C BC #### [facility] [address] [address] [address] Sharif Farooq Cholesterol.total/Ch olesterol in HDL [Mass ratio] 3.0 {ratio} Normal [facility] Comment on above: Performed By: #### C BC #### [facility] [address] [address] [address] Sharif Farooq HDL NORMAL > or = 60 mg/dl - LO W CARDIOVASCULAR RISK <40 mg/dl - HIGH CARDIOVASCULAR RISK Normal [facility] Comment on above: Performed By: #### C BC #### [facility] [id number] Sharif Farooq LDL CALC NORMAL SEE BELOW Normal [facility] Comment on above: Result Comment: <100 mg/dl OPTIMAL 100 - 129 mg/dl NEAR OR ABOVE OPTIMAL 130 - 159 mg/dl BORDERLINE HIGH 160 - 189 mg/dl HIGH >190 mg/dl VERY HIGH Performed By: #### C BC #### [facility] [address] [place] [address] Dr. Sharif Farooq Triglyceride [Mass/Vol] 79 mg/dL Normal <=150 [facility] Comment on above: Performed By: #### C BC #### [facility] [address] [place] [address] Dr. Sharif Farooq VLDL CALC 15.8 mg/dL Normal [facility] Comment on above: Performed By: #### C BC #### [facility] [address] [place] [address] Dr. Sharif Farooq PROF 14(COMP METB)on 023 Albumin [Mass/Vol] 3.9 g/dL Normal 3.4-5.0 [facility] Comment on above: Performed By: #### C BC #### [facility] [address] [place] [address] Dr. Sharif Farooq Albumin/Globulin [Mass ratio] 1.0 {ratio} Normal [facility] Comment on above: Performed By: #### C BC #### [facility] [address] [place] [address] Dr. Sharif Farooq ALP [Catalytic activity/Vol] 84 U/L Normal 46-116 [facility] Comment on above: Performed By: #### C BC #### [facility] [address] [place] [address] Dr. Sharif Farooq ALT [Catalytic activity/Vol] 37 U/L Normal 14-59 [facility] Comment on above: Performed By: #### C BC #### [facility] [address] [place] [address] Dr. Sharif Farooq Anion gap [Moles/Vol] 13.4 mmol/L Normal [facility] Comment on above: Performed By: #### C BC #### [facility] [address] [place] [address] Dr. Sharif Farooq AST [Catalytic activity/Vol] 21 U/L Normal 15-37 [facility] Comment on above: Performed By: #### C BC #### [facility] [address] [place] [address] Dr. Sharif Farooq Bilirubin [Mass/Vol] 0.8 mg/dL Normal 0.2-1.0 [facility] Comment on above: Performed By: #### C BC #### [facility] [address] [place] [address] Dr. Sharif Farooq Calcium [Mass/Vol] 9.7 mg/dL Normal 8.5-10.1 [facility] Comment on above: Performed By: #### C BC #### [facility] [address] [place] [address] Dr. Sharif Farooq Chloride [Moles/Vol] 105 mmol/L Normal 98-107 [facility] Comment on above: Performed By: #### C BC #### [facility] [address] [place] [address] Dr. Sharif Farooq CO2 [Moles/Vol] 26.8 mmol/L Normal 21.0-32.0 [facility] Comment on above: Performed By: #### C BC #### [facility] [address] [place] [address] Dr. Sharif Farooq Creatinine [Mass/Vol] 0.94 mg/dL Normal 0.55-1.02 [facility] Comment on above: Performed By: #### C BC #### [facility] [address] [place] [address] Dr. Sharif Farooq EGFR-AF LIBERIAN >60 Normal >=60 [facility] Comment on above: Performed By: #### C BC #### [facility] [address] [place] [address] Dr. Sharif Farooq EGFR-NON AF LIBERIAN 60 mL/min/1.73m2 Normal >=60 [facility] Comment on above: Performed By: #### C BC #### [facility] [address] [place] [address] Dr. Sharif Farooq Globulin (S) [Mass/Vol] 3.9 g/dL Normal [facility] Comment on above: Performed By: #### C BC #### [facility] [address] [place] [address] Dr. Sharif Farooq Glucose [Mass/Vol] 105 mg/dL Normal 74-106 The [facility] Comment on above: Performed By: #### C BC #### [facility] [address] [address] [address] Sharif Farooq Potassium [Moles/Vol] 4.2 mmol/L Normal 3.5-5.1 [facility] Comment on above: Performed By: #### C BC #### [facility] [address] [address] [address] Sharif Farooq Protein [Mass/Vol] 7.8 g/dL Normal 6.4-8.2 [facility] Comment on above: Performed By: #### C BC #### [facility] [address] [address] [address] Sharif Farooq Sodium [Moles/Vol] 141 mmol/L Normal 136-145 [facility] Comment on above: Performed By: #### C BC #### [facility] [address] [address] [address] Sharif Farooq Urea nitrogen [Mass/Vol] 21.0 mg/dL Critically high 7.0-18.0 [facility] Comment on above: Performed By: #### C BC #### [facility] [address] [address] [address] Sharif Farooq Urea nitrogen/Creatinine [Mass ratio] 22.3 mg/mg Normal [facility] Comment on above: Performed By: #### C BC #### [facility] [address] [address] [address] Sharif Farooq TSHon 09-27-2022 TSH 3.122 uIU/mL Normal 0.358-3.740 [facility] Comment on above: Performed By: #### C BC #### [facility] [address] [address] [address] Sharif Farooq MG MAMM SCREEN 3D OMAR CADon 07-19-2022 MG MAMM SCREEN 3D OMAR CAD Patient: IRINA XIONG Exam Date: 07/19/2022 : 1955 Gender:F Ordering : DR ELIN GOLDBERG M.D. Admission #: [id number] Family : Order #: [id number] CLICK HERE TO VIEW EXAM RADIOLOGY REPORT [...] breast cancer at age 62. LOCATION: [facility] BREAST COMPOSITION: Scattered areas fibroglandular density. [...] MD on 07/20/2022 at 09:22 Normal [facility] MRI KNEE LT WO CONon 08-11-2 022 MRI KNEE LT WO CON EXAMINATION: [...] DOTTIE WEISS Date: 2022-01-20 18:22 Normal [facility] XR KNEE LT 4V or >on [...] of suspicion, consider MRI. Electronically authenticated by: JSOH SHEA Date: 2021-12-06 18:26 Normal [facility] CBC AUTO DIFFon 10-12-2021 BASO # 0.1 103/ul Normal 0.0-0.1 [facility] Comment on above: Performed By: #### C BC #### [facility] [address] [place] [address] Dr. Sharif Farooq Basophils/100 WBC (Bld) 1.8 % Normal 0.2-2.0 [facility] Comment on above: Performed By: #### C BC #### [facility] [address] [place] [address] Dr. Sharif Farooq EO # 0.1 103/ul Normal 0.0-0.7 [facility] Comment on above: Performed By: #### C BC #### [facility] [address] [place] [address] Dr. Sharif Farooq Eosinophils/100 WBC (Bld) 2.0 % Normal 0.9-7.0 [facility] Comment on above: Performed By: #### C BC #### [facility] [address] [place] [address] Dr. Sharif Farooq Erythrocyte distribution width (RBC) [Ratio] 14.1 % Normal 11.0-15.0 [facility] Comment on above: Performed By: #### C BC #### [facility] [address] [place] [address] Dr. Sharif Farooq Hematocrit (Bld) [Volume fraction] 41.9 % Normal 36.0-48.0 [facility] Comment on above: Performed By: #### C BC #### [facility] [address] [address] [address] Sharif Farooq Hemoglobin (Bld) [Mass/Vol] 13.6 g/dL Normal 12.0-16.0 [facility] Comment on above: Performed By: #### C BC #### [facility] [address] [place] [address] Dr. Sharif Farooq IG # 0.01 10e3/ul Normal 0.00-0.03 [facility] Comment on above: Performed By: #### C BC #### [facility] [address] [place] [address] Dr. Sharif Farooq IG % 0.2 % Normal 0.0-0.5 [facility] Comment on above: Performed By: #### C BC #### [facility] [address] [place] [address] Dr. Sharif Farooq LYMPH # 2.1 103/ul Normal 1.2-3.8 [facility] Comment on above: Performed By: #### C BC #### [facility] [address] [place] [address] Dr. Sharif Farooq Lymphocytes/100 WBC (Bld) 34.7 % Normal 20.5-60.0 [facility] Comment on above: Performed By: #### C BC #### [facility] [address] [place] [address] Dr. Sharif Farooq MANUAL DIFF REQ NO Normal [facility] Comment on above: Performed By: #### C BC #### [facility] [address] [place] [address] Dr. Sharif Farooq MCH (RBC) [Entitic mass] 27.6 pg Normal 26.7-34.0 [facility] Comment on above: Performed By: #### C BC #### [facility] [address] [place] [address] Dr. Sharif Farooq MCHC (RBC) [Mass/Vol] 32.5 g/dL Normal 29.9-35.2 [facility] Comment on above: Performed By: #### C BC #### [facility] [address] [address] [address] Sharif Farooq MCV (RBC) [Entitic vol] 85.2 fL Normal 81.0-99.0 [facility] Comment on above: Performed By: #### C BC #### [facility] [address] [address] [address] Sharif Farooq MONO # 0.6 103/ul Normal 0.3-0.8 [facility] Comment on above: Performed By: #### C BC #### [facility] [address] [address] [address] Sharif Farooq Monocytes/100 WBC (Bld) 9.8 % Normal 1.7-12.0 [facility] Comment on above: Performed By: #### C BC #### [facility] [address] [place] [address] Dr. Sharif Farooq NEUT # 3.1 103/ul Normal 1.4-6.5 [facility] Comment on above: Performed By: #### C BC #### [facility] [address] [place] [address] Dr. Sharif Farooq Neutrophils/100 WBC (Bld) 51.5 % Normal 43.0-75.0 [facility] Comment on above: Performed By: #### C BC #### [facility] [address] [place] [address] Dr. Sharif Farooq Platelet mean volume (Bld) [Entitic vol] 9.9 fL Normal 9.5-13.5 [facility] Comment on above: Performed By: #### C BC #### [facility] [address] [place] [address] Dr. Sharif Farooq PLT 233 103/ul Normal 150-450 [facility] Comment on above: Performed By: #### C BC #### [facility] [address] [place] [address] Dr. Sharif Farooq RBC 4.92 106/ul Normal 4.20-5.40 [facility] Comment on above: Performed By: #### C BC #### [facility] [address] [address] [address] Sharif Farooq WBC 6.0 103/ul Normal 4.0-11.0 [facility] Comment on above: Performed By: #### C BC #### [facility] [address] [place] [address] Dr. Sharif Farooq GLYCOHEMOGLOBIN A1Con 2021 ADA RECOMMENDATION SEE BELOW Normal The [facility] Comment on above: Result Comment: ADA RECOMMENDED LIMIT 4.0 - 6.0 ADA THERAPEUTIC TARGET < 7.0 ACTION SUGGESTED > 7.0 Performed By: #### A 1C #### [facility] [address] [place] [address] Dr. Sharif Farooq Glucose [Mass/Vol] 114 mg/dL Normal The [facility] Comment on above: Performed By: #### A 1C #### [facility] [address] [place] [address] Dr. Sharif Farooq HbA1c (Bld) [Mass fraction] 5.6 % Normal 4.5-6.2 [facility] Comment on above: Performed By: #### A 1C #### [facility] [address] [place] [address] Dr. Sharif Farooq LIPID PROFILEon 10-12-2021 CHOL-HDL RATIO NORM SEE BELOW Normal [facility] Comment on above: Result Comment: 3.3 - 4.4 LOW RISK 4.4 - 7.1 AVERAGE RISK 7.1 - 11.0 MODERATE RISK >11.0 HIGH RISK Performed By: #### C BC #### [facility] [address] [place] [address] Dr. Sharif Farooq Cholesterol [Mass/Vol] 157 mg/dL Normal <=200 [facility] Comment on above: Performed By: #### C BC #### [facility] [address] [place] [address] Dr. Sharif Farooq Cholesterol in HDL [Mass/Vol] 68 mg/dL Critically high 40-60 [facility] Comment on above: Performed By: #### C BC #### [facility] [address] [place] [address] Dr. Sharif Farooq Cholesterol in LDL [Mass/Vol] 66.0 mg/dL Normal [facility] Comment on above: Performed By: #### C BC #### [facility] [address] [address] [address] Sharif Farooq Cholesterol.total/Ch olesterol in HDL [Mass ratio] 2.3 {ratio} Normal [facility] Comment on above: Performed By: #### C BC #### [facility] [address] [address] [address] Sharif Farooq HDL NORMAL > or = 60 mg/dl - LO W CARDIOVASCULAR RISK <40 mg/dl - HIGH CARDIOVASCULAR RISK Normal [facility] Comment on above: Performed By: #### C BC #### [facility] [address] [address] [address] Sharif Farooq LDL CALC NORMAL SEE BELOW Normal [facility] Comment on above: Result Comment: <100 mg/dl OPTIMAL 100 - 129 mg/dl NEAR OR ABOVE OPTIMAL 130 - 159 mg/dl BORDERLINE HIGH 160 - 189 mg/dl HIGH >190 mg/dl VERY HIGH Performed By: #### C BC #### [facility] [address] [address] [address] Sharif Farooq Triglyceride [Mass/Vol] 115 mg/dL Normal <=150 [facility] Comment on above: Performed By: #### C BC #### [facility] [address] [place] [address] Dr. Sharif Farooq VLDL CALC 23.0 mg/dL Normal [facility] Comment on above: Performed By: #### C BC #### [facility] [address] [address] [address] Sharif Farooq PROF 14(COMP METB)on 022 Albumin [Mass/Vol] 4.0 g/dL Normal 3.4-5.0 [facility] Comment on above: Performed By: #### C BC #### [facility] [address] [place], [place] [address] Dr. Sharif Farooq Albumin/Globulin [Mass ratio] 1.1 {ratio} Normal [facility] Comment on above: Performed By: #### C BC #### [facility] [address] [address] [address] Sharif Farooq ALP [Catalytic activity/Vol] 74 U/L Normal 46-116 [facility] Comment on above: Performed By: #### C BC #### [facility] [address] [place] [address] Dr. Sharif Farooq ALT [Catalytic activity/Vol] 34 U/L Normal 14-59 [facility] Comment on above: Performed By: #### C BC #### [facility] [address] [place] [address] Dr. Sharif Farooq Anion gap [Moles/Vol] 12.1 mmol/L Normal [facility] Comment on above: Performed By: #### C BC #### [facility] [address] [place] [address] Dr. Sharif Farooq AST [Catalytic activity/Vol] 22 U/L Normal 15-37 [facility] Comment on above: Performed By: #### C BC #### [facility] [address] [place] [address] Dr. Sharif Farooq Bilirubin [Mass/Vol] 1.5 mg/dL Critically high 0.2-1.0 [facility] Comment on above: Performed By: #### C BC #### [facility] [address] [place] [address] Dr. Sharif Farooq Calcium [Mass/Vol] 9.1 mg/dL Normal 8.5-10.1 [facility] Comment on above: Performed By: #### C BC #### [facility] [address] [place] [address] Dr. Sharif Farooq Chloride [Moles/Vol] 103 mmol/L Normal 98-107 [facility] Comment on above: Performed By: #### C BC #### [facility] [address] [place] [address] Dr. Sharif Farooq CO2 [Moles/Vol] 27.9 mmol/L Normal 21.0-32.0 The [facility] Comment on above: Performed By: #### C BC #### [facility] [address] [place] [address] Dr. Sharif Farooq Creatinine [Mass/Vol] 0.93 mg/dL Normal 0.55-1.02 [facility] Comment on above: Performed By: #### C BC #### [facility] [address] [address] [address] Sharif Farooq EGFR-AF LIBERIAN >60 Normal >=60 [facility] Comment on above: Performed By: #### C BC #### [facility] [address] [address] [address] Sharif Farooq EGFR-NON AF LIBERIAN >60 Normal >=60 [facility] Comment on above: Performed By: #### C BC #### [facility] [address] [address] [address] Sharif Farooq Globulin (S) [Mass/Vol] 3.7 g/dL Normal [facility] Comment on above: Performed By: #### C BC #### [facility] [address] [place] [address] Dr. Sharif Farooq Glucose [Mass/Vol] 118 mg/dL Critically high 74-106 [facility] Comment on above: Performed By: #### C BC #### [facility] [address] [address] [address] Sharif Farooq Potassium [Moles/Vol] 4.0 mmol/L Normal 3.5-5.1 [facility] Comment on above: Performed By: #### C BC #### [facility] [address] [place] [address] Dr. Sharif Farooq Protein [Mass/Vol] 7.7 g/dL Normal 6.1-8.2 The [facility] Comment on above: Performed By: #### C BC #### [facility] [address] [address] [address] Sharif Farooq Sodium [Moles/Vol] 139 mmol/L Normal 136-145 The [facility] Comment on above: Performed By: #### C BC #### [facility] [address] [place] [address] Dr. Sharif Farooq Urea nitrogen [Mass/Vol] 14.0 mg/dL Normal 7.0-18.0 [facility] Comment on above: Performed By: #### C BC #### [facility] [address] [address] [address] Sharif Farooq Urea nitrogen/Creatinine [Mass ratio] 15.1 mg/mg Normal [facility] Comment on above: Performed By: #### C BC #### [facility] [address] [address] [address] Sharif Farooq TSHon 10-12-2021 TSH 2.998 uIU/mL Normal 0.470-4.680 [facility] Comment on above: Performed By: #### C BC #### [facility] [address] [place] [address] Dr. Sharif Farooq TSH RANGE SEE BELOW Normal [facility] Comment on above: Result Comment: <0.3 4 UIU/ml HYPERTHYROID 0.34-5.60 UIU/ml EUTHYROID >5.60 UIU/ml HYPOTHYROID Performed By: #### C BC #### [facility] [address] [place] [address] Dr. Sharif Farooq Cytology Cervical or vaginal smear or scraping studyon 04-23-2021 [facility] Vital Signs Date Time Vital Sign Value Performing Clinician Bharathi muse 08-22-2024 10:16-0400 Body height 167.64 cm [facility] 08-22-2024 10:16-0400 Body mass index (BMI) [Ratio] 32.3 kg/m2 [facility] 08-22-2024 10:16-0400 Body weight 90.9 kg [facility] 08-08-2024 14:38-0500 Body height 167.64 cm [facility] 08-08-2024 14:38-0500 Body mass index (BMI) [Ratio] 32.3 kg/m2 [facility] 08-08-2024 14:38-0500 Body weight 90.7 kg [facility] 07-26-2024 11:30-0500 Body height 167.64 cm [facility] 07-26-2024 11:30-0500 Body mass index (BMI) [Ratio] 33.2 kg/m2 [facility] 07-26-2024 11:30-0500 Body weight 93.44 kg [facility] 07-26-2024 11:30-0500 Diastolic blood pressure 84 mm[Hg] [facility] 07-26-2024 11:30-0500 Heart rate 61 /min [facility] 07-26-2024 11:30-0500 Systolic blood pressure 152 mm[Hg] [facility] 04-23-2024 13:50-0500 Body height 167.6 cm Rupal Jorden PA Work Phone: [facility] 04-23-2024 13:50-0500 Body mass index (BMI) [Ratio] 32.35 kg/m2 Rupal Jorden PA Work Phone: [facility] 04-23-2024 13:50-0500 Body weight 90.9 kg Rupal Albertville PA Work Phone: [facility] 04-23-2024 13:50-0500 Diastolic blood pressure 84 mm[Hg] Rupal Albertville PA Work Phone: [facility] 04-23-2024 13:50-0500 Systolic blood pressure 136 mm[Hg] Rupal Albertville PA Work Phone: [facility] 01-31-2024 10:27-0400 Body height 167.6 cm Enma Wynne [employer] Work Phone: [facility] 01-31-2024 10:27-0400 Body mass index (BMI) [Ratio] 32.28 kg/m2 Enma Apling [employer] Work Phone: [facility] 01-31-2024 10:27-0400 Body weight 90.72 kg Enma Apling [employer] Work Phone: [facility] Healthcare Encounters Encounter Date Encounter Type Care Provider Facility Start: 09-02-2024 End: 09-02-2024 ambulatory Arturo Amos MD Facility:[facility] Start: 08-22-2024 End: 08-22-2024 ambulatory [facility] Work Phone: Start: 08-22-2024 End: 08-22-2024 Patient encounter procedure [facility] Work Phone: Start: 08-08-2024 End: 08-08-2024 ambulatory [facility] Work Phone: Start: 08-08-2024 End: 08-08-2024 Patient encounter procedure [facility] Work Phone: Start: 07-26-2024 End: 07-26-2024 ambulatory [facility] Work Phone: Start: 07-26-2024 End: 07-26-2024 Patient encounter procedure [facility] Work Phone: Start: 04-23-2024 End: 04-23-2024 Bamboo flowsheet Rupal HERMAN Work Phone: [facility] Start: 04-23-2024 End: 04-23-2024 Bamboo flowsheet Rupal Buckner PA Work Phone: [facility] Start: 04-23-2024 [...] original px Derek Parnell DO Work Phone: [facility] Comment on above: Arthritis of left kn ee Start: 02-20-2024 End: 02-20-2024 ambulatory DEREK PARNELL Not Available Start: 02-13-2024 End: 02-13-2024 Bamboo flowsheet Derek Parnell DO Work Phone: [facility] Start: 02-13-2024 End: 02-13-2024 Bamboo flowsheet Derek Parnell DO Work Phone: [facility] Start: 02-13-2024 End: 02-13-2024 Office outpatient visit 25 minutes Derek Parnell DO Work Phone: [facility] Comment on above: Left knee pain, unsp ecified chronicity (Primary Dx); Arthritis of left knee Start: 02-13-2024 End: 02-13-2024 ambulatory DEREK PARNELL Not Available Start: 01-31-2024 End: 01-31-2024 Bamboo flowsheet Enma Wynne [employer] Work Phone: [facility] Start: 01-31-2024 End: 01-31-2024 Bamboo flowsheet Enma Obando Apling [employer] Work Phone: [facility] Start: 01-31-2024 End: 01-31-2024 Office outpatient visit 25 minutes Enma Wynne [employer] Work Phone: [facility] Comment on above: Arthritis of left kn ee (Primary Dx); Left knee pain, unspecified chronicity Start: 01-31-2024 End: 01-31-2024 ambulatory ENMA WYNNE Not Available Start: 08-15-2023 Patient encounter status [facility] Start: 10-02-2022 Encounter for genera l adult medical examination without abnormal findings DR ELIN GOLDBERG [facility] Start: 09-27-2022 End: 09-28-[address] ELIN GOLDBERG Facility:[facility] Start: 09-27-2022 End: 09-28-2022 Encounter for general adult medical examination without abnormal findings DR ELIN GOLDBERG Facility:[facility] Start: 07-19-2022 End: 07-20-[address] DOTTIE WEISS Facility:[facility] Start: 03-22-2022 End: 03-23-[address] KORI Stafford Facility:[facility] Start: 03-01-[address] ELIN GOLDBERG [facility] ity:[facility] Start: 02-22-2022 End: 02-23-[address] [...] &/inj major jt/bursa w/o us Enma Wynne [employer] Work Phone: Start: 04-23-2021 Cytp cerv/vag auto t hin layer prep mnl screen Elin Goldberg MD Work Phone: Plan of Treatment Date Care Activity Detail Author Start: 06-18-2024 End: 06-18-2024 Patient encounter procedure 06/18/2024 8:30 AM EST Office Visit [facility] [address] [place] [id number] Rupal Buckner PA [address] [place] [address] [facility] Start: 02-27-2024 End: 02-27-2024 Patient encounter procedure [facility] Comment on above: Arthritis of left kn ee Start: 02-20-2024 End: 02-20-2024 Patient encounter procedure [facility] Comment on above: Arthritis of left kn ee Start: 02-13-2024 End: 02-13-2024 Patient encounter procedure 02/13/2024 10:15 AM EDT Office Visit [facility] [address] [place] [address] Derek Parnell DO [address] [place] [address] Arrived [facility] Comment on above: Arrived Start: 02-11-2024 Influenza vaccination Influenza Vacc ine (#1) [facility] Start: 01-31-2024 End: 01-31-2024 Patient encounter procedure 01/31/2024 10:30 AM EDT Office Visit [facility] [address] [place] [address] Enma Wynne, MARIANA [address] [place] [address] Left knee pain, unspecified chronicity [facility] Comment on above: Left knee pain, unsp ecified chronicity Start: 1997 Screening for malignant neoplasm of breast Mammogram [facility] Start: 1957 Screening for malignant neoplasm of colon [facility] MR Lumbar spine WO contrast [facility] Patient Education Low back pain in adults [facility] Work Phone: XR Hip - left 2 Views [facility] XR Lumbar spine 2 or 3 Views [facility] Immunizations Immunization Date Immunization Notes Care Provider Michael palmer 02-15-2024 influenza virus vacc ine, unspecified formulation Derek ParmarSoheila DO Work Phone: [facility] 02-15-2023 Influenza, Seasonal, Quadrivalent, Adjuvanted Enma Apling [employer] Work Phone: [facility] 02-15-2023 Pneumococcal Conjuga te PCV 20 Enma Apling [employer] Work Phone: [facility] 02-15-2023 influenza virus vacc ine, unspecified formulation Enma Apling [employer] Work Phone: [facility] 03-03-2022 Influenza, injectabl e, Madin Cassandra Canine Kidney, preservative free, quadrivalent Enma Apling [employer] Work Phone: [facility] 04-20-2009 novel influenza-H1N1 -09, preservative-free, injectable Enma Apling [employer] Work Phone: [facility] Payers Date Payer Category Payer Private Health Insurance [id number] 2024 Private Health Insurance CLI [id number] 2022 Medicare [id number] 2022 Medicare [id number] 2022 Unknown [id number] 2019 Unknown [id number] 1957 Unknown [id number] 2.16.84 [id number] 1957 Unknown [id number] 2.16.84 0.1.616544.3.579.2.593 1957 Unknown [id number] 2.16.84 0.1.108711.3.579.2.593 1957 Unknown [id number] 2.16.84 0.1.025056.3.579.2.593 1957 Unknown [id number] 2.16.84 0.1.170242.3.579.2.593 1957 Unknown [id number] 2.16.84 0.1.194560.3.579.2.593 1957 Unknown [id number] 2.16.84 0.1.966515.3.579.2.593 1957 Unknown [id number] 2.16.84 0.1.177768.3.579.2.593 1957 Unknown [id number] 2.16.84 0.1.442008.3.579.2.593 1957 Unknown [id number] 2.16.84 0.1.963243.3.579.2.1259 1957 Unknown [id number] 2.16.84 0.1.272497.3.579.2.1259 1957 Unknown [id number] 2.16.84 0.1.030464.3.579.2.1259 1957 Unknown [id number] 2.16.84 0.1.657994.3.579.2.1259 1957 Unknown [id number] 2.16.84 0.1.626751.3.579.2.1259 1957 Unknown [id number] 2.16. [id number] Social History Date Type Detail Facility Start: 08-02-2023 End: 01-31-2024 Tobacco smoking status OKIS Never smoked tobacco [facility] Start: 01-31-2024 Tobacco use and exposure Smokeless tobacco non-user [facility] Start: 01-31-2024 History of Social function [facility] Start: 01-31-2024 Tobacco use panel [facility] Start: 1955 Sex assigned at Not on file [facility] Healthcare Tobacco smoking status NHIS Tobacco smoking consumption unknown [facility] Start: 07-26-2024 End: 08-22-2024 Sex Female (finding) [facility] Start: 1955 Sex Assigned At Female [facility] NEGATED: Highlighted rowStart: NINF History of tobacco use Passive smoker [facility] Clinical Notes 02-22-2022 to 07-26-2024 Note Date & Type Note Facility 07-26-2024 Evaluation note Diagnosis Onset Date Resolution Left sided sciatica acute Febru 2024 11:21am [facility] Work Phone: 1(934) 969-420102-14-2025 Evaluation note* Diagnosis Onset Date Resolution Status Admit Date Left sided sciatica acute Febru 2024 11:21am Left hip pain acute August 082024 2:32pm Left lumbar radiculopathy acute August 08, 2024 2:32pm Left sided sciatica acute Febru 2024 2:32pm Low back pain acute August 082024 2:32pm Left hip pain acute August 22, 2024 10:17am Left lumbar radiculopathy acute August 22, 2024 10:17am Low back pain acute August 22, 2024 10:17am [facility] Work Phone: 1(274) 540-824611-12-2024 History of Present illness Narrative* VIRGIL Monzon [...] Ambulatory Problems Diagnosis Date Noted Essential hypertension ([facility]/HCC) 03/12/2013 Headache 03/12/2013 Pain in limb 01/31/2024 Hyperlipidemia ([facility]/HCC) 03/12/2013 Arthritis of left knee 01/31/2024 Internal derangement of left knee 01/31/2024 Other chronic pain 01/31/2024 Osteoarthritis of knee 01/31/2024 Primary osteoarthritis 01/31/2024 Resolved Ambulatory Problems Diagnosis Date Noted No Resolved Ambulatory Problems Past Medical History: Diagnosis Date Hypertension (CMS/HCC) HISTORY PAST MEDICAL HISTORY SOCIAL HISTORY Past Medical History: Diagnosis Date Hyperlipidemia ([facility]) Hypertension ([facility]) Social History Tobacco Use Smoking status: Never [...] behalf of: VIRGIL Monzon documented in this encounterThe Rehabilitation [id number] History of Present illness Narrative* Derek Parnell DO - 02/27/2024 10:15 AM EDTAssociated Order(s): L [...] scribe for Dr. Parnell/patrick documented in this [facility]09-10-2024 History of Present illness Narrative* Derek Parnell [...] scribe for Dr. Parnell/patrick documented in this encounterThe Rehabilitation [id number] History of Present illness Narrative* Derek Parnell [...] 2021 (Erica) and had an MRI at [facility]. She went to pain management at [facility] with dr. Kan for injection (trigger [...] X-rays of the left knee from the [facility] dated December 06, 2021. The x- rays are nonweightbearing. On the x-rays there are marginal osteophytes noted Both in the medial and lateral joint line. Patella is sitting laterally within the femoral trochlea. MRI from the [facility] dated January 20, 2022. MRI reveals absence [...] well. Follow up in one week. Dr. Parnellobtained history and examined the patient, I am acting as scribe for Dr. Parnell/patrick. Joe Parnell D.O. documented in this encounterThe Rehabilitation [id number] History of Present illness Narrative* Enma Wynne NP - 01/31/2024 10:30 AM EDTAssociated Order(s): L Inj/Asp: L knee Post-Procedure Diagnose(s): Arthritis of left knee Subjective Patient ID: Irina Xiong is a 68 y.o. female. LT Knee no recent studies *Previously saw Erica in December of 2021 for LT knee pain and received two kenalog injections and had an MRI at [facility]. She went to pain management at [facility] with dr. Kan for injection (trigger [...] Wearing a knee sleeve prn. [place]: XR [facility] 12/06/21, kenalog injection 12/22/21,and 01/05/22, MRI [facility] 01/20/22, pain management 02/2022 dr kan, diclofenac [...] [facility] documented in this encounterThe Rehabilitation [id number] NoteCONSULTATION CONSULTATION DATE: 03/22/2022 CHIEF COMPLAINT: Bilateral [...] a p.r.n. basis. CC: Elin Goldberg M.D.[facility] [id number] NotePROCEDURE: XR KNEE RT 4V or > COMPARISON: None. HISTORY: Pain in right knee FINDINGS: BONES:No acute fracture or dislocation. Mild to moderate tricompartmental osteoarthropathy with marginal osteophyte formation SOFT TISSUES:Negative. No visible soft tissue swelling. EFFUSION:None visible. OTHER: Negative. IMPRESSION: Mild to moderate osteoarthritis Electronically authenticated by: DOTTIE WEISS Date: 2022-02-22 15:12[facility] [id number] NoteCONSULTATION CONSULTATION DATE: 02/22/2022 CHIEF COMPLAINT: Bilateral [...] like to progress. CC: Joe Parnell D.O.[facility] [id number] NoteCONSULTATION PROCEDURE DATE: 02/22/2022 PREOPERATIVE DIAGNOSIS: Bilateral [...] up in the office in four weeks.[facility] note* Diagnosis Uterine prolapse Uterine prolapse without mention of vaginal wall prolapse Menopausal state Symptomatic menopausal or female climacteric states documented in this encounter [facility] HealthcareEvaluation note* Diagnosis Arthritis of left knee documented in this encounter [facility] HealthcareEvaluation note* Diagnosis Arthritis of left knee- Primary Left knee pain, unspecified chronicity documented in this encounter [facility] HealthcareEvaluation note* Diagnosis Left knee pain, unspecified chronicity- Primary Arthritis of left knee documented in this encounter [facility] HealthcareEvaluation note* Diagnosis Arthritis of left knee documented in this encounter [facility] HealthcareEvaluation note* Diagnosis Onset Date Resolution Status Admit Date Left sided sciatica acute Febru brien 2024 11:21am [facility] Work Phone: Summary Purpose Family History No Family History Records FoundNo Family History Records FoundNo Family History Records Found Advance Directives No Advanced Directives Records Found Advance Directive Response Recorded Date/ Time Advance Directives No July 10:50am Advance Directive Response Recorded Date/ Time Advance Directives No July 11:50am Reason for Referral Specialty Diagnoses / Procedures Referred By Garrett t Referred To Contact Orthopaedic Surgery Diagnoses Arthritis of left knee Procedures L Inj/Asp: L knee Derek Parnell, DO [address] [place] [address] Referral ID Status Reason Start Date Expiration Date V isits Requested Visits Authorized [id number] Authorized 02/27/2024 08/25/2024 1 1 Specialty Diagnoses / Procedures Referred By Contac t Referred To Contact Orthopaedic Surgery Diagnoses Arthritis of left knee Procedures L Inj/Asp: L knee Enma Wynne B, [employer] [address] [place] [address] Referral ID Status Reason Start Date Expiration Date V isits Requested Visits Authorized [id number] Authorized 01/31/2024 07/29/2024 1 1 Referral ID Status Reason Start Date Expiration Date V isits Requested Visits Authorized [id number] Authorized 02/13/2024 08/11/2024 1 1 Referral ID Status Reason Start Date Expiration Date V isits Requested Visits Authorized [id number] Authorized 02/20/2024 08/18/2024 1 1 Chief Complaint and Reason for Visit Chief Complaint Admit Date Back Pain July 26, 2024 11:21am low back pain August 08, 2024 2:32pm Reason for Visit Admit Date Left sided sciatica July 26, 2024 11:21am Chief Complaint Admit Date Back Pain July 26, 2024 11:21am Chief Complaint Admit Date Back Pain July 26, 2024 11:21am low back pain August 08, 2024 2:32pm mri, xray results August 22, 2024 10: 17am Reason for Visit Admit Date Left sided sciatica July 26, 2024 11:21am Left hip pain August 08, 2024 2:32pm Left lumbar radiculopathy August 08, 2024 2:32pm Left sided sciatica August 08, 2024 2:32pm Low back pain August 08, 2024 2:32pm Left hip pain August 22, 2024 10: 17am Left lumbar radiculopathy August 22 10:17am Low back pain August 22, 2024 10: 17am Additional Source Comments INFORMATION SOURCE (unrecogn ized section and content) DATE CREATED AUTHOR 10/02/2022 [facility] DATE CREATED AUTHOR AUTHOR'S ORGANIZ ATION 04/25/2024 [facility] EPIC DATE CREATED AUTHOR AUTHOR'S ORGANIZ ATION 09/05/2024 [facility] Care Teams (unrecognized sec tion and content) Home Health Administrator Relationship Specialty Start Date End Date Elin Goldberg MD [address] [facility] [phone] PCP - General Family Medicine 01/31/24 Home Health Administrator Relationship Specialty Start Date End Date Elin Goldberg MD [address] [facility] [address] PCP - General Family Medicine 01/31/24 Home Health Administrator Relationship Specialty Start Date End Date Elin Goldberg MD [address] [facility] [phone] PCP - General Family Medicine 01/31/24 Home Health Administrator Relationship Specialty Start Date End Date Elin Goldberg MD [address] [facility] [phone] PCP - General Family Medicine 01/31/24 Home Health Administrator Relationship Specialty Start Date End Date Elin Goldberg MD [address] [facility] [phone] PCP - General Family Medicine 01/31/24 Home Health Administrator Relationship Specialty Start Date End Date Elin Goldberg MD [address] [facility] [place] [phone] PCP - General Family Medicine 01/31/24 Home Health Administrator Relationship Specialty Start Date End Date Elin Goldberg MD [address] [place] [facility] [phone] PCP - General Family Medicine 01/31/24 Home Health Administrator Relationship Specialty Start Date End Date Elin Goldberg MD [address] [place] [facility] [phone] PCP - General Family Medicine 01/31/24 Home Health Administrator Relationship Specialty Start Date End Date Elin Goldberg MD [address] [place] [facility] [phone] PCP - General Family Medicine 01/31/24 Home Health Administrator Relationship Specialty Start Date End Date Elin Goldberg MD [address] [place] [facility] [phone] PCP - General Family Medicine 01/31/24 Team [...] August 08, 2024 End: August 08, 2024 Team Status: Inactive Member Role Status Dates Elin Goldberg MD Primary Care Provider Active Start: August 22, 2024 End: August 22, 2024 Helene Swan APRN Attending Provider Active Start: August 22, 2024 End: August 22, 2024 Reason for Visit (unrecogniz ed section and content) Reason Comments Bladder Prolapse Patient voiced that about a week ago she felt a prolapse vaginally. Denies urinary incontinence, but does have frequency. Reason Comments Injections Reason Comments Follow-up Goals (unrecognized section and content) Goals may be documented in a n alternate sectionGoals may be documented in an alternate sectionGoals may be documented in an [...] BE BASED ON THE PRIMARY CLINICAL RECORDS. [facility]. provides no warranty or guarantee of the accuracy or completeness of information in this document.
[2024-09-09 07:08] VITALS: BP 152/84; PULSE 71; TEMP 36.2; O2SAT 99
[2024-09-09 07:59] VITALS: BP 161/79; PULSE 62; O2SAT 98
[2024-09-09 08:01] VITALS: BP 152/77; PULSE 58; O2SAT 100
[2024-09-09] MEDS: IOHEXOL 240 MG/ML - 10 ML VIAL 24 MG INJ (08:02)
[2024-09-09] MEDS: BUPIVACAINE HCL 0.25% PF 25 MG/10 ML VIAL INJ (08:02)
[2024-09-09] MEDS: 0.9 % SODIUM CHLORIDE 10 ML SYRINGE - SALINE FLUSH INJ (08:02)
[2024-09-09] MEDS: DEXAMETHASONE SOD PHOS 10 MG/ML VIAL INJ (08:02)
--- NOTE | 2024-09-09 08:02 | W.PM.PROCNOT ---
Date of procedure: 09/09/24 Pre-op diagnosis: Pain due to lumbar stenosis with neurogenic claudication Post-op diagnosis: same as pre-op Procedure: Procedure: Bilateral L3-4 transforaminal epidural steroid injection Medications: Bupivacaine 0.25% 2cc, lidocaine 2% 1cc, dexamethasone 10mg The patient was seen and examined in the preoperative holding area.? Informed consent was obtained and placed on the chart.? Patient was brought to the medical procedure unit and placed in the prone position where a timeout was completed verifying the correct patient, procedure site, position, and planned special equipment using sterile aseptic technique.? Under direct fluoroscopic visualization a 25-gauge Quincke tipped spinal needle was advanced at level left L3-4 to the designated neural foramen where contrast dye was injected to show adequate spread.? There was no evidence of vascular or adverse uptake.? Epidural spread was appreciated.? The above-mentioned injectate was then placed in a 1.5 mL aliquot preceded by negative aspiration.? The needle was removed. The same procedure, at the same level, was completed on the opposite side. ? Patient was taken to the postprocedural recovery area and monitored for an appropriate length of time before found suitable for discharge in the accompaniment of a responsible adult. Anesthesia: Local Surgeon: Arturo Amos Pathology: none sent Condition: stable Disposition: no change
== END 2024-09-09 08:07 | disposition home or self-care (01) ==
LOC: SURGOUT 06:59
PROVIDERS: PCP Family Medicine; Visit Provider Anesthesiology
DX: M48.062 Spinal stenosis, lumbar region with neurogenic claudication (principal); M54.50 Low back pain, unspecified
CPT/HCPCS: 64483; J0665; J1100; Q9966

== ENCOUNTER 2024-09-18 09:36 | Outpatient (OUT) | payer MEDICARE, SELFPAY ==
--- NOTE | 2024-09-18 10:16 | P.CN_ITS ---
Consult Note: HPI Data of Consult Requesting Physician: Senia Marshall NP Primary Care Provider: Elin Kauffman MD Consult Narrative Reason for consult: low back, bilateral leg pain Narrative: 68yof who presents for evaluation. longstanding history of low back, bilateral lower extremity pain. recently saw back surgeon and states that she would like to remain as conservative as possible. lumbar mri reviewed, significant for multilevel moderate to severe canal stenosis from L2-5. also multilevel spondylosis noted. has continued in physical therapy weekly, without significant lasting benefit. tried flexeril, with some benefit. uses diclofenac. denies adverse med side effects. recently underwent bilateral L3/4 TFESI with 90% improvement while anesthetized, no ongoing relief. pain today 8/10 tight in low back and bilateral thighs. cc:: CC: Senia Marshall NP Review of Systems ROS Status of ROS 10 or more systems reviewed and unremark able except as noted in history and below Musculoskeletal Reports: back pain and joint pain PFSH PFSH Medical History (Updated 09/03/24 @ 15:34 by Gloria [place]) Low back pain ?M54.50 - Low back pain, unspecified (ICD-10) Osteoarthritis ?M19.90 - Unspecified osteoarthritis, unspecified site (ICD-10) Obesity ?E66.9 - Obesity, unspecified (ICD-10) Hypothyroid ?E03.9 - Hypothyroidism, unspecified (ICD-10) High cholesterol ?E78.00 - Pure hypercholesterolemia, unspecified (ICD-10) Hypertension ?I10 - Essential (primary) hypertension (ICD-10) Surgical History (Updated 09/03/24 @ 15:34 by Gloria [place]) H/O colonoscopy ?Z98.890 - Other specified postprocedural states (ICD-10) H/O vein stripping ?Z98.890 - Other specified postprocedural states (ICD-10) Hx of cholecystectomy ?Z90.49 - Acquired absence of other specified parts of digestive tract (ICD- 10) History of dilatation and curettage ?Z98.890 - Other specified postprocedural states (ICD-10) Hx of tonsillectomy ?Z90.89 - Acquired absence of other organs (ICD-10) Meds Home Medications and Allergies Home Medications ?Medication ?Instructions ?Recorded ?Confirmed ?Type cyclobenzaprine 5 mg tablet mg 09/03/24 History diclofenac sodium 75 mg mg PO 09/03/24 History tablet,delayed release estradiol 0.01% (0.1 mg/gram) vaginal 09/03/24 History vaginal cream gabapentin 300 mg capsule mg 09/03/24 History levothyroxine 88 mcg tablet mcg 09/03/24 History metoprolol succinate 100 mg 100 mg PO DAILY 09/03/24 09/09/24 History tablet,extended release 24 hr rosuvastatin 10 mg tablet 10 mg PO DAILY 09/03/24 09/09/24 History Allergies Allergy/AdvReac Type Severity Reaction Status Date / Time prednisone AdvReac Mild anxious Verified 09/09/24 07:12 Exam Narrative Exam Narrative: Psych-alert and oriented x 3. Attentive and appropriate, constitutionally normal, displays normal mood and affect per situation. There are no obvious deficits in memory, reasoning, or intellect.? Skin-no obvious rashes, bruising, erythema noted to the patient's area of pain.? Extremities- extremities are warm with minimal edema and palpable pulses. Sacroiliac - tender to palpation to bilateral PSIS. positive db's bilaterally. positive thigh thrust bilaterally. Coordination remains intact.? Gait remains non-antalgic. Assessment and Plan Assessment and Plan (1) Lumbar stenosis with neurogenic claudication: Assessment and Plan: 09/09/24 bilateral L3/4 TFESI with 90% improvement while anesthetized, no ongoing relief case reviewed with Dr Amos consider vertiflex in the future (2) Lumbar spondylosis: (3) Sacroiliac joint disease: Assessment and Plan: The patient has had over 3 months of moderate to severe low back and bilateral SIJ pain with functional impairment and inadequate response to conservative care including NSAIDS (unless there are contraindication such as concurrent blood thinners), multiple oral or topical pain medications, and home exercise program/physical therapy.? Patient has completed >6 weeks of guided home exercise program and/or formal physical therapy program without relief of their symptoms.? The Oswestry Disability Index was completed, and the patient scored a 53%.? The patient noted the following:?? moderate to severe pain, pain impacting ADLs, sitting, standing, walking, sleep, social life, travel We discussed the risks and benefits of the procedure with the patient, and we are NOT planning on using sedation as outlined in the guidelines from Medicare unless there is a documented reason that sedation would be strongly recommended.?? ?The procedure will be completed with fluoroscopic guidance.? Plan proceed with bilateral SIJ injection under fluoroscopy currently taking gabapentin 300mg BID, cannot tolerate TID at this time due to drowsiness continue flexeril 5mg BID PRN and diclofenac 75mg BID, denies side effects consider L3-4 L4-5 vertiflex in the future f/u 2 weeks after bilateral SIJ injection
== END 2024-09-18 09:37 | disposition home or self-care (01) ==
LOC: PM 09:36
PROVIDERS: PCP Family Medicine; Visit Provider Nurse Practitioner
DX: M48.062 Spinal stenosis, lumbar region with neurogenic claudication (principal); M47.816 Spondylosis without myelopathy or radiculopathy, lumbar region; M53.3 Sacrococcygeal disorders, not elsewhere classified
CPT/HCPCS: G0463

== ENCOUNTER 2024-09-23 09:16 | Day surgery (SDC) | payer MEDICARE, SELFPAY ==
[2024-09-23 09:34] VITALS: BP 157/86; PULSE 74; TEMP 36.5; O2SAT 96
[2024-09-23 10:23] VITALS: PULSE 72; O2SAT 97
[2024-09-23 10:24] VITALS: BP 169/82; BP 173/89; PULSE 37; O2SAT 97
[2024-09-23] MEDS: IOHEXOL 240 MG/ML - 10 ML VIAL 24 MG INJ (10:26)
[2024-09-23] MEDS: BUPIVACAINE HCL 0.25% PF 25 MG/10 ML VIAL 4 ML INJ (10:26)
[2024-09-23] MEDS: LIDOCAINE HCL 2% 400 MG/20 ML MDV INJ (10:27)
[2024-09-23] MEDS: METHYLPREDNISOLONE ACETATE 40 MG/ML VIAL 80 MG INJ (10:27)
--- NOTE | 2024-09-23 10:28 | W.PM.PROCNOT ---
Date of procedure: 09/23/24 Pre-op diagnosis: Pain due to bilateral sacroiliitis Post-op diagnosis: same as pre-op Procedure: Procedure: Bilateral sacroiliac joint injection Medications: Bupivacaine 0.25% 3cc, depomedrol 40mg x2 After informed consent was obtained, the patient was brought to the medical procedure unit and placed in the prone position, when a timeout was completed verifying correct patient, procedure, site, positioning, implant, and/or special equipment.? The skin overlying the area was prepped and draped in standard sterile fashion using alcohol.? A 25-gauge needle was inserted towards the left sacroiliac joint under direct fluoroscopic imaging.? Needle tip was advanced until the joint was encountered.? We instilled a total of 2 mL of solution.? The same procedure was then completed on the right side.? Postoperatively needles were removed.? The patient tolerated the procedure well without complication.? The patient reported reduction in pain symptoms postoperatively. Anesthesia: Local Surgeon: Arturo Amos Pathology: none sent Condition: stable Disposition: no change
== END 2024-09-23 10:33 | disposition home or self-care (01) ==
LOC: SURGOUT 09:17
PROVIDERS: PCP Family Medicine; Visit Provider Anesthesiology
DX: M46.1 Sacroiliitis, not elsewhere classified (principal); M53.3 Sacrococcygeal disorders, not elsewhere classified
CPT/HCPCS: 27096; J0665; J1010; Q9966

== ENCOUNTER 2024-10-02 09:07 | Outpatient (OUT) | payer MEDICARE, SELFPAY ==
--- NOTE | 2024-10-02 09:35 | P.CN_ITS ---
Consult Note: HPI Data of Consult Patient: known to practice within the last 3 years Requesting Physician: Senia Marshall NP Primary Care Provider: Elin Kauffman MD Consult Narrative Reason for consult: f/u Narrative: Irina Xiong a pleasant 68 year old female presents for evaluation of chronic low back pain. longstanding hx of low back pain > 12 months unresponsive to 6 weeks of PT, provider guided HEP, heat, ice, tylenol, NSAIDs. prior lumbar xray and MRI consistent with multilevel facet arthropathy, stenosis, and ddd. pt recently underwent bilateral SIJ injection with mild relief at this time per pt. Pain today 7/10 stiffness in low back and posterior thighs. Pain increases with standing, walking, twisting, pushing, pulling, bending, activity. Pain improved with lying and sitting. currently utilizing gabapentin 300mg BID, flexeril 5mg BID, and transdermal therapeutics cream with mild relief. denies side effects. cc:: CC: Senia Marshall NP Review of Systems ROS Status of ROS 10 or more systems reviewed and unremark able except as noted in history and below Musculoskeletal Reports: back pain and joint pain; Denies: extremity pain [facility] Medical History (Updated 09/03/24 @ 15:34 by Gloria [place]) Low back pain ?M54.50 - Low back pain, unspecified (ICD-10) Osteoarthritis ?M19.90 - Unspecified osteoarthritis, unspecified site (ICD-10) Obesity ?E66.9 - Obesity, unspecified (ICD-10) Hypothyroid ?E03.9 - Hypothyroidism, unspecified (ICD-10) High cholesterol ?E78.00 - Pure hypercholesterolemia, unspecified (ICD-10) Hypertension ?I10 - Essential (primary) hypertension (ICD-10) Surgical History H/O colonoscopy ?Z98.890 - Other specified postprocedural states (ICD-10) H/O vein stripping ?Z98.890 - Other specified postprocedural states (ICD-10) Hx of cholecystectomy ?Z90.49 - Acquired absence of other specified parts of digestive tract (ICD- 10) History of dilatation and curettage ?Z98.890 - Other specified postprocedural states (ICD-10) Hx of tonsillectomy ?Z90.89 - Acquired absence of other organs (ICD-10) Meds Home Medications and Allergies Home Medications ?Medication ?Instructions ?Recorded ?Confirmed ?Type cyclobenzaprine 5 mg tablet mg 09/03/24 History diclofenac sodium 75 mg mg PO 09/03/24 History tablet,delayed release estradiol 0.01% (0.1 mg/gram) vaginal 09/03/24 History vaginal cream gabapentin 300 mg capsule mg 09/03/24 History levothyroxine 88 mcg tablet mcg 09/03/24 History metoprolol succinate 100 mg 100 mg PO DAILY 09/03/24 09/23/24 History tablet,extended release 24 hr rosuvastatin 10 mg tablet 10 mg PO DAILY 09/03/24 09/23/24 History Allergies Allergy/AdvReac Type Severity Reaction Status Date / Time prednisone AdvReac Mild anxious Verified 09/23/24 09:42 Exam Constitutional Documenting provider has reviewed patient's vital signs: yes Common normals: no apparent distress, oriented x3, healthy appearing, alert and well nourished General appearance: cooperative HENMT Common normals: normocephalic, hearing grossly normal bilaterally and moist oral mucous membranes Head and scalp: normocephalic Eye Common normals: PERRL Pupil: PERRL Neck & C-Spine Common normals: full ROM General: normal visual inspection Chest Common normals: inspection of chest normal Respiratory Common normals: normal respiratory effort, no retractions and no use of accessory muscles Back & Pelvis Lumbar spine/lower back: ROM limited, pain with ROM, lumbar spinal tenderness Lumbar spinal tenderness location: L3, L4 and L5 and straight leg raise negative bilaterally Sacroiliac joints: SI joints normal Other: positive facet loading tenderness bilateral L3-5 strength 5/5 with sensation intact BLE bilateral SIJ negative gin(patricks), gaenslens, thigh thrust, compression test Neuro Common normals: oriented x3 Sensorium/orientation: alert Psych Common normals: mental status grossly normal, thought process normal, cooperative, affect normal, speech normal and activity/motor behavior normal Speech: normal speech Thought process: normal thought process Results Additional Findings Additional findings: If on a controlled substance or opioids, I have checked an [place] report on this patient and there are no aberrancies noted in the prescribing history.??If on a controlled substance or opioid a drug screen was completed and reviewed within the last year, and if there has not been a drug screen completed we ordered one today to monitor higher risk, state monitored pain medication use. As part of providing excellent, safe, comprehensive care, the following was completed at our patient's visit: 1. A medication reconciliation and review to ensure accurate knowledge of current/active medications, including asking our patients to inform us about any [id number] medications or herbal remedies/nutritional supplements/alternative remedies. 2. A review to specifically ensure our patients have had annual screening for screening for depression, screening for tobacco use, and screening for unhealthy alcohol use. For concerning screenings had a discussion with the patient, provided patient education, and recommended follow-up with primary care provider when appropriate. If patient noted with a risk of falling, they received education on strength, gait, and balance training to prevent future risk of falling. Portions of this note may have been carried over from the previous visit and updated as appropriate. Please note this office utilizes paper charting in addition to the electronic medical record. A list of current medications, vitals, and PMH is available there as the clinical staff outside of myself do not have access to [facility] charting during the clinic day operations. As part of providing quality comprehensive care the current medications, vitals, and PMH were reviewed in the paper chart. Assessment and Plan Assessment and Plan (1) Lumbar spondylosis: Assessment and Plan: as noted on previous imaging and physical exam patient has moderate to severe axial facet mediated low back pain The patient has had over 3 months of moderate to severe low back pain with functional impairment and inadequate response to conservative care including NSAIDS (unless there are contraindication such as concurrent blood thinners), multiple oral or topical pain medications, and home exercise program/physical therapy.? Patient has completed >6 weeks of guided home exercise program and/or formal physical therapy program without relief of their symptoms.? The Oswestry Disability Index was completed, and the patient scored a 56%.? The patient noted the following:?? moderate to severe pain with ADLs, sitting, standing, walking, social life, sleep, travel (2) Lumbar stenosis with neurogenic claudication: Assessment and Plan: pt is a candidate for L3-4 L4-5 vertiflex, would like to defer at this time as she is active in the summer and has a lot going on in her personal life at this time (3) Sacroiliac joint disease: Assessment and Plan: negative SIJ exam as noted above recently underwent bilateral SIJ injection 09/23/24 with mild relief Plan bilateral L3-4 L4-5 MBB x2 working towards RFA for moderate to severe axial facet mediated low back pain increase gabapentin 300mg TID as previously discussed continue flexeril 5mg BID to TID PRN pain/spasms f/u after each injection
== END 2024-10-02 09:08 | disposition home or self-care (01) ==
PROVIDERS: PCP Family Medicine; Visit Provider Nurse Practitioner
DX: M47.816 Spondylosis without myelopathy or radiculopathy, lumbar region (principal); M48.062 Spinal stenosis, lumbar region with neurogenic claudication; M53.3 Sacrococcygeal disorders, not elsewhere classified
CPT/HCPCS: G0463

== ENCOUNTER 2024-10-14 09:33 | Day surgery (SDC) | payer MEDICARE, SELFPAY ==
[2024-10-14 10:19] VITALS: BP 136/90; PULSE 67; TEMP 36.3; O2SAT 98
[2024-10-14 11:00] VITALS: BP 142/79; BP 148/76; PULSE 66; PULSE 69; O2SAT 98; O2SAT 99
[2024-10-14] MEDS: BUPIVACAINE HCL 0.25% PF 25 MG/10 ML VIAL 8 ML INJ (11:01)
[2024-10-14] MEDS: LIDOCAINE HCL 2% 400 MG/20 ML MDV INJ (11:01)
--- NOTE | 2024-10-14 11:03 | W.PM.PROCNOT ---
Date of procedure: 10/14/24 Pre-op diagnosis: Pain due to lumbar spondylosis without myelopathy Post-op diagnosis: same as pre-op Procedure: Procedure: Bilateral L3-4, L4-5 medial branch block Medications: Bupivacaine 0.25% 6cc The patient was seen and examined in the preoperative holding area.? An informed consent was obtained and placed on the chart.? The patient was brought to the medical procedure unit and placed in the prone position.? A timeout was completed verifying correct patient, procedure site, positioning, plan, and special equipment.? Using aseptic technique, the needle was placed at left L3. Under direct fluoroscopic visualization a Quincke-tipped spinal needle was advanced to the junction of the superior articulating process with the transverse process at the designated medial branch segment.? Preceded by negative aspiration, the above-mentioned injectate was placed in 1 mL aliquots.? The procedure was repeated at left L4, 5.? The needle was removed and insertion site was covered. The same procedure, at the same levels, was completed on the right side. The patient was taken to the postprocedural recovery area and monitored for an appropriate length of time before found suitable for discharge in the company of a responsible adult. Anesthesia: Local Surgeon: Arturo Amos Pathology: none sent Condition: stable Disposition: no change
== END 2024-10-14 11:09 | disposition home or self-care (01) ==
PROVIDERS: PCP Family Medicine; Visit Provider Anesthesiology
DX: M47.816 Spondylosis without myelopathy or radiculopathy, lumbar region (principal); M54.50 Low back pain, unspecified
CPT/HCPCS: 64493; 64494; J0665

== ENCOUNTER 2024-10-23 12:36 | Outpatient (OUT) | payer MEDICARE, SELFPAY ==
--- OUTSIDE RECORDS SUMMARY | 2024-10-23 12:58 | XMS_ITS | CCD ---
Author Organization [facility] Care Team Providers Care Associate Professor Of Engineering Name Role Phone ABHISHEK, DR DOTTIE Alejo Consulting Unavailable YUSUF, DR ELIN Chopra Primary Care Unavailable ENMA WYNNE Attending Unavailable RICCI, ENMA Obando Admitting Unavailable YUSUF, DR ELIN Chopra Consulting Unavailable ENMA WYNNE Consulting Unavailable SOHEILA, DR William Andrews Consulting Unavailable GOLDBERG, DR ELIN Chopra Primary Care Unavailable JAZMINE ., DR KORI Delgado Attending Unavailable KAN [...] Unavailable GOLDBERG, DR ELIN Chopra Admitting Unavailable JOSH SHEA Consulting Unavailable Elin Goldberg MD Primary Care Provider Bette CUNNINGHAM, Arturo Blackman Attending Unavailable Bette CUNNINGHAM, Arturo Blackman Attending Unavailable Bette CUNNINGHAM, Arturo Blackman Attending Unavailable Unavailable Primary Care Provider RUPAL Peña Attending Unavailable ENMA WYNNE Attending Unavailable DEREK PARNELL Attending Unavailable DEREK PARNELL Attending Unavailable DEREK PARNELL Attending Unavailable RUPAL BUCKNER Attending Unavailable Allergies Allergy Classification Reported Allergen(s) Allergy Type Date of Onset Reaction(s) Facility (17 sources) Prednisone Allergy to substance 01-31-2024 Unknown [facility] Medications Current Medications Medication Drug Class(es) Dates Sig (Normalized) Sig (Original) calcium carbonate 500 mg oral tablet (17 sources) calcium carbonat e (Os-Richard) 1250 (500 Ca) MG tablet Take by mouth Daily Active diclofenac sodium 75 mg delayed release oral tablet (20 sources) Nonsteroidal Anti-inflammatory Drug Start: 08-03-2023 End: 12-28-2023 diclofenac (Voltaren) 75 MG EC tablet 12/28/2023 Active Diclofenac Sodium 75 mg tablet,delayed release (DR/EC) (3 sources) Start: 12-28-2023 Diclofenac Sodium 75 mg tablet,delayed release (DR/EC) Active 0 .ROUTE .COMPLEX December 28, 2023 8:50am On Hold: None TAKE 1 TABLET TWICE DAILY Start: 12-28-2023 Diclofenac Sod ium 75 mg tablet,delayed release (DR/EC) Active 0 .ROUTE .COMPLEX December 28, 2023 7:50am TAKE 1 TABLET [...] oral tablet (20 sources) l-Thyroxine Start: 01-30-2024 End: 08-22-2024 Levothyroxine 88 mcg tablet Discontinued 0 .ROUTE .COMPLEX January 30, 2024 8:36am August 22, 2024 10:21am TAKE 1 TABLET EVERY DAY Start: 11-16-2023 End: 01-30-2024 levothyroxine (Synthroid, Le voxyl) 88 MCG tablet 01/30/2024 Active Start: 08-15-2023 End: 02-13-2024 take 1 tablet by mouth once daily Levothyroxine (Synthroid) 75 mcg tablet Discontinued 75 MCG PO Daily August 15, 2023 1:00am November 16, 2023 11:21am FreeTextSig: TAKE 1 TABLET EVERY DAY; Note: Source Status: Start; Refills: 3; Qty: 90 Tablet; Provider: Yusuf Worthington ( ) magnesium gluconate 550 mg oral tablet (17 sources) take 1 tablet by mouth in [...] 0 mg tablet Active 0 .ROUTE .COMPLEX March 12, 2024 [...] Active Problems Problem Classification Problem Date Documented Date Episodic/Chronic Disorders of lipid metabolism (20 sources) Hyperlipidemia; Translations: [Hyperlipidemia, unspecified] Onset: 03-12-2013 01-31-2024 Chronic Essential hypertension (20 sources) Essential hypertension; Translations: [Essential (primary) hypertension] Onset: 03-12-2013 01-31-2024 Chronic Joint disorders and dislocations; trauma-related (20 sources) Unspecified internal derangement of left knee; Translations: [Derangement of left knee] Onset: 01-20-2022 Chronic Menopausal disorders (7 sources) Menopausal syndrome; Translations: [Menopausal and female climacteric states] Onset: 04-24-2024 04-24-2024 Chronic Osteoarthritis (20 sources) Unilateral primary osteoarthritis, right knee; Translations: [Unilateral primary osteoarthritis, left knee] Onset: 02-27-2022 01-31-2024 Chronic Osteoporosis (3 sources) Senile osteoporosis; Translations: [Age-related osteoporosis without current pathological fracture] Onset: 04-08-2015 08-14-2023 Chronic Other aftercare (2 sources) Patient encounter status; Translations: [Other retirement (current) drug therapy] 10-16-2024 Episodic Other nervous system disorders (17 sources) Chronic pain; Translations: [Other chronic pain] [...] MALIG NEOPLASM OF BREAST] Onset: 07-20-2022 Episodic Residual codes; unclassified (2 sources) Postmenopausal state; Translations: [Asymptomatic menopausal state] 10-16-2024 Episodic Spondylosis; intervertebral disc disorders; other back problems (13 sources) Disorder of left sciatic nerve; Translations: [Sciatica, left side] 07-26-2024 Episodic Thyroid disorders (3 sources) Hypothyroidism; Translations: [Hypothyroidism, unspecified] 08-15-2023 Chronic Past or Other Problems Problem Classification Problem Date Documented Da te Episodic/Chronic Headache; including migraine (17 sources) Headache; Translations: [Headache] Onset: 03-12-2013 01-31-2024 Episodic Joint disorders and dislocations; trauma-related (1 source) Complex tear of medial meniscus, current injury, left knee, initial encounter; Translations: [COMPLEX TEAR MM CURR LT KNEE INIT] Onset: 01-21-2022 Episodic Other connective tissue disease (1 source) Other muscle spasm; Translations: [OTHER MUSCLE SPASM] Onset: 02-27-2022 Episodic Other connective tissue disease (17 sources) Pain in limb; Translations: [Pain in [...] 09-27-2022 BASO # 0.1 103/ul Normal 0.0-0.1 [facility] Comment on above: Performed By: #### C BC #### [facility] [address] [address] [address] Sharif Farooq Basophils/100 WBC (Bld) 1.9 % Normal 0.2-2.0 [facility] Comment on above: Performed By: #### C BC #### [facility] [address] [address] [address] Sharif Farooq EO # 0.1 103/ul Normal 0.0-0.7 [facility] Comment on above: Performed By: #### C BC #### [facility] [address] [place] [address] Dr. Sharif Farooq Eosinophils/100 WBC (Bld) 2.3 % Normal 0.9-7.0 [facility] Comment on above: Performed By: #### C BC #### [facility] [address] [place] [address] Dr. Sharif Farooq Erythrocyte distribution width (RBC) [Ratio] 14.6 % Normal 11.0-15.0 [facility] Comment on above: Performed By: #### C BC #### [facility] [address] [place] [address] Dr. Sharif Farooq Hematocrit (Bld) [Volume fraction] 41.7 % Normal 36.0-48.0 [facility] Comment on above: Performed By: #### C BC #### [facility] [address] [place] [address] Dr. Sharif Farooq Hemoglobin (Bld) [Mass/Vol] 13.7 g/dL Normal 12.0-16.0 [facility] Comment on above: Performed By: #### C BC #### [facility] [address] [place] [address] Dr. Sharif Farooq IG # 0.01 10e3/ul Normal 0.00-0.03 [facility] Comment on above: Performed By: #### C BC #### [facility] [address] [place] [address] Dr. Sharif Farooq IG % 0.2 % Normal 0.0-0.5 [facility] Comment on above: Performed By: #### C BC #### [facility] [address] [place] [address] Dr. Sharif Farooq LYMPH # 1.6 103/ul Normal 1.2-3.8 [facility] Comment on above: Performed By: #### C BC #### [facility] [address] [place] [address] Dr. Sharif Farooq Lymphocytes/100 WBC (Bld) 34.0 % Normal 20.5-60.0 [facility] Comment on above: Performed By: #### C BC #### [facility] [address] [place] [address] Dr. Sharif Farooq MANUAL DIFF REQ NO Normal [facility] Comment on above: Performed By: #### C BC #### [facility] [address] [place] [address] Dr. Sharif Farooq MCH (RBC) [Entitic mass] 27.5 pg Normal 26.7-34.0 [facility] Comment on above: Performed By: #### C BC #### [facility] [address] [place] [address] Dr. Sharif Farooq MCHC (RBC) [Mass/Vol] 32.9 g/dL Normal 29.9-35.2 [facility] Comment on above: Performed By: #### C BC #### [facility] [address] [place] [address] Dr. Sharif Farooq MCV (RBC) [Entitic vol] 83.7 fL Normal 81.0-99.0 [facility] Comment on above: Performed By: #### C BC #### [facility] [address] [place] [address] Dr. Sharif Farooq MONO # 0.5 103/ul Normal 0.3-0.8 [facility] Comment on above: Performed By: #### C BC #### [facility] [address] [place] [address] Dr. Sharif Farooq Monocytes/100 WBC (Bld) 9.5 % Normal 1.7-12.0 [facility] Comment on above: Performed By: #### C BC #### [facility] [address] [place] [address] Dr. Sharif Farooq NEUT # 2.5 103/ul Normal 1.4-6.5 [facility] Comment on above: Performed By: #### C BC #### [facility] [address] [place] [address] Dr. Sharif Farooq Neutrophils/100 WBC (Bld) 52.1 % Normal 43.0-75.0 [facility] Comment on above: Performed By: #### C BC #### [facility] [address] [place] [address] Dr. Sharif Farooq Platelet mean volume (Bld) [Entitic vol] 10.3 fL Normal 9.5-13.5 [facility] Comment on above: Performed By: #### C BC #### [facility] [address] [place] [address] Dr. Sharif Farooq PLT 250 103/ul Normal 150-450 [facility] Comment on above: Performed By: #### C BC #### [facility] [address] [place] [address] Dr. Sharif Farooq RBC 4.98 106/ul Normal 4.20-5.40 [facility] Comment on above: Performed By: #### C BC #### [facility] [address] [place] [address] Dr. Sharif Farooq WBC 4.8 103/ul Normal 4.0-11.0 [facility] Comment on above: Performed By: #### C BC #### [facility] [address] [place] [address] Dr. Sharif Farooq GLYCOHEMOGLOBIN A1Con 2022 ADA RECOMMENDATION SEE BELOW Normal [facility] Comment on above: Result Comment: ADA RECOMMENDED LIMIT 4.0 - 6.0 ADA THERAPEUTIC TARGET < 7.0 ACTION SUGGESTED > 7.0 Performed By: #### A 1C #### [facility] [address] [place] [address] Dr. Sharif Farooq Glucose [Mass/Vol] 111 mg/dL Normal [facility] Comment on above: Performed By: #### A 1C #### [facility] [address] [place] [address] Dr. Sharif Farooq HbA1c (Bld) [Mass fraction] 5.5 % Normal 4.5-6.2 [facility] Comment on above: Performed By: #### A 1C #### [facility] [address] [address] [address] Sharif Farooq LIPID PROFILEon 09-27-2022 CHOL-HDL RATIO NORM SEE BELOW Normal [facility] Comment on above: Result Comment: 3.3 - 4.4 LOW RISK 4.4 - 7.1 AVERAGE RISK 7.1 - 11.0 MODERATE RISK >11.0 HIGH RISK Performed By: #### C BC #### [facility] [address] [address] [address] Sharif Farooq Cholesterol [Mass/Vol] 180 mg/dL Normal <=200 [facility] Comment on above: Performed By: #### C BC #### [facility] [address] [address] [address] Sharif Farooq Cholesterol in HDL [Mass/Vol] 61 mg/dL Critically high 40-60 [facility] Comment on above: Performed By: #### C BC #### [facility] [address] [place] [address] Dr. Sharif Farooq Cholesterol in LDL [Mass/Vol] 103.2 mg/dL Normal [facility] Comment on above: Performed By: #### C BC #### [facility] [address] [place] [address] Dr. Sharif Farooq Cholesterol.total/Ch olesterol in HDL [Mass ratio] 3.0 {ratio} Normal [facility] Comment on above: Performed By: #### C BC #### [facility] [address] [place] [address] Dr. Sharif Farooq HDL NORMAL > or = 60 mg/dl - LO W CARDIOVASCULAR RISK <40 mg/dl - HIGH CARDIOVASCULAR RISK Normal [facility] Comment on above: Performed By: #### C BC #### [facility] [address] [place], [place] [id number] Dr. Sharif Farooq LDL CALC NORMAL SEE BELOW Normal [facility] Comment on above: Result Comment: <100 mg/dl OPTIMAL 100 - 129 mg/dl NEAR OR ABOVE OPTIMAL 130 - 159 mg/dl BORDERLINE HIGH 160 - 189 mg/dl HIGH >190 mg/dl VERY HIGH Performed By: #### C BC #### [facility] [address] [place] [address] Dr. Sharif Farooq Triglyceride [Mass/Vol] 79 mg/dL Normal <=150 [facility] Comment on above: Performed By: #### C BC #### [facility] [address] [place] [address] Dr. Sharif Farooq VLDL CALC 15.8 mg/dL Normal [facility] Comment on above: Performed By: #### C BC #### [facility] [address] [place] [address] Dr. Sharif Farooq PROF 14(COMP METB)on 023 Albumin [Mass/Vol] 3.9 g/dL Normal 3.4-5.0 [facility] Comment on above: Performed By: #### C BC #### [facility] [address] [place] [address] Dr. Sharif Farooq Albumin/Globulin [Mass ratio] 1.0 {ratio} Normal [facility] Comment on above: Performed By: #### C BC #### [facility] [address] [place] [address] Dr. Sharif Farooq ALP [Catalytic activity/Vol] 84 U/L Normal 46-116 [facility] Comment on above: Performed By: #### C BC #### [facility] [address] [place] [address] Dr. Sharif Farooq ALT [Catalytic activity/Vol] 37 U/L Normal 14-59 [facility] Comment on above: Performed By: #### C BC #### [facility] [address] [place] [address] Dr. Sharif Farooq Anion gap [Moles/Vol] 13.4 mmol/L Normal [facility] Comment on above: Performed By: #### C BC #### [facility] [address] [place] [address] Dr. Sharif Farooq AST [Catalytic activity/Vol] 21 U/L Normal 15-37 [facility] Comment on above: Performed By: #### C BC #### [facility] [address] [place] [address] Dr. Sharif Farooq Bilirubin [Mass/Vol] 0.8 mg/dL Normal 0.2-1.0 [facility] Comment on above: Performed By: #### C BC #### [facility] [address] [address] [address] Sharif Farooq Calcium [Mass/Vol] 9.7 mg/dL Normal 8.5-10.1 [facility] Comment on above: Performed By: #### C BC #### [facility] [address] [address] [address] Sharif Farooq Chloride [Moles/Vol] 105 mmol/L Normal 98-107 [facility] Comment on above: Performed By: #### C BC #### [facility] [address] [place] [address] Dr. Sharif Farooq CO2 [Moles/Vol] 26.8 mmol/L Normal 21.0-32.0 [facility] Comment on above: Performed By: #### C BC #### [facility] [address] [place] [address] Dr. Sharif Farooq Creatinine [Mass/Vol] 0.94 mg/dL Normal 0.55-1.02 [facility] Comment on above: Performed By: #### C BC #### [facility] [address] [place] [address] Dr. Sharif Farooq EGFR-AF MALAYSIAN >60 Normal >=60 [facility] Comment on above: Performed By: #### C BC #### [facility] [address] [address] [address] Sharif Farooq EGFR-NON AF MALAYSIAN 60 mL/min/1.73m2 Normal >=60 [facility] Comment on above: Performed By: #### C BC #### [facility] [address] [address] [address] Sharif Farooq Globulin (S) [Mass/Vol] 3.9 g/dL Normal [facility] Comment on above: Performed By: #### C BC #### [facility] [address] [address] [address] Sharif Farooq Glucose [Mass/Vol] 105 mg/dL Normal 74-106 [facility] Comment on above: Performed By: #### C BC #### [facility] [address] [address] [address] Sharif Farooq Potassium [Moles/Vol] 4.2 mmol/L Normal 3.5-5.1 [facility] Comment on above: Performed By: #### C BC #### [facility] [address] [address] [address] Sharif Farooq Protein [Mass/Vol] 7.8 g/dL Normal 6.4-8.2 [facility] Comment on above: Performed By: #### C BC #### [facility] [address] [address] [address] Sharif Farooq Sodium [Moles/Vol] 141 mmol/L Normal 136-145 [facility] Comment on above: Performed By: #### C BC #### [facility] [address] [address] [address] Sharif Farooq Urea nitrogen [Mass/Vol] 21.0 mg/dL Critically high 7.0-18.0 [facility] Comment on above: Performed By: #### C BC #### [facility] [address] [address] [address] Sharif Farooq Urea nitrogen/Creatinine [Mass ratio] 22.3 mg/mg Normal [facility] Comment on above: Performed By: #### C BC #### [facility] [address] [address] [address] Sahrif Farooq TSHon 09-27-2022 TSH 3.122 uIU/mL Normal 0.358-3.[address] [facility] Comment on above: Performed By: #### C BC #### [facility] [address] [address] [address] Sharif Farooq MG MAMM SCREEN 3D OMAR CADon 07-19-2022 MG MAMM SCREEN 3D OMAR CAD Patient: IRINA XIONG Exam Date: 07/19/2022 : 1955 Gender:F Ordering : DR ELIN GOLDBERG M.D. Admission #: [id number] Family : Order #: [id number] CLICK HERE TO VIEW EXAM RADIOLOGY REPORT [...] breast cancer at age 62. LOCATION: [facility] BREAST COMPOSITION: Scattered areas fibroglandular density. [...] MD on 07/20/2022 at 09:22 Normal [facility] MRI KNEE LT WO CONon 08-11-2 [...] DOTTIE WEISS Date: 2022-01-20 18:22 Normal [facility] XR KNEE LT 4V or >on [...] JOSH SHEA Date: 2021-12-06 18:26 Normal [facility] CBC AUTO DIFFon 10-12-2021 BASO # 0.1 103/ul Normal 0.0-0.1 [facility] Comment on above: Performed By: #### C BC #### [facility] [address] [place] [address] Dr. Sharif Farooq Basophils/100 WBC (Bld) 1.8 % Normal 0.2-2.0 [facility] Comment on above: Performed By: #### C BC #### [facility] [address] [place] [address] Dr. Sharif Farooq EO # 0.1 103/ul Normal 0.0-0.7 [facility] Comment on above: Performed By: #### C BC #### [facility] [address] [place] [address] Dr. Sharif Farooq Eosinophils/100 WBC (Bld) 2.0 % Normal 0.9-7.0 [facility] Comment on above: Performed By: #### C BC #### [facility] [address] [place] [address] Dr. Sharif Farooq Erythrocyte distribution width (RBC) [Ratio] 14.1 % Normal 11.0-15.0 [facility] Comment on above: Performed By: #### C BC #### [facility] [address] [place] [address] Dr. Sharif Farooq Hematocrit (Bld) [Volume fraction] 41.9 % Normal 36.0-48.0 [facility] Comment on above: Performed By: #### C BC #### [facility] [address] [place] [address] Dr. Sharif Farooq Hemoglobin (Bld) [Mass/Vol] 13.6 g/dL Normal 12.0-16.0 [facility] Comment on above: Performed By: #### C BC #### [facility] [address] [place] [address] Dr. Sharif Farooq IG # 0.01 10e3/ul Normal 0.00-0.03 [facility] Comment on above: Performed By: #### C BC #### [facility] [address] [place] [address] Dr. Sharif Farooq IG % 0.2 % Normal 0.0-0.5 [facility] Comment on above: Performed By: #### C BC #### [facility] [address] [place] [address] Dr. Sharif Farooq LYMPH # 2.1 103/ul Normal 1.2-3.8 [facility] Comment on above: Performed By: #### C BC #### [facility] [address] [place] [address] Dr. Sharif Farooq Lymphocytes/100 WBC (Bld) 34.7 % Normal 20.5-60.0 [facility] Comment on above: Performed By: #### C BC #### [facility] [address] [place] [address] Dr. Sharif Farooq MANUAL DIFF REQ NO Normal [facility] Comment on above: Performed By: #### C BC #### [facility] [address] [place] [address] Dr. Sharif Farooq MCH (RBC) [Entitic mass] 27.6 pg Normal 26.7-34.0 [facility] Comment on above: Performed By: #### C BC #### [facility] [address] [place] [address] Dr. Sharif Farooq MCHC (RBC) [Mass/Vol] 32.5 g/dL Normal 29.9-35.2 [facility] Comment on above: Performed By: #### C BC #### [facility] [address] [address] [address] Sharif Farooq MCV (RBC) [Entitic vol] 85.2 fL Normal 81.0-99.0 [facility] Comment on above: Performed By: #### C BC #### [facility] [address] [address] [address] Sharif Farooq MONO # 0.6 103/ul Normal 0.3-0.8 [facility] Comment on above: Performed By: #### C BC #### [facility] [address] [address] [address] Sharif Farooq Monocytes/100 WBC (Bld) 9.8 % Normal 1.7-12.0 [facility] Comment on above: Performed By: #### C BC #### [facility] [address] [place] [address] Dr. Sharif Farooq NEUT # 3.1 103/ul Normal 1.4-6.5 [facility] Comment on above: Performed By: #### C BC #### [facility] [address] [address] [address] Sharif Farooq Neutrophils/100 WBC (Bld) 51.5 % Normal 43.0-75.0 [facility] Comment on above: Performed By: #### C BC #### [facility] [address] [address] [address] Sharif Farooq Platelet mean volume (Bld) [Entitic vol] 9.9 fL Normal 9.5-13.5 [facility] Comment on above: Performed By: #### C BC #### [facility] [address] [address] [address] Sharif Farooq PLT 233 103/ul Normal 150-450 [facility] Comment on above: Performed By: #### C BC #### [facility] [address] [address] [address] Sharif Farooq RBC 4.92 106/ul Normal 4.20-5.40 [facility] Comment on above: Performed By: #### C BC #### [facility] [address] [address] [address] Sharif Farooq WBC 6.0 103/ul Normal 4.0-11.0 [facility] Comment on above: Performed By: #### C BC #### [facility] [address] [address] [address] Sharif Farooq GLYCOHEMOGLOBIN A1Con 2021 ADA RECOMMENDATION SEE BELOW Normal [facility] Comment on above: Result Comment: ADA RECOMMENDED LIMIT 4.0 - 6.0 ADA THERAPEUTIC TARGET < 7.0 ACTION SUGGESTED > 7.0 Performed By: #### A 1C #### [facility] [address] [place] [address] Dr. Sharif Farooq Glucose [Mass/Vol] 114 mg/dL Normal [facility] Comment on above: Performed By: #### A 1C #### [facility] [address] [place] [address] Dr. Sharif Farooq HbA1c (Bld) [Mass fraction] 5.6 % Normal 4.5-6.2 [facility] Comment on above: Performed By: #### A 1C #### [facility] [address] [place] [address] Dr. Sharif Farooq LIPID PROFILEon 10-12-2021 CHOL-HDL RATIO NORM SEE BELOW Normal [facility] Comment on above: Result Comment: 3.3 - 4.4 LOW RISK 4.4 - 7.1 AVERAGE RISK 7.1 - 11.0 MODERATE RISK >11.0 HIGH RISK Performed By: #### C BC #### [facility] [address] [place] [address] Dr. Sharif Farooq Cholesterol [Mass/Vol] 157 mg/dL Normal <=200 [facility] Comment on above: Performed By: #### C BC #### [facility] [address] [place] [address] Dr. Sharif Farooq Cholesterol in HDL [Mass/Vol] 68 mg/dL Critically high 40-60 [facility] Comment on above: Performed By: #### C BC #### [facility] [address] [place] [address] Dr. Sharif Farooq Cholesterol in LDL [Mass/Vol] 66.0 mg/dL Normal [facility] Comment on above: Performed By: #### C BC #### [facility] [address] [address] [address] Sharif Farooq Cholesterol.total/Ch olesterol in HDL [Mass ratio] 2.3 {ratio} Normal [facility] Comment on above: Performed By: #### C BC #### [facility] [address] [address] [address] Sharif Farooq HDL NORMAL > or = 60 mg/dl - LO W CARDIOVASCULAR RISK <40 mg/dl - HIGH CARDIOVASCULAR RISK Normal [facility] Comment on above: Performed By: #### C BC #### [facility] [address] [place] [address] Dr. Sharif Farooq LDL CALC NORMAL SEE BELOW Normal [facility] Comment on above: Result Comment: <100 mg/dl OPTIMAL 100 - 129 mg/dl NEAR OR ABOVE OPTIMAL 130 - 159 mg/dl BORDERLINE HIGH 160 - 189 mg/dl HIGH >190 mg/dl VERY HIGH Performed By: #### C BC #### [facility] [address] [address] [address] Sharif Farooq Triglyceride [Mass/Vol] 115 mg/dL Normal <=150 [facility] Comment on above: Performed By: #### C BC #### [facility] [address] [place] [address] Dr. Sharif Farooq VLDL CALC 23.0 mg/dL Normal [facility] Comment on above: Performed By: #### C BC #### [facility] [address] [address] [address] Sharif Farooq PROF 14(COMP METB)on 022 Albumin [Mass/Vol] 4.0 g/dL Normal 3.4-5.0 [facility] Comment on above: Performed By: #### C BC #### [facility] [address] [place] [address] Dr. Sharif Farooq Albumin/Globulin [Mass ratio] 1.1 {ratio} Normal [facility] Comment on above: Performed By: #### C BC #### [facility] [address] [address] [address] Sharif Farooq ALP [Catalytic activity/Vol] 74 U/L Normal 46-116 [facility] Comment on above: Performed By: #### C BC #### [facility] [address] [address] [address] Sharif Farooq ALT [Catalytic activity/Vol] 34 U/L Normal 14-59 [facility] Comment on above: Performed By: #### C BC #### [facility] [address] [place] [address] Dr. Sharif Farooq Anion gap [Moles/Vol] 12.1 mmol/L Normal [facility] Comment on above: Performed By: #### C BC #### [facility] [address] [place] [address] Dr. Sharif Farooq AST [Catalytic activity/Vol] 22 U/L Normal 15-37 [facility] Comment on above: Performed By: #### C BC #### [facility] [address] [place] [address] Dr. Sharif Farooq Bilirubin [Mass/Vol] 1.5 mg/dL Critically high 0.2-1.0 [facility] Comment on above: Performed By: #### C BC #### [facility] [address] [place] [address] Dr. Sharif Farooq Calcium [Mass/Vol] 9.1 mg/dL Normal 8.5-10.1 [facility] Comment on above: Performed By: #### C BC #### [facility] [address] [place] [address] Dr. Sharif Farooq Chloride [Moles/Vol] 103 mmol/L Normal 98-107 [facility] Comment on above: Performed By: #### C BC #### [facility] [address] [place] [address] Dr. Sharif Farooq CO2 [Moles/Vol] 27.9 mmol/L Normal 21.0-32.0 [facility] Comment on above: Performed By: #### C BC #### [facility] [address] [place] [address] Dr. Sharif Farooq Creatinine [Mass/Vol] 0.93 mg/dL Normal 0.55-1.02 [facility] Comment on above: Performed By: #### C BC #### [facility] [address] [place] [address] Dr. Sharif Farooq EGFR-AF MALAYSIAN >60 Normal >=60 [facility] Comment on above: Performed By: #### C BC #### [facility] [address] [place] [address] Dr. Sharif Farooq EGFR-NON AF MALAYSIAN >60 Normal >=60 [facility] Comment on above: Performed By: #### C BC #### [facility] [address] [place] [address] Dr. Sharif Farooq Globulin (S) [Mass/Vol] 3.7 g/dL Normal [facility] Comment on above: Performed By: #### C BC #### [facility] [address] [place] [address] Dr. Sharif Farooq Glucose [Mass/Vol] 118 mg/dL Critically high 74-106 [facility] Comment on above: Performed By: #### C BC #### [facility] [address] [place] [address] Dr. Sharif Farooq Potassium [Moles/Vol] 4.0 mmol/L Normal 3.5-5.1 [facility] Comment on above: Performed By: #### C BC #### [facility] [address] [place] [address] Dr. Sharif Farooq Protein [Mass/Vol] 7.7 g/dL Normal 6.1-8.2 [facility] Comment on above: Performed By: #### C BC #### [facility] [address] [place] [address] Dr. Sharif Farooq Sodium [Moles/Vol] 139 mmol/L Normal 136-145 [facility] Comment on above: Performed By: #### C BC #### [facility] [address] [place] [address] Dr. Sharif Farooq Urea nitrogen [Mass/Vol] 14.0 mg/dL Normal 7.0-18.0 [facility] Comment on above: Performed By: #### C BC #### [facility] [address] [place] [address] Dr. Sharif Farooq Urea nitrogen/Creatinine [Mass ratio] 15.1 mg/mg Normal [facility] Comment on above: Performed By: #### C BC #### [facility] [address] [place] [address] Dr. Sharif Farooq TSHon 10-12-2021 TSH 2.998 uIU/mL Normal 0.470-4.[address] [facility] Comment on above: Performed By: #### C BC #### [facility] [address] [place] [address] Dr. Sharif Farooq TSH RANGE SEE BELOW Normal [facility] Comment on above: Result Comment: <0.3 4 UIU/ml HYPERTHYROID 0.34-5.60 UIU/ml EUTHYROID >5.60 UIU/ml HYPOTHYROID Performed By: #### C BC #### [facility] [address] [place] [address] Dr. Sharif Farooq Cytology Cervical or vaginal smear or scraping studyon 04-23-2021 [facility] Vital Signs Date Time Vital Sign Value Performing Clinician Bharathi muse 10-16-2024 15:21-0400 Body mass index (BMI) [Ratio] 32.93 kg/m2 Rupal HERMAN Work Phone: [facility] 10-16-2024 15:21040 Body weight 92.53 kg Rupal HERMAN Work Phone: [facility] 10-16-2024 15:21-0400 Diastolic blood pressure 80 mm[Hg] Rupal HERMAN Work Phone: [facility] 10-16-2024 15:21-0400 Systolic blood pressure 132 mm[Hg] Rupal HERMAN Work Phone: [facility] 08-22-2024 10:16-0400 Body height 167.64 cm [facility] 08-22-2024 10:16-0400 Body mass index (BMI) [Ratio] 32.3 kg/m2 [facility] 08-22-2024 10:16-0400 Body weight 90.9 kg [facility] 08-08-2024 14:38-0500 Body height 167.64 cm [facility] 08-08-2024 14:38-0500 Body mass index (BMI) [Ratio] 32.3 kg/m2 [facility] 08-08-2024 14:38-0500 Body weight 90.7 kg [facility] 07-26-2024 11:30-0500 Body height 167.64 cm [facility] 07-26-2024 11:30-0500 Body mass index (BMI) [Ratio] 33.2 kg/m2 [facility] 07-26-2024 11:30-0500 Body weight 93.44 kg [facility] 07-26-2024 11:30-0500 Diastolic blood pressure 84 mm[Hg] [facility] 07-26-2024 11:30-0500 Heart rate 61 /min [facility] 07-26-2024 11:30-0500 Systolic blood pressure 152 mm[Hg] [facility] 04-23-2024 13:50-0500 Body height 167.6 cm Rupal HERMAN Work Phone: [facility] 04-23-2024 13:50-0500 Body mass index (BMI) [Ratio] 32.35 kg/m2 Rupal Buckner PA Work Phone: [facility] 04-23-2024 13:50-0500 Body weight 90.9 kg Rupal Buckner PA Work Phone: [facility] 04-23-2024 13:50-0500 Diastolic blood pressure 84 mm[Hg] Rupal Buckner PA Work Phone: [facility] 04-23-2024 13:50-0500 Systolic blood pressure 136 mm[Hg] Rupal Buckner PA Work Phone: [facility] 01-31-2024 10:27-0400 Body height 167.6 cm Enma Wynne NP Work Phone: [facility] 01-31-2024 10:27-0400 Body mass index (BMI) [Ratio] 32.28 kg/m2 Enma Merazdoug TELEGRAPH OFFICE ROUTE AIDE Work Phone: [facility] 01-31-2024 10:270400 Body weight 90.72 kg Enma Merazdoug TELEGRAPH OFFICE ROUTE AIDE Work Phone: [facility] Encounters Encounter Date Encounter Type Care Provider Facility Start: 10-16-2024 End: 10-16-2024 Office outpatient visit 10 minutes Rupal HERMAN Work Phone: [facility] Comment on above: Post-menopause; Follow-up encounter involving medication Start: 10-16-2024 End: 10-16-2024 ambulatory RUPAL BUCKNER Not Available Start: 10-16-2024 End: 10-16-2024 Bamboo flowsheet Rupal HERMAN Work Phone: [facility] Start: 10-16-2024 End: 10-16-2024 Bamboo flowsheet Rupal HERMAN Work Phone: [facility] Start: 09-23-2024 End: 09-23-2024 ambulatory Andrius Vytautas Gieditis Facility: [facility] Start: 09-09-2024 End: 09-09-2024 ambulatory Andrius Vytautas Jewelitis Facility: [facility] Start: 09-02-2024 End: 09-02-2024 ambulatory Andrius Sapnaytautas Gieditis Facility: [facility] Start: 08-22-2024 End: 08-22-[address] [facility] Work Phone: Start: 08-22-2024 End: 08-22-2024 Patient encounter procedure [facility] Physician [facility] Work Phone: Start: 08-08-2024 End: 08-08-[address] [facility] Work Phone: Start: 08-08-2024 End: 08-08-2024 Patient encounter procedure [facility] Physician [facility] Work Phone: Start: 07-26-2024 End: 07-26-[address] [facility] Work Phone: Start: 07-26-2024 End: 07-26-2024 Patient encounter procedure [facility] Work Phone: Start: 04-23-2024 End: 04-23-2024 Bamboo [...] up visit related to original px Derek Andrews Soheila DO Work Phone: [facility] Comment on above: Arthritis of left kn ee Start: 02-20-2024 End: 02-20-2024 ambulatory DEREK Juliana SOHEILA Not Available Start: 02-13-2024 End: 02-13-2024 Bamboo flowsheet Derek Juliana Soheila DO Work Phone: [facility] Start: 02-13-2024 End: 02-13-2024 Bamboo flowsheet Derek Juliana Soheila DO Work Phone: [facility] Start: 02-13-2024 End: 02-13-2024 Office outpatient visit 25 minutes Derek Parnell DO Work Phone: [facility] Comment on above: Left knee pain, unsp ecified chronicity (Primary Dx); Arthritis of left knee Start: 02-13-2024 End: 02-13-2024 ambulatory DEREK PARNELL Not Available Start: 01-31-2024 End: 01-31-2024 Bamboo flowsheet Enma Obando Apldoug TELEGRAPH OFFICE ROUTE AIDE Work Phone: [facility] Start: 01-31-2024 End: 01-31-2024 Bamboo flowsheet Enma Obando Apling TELEGRAPH OFFICE ROUTE AIDE Work Phone: [facility] Start: 01-31-2024 End: 01-31-2024 Office outpatient visit 25 minutes Enma Wynne TELEGRAPH OFFICE ROUTE AIDE Work Phone: [facility] Comment on above: Arthritis of left kn ee (Primary Dx); Left knee pain, unspecified chronicity Start: 01-31-2024 End: 01-31-2024 ambulatory ENMA Obando APLING Not Available Start: 08-15-2023 Patient encounter status [facility] Start: 10-02-2022 Encounter for genera l adult medical examination without abnormal findings DR ELIN GOLDBERG [facility] Start: 09-27-2022 End: 09-28-[address] ELIN GOLDBERG Facility: Start: 09-27-2022 End: 09-28-2022 Encounter for general adult medical examination without abnormal findings DR ELIN GOLDBERG Facility:[facility] Start: 07-19-2022 End: 07-20-[address] DOTTIE WEISS Facility:[facility] Start: 03-22-2022 End: 03-23-[address] KORI KAN . Facility:[facility] Start: 03-01-[address] ELIN GOLDBERG [facility] ity:[facility] Start: 02-22-2022 End: 02-23-[address] William PARNELL Facility:[facility] Start: 02-22-2022 End: 02-23-[address] ELIN GOLDBERG Facility:[facility] Start: 01-20-2022 End: 01-21-[address] DOTTIE WEISS Facility:[facility] Start: 12-06-2021 End: 12-07-[address] ELIN GOLDBERG Facility:[facility] Start: 10-12-2021 End: 10-13-[address] ELIN GOLDBERG Facility:[facility] Procedures Date Procedure Procedure Detail Performing Clinician Start: 02-27-2024 Arthrocentesis aspir &/inj major jt/bursa w/o Derek Parnell DO Work Phone: Start: 02-20-2024 Arthrocentesis aspir &/inj major jt/bursa w/o us Derek Parnell DO Work Phone: Start: 02-13-2024 Arthrocentesis aspir &/inj major jt/bursa w/o Derek Parnell DO Work Phone: Start: 01-31-2024 Arthrocentesis aspir &/inj major jt/bursa w/o Enma Wynne TELEGRAPH OFFICE ROUTE AIDE Work Phone: Start: 04-23-2021 Cytp cerv/vag auto t hin layer prep mnl screen Elin Goldberg MD Work Phone: Plan of Treatment Date Care Activity Detail Author Start: 10-16-2024 End: 10-16-2024 Patient encounter procedure 10/16/2024 2:40 PM EDT Office Visit [facility] [address] [place] [address] Jorden, Rupal, PA [address] [place] [address] Arrived [facility] Comment on above: Arrived Start: 06-18-2024 End: 06-18-2024 Patient encounter procedure 06/18/2024 8:30 AM EST Office Visit [facility] [address] [place] [id number] Rupal Buckner PA [address] [place] [address] [facility] Start: 02-27-2024 End: 02-27-2024 Patient encounter procedure [facility] Comment on above: Arthritis of left kn ee Start: 02-20-2024 End: 02-20-2024 Patient encounter procedure [facility] Comment on above: Arthritis of left kn ee Start: 02-13-2024 End: 02-13-2024 Patient encounter procedure 02/13/2024 10:15 AM EDT Office Visit [facility] [address] [place] [address] Derek Parnell DO [address] [place] [address] Arrived [facility] Comment on above: Arrived Start: 02-11-2024 Influenza vaccination Influenza Vacc ine (#1) [facility] Start: 01-31-2024 End: 01-31-2024 Patient encounter procedure 01/31/2024 10:30 AM EDT Office Visit [facility] [address] [place] [address] Enma Wynne, MARIANA [address] [place] [address] Left knee pain, unspecified chronicity [facility] Comment on above: Left knee pain, unsp ecified chronicity Start: 1997 Screening for malignant neoplasm of breast Mammogram [facility] Start: 1957 Screening for malignant neoplasm of colon [facility] MR Lumbar spine WO contrast [facility] Patient Education Low back pain in adults [facility] Work Phone: XR Hip - left 2 Views [facility] XR Lumbar spine 2 or 3 Views [facility] Immunizations Immunization Date Immunization Notes Care Provider Fa spencer 02-15-2024 influenza virus vacc ine, unspecified formulation Derek ParmarSoheila DO Work Phone: [facility] 02-15-2023 Influenza, Seasonal, Quadrivalent, Adjuvanted Enma Mariyadoug TELEGRAPH OFFICE ROUTE AIDE Work Phone: [facility] 02-15-2023 Pneumococcal Conjuga te PCV 20 Enma Apling TELEGRAPH OFFICE ROUTE AIDE Work Phone: [facility] 02-15-2023 influenza virus vacc ine, unspecified formulation Enma Apling TELEGRAPH OFFICE ROUTE AIDE Work Phone: [facility] 03-03-2022 Influenza, injectabl e, Madin Tennyson Canine Kidney, preservative free, quadrivalent Enma Apling TELEGRAPH OFFICE ROUTE AIDE Work Phone: [facility] 04-20-2009 novel influenza-H1N1 -09, preservative-free, injectable Enma Apling TELEGRAPH OFFICE ROUTE AIDE Work Phone: [facility] Healthcare Payers Date Payer Category Payer Private Health Insurance [id number] 2024 Private Health Insurance [facility] [id number] 2022 Medicare [id number] 2022 Medicare [id number] 2022 Unknown [id number] 2019 Unknown [id number] 1957 Unknown [id number] 2.16.84 0.1.066312.3.579.2.593 1957 Unknown [id number] 2.16.84 0.1.320821.3.579.2.593 1957 Unknown [id number] 2.16.84 0.1.220358.3.579.2.593 1957 Unknown [id number] 2.16.84 0.1.211297.3.579.2.593 1957 Unknown [id number] 2.16.84 0.1.482492.3.579.2.593 1957 Unknown [id number] 2.16.84 0.1.858536.3.579.2.593 1957 Unknown [id number] 2.16.84 0.1.441831.3.579.2.593 1957 Unknown [id number] 2.16.84 0.1.841091.3.579.2.593 1957 Unknown [id number] 2.16.84 0.1.811219.3.579.2.593 1957 Unknown [id number] 2.16. 840.1.957651.3.579.2.196 1957 Unknown [id number] 2.16. 840.1.664713.3.579.2.196 1957 Unknown [id number] 2.16. 840.1.745990.3.579.2.196 1957 Unknown [id number] 2.16.84 0.1.840090.3.579.2.1259 1957 Unknown [id number] 2.16.84 0.1.421226.3.579.2.1259 1957 Unknown [id number] 2.16.84 0.1.815531.3.579.2.1259 1957 Unknown [id number] 2.16.84 0.1.379551.3.579.2.1259 1957 Unknown [id number] 2.16.84 0.1.228948.3.579.2.1259 1957 Unknown [id number] 2.16.84 0.1.209522.3.579.2.1259 Social History Date Type Detail Facility Start: 08-02-2023 End: 01-31-2024 Tobacco smoking status TNIS Never smoked tobacco [facility] Start: 01-31-2024 Tobacco use and exposure Smokeless tobacco non-user [facility] Start: 01-31-2024 History of Social function [facility] Start: 01-31-2024 Tobacco use panel [facility] Start: 1955 Sex assigned at Not on file [facility] Tobacco smoking status TNIS Tobacco smoking consumption unknown [facility] Start: 07-26-2024 End: 08-22-2024 Sex Female (finding) [facility] Start: 1955 Sex Assigned At Female [facility] NEGATED: Highlighted rowStart: NINF History of tobacco use Passive smoker [facility] Clinical Notes 02-22-2022 to 10-16-2024 Sharlene Orourke, KRISTEN - 10/16/2024 2:40 PM EDT Note Date & Type Note Facility 10-16-2024 History of Presen t illness Narrative Reason for Appointment: Patient ID: Irina Xiong is a 68 y.o. female who presents for Follow-up (Pt present today for a f/up medication visit. Pt was seen on 04/23/2024 for menopause issues and prescribed estrogen cream to use. ) Patient presents today for Follow up appointment to discuss results. MEDICATIONS Current Outpatient Medications Medication Instructions calcium [...] Osteoarthritis of knee 01/31/2024 Primary osteoarthritis 01/31/2024 Menopausal state 04/24/2024 Resolved Ambulatory Problems Diagnosis Date Noted No Resolved Ambulatory Problems Past Medical History: Diagnosis Date Hypertension (CMS/HCC) HISTORY PAST MEDICAL HISTORY SOCIAL HISTORY Past Medical History: Diagnosis Date Hyperlipidemia (CMS/HCC) Hypertension (CMS/[facility]) Social History Tobacco Use Smoking status: Never [...] Negative. Musculoskeletal: Negative. Skin: Negative. Neurological: Negative. All other systems reviewed and are negative. Hematological: Negative. Endocrine: Negative. Allergic/Immunologic: Negative. OBJECTIVE Objective: Physical Exam Constitutional: Appearance: Normal appearance. She is well-developed. Cardiovascular: Rate and Rhythm: Normal rate and regular rhythm. Pulmonary: Effort: Pulmonary effort is normal. Breath sounds: Normal breath sounds. Abdominal: General: Bowel sounds are normal. There is no distension. Palpations: Abdomen is soft. Tenderness: There is no abdominal tenderness. There is no guarding or rebound. Musculoskeletal: General: No swelling. Normal range of motion. Right lower leg: No edema. Left lower leg: No edema. Neurological: Mental Status: She is alert and oriented to person, place, and time. Skin: General: Skin is warm and dry. Psychiatric: Mood and Affect: Mood normal. Behavior: Behavior normal. Vitals and nursing note reviewed. Exam conducted with a chief engineer waterworks present. Vitals: Estimated body mass index is 32.93 kg/m as calculated from the following: Height as of 04/23/24: 5' 6 . Weight as of this encounter: 204 lb. BP: 132/80 No LMP recorded. Patient is postmenopausal. ASSESSMENT & PLAN ICD-10-CM 1. Post-menopause Z78.0 2. Follow-up encounter involving medication Z79.899 Pt presents to discuss vaginal cream. Cream working well for pt desires to continue. Pt will call when needs refill. PT to return for annual unless needed sooner. Documented by Sharlene Orourke LPN on behalf of: VIRGIL Monzon documented in this encounter [facility] 07-26-2024 Evaluation note Diagnosis Onset Date Resolution Left sided sciatica acute Febru 2024 11:21am [facility] Work Phone: 1(869) 897-876202-14-2025 Evaluation note* Diagnosis Onset Date Resolution Status Admit Date Left sided sciatica acute Febru 2024 11:21am Left hip pain acute August 082024 2:32pm Left lumbar radiculopathy acute August 08, 2024 2:32pm Left sided sciatica acute 2024 2:32pm Low back pain acute August 082024 2:32pm Left hip pain acute August 22, 2024 10:17am Left lumbar radiculopathy acute August 22, 2024 10:17am Low back pain acute August 22, 2024 10:17am [facility] Work Phone: 1(662) 215-803711-12-2024 History of Present illness Narrative* VIRGIL Monzon [...] Ambulatory Problems Diagnosis Date Noted Essential hypertension (CMS/[facility]) 03/12/2013 Headache 03/12/2013 Pain in limb 01/31/2024 Hyperlipidemia ([facility]/HCC) 03/12/2013 Arthritis of left knee 01/31/2024 Internal derangement of left knee 01/31/2024 Other chronic pain 01/31/2024 Osteoarthritis of knee 01/31/2024 Primary osteoarthritis 01/31/2024 Resolved Ambulatory Problems Diagnosis Date Noted No Resolved Ambulatory Problems Past Medical History: Diagnosis Date Hypertension ([facility]) HISTORY PAST MEDICAL HISTORY SOCIAL HISTORY Past Medical History: Diagnosis Date Hyperlipidemia ([facility]) Hypertension ([facility]) Social History Tobacco Use Smoking status: Never [...] behalf of: VIRGIL Monzon documented in this encounterPike County Memorial [id number] History of Present illness Narrative* Derek Parnell [...] scribe for Dr. Parnell/patrick documented in this encounterPike County Memorial [id number] History of Present illness Narrative* Derek Parnell [...] scribe for Dr. Parnell/patrick documented in this encounterPike County Memorial [id number] History of Present illness Narrative* Derek Parnell [...] 2021 (Erica) and had an MRI at [facility]. She went to pain management at [facility] with dr. Kan for injection (trigger [...] does not walk normally . [place]: XR TB 12/06/21, kenalog injection 12/22/21,and 01/05/22, MRI [facility] 01/20/22, pain management 02/2022 dr kan, [...] X-rays of the left knee from the [facility] dated December 06, 2021. The x- rays are nonweightbearing. On the x-rays there are marginal osteophytes noted Both in the medial and lateral joint line. Patella is sitting laterally within the femoral trochlea. MRI from the [facility] dated January 20, 2022. MRI reveals [...] Parnell/patrick. Joe Parnell D.O. documented in this encounterPike County Memorial [id number] History of Present illness Narrative* Enma Wynne NP - 01/31/2024 10:30 AM EDTAssociated Order(s): L Inj/Asp: L knee Post-Procedure Diagnose(s): Arthritis of left knee Subjective Patient ID: Irina Xiong is a 68 y.o. female. LT Knee no recent studies *Previously saw Erica in December of 2021 for LT knee pain and received two kenalog injections and had an MRI at [facility]. She went to pain management at [facility] with dr. Kan for injection (trigger [...] [facility] 12/06/21, kenalog injection 12/22/21,and 01/05/22, MRI [facility] 01/20/22, pain management 02/2022 dr kan, diclofenac [...] have her f/[facility] to possible visco injections documented in this encounterPike County Memorial [id number] NoteCONSULTATION CONSULTATION DATE: 03/22/2022 CHIEF COMPLAINT: Bilateral [...] a p.r.n. basis. CC: Elin Goldberg M.D.[facility] [id number] NotePROCEDURE: XR KNEE RT 4V or > COMPARISON: None. HISTORY: Pain in right knee FINDINGS: BONES:No acute fracture or dislocation. Mild to moderate tricompartmental osteoarthropathy with marginal osteophyte formation SOFT TISSUES:Negative. No visible soft tissue swelling. EFFUSION:None visible. OTHER: Negative. IMPRESSION: Mild to moderate osteoarthritis Electronically authenticated by: DOTTIE WEISS Date: 2022-02-22 15:12[facility] [id number] NoteCONSULTATION CONSULTATION DATE: 02/22/2022 CHIEF COMPLAINT: Bilateral [...] like to progress. CC: Joe Parnell D.O.[facility] [id number] NoteCONSULTATION PROCEDURE DATE: 02/22/2022 PREOPERATIVE DIAGNOSIS: Bilateral [...] up in the office in four weeks.[facility] Diagnosis Uterine prolapse Uterine prolapse without mention of vaginal wall prolapse Menopausal state Symptomatic menopausal or female climacteric states documented in this encounter [facility] HealthcareEvaluation note* Diagnosis Arthritis of left knee documented in this encounter [facility] HealthcareEvaluation note* Diagnosis Arthritis of left knee- Primary Left knee pain, unspecified chronicity documented in this encounter [facility] HealthcareEvaluation note* Diagnosis Left knee pain, unspecified chronicity- Primary Arthritis of left knee documented in this encounter [facility] HealthcareEvaluation note* Diagnosis Arthritis of left knee documented in this encounter [facility] HealthcareEvaluation note* Diagnosis Onset Date Resolution Status Admit Date Left sided sciatica acute Febru [id number] 11:21am [facility] Work Phone: Evaluation note* Diagnosis Post-menopause Asymptomatic postmenopausal status (age-related) (natural) Follow-up encounter involving medication documented in this encounter [facility] Healthcare Summary Purpose Family History No Family [...] Inj/Asp: L knee Derek Parnell, DO [address] [place] [address] Referral ID Status Reason Start Date Expiration Date V isits Requested Visits Authorized [id number] Authorized 02/27/2024 08/25/2024 1 1 Specialty Diagnoses / Procedures Referred By Contac t Referred To Contact Orthopaedic Surgery Diagnoses Arthritis of left knee Procedures L Inj/Asp: L knee Ricci Enma Obando, TELEGRAPH OFFICE ROUTE AIDE [address] [place] [address] Referral ID Status Reason Start Date Expiration Date V isits Requested Visits Authorized [id number] Authorized 01/31/2024 07/29/2024 1 1 Referral ID Status Reason Start Date Expiration Date V isits Requested Visits Authorized [id number] Authorized 02/13/2024 08/11/2024 1 1 Referral ID Status Reason Start Date Expiration Date V isits Requested Visits Authorized [id number] Authorized 02/20/2024 08/18/2024 1 1 Chief Complaint [...] pital DATE CREATED AUTHOR AUTHOR'S ORGANIZ ATION 10/03/2024 [facility] DATE CREATED AUTHOR AUTHOR'S ORGANIZ ATION 10/19/[address] [facility] dical Specialists [facility] Care Teams (unrecognized sec tion and content) Associate Professor Of Engineering Relationship Specialty Start Date End Date Elin Goldbreg MD [address] [facility] [place] [phone] PCP - General Family Medicine 01/31/24 Associate Professor Of Engineering Relationship Specialty Start Date End Date Elin Goldberg MD [address] [facility] [place] [address] PCP - General Family Medicine 01/31/24 Associate Professor Of Engineering Relationship Specialty Start Date End Date Elin Goldberg MD [address] [facility] [place] [phone] PCP - General Family Medicine 01/31/24 Associate Professor Of Engineering Relationship Specialty Start Date End Date Elin Goldberg MD [address] [facility] [place] [phone] PCP - General Family Medicine 01/31/24 Associate Professor Of Engineering Relationship Specialty Start Date End Date Elin Goldberg MD [address] [facility] [place] [address] PCP - General Family Medicine 01/31/24 Associate Professor Of Engineering Relationship Specialty Start Date End Date Elin Goldberg MD [address] [facility] [place] [phone] PCP - General Family Medicine 01/31/24 Associate Professor Of Engineering Relationship Specialty Start Date End Date Elin Goldberg MD [address] [facility] [place] [phone] PCP - General Family Medicine 01/31/24 Associate Professor Of Engineering Relationship Specialty Start Date End Date Elin Goldberg MD [address] [facility] [place] [phone] PCP - General Family Medicine 01/31/24 Associate Professor Of Engineering Relationship Specialty Start Date End Date Elin Goldberg MD [address] [facility] [place] [phone] PCP - General Family Medicine 01/31/24 Associate Professor Of Engineering Relationship Specialty Start Date End Date Elin Goldberg MD [address] [facility] [place] [phone] PCP - General Family Medicine 01/31/24 Team Status: Active Member Role Status Sandi Goldberg MD Primary Care Provider Active Team Status: Inactive Member Role Status Sandi Goldberg MD Primary Care Provide r, Attending Provider Active Start: July 26, 2024 End: July 26, 2024 Team Status: Inactive Member Role Status Sandi Goldberg MD Primary Care Provider Active Start: August 08, 2024 End: August 08, 2024 Helene Swan APRN Attending Provider Active Start: August 08, 2024 End: August 08, 2024 Team Status: Inactive Member Role Status Sandi Goldberg MD Primary Care Provider Active Start: [...] frequency. Reason Comments Injections Reason Comments Follow-up Reason Comments Follow-up Pt present today for a f/up medication visit. Pt was seen on 04/23/2024 for menopause issues and prescribed estrogen cream to use. Goals (unrecognized section and content) Goals may [...] BE BASED ON THE PRIMARY CLINICAL RECORDS. [facility]. provides no warranty or guarantee of the accuracy or completeness of information in this document.
--- NOTE | 2024-10-23 13:01 | P.CN_ITS ---
Consult Note: HPI Data of Consult Patient: known to practice within the last 3 years Requesting Physician: Senia Marshall NP Primary Care Provider: Elin Kauffman MD Consult Narrative Reason for consult: f/u Narrative: Irina Xiong a pleasant 68 year old female presents for evaluation of chronic low back pain. longstanding hx of low back pain > 12 months unresponsive to 6 weeks of PT, provider guided HEP, heat, ice, tylenol, NSAIDs. prior lumbar xray and MRI consistent with multilevel facet arthropathy, stenosis, and ddd. Pain today 7/10 stiffness in low back and posterior thighs. Pain increases with standing, walking, twisting, pushing, pulling, bending, activity. Pain improved with lying and sitting. currently utilizing gabapentin 300mg BID, flexeril 5mg BID, and transdermal therapeutics cream with mild relief. denies side effects. she could not tolerate higher doses of gabapentin or flexeril due to drowsiness. she previously declined vertiflex. on 10/14/24 she underwent bilateral L3,4 L4,5 facet medial branch block #1 with >80% improvement in VAS pain and functional ability immediately after and 2 hours after her injection. preop pain up to 10/10 post op pain 2/10 cc:: CC: Senia Marshall NP Review of Systems ROS Status of ROS 10 or more systems reviewed and unremark able except as noted in history and below [facility] Medical History (Updated 09/03/24 @ 15:34 by Gloria Butler) Low back pain ?M54.50 - Low back pain, unspecified (ICD-10) Osteoarthritis ?M19.90 - Unspecified osteoarthritis, unspecified site (ICD-10) Obesity ?E66.9 - Obesity, unspecified (ICD-10) Hypothyroid ?E03.9 - Hypothyroidism, unspecified (ICD-10) High cholesterol ?E78.00 - Pure hypercholesterolemia, unspecified (ICD-10) Hypertension ?I10 - Essential (primary) hypertension (ICD-10) Surgical History H/O colonoscopy ?Z98.890 - Other specified postprocedural states (ICD-10) H/O vein stripping ?Z98.890 - Other specified postprocedural states (ICD-10) Hx of cholecystectomy ?Z90.49 - Acquired absence of other specified parts of digestive tract (ICD- 10) History of dilatation and curettage ?Z98.890 - Other specified postprocedural states (ICD-10) Hx of tonsillectomy ?Z90.89 - Acquired absence of other organs (ICD-10) Meds Home Medications and Allergies Home Medications ?Medication ?Instructions ?Recorded ?Confirmed ?Type cyclobenzaprine 5 mg tablet 5 mg 09/03/24 History diclofenac sodium 75 mg 75 mg PO 09/03/24 History tablet,delayed release estradiol 0.01% (0.1 mg/gram) vaginal 09/03/24 Histor y vaginal cream gabapentin 300 mg capsule 300 mg 09/03/24 History levothyroxine 88 mcg tablet 88 mcg 09/03/24 History metoprolol succinate 100 mg 100 mg PO DAILY 09/03/24 0 10/14/24 History tablet,extended release 24 hr rosuvastatin 10 mg tablet 10 mg PO DAILY 09/03/24 05/0 11/03 History Allergies Allergy/AdvReac Type Severity Reaction Status Date / Time prednisone AdvReac Mild anxious Verified 10/14/24 10:16 Exam Constitutional Documenting provider has reviewed patient's vital signs: yes Common normals: no apparent distress, oriented x3, healthy appearing, alert and well nourished General appearance: cooperative HENMT Common normals: normocephalic, hearing grossly normal bilaterally and moist oral mucous membranes Head and scalp: normocephalic Eye Common normals: PERRL Pupil: PERRL Neck & C-Spine Common normals: full ROM General: normal visual inspection Chest Common normals: inspection of chest normal Respiratory Common normals: normal respiratory effort, no retractions and no use of accessory muscles Back & Pelvis Lumbar spine/lower back: ROM limited, pain with ROM, lumbar spinal tenderness Lumbar spinal tenderness location: L3, L4 and L5 and straight leg raise negative bilaterally Other: positive facet loading tenderness bilateral L3-5 strength 5/5 with sensation intact BLE Neuro Common normals: oriented x3 Sensorium/orientation: alert Psych Common normals: mental status grossly normal, thought process normal, cooperative, affect normal, speech normal and activity/motor behavior normal Speech: normal speech Thought process: normal thought process Results Additional Findings Additional findings: If on a controlled substance or opioids, I have checked an [place] report on this patient and there are no aberrancies noted in the prescribing history.??If on a controlled substance or opioid a drug screen was completed and reviewed within the last year, and if there has not been a drug screen completed we ordered one today to monitor higher risk, state monitored pain medication use. As part of providing excellent, safe, comprehensive care, the following was completed at our patient's visit: 1. A medication reconciliation and review to ensure accurate knowledge of current/active medications, including asking our patients to inform us about any [id number] medications or herbal remedies/nutritional supplements/alternative remedies. 2. A review to specifically ensure our patients have had annual screening for screening for depression, screening for tobacco use, and screening for unhealthy alcohol use. For concerning screenings had a discussion with the patient, provided patient education, and recommended follow-up with primary care provider when appropriate. If patient noted with a risk of falling, they received education on strength, gait, and balance training to prevent future risk of falling. Portions of this note may have been carried over from the previous visit and updated as appropriate. Please note this office utilizes paper charting in addition to the electronic medical record. A list of current medications, vitals, and PMH is available there as the clinical staff outside of myself do not have access to [employer] charting during the clinic day operations. As part of providing quality comprehensive care the current medications, vitals, and PMH were reviewed in the paper chart. Assessment and Plan Assessment and Plan (1) Lumbar spondylosis: Assessment and Plan: as noted on previous imaging and physical exam patient has moderate to severe axial facet mediated low back pain The patient has had over 3 months of moderate to severe low back pain with functional impairment and inadequate response to conservative care including NSAIDS (unless there are contraindication such as concurrent blood thinners), multiple oral or topical pain medications, and home exercise program/physical therapy.? Patient has completed >6 weeks of guided home exercise program and/or formal physical therapy program without relief of their symptoms.? The Oswestry Disability Index was completed, and the patient scored a 54%.? The patient noted the following:?? moderate to severe pain with ADLs, sitting, standing, walking, social life, sleep, travel (2) Lumbar stenosis with neurogenic claudication: Assessment and Plan: pt is a candidate for L3-4 L4-5 vertiflex, would like to defer at this time as she is active in the summer and has a lot going on in her personal life at this time (3) Sacroiliac joint disease: Assessment and Plan: negative SIJ exam as noted above recently underwent bilateral SIJ injection 09/23/24 with mild relief Plan bilateral L3-4 L4-5 MBB x2 working towards RFA for moderate to severe axial facet mediated low back pain continue gabapentin 300mg BID, could not tolerate higher doses continue flexeril 5mg BID to TID PRN pain/spasms f/u after each injection
== END 2024-10-23 12:37 | disposition home or self-care (01) ==
LOC: PM 12:37
PROVIDERS: PCP Family Medicine; Visit Provider Nurse Practitioner
DX: M47.816 Spondylosis without myelopathy or radiculopathy, lumbar region (principal); M48.062 Spinal stenosis, lumbar region with neurogenic claudication; M53.3 Sacrococcygeal disorders, not elsewhere classified
CPT/HCPCS: G0463

== ENCOUNTER 2024-11-11 07:34 | Day surgery (SDC) | payer MEDICARE, SELFPAY ==
--- OUTSIDE RECORDS SUMMARY | 2024-11-11 07:40 | XMS_ITS | CCD ---
Author Organization [facility] Care Team Providers Care Satellite Instruction Facilitator Name Role Phone ABHISHEK, DR DOTTIE Alejo [...] (2 sources) Patient encounter status; Translations: [Other [facility] (current) drug therapy] 10-16-2024 Episodic Other nervous [...] discussed. Consent was given by the patient. Critical access hospital No Panel Informationon 02-19 Derek Parnell, DO 02/20/2024 3:56 PM L Inj/Asp: L knee on 02/20/2024 10:26 AM Indications: pain Details: 21 G needle, anterolateral approach Medications: 2 mL SynoJoynt 20 MG/2ML Outcome: tolerated well, no immediate complications Procedure, treatment alternatives, risks and benefits explained, specific risks discussed. Consent was given by the patient. Critical access hospital No Panel Informationon 02-12 Derek Parnell, DO 02/13/2024 2:38 PM L Inj/Asp: L knee on 02/13/2024 12:27 PM Indications: pain Details: 21 G needle, anterolateral approach Medications: 2 mL SynoJoynt 20 MG/2ML Outcome: tolerated well, no immediate complications Procedure, treatment alternatives, risks and benefits explained, specific risks discussed. Consent was given by the patient. Critical access hospital No Panel Informationon 01-30 Enma Wynne NP [...] discussed. Consent was given by the patient. Critical access hospital CBC AUTO DIFFon 09-27-2022 BASO # 0.1 103/ul Normal 0.0-0.1 [facility] Comment on above: Performed By: #### C BC #### [facility] [address] [address] [address] Sharif Farooq Basophils/100 WBC (Bld) 1.9 % Normal 0.2-2.0 [facility] Comment on above: Performed By: #### C BC #### [facility] [address] [address] [address] Sharif Farooq EO # 0.1 103/ul Normal 0.0-0.7 [facility] Comment on above: Performed By: #### C BC #### [facility] [address] [place] [address] Dr. Sharif Farooq Eosinophils/100 WBC (Bld) 2.3 % Normal 0.9-7.0 [facility] Comment on above: Performed By: #### C BC #### [facility] [address] [place] [address] Dr. Sharif Farooq Erythrocyte distribution width (RBC) [Ratio] 14.6 % Normal 11.0-15.0 [facility] Comment on above: Performed By: #### C BC #### [facility] [address] [place] [address] Dr. Sharif Farooq Hematocrit (Bld) [Volume fraction] 41.7 % Normal 36.0-48.0 [facility] Comment on above: Performed By: #### C BC #### [facility] [address] [place] [address] Dr. Sharif Farooq Hemoglobin (Bld) [Mass/Vol] 13.7 g/dL Normal 12.0-16.0 [facility] Comment on above: Performed By: #### C BC #### [facility] [address] [place] [address] Dr. Sharif Farooq IG # 0.01 10e3/ul Normal 0.00-0.03 [facility] Comment on above: Performed By: #### C BC #### [facility] [address] [place] [address] Dr. Sharif Farooq IG % 0.2 % Normal 0.0-0.[address] [facility] Comment on above: Performed By: #### C BC #### [facility] [address] [place] [address] Dr. Sharif Farooq LYMPH # 1.6 103/ul Normal 1.2-3.8 [facility] Comment on above: Performed By: #### C BC #### [facility] [address] [place] [address] Dr. Sharif Farooq Lymphocytes/100 WBC (Bld) 34.0 % Normal 20.5-60.0 [facility] Comment on above: Performed By: #### C BC #### [facility] [address] [place] [address] Dr. Sharif Farooq MANUAL DIFF REQ NO Normal [facility] Comment on above: Performed By: #### C BC #### [facility] [address] [place] [address] Dr. Sharif Farooq MCH (RBC) [Entitic mass] 27.5 pg Normal 26.7-34.0 [facility] Comment on above: Performed By: #### C BC #### [facility] [address] [place] [address] Dr. Sharif Farooq MCHC (RBC) [Mass/Vol] 32.9 g/dL Normal 29.9-35.[address] [facility] Comment on above: Performed By: #### C BC #### [facility] [address] [place] [address] Dr. Sharif Farooq MCV (RBC) [Entitic vol] 83.7 fL Normal 81.0-99.0 [facility] Comment on above: Performed By: #### C BC #### [facility] [address] [place] [address] Dr. Sharif Farooq MONO # 0.5 103/ul Normal 0.3-0.[address] [facility] Comment on above: Performed By: #### C BC #### [facility] [address] [place] [address] Dr. Sharif Farooq Monocytes/100 WBC (Bld) 9.5 % Normal 1.7-12.[address] [facility] Comment on above: Performed By: #### C BC #### [facility] [address] [place] [address] Dr. Sharif Farooq NEUT # 2.5 103/ul Normal 1.4-6.[address] [facility] Comment on above: Performed By: #### C BC #### [facility] [address] [place] [address] Dr. Sharif Farooq Neutrophils/100 WBC (Bld) 52.1 % Normal 43.0-75.0 [facility] Comment on above: Performed By: #### C BC #### [facility] [address] [place] [address] Dr. Sharif Farooq Platelet mean volume (Bld) [Entitic vol] 10.3 fL Normal 9.5-13.5 [facility] Comment on above: Performed By: #### C BC #### [facility] [address] [place] [address] Dr. Sharif Farooq PLT 250 103/ul Normal 150-450 [facility] Comment on above: Performed By: #### C BC #### [facility] [address] [place] [address] Dr. Sharif Farooq RBC 4.98 106/ul Normal 4.20-5.40 [facility] Comment on above: Performed By: #### C BC #### [facility] [address] [place] [address] Dr. Sharif Farooq WBC 4.8 103/ul Normal 4.0-11.0 [facility] Comment on above: Performed By: #### C BC #### [facility] [address] [place] [address] Dr. Sharif Farooq GLYCOHEMOGLOBIN A1Con 2022 ADA RECOMMENDATION SEE BELOW Normal [facility] Comment on above: Result Comment: ADA RECOMMENDED LIMIT 4.0 - 6.0 ADA THERAPEUTIC TARGET < 7.0 ACTION SUGGESTED > 7.0 Performed By: #### A 1C #### [facility] [address] [place] [address] Dr. Sharif Farooq Glucose [Mass/Vol] 111 mg/dL Normal [facility] Comment on above: Performed By: #### A 1C #### [facility] [address] [place] [address] Dr. Sharif Farooq HbA1c (Bld) [Mass fraction] 5.5 % Normal 4.5-6.2 [facility] Comment on above: Performed By: #### A 1C #### [facility] [address] [address] [address] Sharif Farooq LIPID PROFILEon 09-27-2022 CHOL-HDL RATIO NORM SEE BELOW Normal [facility] Comment on above: Result Comment: 3.3 - 4.4 LOW RISK 4.4 - 7.1 AVERAGE RISK 7.1 - 11.0 MODERATE RISK >11.0 HIGH RISK Performed By: #### C BC #### [facility] [address] [address] [address] Sharif Farooq Cholesterol [Mass/Vol] 180 mg/dL Normal <=200 [facility] Comment on above: Performed By: #### C BC #### [facility] [address] [address] [address] Sharif Farooq Cholesterol in HDL [Mass/Vol] 61 mg/dL Critically high 40-60 [facility] Comment on above: Performed By: #### C BC #### [facility] [address] [place] [address] Dr. Sharif Farooq Cholesterol in LDL [Mass/Vol] 103.2 mg/dL Normal [facility] Comment on above: Performed By: #### C BC #### [facility] [address] [place] [address] Dr. Sharif Farooq Cholesterol.total/Ch olesterol in HDL [Mass ratio] 3.0 {ratio} Normal [facility] Comment on above: Performed By: #### C BC #### [facility] [address] [place] [address] Dr. Sharif Farooq HDL NORMAL > or = 60 mg/dl - LO W CARDIOVASCULAR RISK <40 mg/dl - HIGH CARDIOVASCULAR RISK Normal [facility] Comment on above: Performed By: #### C BC #### [facility] [address] [place], [place] [id number] Dr. Sharif Farooq LDL CALC NORMAL SEE BELOW Normal [facility] Comment on above: Result Comment: <100 mg/dl OPTIMAL 100 - 129 mg/dl NEAR OR ABOVE OPTIMAL 130 - 159 mg/dl BORDERLINE HIGH 160 - 189 mg/dl HIGH >190 mg/dl VERY HIGH Performed By: #### C BC #### [facility] [address] [place] [address] Dr. Sharif Farooq Triglyceride [Mass/Vol] 79 mg/dL Normal <=150 [facility] Comment on above: Performed By: #### C BC #### [facility] [address] [place] [address] Dr. Sharif Farooq VLDL CALC 15.8 mg/dL Normal [facility] Comment on above: Performed By: #### C BC #### [facility] [address] [place] [address] Dr. Sharif Farooq PROF 14(COMP METB)on 023 Albumin [Mass/Vol] 3.9 g/dL Normal 3.4-5.0 [facility] Comment on above: Performed By: #### C BC #### [facility] [address] [place] [address] Dr. Sharif Farooq Albumin/Globulin [Mass ratio] 1.0 {ratio} Normal [facility] Comment on above: Performed By: #### C BC #### [facility] [address] [place] [address] Dr. Sharif Farooq ALP [Catalytic activity/Vol] 84 U/L Normal 46-116 [facility] Comment on above: Performed By: #### C BC #### [facility] [address] [place] [address] Dr. Sharif Farooq ALT [Catalytic activity/Vol] 37 U/L Normal 14-59 [facility] Comment on above: Performed By: #### C BC #### [facility] [address] [place] [address] Dr. Sharif Farooq Anion gap [Moles/Vol] 13.4 mmol/L Normal [facility] Comment on above: Performed By: #### C BC #### [facility] [address] [place] [address] Dr. Sharif Farooq AST [Catalytic activity/Vol] 21 U/L Normal 15-37 [facility] Comment on above: Performed By: #### C BC #### [facility] [address] [place] [address] Dr. Sharif Farooq Bilirubin [Mass/Vol] 0.8 mg/dL Normal 0.2-1.[address] [facility] Comment on above: Performed By: #### C BC #### [facility] [address] [address] [address] Sharif Farooq Calcium [Mass/Vol] 9.7 mg/dL Normal 8.5-10.1 [facility] Comment on above: Performed By: #### C BC #### [facility] [address] [address] [address] Sharif Farooq Chloride [Moles/Vol] 105 mmol/L Normal 98-[address] [facility] Comment on above: Performed By: #### C BC #### [facility] [address] [place] [address] Dr. Sharif Farooq CO2 [Moles/Vol] 26.8 mmol/L Normal 21.0-32.0 [facility] Comment on above: Performed By: #### C BC #### [facility] [address] [place] [address] Dr. Sharif Farooq Creatinine [Mass/Vol] 0.94 mg/dL Normal 0.55-1.02 [facility] Comment on above: Performed By: #### C BC #### [facility] [address] [place] [address] Dr. Sharif Farooq EGFR-AF TURKS AND CAICOS ISLANDER >60 Normal >=60 [facility] Comment on above: Performed By: #### C BC #### [facility] [address] [address] [address] Sharif Farooq EGFR-NON AF TURKS AND CAICOS ISLANDER 60 mL/min/1.73m2 Normal >=[address] [facility] Comment on above: Performed By: #### C BC #### [facility] [address] [address] [address] Sharif Farooq Globulin (S) [Mass/Vol] 3.9 g/dL Normal [facility] Comment on above: Performed By: #### C BC #### [facility] [address] [address] [address] Sharif Farooq Glucose [Mass/Vol] 105 mg/dL Normal 74-106 [facility] Comment on above: Performed By: #### C BC #### [facility] [address] [address] [address] Sharif Farooq Potassium [Moles/Vol] 4.2 mmol/L Normal 3.5-5.1 [facility] Comment on above: Performed By: #### C BC #### [facility] [address] [address] [address] Sharif Farooq Protein [Mass/Vol] 7.8 g/dL Normal 6.4-8.2 [facility] Comment on above: Performed By: #### C BC #### [facility] [address] [address] [address] Sharif Farooq Sodium [Moles/Vol] 141 mmol/L Normal 136-145 [facility] Comment on above: Performed By: #### C BC #### [facility] [address] [address] [address] Sharif Farooq Urea nitrogen [Mass/Vol] 21.0 mg/dL Critically high 7.0-18.0 [facility] Comment on above: Performed By: #### C BC #### [facility] [address] [address] [address] Sharif Farooq Urea nitrogen/Creatinine [Mass ratio] 22.3 mg/mg Normal [facility] Comment on above: Performed By: #### C BC #### [facility] [address] [address] [address] Sharif Farooq TSHon 09-27-2022 TSH 3.122 uIU/mL Normal 0.358-3.740 [facility] Comment on above: Performed By: #### C BC #### [facility] [address] [address] [address] Sharif Farooq MG MAMM SCREEN 3D OMAR CADon 07-19-2022 MG MAMM SCREEN 3D OMAR CAD Patient: IRINA XIONG Exam Date: 07/19/2022 : 1955 Gender:F Ordering : DR ELIN GOLDBERG M.D. Admission #: [id number] Family : Order #: [id number] CLICK HERE TO VIEW EXAM RADIOLOGY REPORT [...] breast cancer at age 62. LOCATION: [facility] BREAST COMPOSITION: Scattered areas fibroglandular density. [...] MD on 07/20/2022 at 09:[address] [facility] MRI KNEE LT WO CONon 08-11-2 [...] DOTTIE WEISS Date: 2022-01-20 18:[address] [facility] XR KNEE LT 4V or >on [...] JOSH SHEA Date: 2021-12-06 18:[address] [facility] CBC AUTO DIFFon 10-12-2021 BASO # 0.1 103/ul Normal 0.0-0.1 [facility] Comment on above: Performed By: #### C BC #### [facility] [address] [place] [address] Dr. Sharif Farooq Basophils/100 WBC (Bld) 1.8 % Normal 0.2-2.0 [facility] Comment on above: Performed By: #### C BC #### [facility] [address] [place] [address] Dr. Sharif Farooq EO # 0.1 103/ul Normal 0.0-0.7 [facility] Comment on above: Performed By: #### C BC #### [facility] [address] [place] [address] Dr. Sharif Farooq Eosinophils/100 WBC (Bld) 2.0 % Normal 0.9-7.0 [facility] Comment on above: Performed By: #### C BC #### [facility] [address] [place] [address] Dr. Sharif Farooq Erythrocyte distribution width (RBC) [Ratio] 14.1 % Normal 11.0-15.0 [facility] Comment on above: Performed By: #### C BC #### [facility] [address] [place] [address] Dr. Sharif Farooq Hematocrit (Bld) [Volume fraction] 41.9 % Normal 36.0-48.0 [facility] Comment on above: Performed By: #### C BC #### [facility] [address] [place] [address] Dr. Sharif Farooq Hemoglobin (Bld) [Mass/Vol] 13.6 g/dL Normal 12.0-16.0 [facility] Comment on above: Performed By: #### C BC #### [facility] [address] [place] [address] Dr. Sharif Farooq IG # 0.01 10e3/ul Normal 0.00-0.03 [facility] Comment on above: Performed By: #### C BC #### [facility] [address] [place] [address] Dr. Sharif Farooq IG % 0.2 % Normal 0.0-0.5 [facility] Comment on above: Performed By: #### C BC #### [facility] [address] [place] [address] Dr. Sharif Farooq LYMPH # 2.1 103/ul Normal 1.2-3.8 [facility] Comment on above: Performed By: #### C BC #### [facility] [address] [place] [address] Dr. Sharif Farooq Lymphocytes/100 WBC (Bld) 34.7 % Normal 20.5-60.0 [facility] Comment on above: Performed By: #### C BC #### [facility] [address] [place] [address] Dr. Sharif Farooq MANUAL DIFF REQ NO Normal [facility] Comment on above: Performed By: #### C BC #### [facility] [address] [place] [address] Dr. Sharif Farooq MCH (RBC) [Entitic mass] 27.6 pg Normal 26.7-34.0 [facility] Comment on above: Performed By: #### C BC #### [facility] [address] [place] [address] Dr. Sharif Farooq MCHC (RBC) [Mass/Vol] 32.5 g/dL Normal 29.9-35.[address] [facility] Comment on above: Performed By: #### C BC #### [facility] [address] [address] [address] Sharif Farooq MCV (RBC) [Entitic vol] 85.2 fL Normal 81.0-99.0 [facility] Comment on above: Performed By: #### C BC #### [facility] [address] [address] [address] Sharif Farooq MONO # 0.6 103/ul Normal 0.3-0.8 [facility] Comment on above: Performed By: #### C BC #### [facility] [address] [address] [address] Sharif Farooq Monocytes/100 WBC (Bld) 9.8 % Normal 1.7-12.0 [facility] Comment on above: Performed By: #### C BC #### [facility] [address] [place] [address] Dr. Sharif Farooq NEUT # 3.1 103/ul Normal 1.4-6.5 [facility] Comment on above: Performed By: #### C BC #### [facility] [address] [address] [address] Sharif Farooq Neutrophils/100 WBC (Bld) 51.5 % Normal 43.0-75.0 [facility] Comment on above: Performed By: #### C BC #### [facility] [address] [address] [address] Sharif Farooq Platelet mean volume (Bld) [Entitic vol] 9.9 fL Normal 9.5-13.5 [facility] Comment on above: Performed By: #### C BC #### [facility] [address] [address] [address] Sharif Farooq PLT 233 103/ul Normal 150-[address] [facility] Comment on above: Performed By: #### C BC #### [facility] [address] [address] [address] Sharif Farooq RBC 4.92 106/ul Normal 4.20-5.[address] [facility] Comment on above: Performed By: #### C BC #### [facility] [address] [address] [address] Sharif Farooq WBC 6.0 103/ul Normal 4.0-11.0 [facility] Comment on above: Performed By: #### C BC #### [facility] [address] [address] [address] Sharif Farooq GLYCOHEMOGLOBIN A1Con 2021 ADA RECOMMENDATION SEE BELOW Normal [facility] Comment on above: Result Comment: ADA RECOMMENDED LIMIT 4.0 - 6.0 ADA THERAPEUTIC TARGET < 7.0 ACTION SUGGESTED > 7.0 Performed By: #### A 1C #### [facility] [address] [place] [address] Dr. Sharif Farooq Glucose [Mass/Vol] 114 mg/dL Normal [facility] Comment on above: Performed By: #### A 1C #### [facility] [address] [place] [address] Dr. Sharif Farooq HbA1c (Bld) [Mass fraction] 5.6 % Normal 4.5-6.2 [facility] Comment on above: Performed By: #### A 1C #### [facility] [address] [place] [address] Dr. Sharif Farooq LIPID PROFILEon 10-12-2021 CHOL-HDL RATIO NORM SEE BELOW Normal [facility] Comment on above: Result Comment: 3.3 - 4.4 LOW RISK 4.4 - 7.1 AVERAGE RISK 7.1 - 11.0 MODERATE RISK >11.0 HIGH RISK Performed By: #### C BC #### [facility] [address] [place] [address] Dr. Sharif Farooq Cholesterol [Mass/Vol] 157 mg/dL Normal <=200 [facility] Comment on above: Performed By: #### C BC #### [facility] [address] [place] [address] Dr. Sharif Farooq Cholesterol in HDL [Mass/Vol] 68 mg/dL Critically high 40-60 [facility] Comment on above: Performed By: #### C BC #### [facility] [address] [place] [address] Dr. Sharif Farooq Cholesterol in LDL [Mass/Vol] 66.0 mg/dL Normal [facility] Comment on above: Performed By: #### C BC #### [facility] [address] [address] [address] Sharif Farooq Cholesterol.total/Ch olesterol in HDL [Mass ratio] 2.3 {ratio} Normal [facility] Comment on above: Performed By: #### C BC #### [facility] [address] [address] [address] Sharif Farooq HDL NORMAL > or = 60 mg/dl - LO W CARDIOVASCULAR RISK <40 mg/dl - HIGH CARDIOVASCULAR RISK Normal [facility] Comment on above: Performed By: #### C BC #### [facility] [address] [place] [address] Dr. Sharif Farooq LDL CALC NORMAL SEE BELOW Normal [facility] Comment on above: Result Comment: <100 mg/dl OPTIMAL 100 - 129 mg/dl NEAR OR ABOVE OPTIMAL 130 - 159 mg/dl BORDERLINE HIGH 160 - 189 mg/dl HIGH >190 mg/dl VERY HIGH Performed By: #### C BC #### [facility] [address] [address] [address] Sharif Farooq Triglyceride [Mass/Vol] 115 mg/dL Normal <=150 [facility] Comment on above: Performed By: #### C BC #### [facility] [address] [place] [address] Dr. Sharif Farooq VLDL CALC 23.0 mg/dL Normal [facility] Comment on above: Performed By: #### C BC #### [facility] [address] [address] [address] Sharif Farooq PROF 14(COMP METB)on 022 Albumin [Mass/Vol] 4.0 g/dL Normal 3.4-5.0 [facility] Comment on above: Performed By: #### C BC #### [facility] [address] [place] [address] Dr. Sharif Farooq Albumin/Globulin [Mass ratio] 1.1 {ratio} Normal [facility] Comment on above: Performed By: #### C BC #### [facility] [address] [address] [address] Sharif Farooq ALP [Catalytic activity/Vol] 74 U/L Normal 46-116 [facility] Comment on above: Performed By: #### C BC #### [facility] [address] [address] [address] Sharif Farooq ALT [Catalytic activity/Vol] 34 U/L Normal 14-59 [facility] Comment on above: Performed By: #### C BC #### [facility] [address] [place] [address] Dr. Sharif Farooq Anion gap [Moles/Vol] 12.1 mmol/L Normal [facility] Comment on above: Performed By: #### C BC #### [facility] [address] [place] [address] Dr. Sharif Farooq AST [Catalytic activity/Vol] 22 U/L Normal 15-37 [facility] Comment on above: Performed By: #### C BC #### [facility] [address] [place] [address] Dr. Sharif Farooq Bilirubin [Mass/Vol] 1.5 mg/dL Critically high 0.2-1.0 [facility] Comment on above: Performed By: #### C BC #### [facility] [address] [place] [address] Dr. Sharif Farooq Calcium [Mass/Vol] 9.1 mg/dL Normal 8.5-10.1 [facility] Comment on above: Performed By: #### C BC #### [facility] [address] [place] [address] Dr. Sharif Farooq Chloride [Moles/Vol] 103 mmol/L Normal 98-107 [facility] Comment on above: Performed By: #### C BC #### [facility] [address] [place] [address] Dr. Sharif Farooq CO2 [Moles/Vol] 27.9 mmol/L Normal 21.0-32.0 [facility] Comment on above: Performed By: #### C BC #### [facility] [address] [place] [address] Dr. Sharif Farooq Creatinine [Mass/Vol] 0.93 mg/dL Normal 0.55-1.02 [facility] Comment on above: Performed By: #### C BC #### [facility] [address] [place] [address] Dr. Sharif Farooq EGFR-AF TURKS AND CAICOS ISLANDER >60 Normal >=60 [facility] Comment on above: Performed By: #### C BC #### [facility] [address] [place] [address] Dr. Sharif Farooq EGFR-NON AF TURKS AND CAICOS ISLANDER >60 Normal >=60 [facility] Comment on above: Performed By: #### C BC #### [facility] [address] [place] [address] Dr. Sharif Farooq Globulin (S) [Mass/Vol] 3.7 g/dL Normal [facility] Comment on above: Performed By: #### C BC #### [facility] [address] [place] [address] Dr. Sharif Farooq Glucose [Mass/Vol] 118 mg/dL Critically high 74-106 [facility] Comment on above: Performed By: #### C BC #### [facility] [address] [place] [address] Dr. Sharif Farooq Potassium [Moles/Vol] 4.0 mmol/L Normal 3.5-5.1 [facility] Comment on above: Performed By: #### C BC #### [facility] [address] [place] [address] Dr. Sharif Farooq Protein [Mass/Vol] 7.7 g/dL Normal 6.1-8.2 [facility] Comment on above: Performed By: #### C BC #### [facility] [address] [place] [address] Dr. Sharif Farooq Sodium [Moles/Vol] 139 mmol/L Normal 136-145 [facility] Comment on above: Performed By: #### C BC #### [facility] [address] [place] [address] Dr. Sharif Farooq Urea nitrogen [Mass/Vol] 14.0 mg/dL Normal 7.0-18.0 [facility] Comment on above: Performed By: #### C BC #### [facility] [address] [place] [address] Dr. Sharif Farooq Urea nitrogen/Creatinine [Mass ratio] 15.1 mg/mg Normal [facility] Comment on above: Performed By: #### C BC #### [facility] [address] [place] [address] Dr. Sharif Farooq TSHon 10-12-2021 TSH 2.998 uIU/mL Normal 0.470-4.680 [facility] Comment on above: Performed By: #### C BC #### [facility] [address] [place] [address] Dr. Sharif Farooq TSH RANGE SEE BELOW Normal [facility] Comment on above: Result Comment: <0.3 4 UIU/ml HYPERTHYROID 0.34-5.60 UIU/ml EUTHYROID >5.60 UIU/ml HYPOTHYROID Performed By: #### C BC #### [facility] [address] [place] [address] Dr. Sharif Farooq Cytology Cervical or vaginal smear or scraping studyon 04-23-2021 [facility] Vital Signs Date Time Vital Sign Value Performing Clinician Bharathi muse 10-16-2024 15:21-0400 Body mass index (BMI) [Ratio] 32.93 kg/m2 Rupal HERMAN Work Phone: [facility] 10-16-2024 15:21040 Body weight 92.53 kg Rupal HERMAN Work Phone: [facility] 10-16-2024 15:21-0400 Diastolic blood pressure 80 mm[Hg] Rupal HERMAN Work Phone: [facility] 10-16-2024 15:21-0400 Systolic blood pressure 132 mm[Hg] Rupal HERMAN Work Phone: [facility] 08-22-2024 10:16-0400 Body height 167.64 cm [facility] 08-22-2024 10:16-0400 Body mass index (BMI) [Ratio] 32.3 kg/m2 [facility] 08-22-2024 10:16-0400 Body weight 90.9 kg [facility] 08-08-2024 14:38-0500 Body height 167.64 cm [facility] 08-08-2024 14:38-0500 Body mass index (BMI) [Ratio] 32.3 kg/m2 [facility] 08-08-2024 14:38-0500 Body weight 90.7 kg [facility] 07-26-2024 11:30-0500 Body height 167.64 cm [facility] 07-26-2024 11:30-0500 Body mass index (BMI) [Ratio] 33.2 kg/m2 [facility] 07-26-2024 11:30-0500 Body weight 93.44 kg [facility] 07-26-2024 11:30-0500 Diastolic blood pressure 84 mm[Hg] [facility] 07-26-2024 11:30-0500 Heart rate 61 /min [facility] 07-26-2024 11:30-0500 Systolic blood pressure 152 mm[Hg] [facility] 04-23-2024 13:50-0500 Body height 167.6 cm Rupal HERMAN Work Phone: [facility] 04-23-2024 13:50-0500 Body mass index (BMI) [Ratio] 32.35 kg/m2 Rupal Buckner PA Work Phone: [facility] 04-23-2024 13:50-0500 Body weight 90.9 kg Rupal Buckner PA Work Phone: [facility] 04-23-2024 13:50-0500 Diastolic blood pressure 84 mm[Hg] Rupal Buckner PA Work Phone: [facility] 04-23-2024 13:50-0500 Systolic blood pressure 136 mm[Hg] Rupal Buckner PA Work Phone: [facility] 01-31-2024 10:27-0400 Body height 167.6 cm Enma Wynne NP Work Phone: [facility] 01-31-2024 10:27-0400 Body mass index (BMI) [Ratio] 32.28 kg/m2 Enma Merazdoug SKIDDER Work Phone: [facility] 01-31-2024 10:270400 Body weight 90.72 kg Enma Merazdoug SKIDDER Work Phone: [facility] Healthcare Encounters Encounter Date Encounter Type Care Provider Facility Start: 10-16-2024 End: 10-16-2024 Office outpatient visit 10 minutes Rupal HERMAN Work Phone: [facility] Comment on above: Post-menopause; Follow-up encounter involving medication Start: 10-16-2024 End: 10-16-2024 ambulatory RUPAL BUCKNER Not Available Start: 10-16-2024 End: 10-16-2024 Bamboo flowsheet Rupal HERMAN Work Phone: [facility] Start: 10-16-2024 End: 10-16-2024 Bamboo flowsheet Rupal HERMAN Work Phone: [facility] Start: 09-23-2024 End: 09-23-2024 ambulatory Andrius Vytautas Gieditis Facility: [facility] Start: 09-09-2024 End: 09-09-2024 ambulatory Andrius Vytautas Jewelitis Facility: [facility] Start: 09-02-2024 End: 09-02-2024 ambulatory Andrius Sapnaytautas Gieditis Facility: [facility] Start: 08-22-2024 End: 08-22-2024 ambulatory [facility] Work Phone: Start: 08-22-2024 End: 08-22-2024 Patient encounter procedure [facility] Work Phone: Start: 08-08-2024 End: 08-08-2024 ambulatory [facility] Work Phone: Start: 08-08-2024 End: 08-08-2024 Patient encounter procedure [facility] Work Phone: Start: 07-26-2024 End: 07-26-2024 ambulatory [facility] Work Phone: Start: 07-26-2024 End: 07-26-2024 Patient encounter procedure [facility] Work Phone: Start: 04-23-2024 [...] px Derek Andrews Soheila DO Work Phone: [facility] Comment on above: Arthritis of left kn ee Start: 02-20-2024 End: 02-20-2024 ambulatory DEREK Juliana SOHEILA Not Available Start: 02-13-2024 End: 02-13-2024 Bamboo flowsheet Derek Juliana Soheila DO Work Phone: [facility] Start: 02-13-2024 End: 02-13-2024 Bamboo flowsheet Derek Juliana Soheila DO Work Phone: [facility] Start: 02-13-2024 End: 02-13-2024 Office outpatient visit 25 minutes Derek Parnell DO Work Phone: [facility] Comment on above: Left knee pain, unsp ecified chronicity (Primary Dx); Arthritis of left knee Start: 02-13-2024 End: 02-13-2024 ambulatory DEREK PARNELL Not Available Start: 01-31-2024 End: 01-31-2024 Bamboo flowsheet Enma Obando Apldoug SKIDDER Work Phone: [facility] Start: 01-31-2024 End: 01-31-2024 Bamboo flowsheet Enma Obando Apling SKIDDER Work Phone: [facility] Start: 01-31-2024 End: 01-31-2024 Office outpatient visit 25 minutes Enma Wynne SKIDDER Work Phone: [facility] Comment on above: Arthritis of left kn ee (Primary Dx); Left knee pain, unspecified chronicity Start: 01-31-2024 End: 01-31-2024 ambulatory ENMA Obando APLING Not Available Start: 08-15-[address] [facility] Start: 10-02-2022 Encounter for genera l adult medical examination without abnormal findings DR ELIN GOLDBERG [facility] Start: 09-27-2022 End: 09-28-[address] ELIN GOLDBERG Facility: Start: 09-27-2022 End: 09-28-2022 Encounter for general adult medical examination without abnormal findings DR ELIN GOLDBERG Facility:[facility] Start: 07-19-2022 End: 07-20-[address] DOTTIE WEISS Facility:[facility] Start: 03-22-2022 End: 03-23-[address] KORI KAN . Facility:[facility] Start: 03-01-[address] ELIN GOLDBERG [facility] ity:[facility] Start: 02-22-2022 End: 02-23-2022 ambulatory [...] aspir &/inj major jt/bursa w/o Enma Wynne SKIDDER Work Phone: Start: 04-23-2021 Cytp cerv/vag auto t hin layer prep mnl screen Elin Goldberg MD Work Phone: Plan of Treatment Date Care Activity Detail Author Start: 10-16-2024 End: 10-16-2024 Patient encounter procedure 10/16/2024 2:40 PM EDT Office Visit [facility] [address] [place] [address] Jorden, Rupal, PA [address] [place] [address] Arrived [facility] Comment on above: Arrived Start: 06-18-2024 End: 06-18-2024 Patient encounter procedure 06/18/2024 8:30 AM EST Office Visit [facility] [address] [place] [phone] Rupal Buckner PA [address] [place] [address] [facility] Start: 02-27-2024 End: 02-27-2024 Patient encounter procedure [facility] Comment on above: Arthritis of left kn ee Start: 02-20-2024 End: 02-20-2024 Patient encounter procedure [facility] Comment on above: Arthritis of left kn ee Start: 02-13-2024 End: 02-13-2024 Patient encounter procedure 02/13/2024 10:15 AM EDT Office Visit [facility] [address] [place] [address] Derek Parnell DO [address] [place] [address] Arrived [facility] Comment on above: Arrived Start: 02-11-2024 Influenza vaccination Influenza Vacc ine (#1) [facility] Start: 01-31-2024 End: 01-31-2024 Patient encounter procedure 01/31/2024 10:30 AM EDT Office Visit [facility] [address] [place] [address] Enma Wynne, MARIANA [address] [place] [address] Left knee pain, unspecified chronicity [facility] Comment on above: Left knee pain, unsp ecified chronicity Start: 1997 Screening for malignant neoplasm of breast Mammogram [facility] Start: 1957 Screening for malignant neoplasm of colon [facility] MR Lumbar spine WO contrast [facility] Patient Education Low back pain in adults [facility] Work Phone: XR Hip - left 2 Views [facility] XR Lumbar spine [address] [facility] Immunizations Immunization Date Immunization Notes Care Provider Fa spencer 02-15-2024 influenza virus vacc ine, unspecified formulation Derek ParmarSoheila DO Work Phone: [facility] 02-15-2023 Influenza, Seasonal, Quadrivalent, Adjuvanted Enma Mariyadoug SKIDDER Work Phone: [facility] 02-15-2023 Pneumococcal Conjuga te PCV 20 Enma Apling SKIDDER Work Phone: [facility] 02-15-2023 influenza virus vacc ine, unspecified formulation Enma Apling SKIDDER Work Phone: [facility] 03-03-2022 Influenza, injectabl e, Madin Wiley Canine Kidney, preservative free, quadrivalent Enma Apling SKIDDER Work Phone: [facility] 04-20-2009 novel influenza-H1N1 -09, preservative-free, injectable Enma Apling SKIDDER Work Phone: [facility] Healthcare Payers Date Payer Category Payer Private Health Insurance [id number] 2024 Private Health Insurance [facility] [id number] 2022 Medicare [id number] 2022 Medicare [id number] 2022 Unknown [id number] 2019 Unknown [id number] 1957 Unknown [id number] 2.16.84 0.1.612377.3.579.2.593 1957 Unknown [id number] 2.16.84 0.1.990781.3.579.2.593 1957 Unknown [id number] 2.16.84 0.1.406168.3.579.2.593 1957 Unknown [id number] 2.16.84 0.1.380370.3.579.2.593 1957 Unknown [id number] 2.16.84 0.1.042364.3.579.2.593 1957 Unknown [id number] 2.16.84 0.1.944420.3.579.2.593 1957 Unknown [id number] 2.16.84 0.1.689609.3.579.2.593 1957 Unknown [id number] 2.16.84 0.1.040258.3.579.2.593 1957 Unknown [id number] 2.16.84 0.1.545340.3.579.2.593 1957 Unknown [id number] 2.16. 840.1.972197.3.579.2.196 1957 Unknown [id number] 2.16. 840.1.308914.3.579.2.196 1957 Unknown [id number] 2.16. 840.1.084006.3.579.2.196 1957 Unknown [id number] 2.16.84 0.1.279496.3.579.2.1259 1957 Unknown [id number] 2.16.84 0.1.118200.3.579.2.1259 1957 Unknown [id number] 2.16.84 0.1.413830.3.579.2.1259 1957 Unknown [id number] 2.16.84 0.1.740893.3.579.2.1259 1957 Unknown [id number] 2.16.84 0.1.684174.3.579.2.1259 1957 Unknown [id number] 2.16.84 0.1.953187.3.579.2.1259 Social History Date Type Detail Facility Start: 08-02-2023 End: 01-31-2024 Tobacco smoking status NYIS Never smoked tobacco [facility] Start: 01-31-2024 Tobacco use and exposure Smokeless tobacco non-user [facility] Start: 01-31-2024 History of Social function [facility] Start: 01-31-2024 Tobacco use panel [facility] Start: 1955 Sex assigned at Not on file [facility] Tobacco smoking status NYIS Tobacco smoking consumption unknown [facility] Start: 07-26-2024 End: 08-22-2024 Sex Female (finding) [facility] Start: 1955 Sex Assigned At Female [facility] NEGATED: Highlighted rowStart: NINF History of tobacco use Passive smoker [facility] Clinical Notes 02-22-2022 to 10-16-2024 Sharlene [...] Medical History: Diagnosis Date Hyperlipidemia (CMS/HCC) Hypertension (CMS/[facility]) Social History Tobacco Use Smoking [...] nursing note reviewed. Exam conducted with a field sampling technician present. Vitals: Estimated body mass index is [...] of: VIRGIL Monzon documented in this encounter [facility] 07-26-2024 Evaluation note Diagnosis Onset Date Resolution Left sided sciatica acute Febru 2024 11:21am [facility] Work Phone: 1(814) 505-272802-14-2025 Evaluation note* Diagnosis Onset Date Resolution Status [...] back pain acute August 22, 2024 10:17am [facility] Work Phone: [phone]) 775-652911-12-2024 History of Present illness Narrative* VIRGIL Monzon [...] Ambulatory Problems Diagnosis Date Noted Essential hypertension (CMS/[facility]) 03/12/2013 Headache 03/12/2013 Pain in limb 01/31/2024 Hyperlipidemia ([facility]/HCC) 03/12/2013 Arthritis of left knee 01/31/2024 Internal derangement of left knee 01/31/2024 Other chronic pain 01/31/2024 Osteoarthritis of knee 01/31/2024 Primary osteoarthritis 01/31/2024 Resolved Ambulatory Problems Diagnosis Date Noted No Resolved Ambulatory Problems Past Medical History: Diagnosis Date Hypertension ([facility]) HISTORY PAST MEDICAL HISTORY SOCIAL HISTORY Past Medical History: Diagnosis Date Hyperlipidemia ([facility]) Hypertension ([facility]) Social History Tobacco Use Smoking [...] behalf of: VIRGIL Monzon documented in this encounterResearch Psychiatric [id number] History of Present illness Narrative* Derek Parnell [...] scribe for Dr. Parnell/patrick documented in this encounterResearch Psychiatric [id number] History of Present illness Narrative* Derek Parnell [...] scribe for Dr. Parnell/patrick documented in this encounterResearch Psychiatric [id number] History of Present illness Narrative* Derek Parnell [...] 2021 (Erica) and had an MRI at [facility]. She went to pain management at [facility] with dr. Kan for injection (trigger [...] TB 12/06/21, kenalog injection 12/22/21,and 01/05/22, MRI [facility] 01/20/22, pain management 02/2022 dr kan, [...] X-rays of the left knee from the [facility] dated December 06, 2021. The x- rays are nonweightbearing. On the x-rays there are marginal osteophytes noted Both in the medial and lateral joint line. Patella is sitting laterally within the femoral trochlea. MRI from the [facility] dated January 20, 2022. MRI reveals absence [...] Parnell/patrick. Joe Parnell D.O. documented in this encounterResearch Psychiatric [id number] History of Present illness Narrative* Enma Wynne NP - 01/31/2024 10:30 AM EDTAssociated Order(s): L Inj/Asp: L knee Post-Procedure Diagnose(s): Arthritis of left knee Subjective Patient ID: Irina Xiong is a 68 y.o. female. LT Knee no recent studies *Previously saw Erica in December of 2021 for LT knee pain and received two kenalog injections and had an MRI at [facility]. She went to pain management at [facility] with dr. Kan for injection (trigger [...] have her f/U with dr. Parnell in [facility] to possible visco injections documented in this encounterResearch Psychiatric [id number] NoteCONSULTATION CONSULTATION DATE: 03/22/2022 CHIEF COMPLAINT: Bilateral [...] a p.r.n. basis. CC: Elin Goldberg M.D.[facility] [id number] NotePROCEDURE: XR KNEE RT 4V or > COMPARISON: None. HISTORY: Pain in right knee FINDINGS: BONES:No acute fracture or dislocation. Mild to moderate tricompartmental osteoarthropathy with marginal osteophyte formation SOFT TISSUES:Negative. No visible soft tissue swelling. EFFUSION:None visible. OTHER: Negative. IMPRESSION: Mild to moderate osteoarthritis Electronically authenticated by: DOTTIE WEISS Date: 2022-02-22 15:12[facility] [id number] NoteCONSULTATION CONSULTATION DATE: 02/22/2022 CHIEF COMPLAINT: Bilateral [...] like to progress. CC: Joe Parnell D.O.[facility] [id number] NoteCONSULTATION PROCEDURE DATE: 02/22/2022 PREOPERATIVE DIAGNOSIS: Bilateral [...] up in the office in four weeks.[facility]* Diagnosis Uterine prolapse Uterine prolapse without mention of vaginal wall prolapse Menopausal state Symptomatic menopausal or female climacteric states documented in this encounter [facility] HealthcareEvaluation note* Diagnosis Arthritis of left knee documented in this encounter [facility] HealthcareEvaluation note* Diagnosis Arthritis of left knee- Primary Left knee pain, unspecified chronicity documented in this encounter [facility] HealthcareEvaluation note* Diagnosis Left knee pain, unspecified chronicity- Primary Arthritis of left knee documented in this encounter [facility] HealthcareEvaluation note* Diagnosis Arthritis of left knee documented in this encounter [facility] HealthcareEvaluation note* Diagnosis Onset Date Resolution Status Admit Date Left sided sciatica acute Febru brien2024 11:21am [facility] Work Phone: Evaluation note* Diagnosis Post-menopause Asymptomatic postmenopausal status (age-related) (natural) Follow-up encounter involving medication documented in this encounter [facility] Healthcare Summary Purpose Family History No Family [...] Inj/Asp: L knee Derek Parnell, DO [address] [place] [address] Referral ID Status Reason Start Date Expiration Date V isits Requested Visits Authorized [id number] Authorized 02/27/2024 08/25/2024 1 1 Specialty Diagnoses / Procedures Referred By Contac t Referred To Contact Orthopaedic Surgery Diagnoses Arthritis of left knee Procedures L Inj/Asp: L knee Ricci Enma Obando, SKIDDER [address] [place] [address] Referral ID Status Reason Start Date Expiration Date V isits Requested Visits Authorized [id number] Authorized 01/31/2024 07/29/2024 1 1 Referral ID Status Reason Start Date Expiration Date V isits Requested Visits Authorized [id number] Authorized 02/13/2024 08/11/2024 1 1 Referral ID Status Reason Start Date Expiration Date V isits Requested Visits Authorized [id number] Authorized 02/20/2024 08/18/2024 1 1 Chief Complaint [...] DATE CREATED AUTHOR AUTHOR'S ORGANIZ ATION 10/03/2024 [facility] DATE CREATED AUTHOR AUTHOR'S ORGANIZ ATION 10/19/2024 [facility] Care Teams (unrecognized sec tion and content) Satellite Instruction Facilitator Relationship Specialty Start Date End Date Elin Goldberg MD [address] [facility] [place] [id number] PCP - General Family Medicine 01/31/24 Satellite Instruction Facilitator Relationship Specialty Start Date End Date Elin Goldberg MD [address] [facility] [place] [address] PCP - General Family Medicine 01/31/24 Satellite Instruction Facilitator Relationship Specialty Start Date End Date Elin Goldberg MD [address] [facility] [place] [address] PCP - General Family Medicine 01/31/24 Satellite Instruction Facilitator Relationship Specialty Start Date End Date Elin Goldberg MD [address] [facility] [place] [place] [address] PCP - General Family Medicine 01/31/24 Satellite Instruction Facilitator Relationship Specialty Start Date End Date Elin Goldberg MD [address] [facility] [place] [address] PCP - General Family Medicine 01/31/24 Satellite Instruction Facilitator Relationship Specialty Start Date End Date Elin Goldberg MD [address] [facility] [place] [place] [phone] PCP - General Family Medicine 01/31/24 Satellite Instruction Facilitator Relationship Specialty Start Date End Date Elin Goldberg MD [address] [facility] [place] [address] PCP - General Family Medicine 01/31/24 Satellite Instruction Facilitator Relationship Specialty Start Date End Date Elin Goldberg MD [address] [facility] [place] [address] PCP - General Family Medicine 01/31/24 Satellite Instruction Facilitator Relationship Specialty Start Date End Date Elin Goldberg MD [address] [facility] [place] [address] PCP - General Family Medicine 01/31/24 Satellite Instruction Facilitator Relationship Specialty Start Date End Date Elin Goldberg MD [address] [facility] [place] [address] PCP - General Family Medicine 01/31/24 Team [...] BE BASED ON THE PRIMARY CLINICAL RECORDS. [facility] [employer] [facility]. provides no warranty or guarantee of the accuracy or completeness of information in this document.
[2024-11-11 07:58] VITALS: BP 144/85; PULSE 71; TEMP 36.4; O2SAT 99
[2024-11-11 09:13] VITALS: BP 158/71; BP 160/72; PULSE 61; PULSE 72; O2SAT 97; O2SAT 99
[2024-11-11] MEDS: LIDOCAINE HCL 2% 400 MG/20 ML MDV INJ (09:16)
[2024-11-11] MEDS: BUPIVACAINE HCL 0.25% PF 25 MG/10 ML VIAL 8 ML INJ (09:16)
--- NOTE | 2024-11-11 09:17 | W.PM.PROCNOT ---
Date of procedure: 11/11/24 Pre-op diagnosis: Pain due to lumbar spondylosis without myelopathy Post-op diagnosis: same as pre-op Procedure: Procedure: Bilateral L3-4, 4-5 medial branch block Medications: Bupivacaine 0.25% 6cc The patient was seen and examined in the preoperative holding area.? An informed consent was obtained and placed on the chart.? The patient was brought to the medical procedure unit and placed in the prone position.? A timeout was completed verifying correct patient, procedure site, positioning, plan, and special equipment.? Using aseptic technique, the needle was placed at left L3. Under direct fluoroscopic visualization a Quincke-tipped spinal needle was advanced to the junction of the superior articulating process with the transverse process at the designated medial branch segment.? Preceded by negative aspiration, the above-mentioned injectate was placed in 1 mL aliquots.? The procedure was repeated at left L4, 5.? The needle was removed and insertion site was covered. The same procedure, at the same levels, was completed on the right side. The patient was taken to the postprocedural recovery area and monitored for an appropriate length of time before found suitable for discharge in the company of a responsible adult. Anesthesia: Local Surgeon: Arturo Amos Pathology: none sent Condition: stable Disposition: no change
== END 2024-11-11 09:21 | disposition home or self-care (01) ==
LOC: SURGOUT 07:37
PROVIDERS: PCP Family Medicine; Visit Provider Anesthesiology
DX: M54.50 Low back pain, unspecified (principal); M47.816 Spondylosis without myelopathy or radiculopathy, lumbar region
CPT/HCPCS: 64493; 64494; J0665

== ENCOUNTER 2024-11-13 14:36 | Outpatient (OUT) | payer MEDICARE, SELFPAY ==
--- NOTE | 2024-11-13 14:51 | PM.CN ---
Consult Note: HPI Data of Consult Patient: known to practice within the last 3 years Requesting Physician: Senia Marshall NP Primary Care Provider: Elin Kauffman MD Consult Narrative Reason for consult: f/u Narrative: Irina Xiong a pleasant 68 year old female presents for evaluation of chronic low back pain. longstanding hx of low back pain > 12 months unresponsive to 6 weeks of PT, provider guided HEP, heat, ice, tylenol, NSAIDs. prior lumbar xray and MRI consistent with multilevel facet arthropathy, stenosis, and ddd. Pain today 7/10 stiffness in low back and posterior thighs. Pain increases with standing, walking, twisting, pushing, pulling, bending, activity. Pain improved with lying and sitting. currently utilizing gabapentin 300mg BID, flexeril 5mg BID, and transdermal therapeutics cream with mild relief. denies side effects. she previously declined vertiflex. on 10/14/24 she underwent bilateral L3,4 L4,5 facet medial branch block #2 with less than 80% improvement in pain. cc:: CC: Senia Marshall NP Review of Systems ROS Status of ROS 10 or more systems reviewed and unremarkable except as noted in history and below [facility] Medical History (Updated 09/03/24 @ 15:34 by Gloria Butelr) Low back pain ?M54.50 - Low back pain, unspecified (ICD-10) Osteoarthritis ?M19.90 - Unspecified osteoarthritis, unspecified site (ICD-10) Obesity ?E66.9 - Obesity, unspecified (ICD-10) Hypothyroid ?E03.9 - Hypothyroidism, unspecified (ICD-10) High cholesterol ?E78.00 - Pure hypercholesterolemia, unspecified (ICD-10) Hypertension ?I10 - Essential (primary) hypertension (ICD-10) Surgical History H/O colonoscopy ?Z98.890 - Other specified postprocedural states (ICD-10) H/O vein stripping ?Z98.890 - Other specified postprocedural states (ICD-10) Hx of cholecystectomy ?Z90.49 - Acquired absence of other specified parts of digestive tract (ICD-10) History of dilatation and curettage ?Z98.890 - Other specified postprocedural states (ICD-10) Hx of tonsillectomy ?Z90.89 - Acquired absence of other organs (ICD-10) Meds Home Medications and Allergies Home Medications ?Medication ?Instructions ?Recorded ?Confirmed ?Type cyclobenzaprine 5 mg tablet 5 mg 09/03/24 History diclofenac sodium 75 mg 75 mg PO 09/03/24 History tablet,delayed release estradiol 0.01% (0.1 mg/gram) vaginal 09/03/24 History vaginal cream gabapentin 300 mg capsule 300 mg 09/03/24 History levothyroxine 88 mcg tablet 88 mcg 09/03/24 History metoprolol succinate 100 mg 100 mg PO DAILY 09/03/24 11/11/24 History tablet,extended release 24 hr rosuvastatin 10 mg tablet 10 mg PO DAILY 09/03/24 11/11/24 History gabapentin 300 mg capsule 300 mg PO TID #90 caps 11/11/24 Rx Allergies Allergy/AdvReac Type Severity Reaction Status Date / Time prednisone AdvReac Mild anxious Verified 11/11/24 07:56 Exam Constitutional Documenting provider has reviewed patient's vital signs: yes Common normals: no apparent distress, oriented x3, healthy appearing, alert and well nourished General appearance: cooperative HENSD Common normals: normocephalic, hearing grossly normal bilaterally and moist oral mucous membranes Head and scalp: normocephalic Eye Common normals: PERRL Pupil: PERRL Neck & C-Spine Common normals: full ROM General: normal visual inspection Chest Common normals: inspection of chest normal Respiratory Common normals: normal respiratory effort, no retractions and no use of accessory muscles Back & Pelvis Lumbar spine/lower back: ROM limited, pain with ROM, lumbar spinal tenderness Lumbar spinal tenderness location: L3, L4 and L5 and straight leg raise negative bilaterally Other: positive facet loading tenderness bilateral L3-5 strength 5/5 with sensation intact BLE increased pain with standing and walking, improved with forward flexion and upon sitting Neuro Common normals: oriented x3 Sensorium/orientation: alert Psych Common normals: mental status grossly normal, thought process normal, cooperative, affect normal, speech normal and activity/motor behavior normal Speech: normal speech Thought process: normal thought process Results Additional Findings Additional findings: If on a controlled substance or opioids, I have checked an OARRS report on this patient and there are no aberrancies noted in the prescribing history.??If on a controlled substance or opioid a drug screen was completed and reviewed within the last year, and if there has not been a drug screen completed we ordered one today to monitor higher risk, state monitored pain medication use. As part of providing excellent, safe, comprehensive care, the following was completed at our patient's visit: 1. A medication reconciliation and review to ensure accurate knowledge of current/active medications, including asking our patients to inform us about any [id number] medications or herbal remedies/nutritional supplements/alternative remedies. 2. A review to specifically ensure our patients have had annual screening for screening for depression, screening for tobacco use, and screening for unhealthy alcohol use. For concerning screenings had a discussion with the patient, provided patient education, and recommended follow-up with primary care provider when appropriate. If patient noted with a risk of falling, they received education on strength, gait, and balance training to prevent future risk of falling. Portions of this note may have been carried over from the previous visit and updated as appropriate. Please note this office utilizes paper charting in addition to the electronic medical record. A list of current medications, vitals, and PMH is available there as the clinical staff outside of myself do not have access to [employer] charting during the clinic day operations. As part of providing quality comprehensive care the current medications, vitals, and PMH were reviewed in the paper chart. Assessment and Plan Assessment and Plan (1) Lumbar stenosis with neurogenic claudication: Assessment and Plan: The patient has had over 3 months of moderate to severe low back and bilateral posterior thigh pain with functional impairment and inadequate response to conservative care including NSAIDS (unless there are contraindication such as concurrent blood thinners), multiple oral or topical pain medications, and home exercise program/physical therapy.? Patient has completed >6 weeks of guided home exercise program and/or formal physical therapy program without relief of their symptoms.? ALYSON 48% ? (2) Lumbar spondylosis: (3) Sacroiliac joint disease: Assessment and Plan: negative SIJ exam as noted above recently underwent bilateral SIJ injection 09/23/24 with mild relief Plan trial bilateral L5-S1 TFESI under fluoroscopy for lumbar stenosis with NC based on pain pattern, MRI, and physical exam consider L4-5 L5-S1 MBB x2 in consideration of RFA for facet mediated pain continue flexeril 5mg BID to TID PRN pain/spasms f/u 2 weeks after TFESI
== END 2024-11-13 14:37 | disposition home or self-care (01) ==
LOC: PM 14:36
PROVIDERS: PCP Family Medicine; Visit Provider Nurse Practitioner
DX: M48.062 Spinal stenosis, lumbar region with neurogenic claudication (principal); M47.816 Spondylosis without myelopathy or radiculopathy, lumbar region; M53.3 Sacrococcygeal disorders, not elsewhere classified
CPT/HCPCS: G0463

== ENCOUNTER 2024-11-25 09:19 | Day surgery (SDC) | payer MEDICARE, SELFPAY ==
[2024-11-25 09:39] VITALS: BP 136/85; PULSE 63; TEMP 36.3; O2SAT 96
[2024-11-25 10:04] VITALS: BP 160/72; PULSE 66; O2SAT 99
[2024-11-25] MEDS: BUPIVACAINE HCL 0.25% PF 25 MG/10 ML VIAL INJ (10:09)
[2024-11-25] MEDS: IOHEXOL 240 MG/ML - 10 ML VIAL 36 MG INJ (10:09)
[2024-11-25] MEDS: 0.9 % SODIUM CHLORIDE 10 ML SYRINGE - SALINE FLUSH INJ (10:09)
[2024-11-25] MEDS: METHYLPREDNISOLONE ACETATE 80 MG/ML VIAL INJ (10:10)
[2024-11-25] MEDS: LIDOCAINE HCL 2% 400 MG/20 ML MDV 3 ML INJ (10:10)
--- NOTE | 2024-11-25 10:10 | W.PM.PROCNOT ---
Date of procedure: 11/25/24 Pre-op diagnosis: Pain due to lumbar stenosis with neurogenic claudication Post-op diagnosis: same as pre-op Procedure: Procedure: Bilateral L5-S1 transforaminal epidural steroid injection Medications: Bupivacaine 0.25% 2cc, lidocaine 2% 1cc, depomedrol 80mg The patient was seen and examined in the preoperative holding area.? Informed consent was obtained and placed on the chart.? Patient was brought to the medical procedure unit and placed in the prone position where a timeout was completed verifying the correct patient, procedure site, position, and planned special equipment using sterile aseptic technique.? Under direct fluoroscopic visualization a 25-gauge Quincke tipped spinal needle was advanced at level left L5-S1 to the designated neural foramen where contrast dye was injected to show adequate spread.? There was no evidence of vascular or adverse uptake.? Epidural spread was appreciated.? The above-mentioned injectate was then placed in a 1.5 mL aliquot preceded by negative aspiration.? The needle was removed. The same procedure, at the same level, was completed on the opposite side. ? Patient was taken to the postprocedural recovery area and monitored for an appropriate length of time before found suitable for discharge in the accompaniment of a responsible adult. Anesthesia: Local Surgeon: Arturo Amos Pathology: none sent Condition: stable Disposition: no change
[2024-11-25 10:11] VITALS: BP 160/72; PULSE 56; O2SAT 97
== END 2024-11-25 11:01 | disposition home or self-care (01) ==
LOC: SURGOUT 09:21
PROVIDERS: PCP Family Medicine; Visit Provider Anesthesiology
DX: M48.062 Spinal stenosis, lumbar region with neurogenic claudication (principal); M54.50 Low back pain, unspecified
CPT/HCPCS: 64483; J0665; J1010; Q9966

== ENCOUNTER 2024-12-05 11:10 | Outpatient (OUT) | payer MEDICARE, SELFPAY ==
--- OUTSIDE RECORDS SUMMARY | 2024-12-05 11:12 | XMS_ITS | Clinical Summary ---
Author Organization [facility] Address [address] [place] [address] Care Team Providers Care Financial Operations Consultant Name Role Phone Unavailable Primary Care Provider Unavailabl e Allergies Active Allergy Reactions Criticality Noted Date Comments Prednisone Unknown 01/31/2024 Medications diclofenac (Voltaren) 75 MG EC tablet 12/28/2023 Active levothyroxine (Synthroid, Levoxyl) 88 MCG tablet 01/30/2024 Active metoprolol succinate XL (Toprol-XL) 100 MG 24 hr tablet 1 (one) time each day at the same time Active Crestor 10 MG tablet take 1 tablet by oral route every day Oral Active calcium carbonate (Os-Richard) 1250 (500 Ca) MG tablet Take by mouth Daily Active magnesium 30 MG tablet Take 30 mg by mouth in the morning and 30 mg before bedtime. Active Active Problems Problem Noted Date Diagnosed Date Menopausal state 04/24/2024 Pain in limb 01/31/2024 Arthritis of left knee 01/31/2024 Internal derangement of left knee 01/31/2024 Other chronic pain 01/31/2024 Osteoarthritis of knee 01/31/2024 Primary osteoarthritis 01/31/2024 Essential hypertension 03/12/2013 Headache 03/12/2013 Hyperlipidemia 03/12/2013 Encounters Date Type Department Care Team Description 10/16/2024 2:40 PM EDT Office Visit [facility] [address] [place] [address] Rupal Leonardo PA Post-menopause; Follow-up encounter involving medication 10/16/2024 Bamboo flowsheet [facility] [address] [place] [address] Rupal Leonardo PA 09/16/2024 Travel from Last 3 Months Immunizations Immunization Administration Dates Next Due Influenza, Seasonal, Quadrivalent, Adjuvanted Influenza, injectable, MDCK, preservative free, quadrivalent 03/03/2022 Novel [id number], preservative-free 04/20 Pneumococcal Conjugate PCV 20 02/15/2023 Social History Tobacco Use Types Packs/Day Years Used Date Smoking Tobacco: Never Passive Smoke Exposure: Never Smokeless Tobacco: Never Tobacco Cessation:Counseling Given: Not Answered Comments Unknown Sex and Gender Information Value Date Recorded Sex Assigned at Not on file Legal Sex Female 6:57 PM EDT Gender Identity Not on file Sexual Orientation Not on file Last Filed Vital Signs Vital Sign Reading Time Taken Comments Blood Pressure 132/80 10/16/2024 3:21 PM EDT Pulse - - Temperature - - Respiratory Rate - - Oxygen Saturation - - Inhaled Oxygen Concentration - - Weight 92.5 kg (204 lb) 10/16/2024 3:21 PM EDT Height 167.6 cm (5' 6 ) 04/23/2024 1:50 PM EST Body Mass Index 32.93 04/23/2024 1:50 PM EST Plan of Treatment Health Maintenance Due Date Last Done Comments CT Colonography 1955 Colonoscopy 1955 Colorectal Cancer Screening 1955 FIT-DNA 1955 FIT 1957 FOBT 1955 Sigmoidoscopy 1955 Mammogram 1997 Cervical Cancer Screening Discontinued Pap Smear Discontinued 04/23/2021 Pneumococcal Vaccine: 65+ Years Completed Influenza Vaccine Completed 02/15/2024, , 03/03/2022 HPV/Cotest Discontinued Procedures Procedure Name Priority Date/Time Associated Diagnosis Comments PAP SMEAR Routine 04/23/2021 12:00 AM EST from Last 3 Months or Most Recently Relevant to Health Maintenance Results * Pap Smear (04/23/2021 12:00 AM EST) Swab Cervical swab / Unknown us Elin Kauffman MD LAB CYTOLOGY ORDERABLES Final Re sult EXTERNAL LAB from Last 3 Months or Most Recently Relevant to Health Maintenance Insurance MEDICARE [employer]
--- NOTE | 2024-12-05 11:31 | PM.CN ---
Consult Note: HPI Data of Consult Patient: known to practice within the last 3 years Requesting Physician: Senia Marshall NP Primary Care Provider: Elin Kauffman MD Consult Narrative Reason for consult: f/u Narrative: Irina Xiong a pleasant 69 year old female presents for evaluation of chronic low back pain. longstanding hx of low back pain > 12 months unresponsive to 6 weeks of PT, provider guided HEP, heat, ice, tylenol, NSAIDs. prior lumbar xray and MRI consistent with multilevel facet arthropathy, stenosis, and ddd. Pain today 7-8/10 tightness in low back and posterior thighs. Pain increases with standing, walking, twisting, pushing, pulling, bending, activity. Pain improved with lying and sitting. currently utilizing gabapentin 300mg am and 600mg HS, flexeril 5mg TID, and transdermal therapeutics cream with mild relief. denies side effects. she previously declined vertiflex. on 10/14/24 she underwent bilateral L3,4 L4,5 facet medial branch block #2 with less than 80% improvement in pain. recently underwent bilateral L5-S1 TFESI with 50-60% improvement on the right no improvement on the left per pt. cc:: CC: Senia Marshall NP Review of Systems ROS Status of ROS 10 or more systems reviewed and unremarkable except as noted in history and below [facility] Medical History (Updated 09/03/24 @ 15:34 by Gloria Butler) Low back pain ?M54.50 - Low back pain, unspecified (ICD-10) Osteoarthritis ?M19.90 - Unspecified osteoarthritis, unspecified site (ICD-10) Obesity ?E66.9 - Obesity, unspecified (ICD-10) Hypothyroid ?E03.9 - Hypothyroidism, unspecified (ICD-10) High cholesterol ?E78.00 - Pure hypercholesterolemia, unspecified (ICD-10) Hypertension ?I10 - Essential (primary) hypertension (ICD-10) Surgical History H/O colonoscopy ?Z98.890 - Other specified postprocedural states (ICD-10) H/O vein stripping ?Z98.890 - Other specified postprocedural states (ICD-10) Hx of cholecystectomy ?Z90.49 - Acquired absence of other specified parts of digestive tract (ICD-10) History of dilatation and curettage ?Z98.890 - Other specified postprocedural states (ICD-10) Hx of tonsillectomy ?Z90.89 - Acquired absence of other organs (ICD-10) Meds Home Medications and Allergies Home Medications ?Medication ?Instructions ?Recorded ?Confirmed ?Type cyclobenzaprine 5 mg tablet 5 mg 09/03/24 History diclofenac sodium 75 mg 75 mg PO 09/03/24 History tablet,delayed release estradiol 0.01% (0.1 mg/gram) vaginal 09/03/24 History vaginal cream gabapentin 300 mg capsule 300 mg 09/03/24 History levothyroxine 88 mcg tablet 88 mcg 09/03/24 History metoprolol succinate 100 mg 100 mg PO DAILY 09/03/24 11/25/24 History tablet,extended release 24 hr rosuvastatin 10 mg tablet 10 mg PO DAILY 09/03/24 11/25/24 History gabapentin 300 mg capsule 300 mg PO TID #90 caps 11/11/24 11/25/24 Rx Allergies Allergy/AdvReac Type Severity Reaction Status Date / Time prednisone AdvReac Mild anxious Verified 11/25/24 09:38 Exam Constitutional Documenting provider has reviewed patient's vital signs: yes Common normals: no apparent distress, oriented x3, healthy appearing, alert and well nourished General appearance: cooperative HENMT Common normals: normocephalic, hearing grossly normal bilaterally and moist oral mucous membranes Head and scalp: normocephalic Eye Common normals: PERRL Pupil: PERRL Neck & C-Spine Common normals: full ROM General: normal visual inspection Chest Common normals: inspection of chest normal Respiratory Common normals: normal respiratory effort, no retractions and no use of accessory muscles Back & Pelvis Lumbar spine/lower back: ROM limited, pain with ROM, lumbar spinal tenderness Lumbar spinal tenderness location: L3, L4 and L5 and straight leg raise negative bilaterally Other: positive facet loading tenderness bilateral L3-5 strength 5/5 with sensation intact BLE Neuro Common normals: oriented x3 Sensorium/orientation: alert Psych Common normals: mental status grossly normal, thought process normal, cooperative, affect normal, speech normal and activity/motor behavior normal Speech: normal speech Thought process: normal thought process Results Additional Findings Additional findings: If on a controlled substance or opioids, I have checked an OARRS report on this patient and there are no aberrancies noted in the prescribing history.??If on a controlled substance or opioid a drug screen was completed and reviewed within the last year, and if there has not been a drug screen completed we ordered one today to monitor higher risk, state monitored pain medication use. As part of providing excellent, safe, comprehensive care, the following was completed at our patient's visit: 1. A medication reconciliation and review to ensure accurate knowledge of current/active medications, including asking our patients to inform us about any [id number] medications or herbal remedies/nutritional supplements/alternative remedies. 2. A review to specifically ensure our patients have had annual screening for screening for depression, screening for tobacco use, and screening for unhealthy alcohol use. For concerning screenings had a discussion with the patient, provided patient education, and recommended follow-up with primary care provider when appropriate. If patient noted with a risk of falling, they received education on strength, gait, and balance training to prevent future risk of falling. Portions of this note may have been carried over from the previous visit and updated as appropriate. Please note this office utilizes paper charting in addition to the electronic medical record. A list of current medications, vitals, and PMH is available there as the clinical staff outside of myself do not have access to [employer] charting during the clinic day operations. As part of providing quality comprehensive care the current medications, vitals, and PMH were reviewed in the paper chart. Assessment and Plan Assessment and Plan (1) Lumbar stenosis with neurogenic claudication: Assessment and Plan: The patient has had over 3 months of moderate to severe low back and bilateral posterior thigh pain with functional impairment and inadequate response to conservative care including NSAIDS (unless there are contraindication such as concurrent blood thinners), multiple oral or topical pain medications, and home exercise program/physical therapy.? Patient has completed >6 weeks of guided home exercise program and/or formal physical therapy program without relief of their symptoms.? ALYSON 53% ? (2) Lumbar spondylosis: (3) Sacroiliac joint disease: Plan increase gabapentin 300mg am 300mg mid day 600mg HS continue flexeril 5mg tid prn pain/spasms continue HEP as tolerated f/u with NS for further evaluation, has failed multilevel TFESIs and Lumbar MBBs. no longer able to offer vertiflex. could trial scs f/u 3 months, sooner if needed
== END 2024-12-05 11:11 | disposition home or self-care (01) ==
PROVIDERS: PCP Family Medicine; Visit Provider Nurse Practitioner
DX: M48.062 Spinal stenosis, lumbar region with neurogenic claudication (principal); M47.816 Spondylosis without myelopathy or radiculopathy, lumbar region; M53.3 Sacrococcygeal disorders, not elsewhere classified
CPT/HCPCS: G0463

== ENCOUNTER 2024-12-24 12:40 | Outpatient (OUT) | payer MEDICARE, SELFPAY ==
--- NOTE | 2024-12-24 12:43 | CT_ITS ---
The [address] [address] Patient Name: DYLLAN CONWAY MRN: [id number] date: 1955 Sex: F Assigned Patient Location: CT Current Patient Location: Accession/Order Number: [id number] Exam Date: 12/25/2024 09:12 Report Date: 12/25/2024 09:35 At the request of: ROSALBA CALDERÓN APRN Procedure: CT lumbar spine wo con CT LUMBAR SPINE WITHOUT CONTRAST COMPARISON: MRI 08/16/2024 and plain films 08/01/2024 CLINICAL DATA: Low back pain for the past 7 months tightness at the back and legs. No injury. Spiral axial unenhanced images were obtained through the spine. Sagittal and coronal reconstructions were reviewed. This CT exam was performed using one or more following dose reduction techniques: Automated exposure control, adjustment of the mA and/or kV according to patient size, or use of iterative reconstruction technique. In order to maintain continuity with previous imaging, study is read with the assumption there are hypoplastic or absent 12th ribs. There is subtle thoracolumbar dextroscoliotic curvature. No acute compression fractures are noted. There is approximately 3 mm of anterolisthesis of L3 on L4 and 3 to 4 mm of anterolisthesis of L4 and L5 and L5 on S1. Mild multilevel disc space narrowing is present with relative sparing at L4-5. There is bilateral L5 spondylolysis. There is also prominent degenerative change at the lower lumbar facets. There is endplate spurring. The imaged SI joints are intact. No paraspinal soft tissue abnormalities are seen. Small renal cysts are suspected on the left. At L2-3, annular disc bulging and ligamentous hypertrophy are visualized in addition to the facet disease resulting in moderate central stenosis and moderate to severe bilateral foraminal encroachment, greater on the left. At L3-4, there is annular disc bulging and ligamentous hypertrophy in addition to facet disease resulting in moderately severe central stenosis and at least moderate encroachment of the neural foramen. At L4-5, there is annular disc bulging, thickening of the ligamentum flavum and facet disease. There is moderate narrowing of the central canal though there is also tapering of the thecal sac. There is at least moderate narrowing of the neural foramen and slightly worse on the left. At the lumbosacral junction, there is slight narrowing of the central canal due to bony hypertrophy. There is also at least moderate foraminal encroachment. CT/CT lumbar spine wo con IMPRESSION: MULTILEVEL DISCOVERTEBRAL DEGENERATIVE CHANGES WITH ASSOCIATED STENOSIS, OUTLINED ABOVE. SIMILAR FINDINGS WERE PRESENT ON RECENT MRI. NO ACUTE COMPRESSION FRACTURES. Impression dictated by: Sharlene Dangelo M.D. 12/25/2024 9:35 AM Dictation Location: [place] [address] Electronically authenticated by: [id number] Y Date: 12/25/2024 09:35
== END 2024-12-24 12:41 | disposition home or self-care (01) ==
PROVIDERS: PCP Family Medicine; Visit Provider Nurse Practitioner Family
DX: M54.50 Low back pain, unspecified (principal); M25.552 Pain in left hip; M54.16 Radiculopathy, lumbar region; M51.369 Other intervertebral disc degeneration, lumbar region without mention of lumbar back pain or lower extremity pain; M48.062 Spinal stenosis, lumbar region with neurogenic claudication
CPT/HCPCS: 72131

== ENCOUNTER 2025-01-14 12:32 | Outpatient (OUT) | payer MEDICARE, SELFPAY ==
--- OUTSIDE RECORDS SUMMARY | 2025-01-14 12:35 | XMS_ITS | Clinical Summary ---
Author Organization [facility] Address [address] [place] [address] Care Team Providers Care Commercial Engineer Name Role Phone Unavailable Primary Care Provider [...] Description 10/16/2024 2:40 PM EDT [place] [id number] Rupal Leonardo PA Post-menopause; Follow-up encounter involving medication 10/16/2024 Bamboo flowsheet [facility] [address] [place] [address] Rupal Leonardo PA from Last 3 Months Immunizations Immunization Administration Dates Next Due Influenza, Seasonal, Quadrivalent, Adjuvanted Influenza, injectable, MDCK, preservative free, quadrivalent 03/03/2022 Novel [id number], preservative-free 04/20 Pneumococcal Conjugate PCV 20 02/15/2023 [...] 1955 FOBT 1957 Sigmoidoscopy 1957 Mammogram 1997 Influenza Vaccine (#1) 2025 4, 02/15/2023, 03/03/2022 Cervical Cancer Screening Discontinued Pap Smear Discontinued 04/23/2021 Pneumococcal Vaccine: 65+ Years Completed 3 HPV/Cotest Discontinued Procedures Procedure Name Priority Date/Time [...] Recently Relevant to Health Maintenance Insurance MEDICARE AET
--- NOTE | 2025-01-14 12:45 | CT_ITS ---
The [address] [address] Patient Name: DYLLAN CONWAY MRN: [id number] date: 1955 Sex: F Assigned Patient Location: [facility] Current Patient Location: [facility] Accession/Order Number: [id number] Exam Date: 01/14/2025 14:44 Report Date: 01/14/2025 14:46 At the request of: NILO HALL DO Procedure: CT pelvis wo con CT PELVIS WITHOUT INTRAVENOUS CONTRAST: CLINICAL HISTORY: Lumbar radiculopathy COMPARISON: None TECHNIQUE: Spiral images were obtained through the pelvis without the use of IV contrast. This CT exam was performed using one or more following dose reduction techniques: Automated exposure control, adjustment of the mA and/or kV according to patient size, or use of iterative reconstruction technique. FINDINGS: Degenerative changes seen involving the visualized lower lumbar spine, SI joints and pubic symphysis. Mild degenerative changes of the hips. No acute bony process is noted. Intrapelvic contents demonstrate no acute findings. Visualized soft tissue surrounding the bony pelvis demonstrates no acute process. No fluid collection or mass. CT/CT pelvis wo con IMPRESSION: DEGENERATIVE CHANGES INVOLVING THE PELVIS. NO ACUTE BONY PROCESS IS SEEN. Impression dictated by: Stephen Lay Jr., D.O. 01/14/2025 2:46 PM Dictation Location: [place] [address] Electronically authenticated by: [id number] Y Date: 01/14/2025 14:46
== END 2025-01-14 12:33 | disposition home or self-care (01) ==
LOC: RAD 12:33
PROVIDERS: PCP Family Medicine; Visit Provider Neurological Surgery
DX: M81.0 Age-related osteoporosis without current pathological fracture (principal); M54.16 Radiculopathy, lumbar region; R10.2 Pelvic and perineal pain
CPT/HCPCS: 72192; 77080

== ENCOUNTER 2025-05-05 12:07 | Outpatient (OUT) | payer MEDICARE, SELFPAY ==
--- OUTSIDE RECORDS SUMMARY | 2025-04-28 08:19 | XMS_ITS | Continuity of Care Document ---
Author Organization [facility] Address [address] [place] [address] Phone Care Team Providers Care Cost Accounting Analyst Name Role Phone Elin Kauffman MD Primary Care Provider Deepti Beard DO Attending Provider [phone] Jairo Jimenez DO Attending Provider Elin Kauffman MD Attending Provider Jairo Jimenez DO Admit Provider Jairo Jimenez DO Other Provider [phone] Darline Lerma RN Other Provider Unavailable Bonnie Bender RN Other Provider Unavailable Cassi Garcia RN Other Provider Unavailable Gaby Velarde RN Other Provider Unavailable Indu Hogan RN Other Provider Unavailable Deepthi Iqbal RN Other Provider Unavailable Patrick Suarez MD Other Provider [phone] Danielle Jackson DO Other Provider Avinash Moore MD Other Provider Vinny Argueta DO Other Provider Robert Arevalo MD Other Provider Berta Garcia MD Other Provider Elie Freeman DO Other Provider Unavailab Greonimo Gallego MD Other Provider Unavailable Shefali Flynn DIRECTOR GLOBAL DEVELOPMENT Other Provider Hermila Hernández MD Other Provider [phone] Kevon Payan MD Other Provider Unavailable Elvai Steel MD Other Provider Elie Colby DO Other Provider Bev Higginbotham MD Other Provider Shon Pierre MD Other Provider Rupal Amezcua GLUE WHEEL OPERATOR-C Other Provider [phone] Maria Alejandra Delgado DIRECTOR GLOBAL DEVELOPMENT Other Provider Unavailable Scott Meneses MD Other Provider Raulito Yanes MD Other Provider Cristofer Calles MD Other Provider Unavailable Fredy Pierce DO Other Provider [phone] Flores Quevedo DIRECTOR GLOBAL DEVELOPMENT Other Provider Edson Broderick DO Other Provider Marcial Antonio MD Other Provider Cordelia Valle DIRECTOR GLOBAL DEVELOPMENT Other Provider [phone] Jen Baez DIRECTOR GLOBAL DEVELOPMENT Other Provider Fred Ohara MD Other Provider Unavailable Noble Pineda MD Other Provider Effie Hodge DO Other Provider Per Salinas MD Other Provider Emir Madrigal MD Other Provider Maile Bender APRN Other Provider Unavailable Godfrey Price MD Other Provider Stephen Hancock MD Other Provider Geronimo Coburn MD Other Provider [phone] Bradley Hampton MD Other Provider Deanna Minor DIRECTOR GLOBAL DEVELOPMENT Other Provider Marilee Haney DIRECTOR GLOBAL DEVELOPMENT Other Provider [phone] Kacey Reynoso MD Other Provider Naheed Womack RN Other Provider Unavailable Amanda Ann MD Other Provider Stephen Ibqal MD Attending Provider Stephen Iqbal MD Other Provider Helene Swan DIRECTOR GLOBAL DEVELOPMENT Other Provider [phone] Solomon Jones MD Other Provider [phone] Mayra lAvarado CMA Attending Provider Unavaila Rohan Chu MD Attending Provider Care Teams Patient Care Team Team Status: Active Member Role/Relationship Status Dates Elin Kauffman MD Primary Care Provider Active Visit Care Team Team Status: Inactive Member Role/Relationship Status Dates Elin Kauffman MD Primary Care Provider Active Start: February 05, 2025 End: February 05, 2025Maylin Hathaway ProviderActiveStart: February 05, 2025 End: February 05, 2025 Visit Care Team Team Status: Inactive Member Role/Relationship Status Dates Elin Kauffman MD Primary Care Provider Active Start: February 12, 2025 End: February 12, 2025Maylin Royal ProviderActiveStart: February 12, 2025 End: February 12, 2025 Visit Care Team Team Status: Inactive Member Role/Relationship Status Dates Elin Kauffman MD Primary Care Provider Active Start: February 20, 2025 End: February 20, 2025Shyam Resendez ProviderActiveStart: February 20, 2025 End: February 20, 2025 Visit Care Team Team Status: Inactive Member Role/Relationship Status Dates Elin Kauffman MD Primary Care Provider Active Start: February 21, 2025 End: February 21, 2025Maylin Royal ProviderActiveStart: February 21, 2025 End: February 21, 2025 Visit Care Team Team Status: Inactive Member Role/Relationship Status Dates Elin Kauffman MD Primary Care Provider Active Start: March 11, 2025 End: March 11, 2025Jairo Jimenez , DOAttending ProviderActiveStart: March 11, 2025 End: March 11, 2025 Visit Care Team Team Status: Active Member Role/Relationship Status Dates Elin Kauffman MD Primary Care Provider Active Start: March 25, 2025 Jairo Marcia Damiani , DOAdmit ProviderActiveStart: March 25, 2025 Jairo Marcia Damiani , DOOther ProviderActiveStart: March 25, 2025 Darline Lerma , RNOther ProviderActiveStart: March 25, 2025 Bonnie Bender , RNOther ProviderActiveStart: March 25, 2025 Cassi Garcia , RNOther ProviderActiveStart: March 25, 2025 Gaby Velarde , RNOther ProviderActiveStart: March 25, 2025 Indu Hogan , VALEOther ProviderActiveStart: March 25, 2025 Deepthi Iqbal , VALEOther ProviderActiveStart: March 25, 2025 Patrick Suarez MDOther ProviderActiveStart: March 25, 2025 Danielle Jackson , DOOther ProviderActiveStart: March 25, 2025 Avinash Moore MDOther ProviderActiveStart: March 25, 2025 Vinny Argueta DOOther ProviderActiveStart: March 25, 2025 Robert Arevalo MDOther ProviderActiveStart: March 25, 2025 Berta Garcia MDOther ProviderActiveStart: March 25, 2025 Elie Freeman DOOther ProviderActiveStart: March 25, 2025 Geronimo Parrish MDOther ProviderActiveStart: March 25, 2025 Shefali Flynn , APRNOther ProviderActiveStart: March 25, 2025 Hermila Hernández MDOther ProviderActiveStart: March 25, 2025 Kevon Payan MDOther ProviderActiveStart: March 25, 2025 Elvia Steel MDOther ProviderActiveStart: March 25, 2025 Elie Colby DOOther ProviderActiveStart: March 25, 2025 Bev Higginbotham MDOther ProviderActiveStart: March 25, 2025 Shon Pierre MDOther ProviderActiveStart: March 25, 2025 Rupal Amezcua GLUE WHEEL OPERATOR-COther ProviderActiveStart: March 25, 2025 Maria Alejandra Delgado , APRNOther ProviderActiveStart: March 25, 2025 Scott Meneses MDOther ProviderActiveStart: March 25, 2025 Raulito Yanes MDOther ProviderActiveStart: March 25, 2025 Cristofer Calles MDOther ProviderActiveStart: March 25, 2025 Fredy Pierce , DOOther ProviderActiveStart: March 25, 2025 Flores Quevedo , APRNOther ProviderActiveStart: March 25, 2025 Edson Broderick DOOther ProviderActiveStart: March 25, 2025 Marcial Antonio MDOther ProviderActiveStart: March 25, 2025 Cordelia Valle , APRNOther ProviderActiveStart: March 25, 2025 Jen Baez , APRNOther ProviderActiveStart: March 25, 2025 Fred Ohara MDOther ProviderActiveStart: March 25, 2025 Noble Pineda MDOther ProviderActiveStart: March 25, 2025 Effie Hodge , DOOther ProviderActiveStart: March 25, 2025 Per Salinas MDOther ProviderActiveStart: March 25, 2025 Emir Madrigal MDOther ProviderActiveStart: March 25, 2025 Maile Bender , APRNOther ProviderActiveStart: March 25, 2025 Godfrey Price MDOther ProviderActiveStart: March 25, 2025 Stephen Hancock MDOther ProviderActiveStart: March 25, 2025 Geronimo Coburn MDOther ProviderActiveStart: March 25, 2025 Bradley Hampton MDOther ProviderActiveStart: March 25, 2025 Deanna Minor , APRNOther ProviderActiveStart: March 25, 2025 Marilee Haney , APRNOther ProviderActiveStart: March 25, 2025 Kacey Reynoso MDOther ProviderActiveStart: March 25, 2025 Naheed Womack , VALEOther ProviderActiveStart: March 25, 2025 Amanda Ann MDOther ProviderActiveStart: March 25, 2025 Stephen Iqbal MDAttending ProviderActiveStart: March 25, 2025 Stephen Iqbal MDOther ProviderActiveStart: March 25, 2025 Helene Swan , APRNOther ProviderActiveStart: March 25, 2025 Solomon Jones MDOther ProviderActiveStart: March 25, 2025 Visit Care Team Team Status: Active Member Role/Relationship Status Dates Elin Kauffman MD Primary Care Provider Active Start: March 31, 2025 Mayra Alvarado CMAAttending ProviderActiveStart: March 31, 2025 Visit Care Team Team Status: Active Member Role/Relationship Status Dates Eiln Kauffman MD Primary Care Provider Active Start: April 01, 2025 Jairo Jimenez , DOAdmit ProviderActiveStart: April 01, 2025 Jairo Jimenez , DOOther ProviderActiveStart: April 01, 2025 Darline Lerma , RNOther ProviderActiveStart: April 01, 2025 Bonnie Bender , VALEOther ProviderActiveStart: April 01, 2025 Cassi Garcia , VALEOther ProviderActiveStart: April 01, 2025 Gaby Velarde , RNOther ProviderActiveStart: April 01, 2025 Indu Hogan , RNOther ProviderActiveStart: April 01, 2025 Deepthi Iqbal , VALEOther ProviderActiveStart: April 01, 2025 Patrick Suarez MDOther ProviderActiveStart: April 01, 2025 Danielle Jackson , DOOther ProviderActiveStart: April 01, 2025 Avinash Moore MDOther ProviderActiveStart: April 01, 2025 Vinny Argueta DOOther ProviderActiveStart: April 01, 2025 Robert Arevalo MDOther ProviderActiveStart: April 01, 2025 Berta Garcia MDOther ProviderActiveStart: April 01, 2025 Elie Freeman , DOOther ProviderActiveStart: April 01, 2025 Geronimo Parrish MDOther ProviderActiveStart: April 01, 2025 Shefali Flynn , APRNOther ProviderActiveStart: April 01, 2025 Hermila Hernández MDOther ProviderActiveStart: April 01, 2025 Kevon Payan MDOther ProviderActiveStart: April 01, 2025 Elvia Steel MDOther ProviderActiveStart: April 01, 2025 Elie Colby , DOOther ProviderActiveStart: April 01, 2025 Bev Higginbotham MDOther ProviderActiveStart: April 01, 2025 Shon Pierre MDOther ProviderActiveStart: April 01, 2025 Rupal Amezcua , GLUE WHEEL OPERATOR-COther ProviderActiveStart: April 01, 2025 Maria Alejandra Delgado , APRNOther ProviderActiveStart: April 01, 2025 Scott Meneses MDOther ProviderActiveStart: April 01, 2025 Raulito Yanes MDOther ProviderActiveStart: April 01, 2025 Cristofer Calles MDOther ProviderActiveStart: April 01, 2025 Fredy Pierce , DOOther ProviderActiveStart: April 01, 2025 Flores Quevedo , APRNOther ProviderActiveStart: April 01, 2025 Edson Broderick , DOOther ProviderActiveStart: April 01, 2025 Marcial Antonio MDOther ProviderActiveStart: April 01, 2025 Cordelia Valle , APRNOther ProviderActiveStart: April 01, 2025 Jen Baez , APRNOther ProviderActiveStart: April 01, 2025 Fred Ohara MDOther ProviderActiveStart: April 01, 2025 Noble Pineda MDOther ProviderActiveStart: April 01, 2025 Effie Hodge , DOOther ProviderActiveStart: April 01, 2025 Per Salinas MDOther ProviderActiveStart: April 01, 2025 Emir Madrigal MDOther ProviderActiveStart: April 01, 2025 Maile Bender , APRNOther ProviderActiveStart: April 01, 2025 Godfrey Price MDOther ProviderActiveStart: April 01, 2025 Stephen Hancock MDOther ProviderActiveStart: April 01, 2025 Geronimo Coburn MDOther ProviderActiveStart: April 01, 2025 Bradley Hampton MDOther ProviderActiveStart: April 01, 2025 Deanna Minor , APRNOther ProviderActiveStart: April 01, 2025 Marilee Haney , APRNOther ProviderActiveStart: April 01, 2025 Kacey Reynoso MDOther ProviderActiveStart: April 01, 2025 Naheed Womack RNOther ProviderActiveStart: April 01, 2025 Amanda Ann MDOther ProviderActiveStart: April 01, 2025 Stephen Iqbal MDOther ProviderActiveStart: April 01, 2025 Helene Swan , APRNOther ProviderActiveStart: April 01, 2025 Solomon Jones MDOther ProviderActiveStart: April 01, 2025 Rohan Kauffman , MDAttending ProviderActiveStart: April 01, 2025 Visit Care Team Team Status: Inactive Member Role/Relationship Status Dates Elin Kauffman MD Primary Care Provider Active Start: April 09, 2025 End: April 09, 2025Eric Maylin Boyd ProviderActiveStart: April 09, 2025 End: April 09, 2025 Visit Care Team Team Status: Inactive Member Role/Relationship Status Dates Elin Kauffman MD Primary Care Provider Active Start: April 14, 2025 End: April 14, 2025Eric Marcia Jimenez DOAttbraxton ProviderActiveStart: April 14, 2025 End: April 14, 2025 Visit Care Team Team Status: Inactive Member Role/Relationship Status Dates Elin Kauffman MD Primary Care Provider Active Start: April 21, 2025 End: April 21, 2025Eric Maylin Boyd ProviderActiveStart: April 21, 2025 End: April 21, 2025 Patient Care Team Team Status: Inactive Member Role/Relationship Status Dates Elin Kauffman MD Primary Care Provider Active Start: April 28, 2025 End: April 28, 2025Eric Maylin Boyd ProviderActiveStart: April 28, 2025 End: April 28, 2025 Chief Complaint and Reason for Visit Chief Complaint Admit Date EMG BLE per Dr. Jairo Jimenez January 2:12pm Review Imaging Results February 12 10:08am Surgical Clearance February 20, 2025 2:20pm surgery questions February 21, 2025 10:27am lumbar stenosis March 11, 2025 1:39pm lumbar stenosis March 25, 2025 5 :45am Amb Documentation March 31, 2025 2 :08pm lumbar stenosis April 01, 2025 1 2:00am 2 week TLIF April 09, 2025 1 0:04am wound check April 14, 2025 1 2:53pm wound check April 21, 2025 1:10pm wound check April 28, 2025 12:48pm Reason for Visit Admit Date Numbness and tingling February 05, 2025 2:12pm Peripheral neuropathy, idiopathic February 05, 2025 2:12pm Lumbar radiculopathy February 05, 2025 2 :12pm Numbness and tingling February 12 10:08am Hyperlipidemia, unspecified February 202024 2:20pm Hypothyroidism, unspecified February 202024 2:20pm Preoperative clearance February 20, 2 025 2:20pm Lumbar radiculopathy February 20 2:20pm Lumbar radiculopathy February 21 10:27am BMI 36.0-36.9,adult March 25, 2025 5 :45am Essential (primary) hypertension March 25, 2025 5:45am Hyperlipidemia, unspecified March 5:45am Hypothyroidism, unspecified March 5:45am Impaired mobility and activities of shawn y living March 25, 2025 5:45am Left lumbar radiculopathy March 25, 2025 5:45am Numbness and tingling March 25, 2025 5:45am Peripheral neuropathy, idiopathic Octobe r 2024 5:45am S/P lumbar spine operation March 25, 2025 5:45am Lumbar radiculopathy March 25, 2025 5:45am Neurogenic claudication due to lumbar sp inal stenosis March 25, 2025 5:45am Low back pain April 09, 2025 1 0:04am S/P lumbar spine operation April 14, 2025 12:53pm S/P lumbar spine operation April 1:10pm Reason for Referral Type Reason(s) Provider Provider Contact Information Wm montes Address Start Date call the office on Monday to schedule a follow up appointment in 2 weeks for alexis Kauffman MDWork Phone: [facility] [address] [place] [address], [address] [facility] [address] Allergies, Adverse Reactions, Alerts Allergen Type Severity Reaction Last Updated Verified Status Comments prednisone Allergy Moderate Agitated April 28, 2025 1:01pm Yes Active and jittery Social History Smoking Status Status Start Date End Date Date of Observa tion Never smoked tobacco (finding) March 27, 2025 10:01am Observation Status Observation Response Date of Response Legal Sex Female (finding) Sex Assigned At BirthFemaleMay 1955 Family History Relationship Condition Age at Onset Recorded Date/T kay father Myocardial infarction Unknown DeceasedUnknownmotherDeceasedUnknown Problems Active Problems Problem Diagnosis/Recorded Date Onset Date Stat us Left sided sciatica July 26, 2024 12:02pm Unknow n Active Age-related osteoporosis without current pathological fracture August 14, 2023 4:02pm April 08, 2015 Active Peripheral neuropathy, idiopathic February 05, 2025 2:11pm Unknown Active Numbness and tingling February 05, 2025 2:11pm Unknown Active Impaired mobility and activities of daily living March 27, 2025 8:59am Unknown Active Low back pain August 08, 2024 3:20pm Unknown Active Preoperative clearance February 28, 2025 12:25pm Un known Active Wellness examination August 15, 2023 10:26am Unknown Active Hyperlipidemia, unspecified August 14, 2023 4:02pm Unk nown Active Hypothyroidism, unspecified August 14, 2023 4:02pm Unk nown Active Essential (primary) hypertension August 14, 2023 4:02pm Unknown Active BMI 36.0-36.9,adult March 27, 2025 9:00am Unknown Active S/P lumbar spine operation March 27, 2025 9:00am U nknown Active Left lumbar radiculopathy August 08, 2024 3:20pm U nknown Active Left hip pain August 08, 2024 3:20pm Unknown Active Inactive/Resolved Problems Problem Diagnosis/Recorded Date Onset Date Stat us Lumbar radiculopathy February 05, 2025 2:12pm Unknown Resolved Neurogenic claudication due to lumbar spinal stenosis March 27, 2025 8:59am Unknown Resolved Medications Medication Status Dose Units Route Directions Qty Days Refills S tart Date Stop Date End Date Reason(s) Instructions Adherence Diclofenac Sodium 75 mg tabl et,delayed release (DR/EC) Discontinued 75 MG PO Twice daily 60 5February 2023 1:44pmFebruary 2023 2:11pmLevothyroxine 88 mcg tablet Ekiqcvdejjed74ARASRNnnvc873Wwmh 2023 10:20amAugust 2023 7:36am Diclofenac Sodium 75 mg tablet,delayed release (DR/EC)Discontinued0.ROUTE .AXBFNQY7106Mgwu 2023 7:50amSeptember 2024 1:37pmOn Hold: None TAKE 1 TABLET TWICE DAILYLevothyroxine 88 mcg tabletDiscontinued0.ROUTE.COMPLEX 2023 7:36amMarch 2024 9:21amTAKE 1 TABLET EVERY DAY Rosuvastatin 10 mg tabletDiscontinued0.ROUTE.AYHYKAB041Ralhzvj 2023 9:58am August 22, 2024 9:21amTAKE 1 TABLET EVERY DAYMetoprolol Succinate 100 mg tablet extended release 24 hrDiscontinued0.ROUTE.WICXPEU630Wfofksr 2023 9:58am August 22, 2024 9:21amTAKE 1 TABLET EVERY DAYLevothyroxine 88 mcg tablet Discontinued0.ROUTE.TTXLINC369Sbby 9th, 2025 8:59amSeptember 2024 1:37pm TAKE 1 TABLET EVERY DAYMetoprolol Succinate 100 mg tablet extended release 24 hr Active0.ROUTE.JNOTHPY875Uyxtvlyp2024 4:30pmTAKE 1 TABLET EVERY DAYComplies with drug therapyRosuvastatin 10 mg tabletActive0.ROUTE.QYKFGBB972Lhkdnqsr2024 4:30pmTAKE 1 TABLET EVERY DAYComplies with drug therapyMultivitamin tablet Ujuojv3ZRWRCBbvue morningpt2024 11:00pmOn Hold: Resume on 04/01/25.Complies with drug fhgfxcgGtfggcwp-Ccjv-Xrc2-C-[place]-Bosw (Osteo Bi-Flex Triple Strength) 750 mg-644 mg- 30 mg-1 mg cczsurUkfseb1WJXJNYbiyb daily March 10, 2025 11:00pmOn Hold: Resume on 04/08/25.Complies with drug therapyAscorbic Acid (Vitamin C) (Vitamin C) 1,000 mg tablet extended release Raofby2891IBVNMqvyp 2024 11:00pmOn Hold: Resume on 04/01/25.Complies with drug therapyVitamin B Complex dxqlmrUenbfp7QEAIMXxwvn 2024 11:00pmOn Hold: Resume on 04/01/25.Complies with drug therapyCalcium Carbonate-Vitamin D3 (Calcium 600 + D(3)) 600 mg-10 mcg (400 unit) qkabrcWewhwf0BUKCPUabfl 2024 11:00pmOn Hold: Resume on 04/01/25.Complies with drug therapyVit A-Vit C-Vit L-Twuz-Pxplgn (Eyeprotect) 7,160-113-100 lnnb-hh-wewg txnrtlZfxous3EUOLDCphoo 2024 11:00pmComplies with drug therapyLoratadine (Allergy Relief (Loratadine)) 10 mg fzedguPuacpt50GLUBUxckr 2024 11:00pmOn Hold: Resume on 04/01/25.Complies with drug therapyMagnesium Gluconate 27.5 mg magne- sium (500 mg) yutemzGeuzaw16.5MGPODaily at bedtimeS2024 11:00pmOn Hold: Resume on 04/01/25.Complies with drug therapyLevothyroxine 88 mcg uwfgzsMcxdja53 MCGPOEvery 2024 11:00pmComplies with drug therapy Diclofenac Sodium 75 mg tablet,delayed release (DR/EC)Bouhehjcxbev82GBUBIhzml dailyMarch 10, 2025 11:00pmOct2024 9:21amTAKE 1 TABLET TWICE DAILYCyclobenzaprine 10 mg awtfuoAgakcv98GHUIKeuqt times daily as needed for back txnjty532Jxktgnt2024 11:00pmComplies with drug therapyPrednisone 10 mg tablets,dose zsknGicwyfabldhl29RJPBwpn package iglmmjgkgx546Revbiya 2024 11:00pmOctober 2024 9:23amtake 4 tabs for 3 days then take 3 tabs for 3 days then take 2 tabs for 3 days then take 1 tab for 3 daysCephalexin 500 mg xufuuuvVhkgdcsmgymh615ZKTRTwium times felpf926Ksxlvfx 2024 11:00pmOctober 2024 9:22amOxycodone 5 mg cnzvwrDjmwfc2NCWMSOIXN 4-6 HOURS as needed for weqh7790Wipfdar 2024Lumbar radiculopathy Radiculopathy, lumbar regionComplies with drug therapyRosuvastatin 10 mg tablet Xcjgqtwgqqeb13HOCJDjecbTiibb 2023 12:00amOctober 2023 9:58am FreeTextSig: TAKE 1 TABLET EVERY DAY; Note: Source Status: Start; Refills: 3; Qty: 90 Tablet; Provider: Daly Worthington ( )Levothyroxine (Synthroid) 75 mcg nmqttpEybkehvbrllb45KUWFQIanyqYiept 2023 12:00amJune 2023 10:21amFreeTextSig: TAKE 1 TABLET EVERY DAY; Note: Source Status: Start; Refills: 3; Qty: 90 Tablet; Provider: Daly Worthington ( ) Metoprolol Succinate 100 mg tablet extended release 24 cnLuthpdubkfyp799OXNS DailyHoly Name Medical Centerch 2023 12:00amOctober 2023 9:58amFreeTextSig: TAKE 1 TABLET EVERY DAY; Note: Source Status: Start; Refills: 3; Qty: 90 Tablet; Provider: Daly Worthington ( )Diclofenac Sodium 75 mg tablet,delayed release (DR/EC)Mdmkdgjbraru93VCBWSelsh dailyFebruary 2023 12:00amFebruary 2023 1:44pmDiclofenac Sodium 75 mg tablet,delayed release (DR/EC)Xpfbmadhqlif13 MGPOTwice owrhs985Tilppffb 2023 2:10pmJuly 2023 7:51amGabapentin 300 mg zbgxlwtIzytuf436VZOLOmimi at bedtimeJuly 2024 11:00pmComplies with drug therapyCyclobenzaprine 5 mg tbsoeuDkfhbfevdpor3QPEGMnnbr times daily as needed for muscle spasmJuly 2024 11:00pmOctober 2024 9:21amEstradiol 0.01 % (0.1 mg/gram) asprlClubsk3LPCXNEZDBYUGSLLEPSdpaj a WeekFebruary 2024 12:00amOn Hold: Resume on 04/01/25.Complies with drug therapyLevothyroxine 88 mcg vqsmovYkeipcfojsjk88TPIIRNgchiOltmg 2024 9:20amJune 2024 8:59am Metoprolol Succinate 100 mg tablet extended release 24 rcPhntbhsmocgg395SDIP Daily at bedtimeMarch 2024 9:21amNovember 2024 4:30pmRosuvastatin 10 mg cjlotaZersuteufway43MZHAYppse morningMarch 2024 9:21amNovember 2024 4:30pmCephalexin 500 mg azbetaxBcwxswwcnlih437FDCIXlzzv times sykos5250 April 08, 2025 11:00pmNovember 2024 1:03pm Medical Equipment Device Date Implanted Device Details Spinal bone screw, non-bioabsorbable March DIAMOND: ()[id number] Issuing Agency: [facility] Device Id: [id number] bone screw, non-bioabsorbableOctober 2024 DIAMOND: ()[id number] Issuing Agency: [facility] Device Id: [id number] bone screw, non-bioabsorbableOctober 2024 DIAMOND: ()[id number] Issuing Agency: [facility] Device Id: [id number] bone screw, non-bioabsorbableOctober 2024 DIAMOND: ()[id number] Issuing Agency: [facility] Device Id: [id number]-[id number] internal spinal fixation system connector March 25, 2025UDI: ()[id number] Issuing Agency: [facility] Device Id: [id number] internal spinal fixation system connector March 25, 2025UDI: ()[id number] Issuing Agency: [facility] Device Id: [id number] bone screw, non-bioabsorbableOctober 2024 DIAMOND: ()[id number] Issuing Agency: [facility] Device Id: [id number] bone screw, non-bioabsorbableOctober 2024 DIAMOND: ()[id number] Issuing Agency: [facility] Device Id: [id number] fusion graft kitOctober 2024UDI: ()[id number] Issuing Agency: [facility] Device Id: [id number] Expiration Date: 2025-12-10 Lot Number: [id number] spinal fusion cage, non-sterileOctober 2024UDI: ()[id number] Issuing Agency: [facility] Device Id: [id number] Lot Number: [id number] spinal fusion cage, non-sterileOctober 2024UDI: ()[id number] Issuing Agency: [facility] Device Id: [id number] Lot Number: [id number] spinal fusion cage, non-sterileOctober 2024 DIAMOND: ()[id number] Issuing Agency: [facility] Device Id: [id number] Lot Number: [id number] spinal fusion cage, non-sterileOctober 2024 DIAMOND: ()[id number] Issuing Agency: [facility] Device Id: [id number] Lot Number: [id number]-ajbyt internal spinal fixation system, non-sterile March 25, 2025UDI: +[id number] Issuing Agency: [facility] Device Id: [id number]-errxu internal spinal fixation system, non-sterile March 25, 2025UDI: +[id number] Issuing Agency: [facility] Device Id: [id number]-[id number] internal spinal fixation system, non-sterile March 25, 2025UDI: +[id number] Issuing Agency: 1 Device Id: [id number]-pxkag internal spinal fixation system, non-sterile March 25, 2025UDI: +[id number] Issuing Agency: [facility] Device Id: [id number]-jqppp internal spinal fixation system, non-sterile March 25, 2025UDI: +[id number] Issuing Agency: 1 Device Id: [id number]-[id number] internal spinal fixation system, non-sterile March 25, 2025UDI: +[id number] Issuing Agency: [facility] Device Id: [id number]-ictrj internal spinal fixation system, non-sterile March 25, 2025UDI: +[id number] Issuing Agency: [facility] Device Id: [id number]-wckbq internal spinal fixation system, non-sterile March 25, 2025UDI: +[id number] Issuing Agency: [facility] Device Id: [id number]-itshi internal spinal fixation system, non-sterile March 25, 2025UDI: +[id number] Issuing Agency: [facility] Device Id: [id number]-yqswv internal spinal fixation system, non-sterile March 25, 2025UDI: +[id number] Issuing Agency: [facility] Device Id: [id number]-dcawn internal spinal fixation system, non-sterile March 25, 2025UDI: +[id number] Issuing Agency: [facility] Device Id: [id number]-zcesx internal spinal fixation system, non-sterile March 25, 2025UDI: +[id number] Issuing Agency: [facility] Device Id: [id number]-[id number] internal spinal fixation system, non-sterile March 25, 2025UDI: +[id number] Issuing Agency: [facility] Device Id: [id number]-epnio internal spinal fixation system, non-sterile March 25, 2025UDI: +[id number] Issuing Agency: [facility] Device Id: [id number]-sihgg internal spinal fixation system, non-sterile March 25, 2025UDI: +[id number] Issuing Agency: [facility] Device Id: [id number]-hzovn internal spinal fixation system, non-sterile March 25, 2025UDI: +[id number] Issuing Agency: [facility] Device Id: [id number]-ssbbv internal spinal fixation system, non-sterile March 25, 2025UDI: +[id number] Issuing Agency: [facility] Device Id: [id number]-sqqck internal spinal fixation system, non-sterile March 25, 2025UDI: +[id number] Issuing Agency: [facility] Device Id: [id number]-grfin internal spinal fixation system, non-sterile March 25, 2025UDI: +[id number] Issuing Agency: [facility] Device Id: [id number]-mxjal internal spinal fixation system, non-sterile March 25, 2025UDI: +[id number] Issuing Agency: [facility] Device Id: [id number]-quffg internal spinal fixation system, non-sterile March 25, 2025UDI: +[id number] Issuing Agency: [facility] Device Id: [id number]-ngojk internal spinal fixation system, non-sterile March 25, 2025UDI: +[id number] Issuing Agency: [facility] Device Id: [id number] Relevant Diagnostic Tests and/or Laboratory Data Laboratory Results Test Collection Date/Time Result Date/Time Result Interpretation Reference Range Result Comment Performing Site Corrected White Blood Count March 11, 2025 1:03pm March 11, 2025 1:36pm 6.0 10*3/uL 3.8-11.6[facility] [id number] [address] [place] [address] 96951Coatgtvrmws WBC CountSept2024 1:03pmSeptember 2024 1:36pm6.0 10*3/uL3.8-11.6[facility] [id number] [address] [facility] 14[address]Dqk Blood CountSeptember 2024 1:03pmSeptember 2024 1:36pm4.38 10*6/uL3.60-5.00[facility] [id number] [address] [facility] 00247MukzjinabkEtejfdthg 2024 1:03pmSeptember 2024 1:36pm12.5 g/dL11.8-15.4F[facility] [id number] [address] [facility] [address]OkhzjvgsoiLiprztlyv 2024 1:03pmSeptember 2024 1:36pm37.3 %34.0-46.4F[facility] [id number] [address] [facility] 10997Jiwb Corpuscular VolumeSeptember 2024 1:03pmSeptember 2024 1:36pm85.2 cR39-377AyfuewnlbBl[facility]ard [facility] [id number] [address] [facility] 00361Kxxd Corpuscular HemoglobinSeptember 2024 1:03pmSeptember 2024 1:36pm28.6 pg24.7-34.3F[facility] [id number] [address] [place] [address] 61470Wvtl Corpuscular Hemoglobin ConcentSeptember 2024 1:03pm March 11, 2025 1:36pm33.6 g/dL32.0-35.0[facility] [id number] [address] [facility] 708[address]Tyh Cell Distribution WidthSeptember 2024 1:03pmSeptember 2024 1:36pm13.6 %11.9-15.3F[facility] [id number] [address] [facility] 425[address]Kbqrwysv CountSeptember 2024 1:03pmSeptember 2024 1:23sc193 10*3/uH588-514NdgigwuzhBl[facility]ard [facility] [id number] [address] [facility] 539[address]Tauj Platelet VolumeSept2024 1:03pmSept2024 1:36pm8.3 fL6.3-10.7F[facility] [id number] [address] [facility] 80491Djmzpgfexif (%) (Auto)March 11, 2025 1:03pmSept2024 1:36pm64.0 %.[facility] [id number] [address] [facility] 967[address]Oewtftbugob (%) (Auto)March 11, 2025 1:03pmSept2024 1:36pm25.4 %.[facility] [id number] [address] [facility] 11835Emkiinpvk (%) (Auto)March 11, 2025 1:03pmSept2024 1:36pm7.1 %.[facility] [id number] [address] [facility] 801[address]Rcliioadzpd (%) (Auto)March 11, 2025 1:03pmSept2024 1:36pm2.3 %.[facility] [id number] [address] [facility] 63189Nmtbwmpsj (%) (Auto)March 11, 2025 1:03pmSept2024 1:36pm1.2 %.[facility] [id number] [address] [facility] 45282Ygsuxezgy RBC Relative Count (auto)March 11, 2025 1:03pm March 11, 2025 1:36pm0.0 /100{WBC}0-0.5F[facility] [id number] [address] [facility] 765[address]Imlvylagguw # (Auto)March 11, 2025 1:03pmSept2024 1:36pm3.9 10*3/uL1.8-7.7F[facility] [id number] [address] [facility] 88490Wlnampvcbzs # (Auto)March 11, 2025 1:03pmSept2024 1:36pm1.5 10*3/uL1.00-4.8[facility] [id number] [address] [facility] 36983Nohmgrpku # (Auto)March 11, 2025 1:03pmSeptember 2024 1:36pm0.4 10*3/uL0.0-0.8[facility] [id number] [address] [facility] 632[address]Jzcaxxytohy # (Auto)March 11, 2025 1:03pmSeptember 2024 1:36pm0.1 10*3/uL0.0-0.45[facility] [id number] [address] [place] 6489070Basophils # (Auto)March 11, 2025 1:03pmSeptember 2024 1:36pm0.1 10*3/uL0.0-0.2F[facility] [id number] [address] [facility] 24772Dhtxokb LevelSeptember 2024 1:03pmSeptember 2024 2:14pm96 mg/pS43-451WYO recommended reference rangeRandom Glucose Reference Range is dependent on time and content of last meal. Glucose of more than 200 mg/dL in a nonstressed, ambulatory subject supports the diagnosisof Diabetes Mellitus.[facility] [id number] [address] [facility] 63983Ofrzl Urea NitrogenSept2024 1:03pmSept2024 2:14pm16 mg/dL7-25[facility] [id number] [address] [facility] 68374OzorvdoqmrTpihqclav 2024 1:03pmSeptember 2024 2:14pm0.84 mg/dL0.60-1.20[facility] [id number] [address] [facility] 33384Sureonygi GFR (CKD-EPI)March 11, 2025 1:03pmSept2024 2:14pm> 60.0 mL/MinBlanchard Valley Health System [facility] [id number] [address] [place] [id number] LevelSeptember 2024 1:03pmSeptember 2024 2:34mf672 mmol/R761-980NrcpwlzruBlanchard Valley [facility] [id number] [address] [facility] 617[address]Ikeqhiiah LevelSeptember 2024 1:03pmSeptember 2024 2:14pm4.1 mmol/L3.5-5.1F[facility] [id number] [address] [facility] 62908Hkqneqcy LevelSeptember 2024 1:03pmSeptember 2024 2:84ge476 mmol/LAbove high pezlug62-398OsxukdykpBlanchard Valley [facility] [id number] [address] [facility] 80756Bqoucw Dioxide LevelSeptember 2024 1:03pmSeptember 2024 2:14pm28.1 mmol/L21.0-31.0[facility] [id number] [address] [facility] 965[address]Hrnnb GapSeptember 2024 1:03pmSeptember 2024 2:14pm 9.0 mEq/L6.0-15.0[facility] [id number] [address] [facility] 039[address]Mdwaayz LevelSeptember 2024 1:03pmSeptember 2024 2:14pm9.2 mg/dL8.6-10.3F[facility] [id number] [address] [facility] 356[address]Hrraz ProteinSeptember 2024 1:03pmSeptember 2024 2:14pm6.6 g/dL6.4-8.9[facility] [id number] [address] [facility] 64836DosemlmKelwgzcdx 2024 1:03pmSeptember 2024 2:14pm 4.3 g/dL3.5-5.7F[facility] [id number] [address] [facility] 51062IkmtovsuNfnnrdsgj 2024 1:03pmSeptember 2024 2:14pm 2.3 g/dLBlanchard Valley Health [facility] [id number] [address] [facility] 727[address]Pjyfpri/Globulin RatioSeptember 2024 1:03pmSeptember 2024 2:14pm1.9[facility] [id number] [address] [facility] 31042Hueqr BilirubinSeptember 2024 1:03pmSeptember 2024 2:14pm1.2 mg/dLAbove high normal0.3-1.0[facility] [id number] [address] [facility] 58581Bgzxoedsa Amino Transf (AST/SGOT)March 11, 2025 1:03pm March 11, 2025 2:14pm30 U/L51-85PgbiifaspBlanchard [facility] [id number] [address] [facility] 50472Xooyisx Aminotransferase (ALT/SGPT)March 11, 2025 1:03pm March 11, 2025 2:14pm32 U/L7-52[facility] [id number] [address] [facility] 620[address]Ebfibwsb PhosphataseSeptember 2024 1:03pmSeptember 2024 2:14pm83 U/M05-326GxrnidzyzBlanchard Valley [facility] [id number] [address] [facility] 96590Fcvy ThyroxineSept2024 1:03pmSeptember 2024 2:32pm1.16 ng/dLAbove high normal0.61-1.12[facility] [id number] [address] [facility] 51488Ggvifap Stimulating Hormone 3rd GenSept2024 1:03pm March 11, 2025 2:30pm3.07 u[iU]/mL0.45-5.33[facility] [id number] [address] [place] [address] 12809Afsvgbki Creatinine Clearance (ChemSeptember 2024 1:03pm March 11, 2025 2:14pmN/AFGenesis Hospital [facility] [id number] [address] [facility] [address] Vital Signs Vital Reading Result Reference Range Collection Date/Time Height 66 [in_i] February 12, 2025 9:66nrHnppzw30.60 kgSept2024 9:22amBMI (Body Mass Index)32.2 kg/p4Bkbsqjpjm2024 9:38pwWpveqv98 [in_i]February 20, 2025 1:31rsJqxdwt11.90 kgSept2024 1:29pmHeart Rate63 /yqz79-951Ummgctwzp 11th, 2025 1:29pmBP Slsussvd762 mm[Hg]100-140Sept2024 1:29pmBP Qiqpdrpwt02 mm[Hg]60-100Sept2024 1:29pmBMI (Body Mass Index)31.6 kg/b2Ptvuntnsp2024 1:00raKszvsr80.00 kgSept2024 9:35amHeight 65 [in_i]March 25, 2025 3:89kbRtvuzi38.90 [facility] 20[facility] 4:52amBody Dgrevqiphdl58.0 [degF]97.6-99.0[facility] 2024 7:00amHeart Rate82 /nwd50-504 March 30, 2025 7:00amRespiratory rate16 /dlz78-14Wjdijso 2024 7:00am Oxygen saturation by Pulse ndikyspr35 %95-100[facility] 2024 7:00amBP Izfgingy581 mm[Hg]100-140[facility] 2024 7:00amBP Piztljtas99 mm[Hg]60-100 March 30, 2025 7:00amInhaled oxygen flow rate2 L/minHenry [facility] Hospital 2024 5:07wwDzrmea46.50 kgHenry [facility] 2024 9:72dhGnnybx19 [in_i]April 14, 2025 12:82nzDdsezn16.50 [facility] 1:02pm Advance Directives Advance Directive Response Recorded Date/ Time Advance Directives No July 10:50am Insurance Providers Guarantor Irina Xiong Address [address] [place] [id number] Info.Home Phone: Coverage Status Update:2025 Payer Group Member ID Coverage Type Subscriber Relationship to Subscriber Effective Date Expiration Date Medicare [id number] Decker Id: [id number] [address] [facility] [id number] Home Phone: Email: [email or web address] [facility] [address] [address] [place] [address] Work Phone: Id: [place] [id number] Xiong Id: [id number] [address] [facility] [address] Home Phone: Email: [email or web address] Encounter Location(s) Arrival/Admit Date Discharge/Departure Date Discharge/Departure Disposition Provider(s) Departed Physician/ Provider Office Visit -[facility] Neurology Ellinger February 05, 2025 2:12pm February 05, 2025 2:59pm Discharged to home care or self care (routine discharge) Deepti Beard DO Departed Physician/ Provider Office Visit -[facility] Neurosurgery February 12, 2025 10:08am February 12, 2025 11:17am Discharged to home care or self care (routine discharge) Jairo Jimenez DO Departed Physician/ Provider Office Visit -[facility] February 20, 2025 2:20pm February 20, 2025 2:59pm Discharged to home care or self care (routine discharge) Elin Kauffman MD Departed Physician/ Provider Office Visit -[facility] Neurosurgery February 21, 2025 10:27am February 21, 2025 11:23am Discharged to home care or self care (routine discharge) Jairo Jimenez DO Departed Clinical -Pre-Surgica l Testing March 11, 2025 1:39pm March 11, 2025 1:40pm Discharged to home care or self care (routine discharge) Jairo Jimenez DO Non-patient / Non-visit -[facility] Rehab & Spine March 25, 2025 5:45am Elisabeth Duke-patient / Iir-caiog-[facility]JUniversity [facility] CenterMarch 31, 2025 2:08pmNatasha Hanley-patient / Lkw-mdcbe-ZxpzymtflDav[facility]ess [facility] HospitalOct[facility] 2024 12:00amRohan Kauffman , PHILLIPeparted Physician/Provider [facility] 2024 10:04amOctober 2024 11:30amDischarged to home care or self care (routine discharge)AMELIA Royaleparted Physician/[facility] 20[facility] 1:16pm Discharged to home care or self care (routine discharge)Jairo Jimenez DO Departed Physician/Provider Office Visit-[facility] 2024 1:10pmNovholy cross hospital 2024 1:35pmDischarged to home care or self care (routine discharge)AMELIA Royaleparted Physician/[facility] 12:48pmNovholy cross hospital 2024 1:17pmDischarged to home care or self care (routine discharge)Jairo Jimenez DO Recent Diagnosis Onset Date Admit Date Numbness and tingling Unknown January 2:12pm Peripheral neuropathy, idiopathic Unknown February 05, 2025 2:12pm Lumbar radiculopathy Unknown January 2:12pm Numbness and tingling Unknown February 12, 2025 10:08am Hyperlipidemia, unspecified Unknown Feb 2:20pm Hypothyroidism, unspecified Unknown Feb 2:20pm Preoperative clearance Unknown February 20, 2025 2:20pm Lumbar radiculopathy Unknown February 102024 2:20pm Lumbar radiculopathy Unknown February 102024 10:27am BMI 36.0-36.9,adult Unknown March 5:45am Essential (primary) hypertension Unknown March 25, 2025 5:45am Hyperlipidemia, unspecified Unknown 2024 5:45am Hypothyroidism, unspecified Unknown 2024 5:45am Impaired mobility and activi ties of daily living Unknown March 25, 2025 5:45am Left lumbar radiculopathy Unknown 2024 5:45am Numbness and tingling Unknown March 252024 5:45am Peripheral neuropathy, idiopathic Unknown March 25, 2025 5:45am S/P lumbar spine operation Unknown Octob 2024 5:45am Lumbar radiculopathy Unknown March 5:45am Neurogenic claudication due to lumbar spinal stenosis Unknown March 25, 2025 5:45am Low back pain Unknown April 09 10:04am S/P lumbar spine operation Unknown 2024 12:53pm S/P lumbar spine operation Unknown 2024 1:10pm Assessments Diagnosis Onset Date Resolution Status Admit Date Numbness and tingling acuteAugust 2024 2:12pmPeripheral neuropathy, idiopathicacuteAugust 2024 2:12pmLumbar radiculopathyresolvedAugust 2024 2:12pmNumbness and tinglingacuteSeptember 2024 10:08amHyperlipidemia, unspecifiedacute February 20, 2025 2:20pmHypothyroidism, unspecifiedacuteSeptember 2024 2:20pmPreoperative clearanceacuteSeptember 2024 2:20pmLumbar radiculopathy resolvedSeptember 2024 2:20pmLumbar radiculopathyresolvedSeptember 2024 10:27amBMI 36.0-36.9,adultacuteOctober 2024 5:45amEssential (primary) hypertensionacuteOctober 2024 5:45amHyperlipidemia, unspecifiedacute March 25, 2025 5:45amHypothyroidism, unspecifiedacuteOctober 2024 5:45amImpaired mobility and activities of daily livingacuteOctober 2024 5:45amLeft lumbar radiculopathyacuteOctober 2024 5:45amNumbness and tinglingacuteOctober 2024 5:45amPeripheral neuropathy, idiopathicacute March 25, 2025 5:45amS/P lumbar spine operationacuteOctober 2024 5:45amLumbar radiculopathyresolvedOctober 2024 5:45amNeurogenic claudication due to lumbar spinal stenosisresolvedOctober 2024 5:45amLow back painacuteOctober 2024 10:04amS/P lumbar spine operationacuteApril 14, 2025 12:53pmS/P lumbar spine operationacuteApril 21, 2025 1:10pm Plan of Treatment Author Jairo Jimenez [facility] CenterAuthoredSept2024 10:08amIn summary this patient is a 69-year-old female who returns to clinic today for final surgical discussion with a chief complaints of lower extremity heaviness weakness numbness and pain having failed a nonoperative route where she does need to use a grocery cart leaning forward to help improve her symptoms having failed therapy injections. At this time I recapitulated the findings from last discussion where she had an MRI was done August 16 where she does have significant central stenosis at the L2-3 and 3 4 segments. I discussed how the central stenosis at 2 3 and 3 4 certainly playing a role in her symptoms of neurogenic claudication. I also discussed with her again today as I did last time where she has got neuroforaminal stenosis at L4-5 and 5 1 which is severe which I think is playing a role in her radiculopathy in her lower extremities as well. I personally reviewed the EMG that was done February 05 which indicates that there is an acute L4-5 radiculopathy. I again reiterated as I discussed last time that her surgery would require laminectomies at L2-3 and the L3-4 segments to help address the central stenosis for her claudicatory symptoms. I then discussed how she would need decompression of the foramen at the L4-5 and L5-S1 segments to help with her radicular symptoms. I told her that looking at surgery that required decompression at the L2 334 segments in conjunction with decompress the nerves at L4-5 and 5 1 that would be looking at the large instrumented decompression and fusion. This being said I again reiterated that she would benefit from surgery if she wants he will and if she has exhausted all nonoperative means. I did tell her that this is an elective surgery but she does tell me that she is at wits end now and does want to proceed with operative mention. This being said I made my surgical recommendations to be in the form of an L2-S1 posterior spinal fusion with placement of iliac screws and L2-S1 transforaminal lumbar interbody fusion in the setting of L2 to pelvis posterior spinal fusion. I did the surgery what it entails as well as what the Cover process will look like. I described being the hospital 3 to 5 days postoperatively as well as use of a brace which we she will need postoperatively for immobilization. I described the recovery process is being 3 months. I described the inherent risks to include but are not limited to bleeding infection paralysis spinal cord injury nerve root injury loss of function of her extremities loss of bladder or bowel function CSF leak vascular injury resulting in stroke coma and malposition instrumentation pseudoarthrosis worsening condition and need future surgery. I also discussed again the bone density scan that she completed January 14 and went over it with her in person and how the bone quality of her lumbar spine was normal. I again discussed how surgery is an elective surgery for her and how we can continue with a nonoperative route if she wanted to. She tells me this is impacting her quality of life greatly he does want a proceed with surgery. Therefore we will start her clearances and schedule her appropriately. All questions were answered to satisfaction as patient she is in agreement with the above plan. Author Elin Kauffman [facility] CenterAuthoredSeptember 2024 12:27pmstable, check labs. continue crestor. stable, check labs. continue levothyroxine. Irina is in good health. If her presurgical testing is normal, she is at low cardiac risk and able to proceed w scheduled surgery. as above Author Jairo Jimenez [facility] CenterAuthoredNovember 2024 1:20pmIn summary the patient is a 69-year-old female is known to me for having undergone L2 to pelvis posterior spinal fusion with L2-S1 TLIF's secondary tractable lower extremity radiculopathy he comes in today for incision evaluation. At this time I evaluated the incision there is no erythema there is no drainage there is no odor. Again it appears that there is granulation tissue and that is healing by secondary intention. There is no obvious opening. I have sterilely cleansed the incision as well as applied wound honey and a sterile dressing. Will have her come back in 1 week for incision reevaluation. All questions were answered to the satisfaction of the patient she is in agreement the above plan. Author Jairo Jimenez [facility] CenterAuthoredSeptember 2024 11:45amIn summary this patient is a 69-year-old female who presents to clinic today with chief complaint of ongoing lumbar back pain as well as bilateral lower extremity radiculopathy described as being heaviness and weakness in her legs requiring up to sit down or bend over a grocery cart with symptoms are most compatible with that of neurogenic claudication. She states that on occasion she will also have radicular symptoms described as any shooting pains down her legs as well. At this time I again reviewed the MRI with her from August 16, 2024 where she does have significant central stenosis at the L2-3 and at the L3-4 levels. I do think that this severe central stenosis at 2 3 and 3 4 certainly playing a role in her symptoms of neurogenic claudication. I then went over the L4-5 and L5-S1 levels which she has bilateral moderate to severe neuroforaminal narrowing at the L4-5 and at the L5-S1 levels to which I think is playing a role in the shooting pains that she has down her legs as well. I then went over the EMG and how the EMG was done February 05 which does indicate that there is an acute L4-L5 radiculopathy. I reviewed the MRI with her showing her the L2-3 and L3-4 stenosis as well as the L4-5 and L5-S1 neuroforaminal stenosis. I then described to her that in order to appropriately address her symptoms that she would require laminectomies at the L2-3 and the L3-4 segments to address the central stenosis. In order to adequately decompress the L4-5 and the L5-S1 nerves described her that she would need facetectomies at the L4-5 and L5-S1 nerves to effectively decompress these nerves. Effectively I told her that in order to provide central decompression at the L2-3 4 segment as well as adequate foraminal decompression with facetectomies at L4-5 and 5 1 that were unfortunately looking at interim instrumented decompression and fusion. And so for this I have made recommendations that she would benefit from L2-S1 posterior spinal fusion with placement of the iliac screws which would be an L2 to pelvis posterior spinal fusion. I then described placement of interbody's in the form of transforaminal lumbar interbody fusions from L2-S1. I have proposed surgery in the form of an L2 to pelvis posterior spinal fusion with L2-S1 transforaminal lumbar interbody fusions to address her neurogenic claudication symptoms as well as her radicular symptoms. I described the surgery what it entails as well as what recovery process will look like. I described to her the inherent risks to include but not limited to bleeding infection paralysis spinal cord injury nerve root injury loss of function of her extremities loss of bowel bowel function CSF leak vascular injury resulting stroke coma and malposition of the instrumentation pseudoarthrosis worsening condition any future surgery. I also described her the possibility that she may not have symptomatic improvement from this. After all this has been discussed the patient tells me that she is at the point where she does want to proceed with operative invention therefore we will start our clearance processes as well as medical clearance. I will have her come back February 21 for any last residual questions as we moved forward with surgery for her. Additionally though we did do a bone density scan which was done January 14 and the bone density scan does state that her spine has normal and appropriate bone density. All questions were answered to the satisfaction of the patient she is in agreement the above plan. Author Jairo Jimenez [facility] CenterAuthoredOctober 2024 10:19amIn summary the patient is a 69-year-old female known to me for having surgery March 25, 2025 in the form of an L2 to pelvis posterior spinal fusion with L2-S1 TLIF secondary to intractable lower extremity radiculopathy and neurogenic claudication. At this time the patient states that she is glad that she is undergone surgery. She tells me that her legs feel better compared to the preoperative state and is pleased with her postoperative course. I did review the incision with her where it does appear at the caudal aspect of the incision that there is healthy granulation tissue however is not well- approximated. There is no erythema there is no drainage there is no odor to this. I then discussed with her how this may just be healing by secondary intention and therefore have a remove the alexis but reapplied another dressing after sterilely cleansed with a dressing applied to it. We will give her antibiotics and have her return next week for reevaluation of the incision. We discussed staying away from her diclofenac being an NSAID as this could prohibit healing. All questions were answered to the satisfaction of the patient she is in agreement the above plan. Author Jairo Jimenez [facility] CenterAuthoredNovember 2024 1:46pmConcerns patient is a six 9-year-old female known to me for having undergone L2 to pelvis posterior spinal fusion with L2-S1 TLIF's March 25, 2025 secondary intractable lower some radiculopathy. She comes in today for wound check up which in my humble opinion does appear to be better granulated compared to last week. I encouraged her to continue with her own wound care that were dealing with the dressings and wound care honey. Will have her come back next Monday for evaluation incision. With respect to her leg symptoms she says is entirely resolved and she feels happy with this. We again discussed the issues with her x-rays. I showed her her x-rays from July 2024 where she does appear to be slightly tilted. I then showed her the intraoperative x-rays on the OR table where her spine appears to be tilted off towards 1 side but straight. I then showed her her postoperative x-rays where it does appear that she is mild coronal malalignment but had told her that I am not quite sure if this is because of her sacral slope or the fact that they did those x-rays when she was laying down. Regards that we discussed how she is asymptomatic at this point in regards to what the x-rays will look like that nothing would be surgically corrected. We discussed that she will come back next week for her wound care and that at that point when it looks stable we will have her come back in 2 weeks from this team. With x-rays. Again the patient states that her leg symptoms are resolved and she is happy with this. All questions were answered to the satisfaction of the patient she is in agreement the above plan. Future Tests Future scheduled test information is unavailable Pending Tests Test Name Ordered Date Scheduled Date XR lumbar spine 2-3V* April 28, 2025 1:16pm Future Visits Future appointment information is unavailable Future Procedures Procedure Name Ordered Date Scheduled Date Initiate Home Health March 29, 2025 12:51pm 99 Days Admit Status Order March 25, 2025 2:30pm Oct dada 2024 2:36pm Consult to Adult Hospitalist March 25, 2025 2:30pm March 25, 2025 2:36pm Discharge Order March 30, 2025 9:15am Octobe r 2024 9:15am Consult to Physiatry March 27, 2025 5:06am O ctober 2024 5:06am Future Medications Future medication information is unavailable Patient Instructions Instruction Admit Date Know your Meds March 25, 2025 5 :45am Low back pain in adults April 09 10:04am
--- OUTSIDE RECORDS SUMMARY | 2025-05-05 12:13 | XMS_ITS | Clinical Summary ---
Author Organization [facility] Address [address] [facility] [address] Care Team Providers Care Grooming Assistant Name Role Phone Unavailable Primary Care Provider Unavailabl e Allergies Active AllergyReactionsCriticalityNoted XjjaTvslkyzlXzckkseokdBvptejp71/21/2024 Medications MedicationSigDispense QuantityRefillsLast FilledStart DateEnd DateStatus diclofenac (Voltaren) 75 MG EC tablet 12/28/2023ctive levothyroxine (Synthroid, Levoxyl) 88 MCG tablet 01/30/2024ctive metoprolol succinate XL (Toprol-XL) 100 MG 24 hr tablet 1 (one) time each day at the same timeActive Crestor 10 MG tablet take 1 tablet by oral route every day OralActive calcium carbonate (Os-Richard) 1250 (500 Ca) MG tablet Take by mouth DailyActive magnesium 30 MG tablet Take 30 mg by mouth in the morning and 30 mg before bedtime.Active Active Problems ProblemNoted DateDiagnosed DateMenopausal state4Pain in limb01/31/2024 Arthritis of left knee01/31/2024Internal derangement of left knee01/31/2024Other chronic pain01/31/2024Osteoarthritis of knee01/31/2024rimary osteoarthritis 01/31/2024Essential nmcnrjtynynw18/01/3098Wwlfswom27/01/2013Hyperlipidemia 03/12/2013 Immunizations ImmunizationAdministration DatesNext DueInfluenza, Seasonal, Quadrivalent, Fiwkawhutp16/06/2023Influenza, injectable, MDCK, preservative free, quadrivalent 03/03/2022Novel [id number]-[id number], preservative-free04/20/2009Pneumococcal Conjugate PCV Social History Tobacco UseTypesPacks/DayYears UsedDateSmoking Tobacco: NeverPassive Smoke Exposure: NeverSmokeless Tobacco: Never Tobacco Cessation:Counseling Given: Not Answered CommentsUnknownSex and Gender InformationValueDate RecordedSex Assigned at BirthNot on fileLegal YruIxhrpk96/15/2023 6:57 PM EDTGender IdentityNot on fileSexual OrientationNot on file Last Filed Vital Signs Vital SignReadingTime TakenCommentsBlood Zkflxoyj747/8005 3:21 PM EDT Pulse--Temperature--Respiratory Rate--Oxygen Saturation--Inhaled Oxygen Concentration--Rypstn21.5 kg (204 lb)10/16/2024 3:21 PM SPIOgghud561.6 cm (5' 6 )04/23/2024 1:50 PM ESTBody Mass Index32.9304/23/2024 1:50 PM EST Plan of Treatment Not on file Insurance
--- OUTSIDE RECORDS SUMMARY | 2025-05-05 12:14 | XMS_ITS | CCD ---
Author Organization [facility] Care Team Providers Care Grain Thresher Name Role Phone ABHISHEK, DR DOTTIE Alejo Consulting Unavailable YUSUF, DR CHRISTIANO Chopra Primary Care Unavailable KERRIE WYNNE Attending Unavailable FALGUNI, KERRIE Obando Admitting Unavailable YUSUF, DR CHRISTIANO Chopra Consulting Unavailable KERRIE WYNNE Consulting Unavailable RICHMOND, DR William Andrews Consulting Unavailable GOLDBERG, DR CHRISTIANO Chopra Primary Care Unavailable JAZMINE ., DR KORI Delgado Attending Unavailable JAZMINE ., DR KORI Delgado Admitting Unavailable WEST, DR DOTTIE Alejo Consulting Unavailable KAN ., DR KORI Delgado Consulting Unavailable WEST, DR DOTTIE Alejo Consulting Unavailable GOLDBERG, DR CHRISTIANO Chopra Primary Care Unavailable GOLBDERG, DR CHRISTIANO Chopra Attending Unavailable GOLDBERG, DR CHRISTIANO Chopra Admitting Unavailable GOLDBERG, DR CHRISTIANO Chopra Consulting Unavailable KAN ., DR KORI Delgado Consulting Unavailable GOLDBERG, DR CHRISTIANO Chopra Primary Care Unavailable KAN ., DR KORI Delgado Attending Unavailable KAN ., DR KORI Delgado Admitting Unavailable MIGUEL .LEO Consulting Unavailable GOLDBERG, DR CHRISTIANO Chopra Consulting Unavailable GOLDBERG, DR CHRISTIANO Chopra Primary Care Unavailable KAN ., DR KORI Delgado Attending Unavailable KAN ., DR KORI Delgado Admitting Unavailable KAN ., DR KORI Delgado Consulting Unavailable GOLDBERG, DR CHRISTIANO Chopra Primary Care Unavailable KAN ., DR KORI Delgado Attending Unavailable KAN ., DR KORI Delgado Admitting Unavailable GOLDBERG, DR CHRISTIANO Chopra Consulting Unavailable GOLDBERG, DR CHRISTIANO Chopra Primary Care Unavailable GOLDBERG, DR CHRISTIANO Chopra Attending Unavailable GOLDBERG, DR CHRISTIANO Chopra Admitting Unavailable GOLDBERG, DR CHRISTIANO Chopra Consulting Unavailable GOLDBERG, DR CHRISTIANO Chopra Primary Care Unavailable GOLDBERG, DR CHRISTIANO Chopra Attending Unavailable GOLDBERG, DR CHRISTIANO Chopra Admitting Unavailable GOLDBERG, DR CHRISTIANO Chopra Consulting Unavailable GOLDBERG, DR CHRISTIANO Chopra Primary Care Unavailable GOLDBERG, DR CHRISTIANO Chopra Attending Unavailable GOLDBERG, DR CHRISTIANO Chopra Admitting Unavailable JOSH SHEA Consulting Unavailable Christiano Goldberg MD Primary Care Provider Unavailable Primary Care Provider Unavailtm e RUPAL LEONARDO Attending Unavailable KERRIE WYNNE Attending Unavailable DEREK PARNELL Attending Unavailable SOHEILA, DEREK Andrews Attending Unavailable SOHEILA, DEREK Andrews Attending Unavailable RUPAL LEONARDO Attending Unavailable Giedraitis , Andrius Vytauttim Attending Unavailable Giedraitis , Andrius Vytautas Attending Unavailable Giedraitis , Andrius Vytautas Attending Unavailable Giedraitis , Andrius Vytautas Attending Unavailable Giedrapetty CUNNINGHAM, Andrius Vytautas Attending Unavailable Giedrapetty CUNNING[place]AM, Andrius Vytautas Attending Unavailable Christiano Goldberg MD Primary Care Provider Helene Swan APRN Attending Provider Jairo Jimenez DO Attending Provider [phone] Deepti Beard DO Attending Provider Christiano Goldberg MD Attending Provider Christiano Goldberg MD Primary Care Provider Jairo Jimenez DO Admit Provider Barbara MCCARTHY, Jairo Kennedy Other Provider Maria Guadalupe RN, Darline Other Provider Unavailable Yulia RN, Bonnie Other Provider Unavailable Jose RN, Cassi Other Provider Unavailable Prachi RN, Gaby Other Provider Unavailable Edison RN, Inud Other Provider Unavailable Rasheed RN, Deepthi Other Provider Unavailable Patrick Suarez MD Other Provider Danielle Jackson DO Other Provider Avinash Moore MD Other Provider Vinny Argueta DO Other Provider [phone] Robert Arevalo MD Other Provider Berta Garcia MD Other Provider Elie Freeman DO Other Provider Unavailab issa Parrish MD, Geronimo Other Provider Unavailable Shefali Flynn APRN Other Provider WasHermila grimaldo MD Other Provider [phone] Kevon Payan MD Other Provider Unavailable Elvia Steel MD Other Provider Elie Colby DO Other Provider Bev Higginbotham MD Other Provider Shon Pierre MD Other Provider Goldie COMMUNICATIONS DEPARTMENT CHAIRPERSON-C, Rupal Thomas Other Provider Maria Alejandra Delgado APRN Other Provider Unavailable Scott Meneses MD Other Provider Raulito Yanes MD Other Provider Cristofer Calles MD Other Provider Unavailable StanFredy beverly DO Other Provider Flores Quevedo APRN Other Provider Edson Broderick DO Other Provider Paco [place], Marcial Garber Other Provider Cordelia Valle APRN Other Provider Jen Baez APRN Other Provider Mayda [place], Fred Other Provider Unavailable Noble Pineda MD Other Provider Naveenperez MCCARTHY Yaleland Other Provider Rita [place], Per Burk Other Provider Emir Madrigal MD Other Provider Maile Bender APRN Other Provider Unavailable Godfrey Price MD Other Provider Stephen Hancock MD Other Provider Geronimo Coburn MD Other Provider Bradley Hampton MD Other Provider Deanna Minor APRN Other Provider [phone] Avezameera-Marilee Forte APRN Other Provider Angeles [place], Kacey Andrews Other Provider Shanta COLLAZO, Naheed Other Provider Unavailable Seth CUNN[place], Amanda Other Provider Rasheed [place], Stephen Attending Provider [phone] Stephen Iqbal MD Other Provider Helene Swan APRN Other Provider Solomon Jones MD Other Provider [phone] Christiano Goldberg Primary Care Unavailable Barbara, Jairo N Admitting Unavailable Jairo Jimenez Attending Unavailable Jairo Jimenez Attending Unavailable Christiano Goldberg Primary Care Unavailable Darline Lerma Consulting Unavailable Barbara, Jairo Kennedy Admitting Unavailable Bonnie Bender Consulting Unavailable Cassi Garcia Consulting Unavailable Gaby Velarde Consulting Unavailable Indu Hogan Consulting Unavailable Deepthi Iqbal Consulting Unavailable Patrick Suarez Consulting Unavailable Danielle Jackson Consulting Unavailable Avinash Moore Consulting Unavailable Vniny Argueta Consulting UnavailRobert Echevarria Consulting Unavailable Berta Garcia Consulting Unavailable Elie Freeman Consulting Unavailable Geronimo Parrish Consulting Unavailable Shefali Flynn Consulting UnavailHermila Lomeli Consulting Unavailable Kevon Payan Consulting Unavailable Elvia Steel Consulting Unavailable Elie Colby Consulting Unavailable Bev Higginbotham Consulting Unavailable Shon Pierre Consulting Unavailable Rupal Amezcua Consulting Unavailable Maria Alejandra Delgado Consulting Unavailable Scott Meneses Consulting Unavailab Raulito Yousif Consulting Unavailable Cristofer Calles Consulting Unavailable Fredy Pierce Consulting Unavailable Flores Quevedo Consulting Unavailable Edson Broderick Consulting Unavailable Marcial Antonio Consulting Unavailable Cordelia Valle Consulting Unavailable Jen Baez Consulting Unavailable Fred Ohara Consulting Unavailable Noble Pineda Consulting Unavailable Effie Hodge Consulting Unavailable Per Salinas Consulting Unavailable Emir Madrigal Consulting Unava ilable Borisov, Maile Consulting Unavailable Albert, Mohamad Consulting Unavailable SantiStephen chen K Consulting Unavailable Chatha, Geronimo S Consulting Unavailable Hampton, Bradley Consulting Unavailable Deanna Minor Consulting Unavailable Bolzan-Reanna, Nicoletto Consulting Unavaila ble El-Alali, Emran A Consulting Unavailable Womack, Naheed Consulting Unavailable Kuhar, Amanda Consulting Unavailable Stephen Iqbal Consulting Unavailable Turovskgael, Helene Consulting Unavailable Solomon Jones Consulting UnavailChristiano Keating MD Primary Care Provider Jairo Jimenez DO Attending Provider Mayra Alvarado CMA Attending Provider UnavailRohan Keating MD Attending Provider Christiano Goldberg MD Primary Care Provider Deepti Beard DO Attending Provider Jairo Jimenez DO Attending Provider Christiano Goldberg MD Attending Provider [facility] , Jairo Kennedy Admit Provider Barbara MCCARTHY, Jairo Kennedy Other Provider Maria Guadalupe RN, Darline Other Provider Unavailable Yulia RN, Bonnie Other Provider Unavailable Jose RN, Cassi Other Provider Unavailable Prachi RN, Gaby Other Provider Unavailable Edsion RN, Indu Other Provider Unavailable Rasheed RN, Deepthi Other Provider Unavailable Patrick Suarez MD Other Provider Danielle Jackson DO Other Provider Avinash Moore MD Other Provider Vinny Argueta DO Other Provider Robert Arevalo MD Other Provider Berta Garcia MD Other Provider Elie Freeman DO Other Provider Unavailab issa Parrish MD, Geronimo Other Provider Unavailable Shefali Flynn APRN Other Provider Hermila Hernández MD Other Provider [phone] Kevon Payan MD Other Provider Unavailable Elvia Steel MD Other Provider Elie Colby DO Other Provider Bev Higginbotham MD Other Provider Shon Pierre MD Other Provider Goldie COMMUNICATIONS DEPARTMENT CHAIRPERSON-C, Rupal Thomas Other Provider Maria Alejandra Delgado APRN Other Provider Unavailable Scott Meneses MD Other Provider Raulito Yanes MD Other Provider Cristofer Calles MD Other Provider Unavailable Fredy Pierce DO Other Provider Flores Quevedo APRN Other Provider Edson Broderick DO Other Provider Paco [place], Marcial Garber Other Provider Cordelia Valle APRN Other Provider Jen Baez APRN Other Provider Fred Ohara MD Other Provider Unavailable Noble Pineda MD Other Provider Effie Hodge DO Other Provider Per Salinas MD Other Provider Emir Madrigal MD Other Provider Maile Bender APRN Other Provider Unavailable Godfrey Price MD Other Provider Stephen Hancock MD Other Provider Geronimo Coburn MD Other Provider Bradley Hampton MD Other Provider Deanna Minor APRN Other Provider [phone] Marilee Haney APRN Other Provider Kacey Reynoso MD A Other Provider Shanta COLLAZO, Naheed Other Provider Unavailable Seth CUNN[place], Amanda Other Provider Stephen Iqbal MD Attending Provider Stephen Iqbal MD Other Provider Sosa MARTINEZNHelene Other Provider Solomon Jones MD Other Provider Mayra Alvarado CMA Attending Provider Unavaila Rohan Chu MD Attending Provider [phone] Allergies Allergy ClassificationReported Allergen(s)Allergy TypeDate of OnsetReaction(s) Facility (20 sources)PrednisoneAllergy to ivymehimm96-07-1683QdmqifeBM[facility] Comment on above:and jittery (1 source)predniSONEDrug [id number] [facility] Medications Current Medications MedicationDrug Class(es)DatesSig (Normalized)Sig (Original)ascorbic acid 1000 mg extended release oral tablet (5 sources)Vitamin CStart: 65-98-5069nlgb 1 tablet by mouth once daily in the morningAscorbic Acid (Vitamin C) (Vitamin C) 1,000 mg tablet extended release Active 1000 MG PO Every morning March 10, 2025 11:00pm On Hold: Resume on 04/01/25. Complies with drug therapycalcium carbonate 500 mg oral tablet (17 sources)calcium carbonate (Os-Richard) 1250 (500 Ca) MG tablet Take by mouth Daily Activecalcium carbonate 1500 mg / cholecalciferol 0.01 mg oral tablet (5 sources)Vitamin DStart: 75-67-5080nmtu 1 tablet by mouth once daily in the morningCalcium Carbonate-Vitamin D3 (Calcium 600 + D(3)) 600 mg-10 mcg (400 unit) tablet Active 1 TAB PO Every morning March 10, 2025 11:00pm On Hold: Resume on 04/01/25. Complies with drug therapycyclobenzaprine hydrochloride 10 mg oral tablet (15 sources)Muscle RelaxantStart: 90-48-6108tyhe 1 tablet by mouth three times daily as needed for muscle spasmsCyclobenzaprine 10 mg tablet Active 10 MG PO Three times daily as needed for back spasms 50 0 March 27, 2025 11:00pm Complies with drug therapyStart: 12-17-2024 End: 69-73-5739qfwk 1 tablet by mouth three times daily as needed for muscle spasmsCyclobenzaprine 5 mg tablet Discontinued 5 MG PO Three times daily as needed for muscle spasm December 16, 2024 11:00pm March 30, 2025 9:21am Diclofenac Sodium 75 mg tablet,delayed release (DR/EC) (3 sources)Start: 89-18-3510Ycdsnajwsm Sodium 75 mg tablet,delayed release (DR/EC) Active 0 .ROUTE .COMPLEX 180 December 2748:50am On Hold: None TAKE 1 TABLET TWICE DAILYStart: 13-13-4439Gpjdfyjfem Sodium 75 mg tablet,delayed release (DR/EC) Active 0 .ROUTE .COMPLEX 180 December 2747:50am TAKE 1 TABLET TWICE DAILYestradiol 0.1 mg/ml vaginal cream (16 sources)EstrogenStart: 79-01-8468Ouamvpkbc 0.01 % (0.1 mg/gram) cream Active 1 APPLICATOR VAGINAL Twice a Week July 26, 2024 12:00am On Hold: Resume on 04/01/25. Complies with drug therapyStart: 69-65-4608Sxehd: 04-24-2024 End: 76-42-2281ltcukxujh (Estrace) 0.1 MG/GM vaginal cream Indications: Menopausal state Insert 2 g into the vagina Daily Apply 1/2 APPLICATOR daily for 2 weeks, then twice weekly thereafter. 42.5 g 11 04/24/2024 05/24/2024 Active gabapentin 300 mg oral capsule (11 sources)Anti-epileptic AgentStart: 67-33-3572evcd 1 capsule by mouth once daily at bedtimeGabapentin 300 mg capsule Active 300 MG PO Daily at bedtime December 16, 2024 11:00pm Complies with drug therapyStart: 62-80-8259szjb 1 capsule by mouth three times saqqyVdrlfrsx-Kkty-Jmu6-C-Guanakito-Bosw (Osteo Bi-Flex Triple Strength) 750 mg-644 mg- 30 mg-1 mg tablet (5 sources)Start: 77-66-2805safc 2 tablets by mouth twice daily Hhwhxhpj-Rqyo-Rsg4-C-[place]ito-Bosw (Osteo Bi-Flex Triple Strength) 750 mg-644 mg- 30 mg-1 mg tablet Active 2 TAB PO Twice daily March 10, 2025 11:00pm On Hold: Resume on 04/08/25. Complies with drug therapyStart: 81-19-0051ieet 2 tablets by mouth twice spnrlMsiitwex-Gtrl-Eia8-C-Guan[place]ito-Bosw (Osteo Bi-Flex Triple Strength) 750 mg-644 mg- 30 mg-1 mg tablet Active 2 TAB PO Twice daily March 11, 2025 12:00am On Hold: Resume on 04/08/25. Complies with drug therapyStart: 51-70-2275skrs 2 tablets by mouth twice dailylevothyroxine sodium 0.088 mg oral tablet (20 sources)l-ThyroxineStart: 09-41-7768xjkd 1 tablet by mouth once daily in the morningLevothyroxine 88 mcg tablet Active 88 MCG PO Every morning March 10, 2025 11:00pm Complies with drug therapyStart: 11-18-2024 End: 98-76-3271Gwxgxnyaggapu 88 mcg tablet Discontinued 0 .ROUTE .COMPLEX 90 3 November 18, 2024 8:59am March 11, 2025 1:37pm TAKE 1 TABLET EVERY DAYStart: 08-22-2024 End: 54-33-1242dhai 1 tablet by mouth once dailyLevothyroxine 88 mcg tablet Discontinued 88 MCG PO Daily August 22, 2024 9:20am November 18, 2024 8:59amStart: 01-30-2024 End: 88-00-3195Thmuzbowazzjd 88 mcg tablet Discontinued 0 .ROUTE .COMPLEX 90 3 January 30, 2024 7:36am August 22, 2024 9:21am TAKE 1 TABLET EVERY DAYStart: 11-16-2023 End: 52-59-5227pzbf 1 tablet by mouth once dailyLevothyroxine 88 mcg tablet Discontinued 88 MCG PO Daily 90 0 November 16, 2023 10:20am January 30, 2024 7:36amStart: 08-15-2023 End: 31-45-1444cdum 1 tablet by mouth once dailyLevothyroxine (Synthroid) 75 mcg tablet Discontinued 75 MCG PO Daily August 15, 2023 12:00am November 16, 2023 10:21am FreeTextSig: TAKE 1 TABLET EVERY DAY; Note: Source Status: Start; Refills: 3; Qty: 90 Tablet; Provider: Yusuf Worthington ( )loratadine 10 mg oral tablet (5 sources)Start: 41-82-3826jwfl 1 tablet by mouth once daily in the morning Loratadine (Allergy Relief (Loratadine)) 10 mg tablet Active 10 MG PO Every morning February 11:00pm On Hold: Resume on 04/01/25. Complies with drug therapymagnesium gluconate 500 mg oral tablet (20 sources)Start: 40-47-2907hdwy 1 tablet by mouth once daily at bedtime Magnesium Gluconate 27.5 mg magne- sium (500 mg) tablet Active 27.5 MG PO Daily at bedtime March 10, 2025 11:00pm On Hold: Resume on 04/01/25. Complies with drug therapytake 1 tablet by mouth in the morningmagnesium 30 MG tablet Take 30 mg by mouth in the morning and 30 mg before bedtime. Byoqwm76 hr metoprolol succinate 100 mg extended release oral tablet (20 sources)beta-Adrenergic BlockerStart: 94-07-9220Zpouxnguux Succinate 100 mg tablet extended release 24 hr Active 0 .ROUTE .COMPLEX 90 April 14, 2025 4:30pm TAKE 1 TABLET EVERY DAY Complies with drug therapyStart: 08-22-2024 End: 64-30-5986nmzl 1 tablet by mouth once daily at bedtimeMetoprolol Succinate 100 mg tablet extended release 24 hr Discontinued 100 MG PO Daily at bedtime [facility] 2024 9:21am April 14, 2025 4:30pmStart: 03-12-2024 End: 96-28-6758Mydbukdtcd Succinate 100 mg tablet extended release 24 hr Discontinued 0 .ROUTE .COMPLEX 90 March 12, 2024 9:58am August 22, 2024 9:21am TAKE 1 TABLET EVERY DAYStart: 08-15-2023 End: 90-10-7143nwur 1 tablet by mouth once dailyMetoprolol Succinate 100 mg tablet extended release 24 hr Discontinued 100 MG PO Daily August 15, 2023 12:00am March 12, 2024 9:58am FreeTextSig: TAKE 1 TABLET EVERY DAY; Note: Source Status: Start; Refills: 3; Qty: 90 Tablet; Provider: Yusuf Worthington ( )Multivitamin tablet (5 sources)Start: 95-01-5818ganh 1 tablet by mouth once daily in the morning Multivitamin tablet Active 1 TAB PO Every morning March 10, 2025 11:00pm On Hold: Resume on 04/01/25. Complies with drug therapyStart: 63-63-8535oalw 1 tablet by mouth once daily in the morningMultivitamin tablet Active 1 TAB PO Every morning March 11, 2025 12:00am On Hold: Resume on 04/01/25. Complies with drug therapyStart: 42-25-0966mmph 1 tablet by mouth once daily in the morningoxyCODONE hydrochloride 5 mg oral tablet (4 sources)Opioid AgonistStart: 26-78-9138vgab 1 tablet by mouth every four to six hours as needed for painOxycodone 5 mg tablet Active 5 MG PO EVERY 4-6 HOURS as needed for pain 40 7 0 March 28, 2025 Lumbar radiculopathy Radiculopathy, lumbar region Complies with drug therapyrosuvastatin calcium 10 mg oral tablet (20 sources)HMG-CoA Reductase InhibitorStart: 63-22-8098Ytnvycmdnzhh 10 mg tablet Active 0 .ROUTE .COMPLEX 90 April 14, 2025 4:30pm TAKE 1 TABLET EVERY DAY Complies with drug therapyStart: 08-22-2024 End: 76-89-7235wvvi 1 tablet by mouth once daily in the morningRosuvastatin 10 mg tablet Discontinued 10 MG PO Every morning August 22, 2024 9:21am April 4:30pmStart: 03-12-2024 End: 39-33-8220Zulqpboyenor 10 mg tablet Discontinued 0 .ROUTE .COMPLEX 90 March 12, 2024 9:58am August 22, 2024 9:21am TAKE 1 TABLET EVERY DAYStart: 03-12-2024 End: 96-88-0045Plaimkxtegmw 10 mg tablet Discontinued 0 .ROUTE .COMPLEX 90 March 12, 2024 10:58am August 22, 2024 10:21am TAKE 1 TABLET EVERY DAYStart: 70-11-2148Ityakspsyega 10 mg tablet Active 0 .ROUTE .COMPLEX 90 March 12, 2024 9:58am TAKE 1 TABLET EVERY DAYStart: 08-15-2023 End: 36-81-9863gjhg 1 tablet by mouth once dailyRosuvastatin 10 mg tablet Discontinued 10 MG PO Daily August 15, 2023 12:00am March 12, 2024 9:58am FreeTextSig: TAKE 1 TABLET EVERY DAY; Note: Source Status: Start; Refills: 3; Qty: 90 Tablet; Provider: Yusuf Worthington ( )Vit A-Vit C-Vit B-Qgol-Xgznck (Eyeprotect) 7,160-113-100 risw-xy-xuzn tablet (5 sources)Start: 76-97-4480vcik 1 tablet by mouth once daily in the morningVit A-Vit C-Vit J-Cdms-Rpvjtp (Eyeprotect) 7,160-113-100 ymsi-av-npjr tablet Active 1 TAB PO Every morning March 10, 2025 11:00pm Complies with drug therapy Start: 72-82-6282jeai 1 tablet by mouth once daily in the morningVit A-Vit C-Vit L-Gcra-Hfuqnm (Eyeprotect) 7,160-113-100 thyn-bb-dqsx tablet Active 1 TAB PO Every morning March 11, 2025 12:00am Complies with drug therapyStart: 24-63-5995ktzp 1 tablet by mouth once daily in the morningVitamin B Complex tablet (5 sources)Start: 65-64-5978cune 1 tablet by mouth once daily in the morning Vitamin B Complex tablet Active 1 TAB PO Every morning March 10, 2025 11:00pm On Hold: Resumeon 04/01/25. Complies with drug therapyStart: 03-11-2025 take 1 tablet by mouth once daily in the morningVitamin B Complex tablet Active 1 TAB PO Every morning March 11, 2025 12:00am On Hold: Resumeon 04/01/25. Complies with drug therapyStart: 16-18-1091upxh 1 tablet by mouth once daily in the morning Completed/Discontinued Medications MedicationDrug Class(es)DatesSig (Normalized)Sig (Original)cephalexin 500 mg oral capsule (7 sources)Cephalosporin AntibacterialStart: 03-28-2025 End: 48-23-0027ruks 1 capsule by mouth three times dailyCephalexin 500 mg capsule Discontinued 500 MG PO Three times daily 15 5 0 April 08, 2025 11:00pm April 21, 2025 1:03pmdiclofenac sodium 75 mg delayed release oral tablet (20 sources)Nonsteroidal Anti-inflammatory DrugStart: 03-11-2025 End: 30-17-8579yngp 1 tablet by mouth twice dailyDiclofenac Sodium 75 mg tablet,delayed release (DR/EC) Discontinued 75 MG PO Twice daily March 10, 2025 11:00pm March 30, 2025 9:21am TAKE 1 TABLET TWICE DAILYStart: 12-28-2023 End: 93-47-6264Cxxjejubqz Sodium 75 mg tablet,delayed release (DR/EC) Discontinued 0 .ROUTE .COMPLEX 180 3 December 28, 2023 7:50am March 11, 2025 1:37pm On Hold: None TAKE 1 TABLET TWICE DAILYStart: 08-03-2023 End: 03-97-5911tvxj 1 tablet by mouth twice dailyDiclofenac Sodium 75 mg tablet,delayed release (DR/EC) Discontinued 75 MG PO Twice daily 60 5 August 03, 2023 2:10pm December 28, 2023 7:51ametodolac 400 mg oral tablet (5 sources)Nonsteroidal Anti-inflammatory Drug End: 02-81-2839gulhmlhe (Lodine) 400 MG tablet every 12 (twelve) hours 02/13/2024 Discontinued (Therapy completed)2 ml sodium hyaluronate 10 mg/ml prefilled syringe (12 sources)Start: 02-27-2024 End: 26-47-3798Dtxkso Hyaluronate (Viscosup) injection 2 mLStart: 02-27-2024 End: mL, Intra-articular, Once PRN Procedure, Starting on Mon02/27/24 at 1019, For 1 doseStart: 02-20-2024 End: 77-72-6450Lbhnxy Hyaluronate (Viscosup) injection 2 mLStart: 02-20-2024 End: mL, Intra-articular, Once PRN Procedure, Starting on Mon02/20/24 at 1026, For 1 doseStart: 02-13-2024 End: 76-18-1474Zdnszw Hyaluronate (Viscosup) injection 2 mLStart: 02-13-2024 End: mL, Intra-articular, Once PRN Procedure, Starting on Mon02/13/24 at 1227, For 1 doseibuprofen 600 mg oral tablet (5 sources)Nonsteroidal Anti-inflammatory Drug End: 35-66-5420jtpvdlsje 600 MG tablet every 8 (eight) hours 02/13/2024 Discontinued (Therapy completed)1 ml methylPREDNISolone acetate 40 mg/ml injection (4 sources)CorticosteroidStart: 01-31-2024 End: 60-32-2396hxtijhKPNJMPNfgsmx acetate (DEPO-Medrol) injection 40 mgStart: 01-31-2024 End: 07-31-225991 mg, Intra-articular, Once PRN Procedure, Starting on Mon01/31/24 at 1105, For 1 dosenabumetone 500 mg oral tablet (5 sources)Nonsteroidal Anti-inflammatory DrugStart: 01-25-2022 End: 07-57-9756wmacebszfi (Relafen) 500 MG tablet every 12 (twelve) hours 01/25/2022 02/13/2024 Discontinued (Therapy completed)predniSONE 10 mg oral tablet (4 sources)Start: 03-28-2025 End: 65-07-6659Ncqoupzsev 10 mg tablets,dose pack Discontinued 10 MG PO per package directions 30 0 March 27, 2025 11:00pm April 09, 2025 9:23am take 4 tabs for 3 days then take 3 tabs for 3 days then take 2 tabs for 3 days then take 1 tab for 3 days Problems Active Problems Problem ClassificationProblemDateDocumented DateEpisodic/Chronic Administrative/social admission (9 sources)Other reduced mobility; Translations: [Impaired mobility and activities of daily living]Onset: [id number]b of lipid metabolism (20 sources)Hyperlipidemia; Translations: [Hyperlipidemia, unspecified]Onset: [id number] hypertension (20 sources)Essential hypertension; Translations: [Essential (primary) hypertension]Onset: 876571-81-4867ZeqcddzVgrgr disorders and dislocations; trauma-related (20 sources)Unspecified internal derangement of left knee; Translations: [Derangement of left knee]Onset: 15-38-0449ZrdqwdgRjxkvoobct disorders (7 sources)Menopausal syndrome; Translations: [Menopausal and female climacteric states]Onset: 524974-79-5284ZkfobgfIiahsxcdpymoww (20 sources)Unilateral primary osteoarthritis, right knee; Translations: [Unilateral primary osteoarthritis, left knee]Onset: 062808-79-6656Ctbgwei Osteoporosis (14 sources)Senile osteoporosis; Translations: [Age-related osteoporosis without current pathological fracture]Onset: 880025-16-3864TkdaxpuRcwib aftercare (2 sources)Patient encounter status; Translations: [Other nursing home (current) drug therapy]95-72-9198DxyrcrdvHewln nervous system disorders (17 sources)Chronic pain; Translations: [Other chronic pain]Onset: 01-31-2024 58-57-1686UfrnzirZvrfl nervous system disorders (20 sources)Idiopathic peripheral neuropathy; Translations: [Hereditary and idiopathic neuropathy, unspecified]50-56-5368KypmqzlJtllf nervous system disorders (1 source)Hereditary and idiopathic neuropathy, unspecified; Translations: [Hereditary and idiopathic neuropathy, unspecified]Onset: 79-97-1184PvpqzcmWxduc nervous system disorders (20 sources)Numbness and tingling sensation of skin; Translations: [Anesthesia of skin]77-16-5631DasyylcqCypji nervous system disorders (1 source)Anesthesia of skin; Translations: [Anesthesia of skin]Onset: 35-65-3595HnkqdlagUqjwi nervous system disorders (1 source)Paresthesia of skin; Translations: [Paresthesia of skin]Onset: 28-30-4593KejimaymSevzs non-traumatic joint disorders (19 sources)Hip pain; Translations: [Pain in left hip]35-91-0431BgqrdxxyGuexn non-traumatic joint disorders (2 sources)Pain in left hip; Translations: [Pain in joint, pelvic region and thigh]65-58-7160QsciewzlIhblm nutritional; endocrine; and metabolic disorders (8 sources)Body mass index 30+ - obesity; Translations: [Body mass index (BMI) 36.0-36.9, adult]92-31-1795SikbcyvJaulw nutritional; endocrine; and metabolic disorders (1 source)Body mass index (BMI) 36.0-36.9, adult; Translations: [Body mass index [BMI] 36.0-36.9, adult]Onset: 56-96-4734FmziyfbGugax screening for suspected conditions (not mental disorders or infectious disease) (4 sources)Encounter for screening mammogram for malignant neoplasm of breast; Translations: [ENC SCR MAMMO MALIG NEOPLASM BREAST]Onset: 42-86-2096Hmxnkxvz Prolapse of female genital organs (2 sources)Uterine prolapse; Translations: [Uterovaginal prolapse, unspecified] 19-59-1563XcsmftxMocdjcyh codes; unclassified (1 source)Family history of malignant neoplasm of breast; Translations: [FAMILY HX MALIG NEOPLASM OF BREAST]Onset: 18-53-5176OnqmmpgtKhhoxmlz codes; unclassified (2 sources)Postmenopausal state; Translations: [Asymptomatic menopausal state] 91-28-8005DryneewrBxmyzadb codes; unclassified (9 sources)History of operative procedure on lumbar spinal structure; Translations: [Other specified postprocedural states]40-54-3839IoznqtvaTzhfbvsq codes; unclassified (1 source)Other specified postprocedural states; Translations: [Other specified postprocedural states]Onset: 36-49-3303LxcptrbeBytkbjey codes; unclassified (1 source)Other specified health status; Translations: [Other specified health status]Onset: 33-58-7916XgzmgbehFzbctehxagn; intervertebral disc disorders; other back problems (20 sources)Disorder of left sciatic nerve; Translations: [Sciatica, left side] Onset: 787860-12-1841SqiypvgzBftbjxl disorders (20 sources)Hypothyroidism; Translations: [Hypothyroidism, unspecified]Onset: [id number]xjv (4 sources)call the office on Monday to schedule a follow up appointment in 2 weeks for alexis removal Past or Other Problems Problem ClassificationProblemDateDocumented DateEpisodic/ChronicHeadache; including migraine (17 sources)Headache; Translations: [Headache]Onset: EpisodicJoint disorders and dislocations; trauma-related (1 source)Complex tear of medial meniscus, current injury, left knee, initial encounter; Translations: [COMPLEX TEAR MM CURR LT KNEE INIT]Onset: 01-21-2022 EpisodicOther connective tissue disease (1 source)Other muscle spasm; Translations: [OTHER MUSCLE SPASM]Onset: 91-97-5528UycqvegaMcfyd connective tissue disease (17 sources)Pain in limb; Translations: [Pain in unspecified limb]Onset: 913503-64-1072FvxpfowgBneuw non-traumatic joint disorders (9 sources)Pain in left knee; Translations: [Pain in joint, lower leg]Onset: 84-28-0186ZipxwdquXgcli non-traumatic joint disorders (5 sources)Pain in right knee; Translations: [PAIN IN RIGHT KNEE]Onset: 42-99-0266Lakybxlp Results Test NameValueInterpretationReference RangeFacilityComplete Blood Count Auto Diffon 58-49-6415Sapcvumem (Bld) [#/Vol]0.1 10*3/uLNormal0.0-0.2The [facility] Physician GroupComment on above:Result Comment: PERFORMED BY: [facility] [address] [facility]NavAM[facility] [id number] PATHOLOGIST ENTERTAINER & COMIC ZAIN WHEELER M.D.Performed By: #### CBC ####[place] [id number] USABasophils/100 WBC (Bld)0.7 %Normal.The [facility]c Physician GroupComment on above:Performed By: #### CBC ####[place] [id number] USAEosinophils (Bld) [#/Vol]0.4 10*3/uLNormal0.0-0.45The [facility]c Physician GroupComment on above: Performed By: #### CBC ####[place] [id number] USAEosinophils/100 WBC (Bld)5.0 %Normal.The [facility]c Physician GroupComment on above:Performed By: #### CBC ####[place] [address] USAErythrocyte distribution width (RBC) [Ratio]13.6 %Ewrjrr92.9-15.3The [facility]rmc Physician GroupComment on above:Performed By: #### CBC ####[address] StreetHematocrit (Bld) [Volume fraction]26.9 %Low34.0-46.4 The [facility] Nhrmc Physician GroupComment on above:Performed By: #### CBC ####[address] Hemoglobin (Bld) [Mass/Vol]9.1 g/dLLow11.8-15.4The [facility] Comment on above:Performed By: #### CBC ####[place] [address] USALymphocytes (Bld) [#/Vol]1.5 10*3/uLNormal 1.00-4.8The [facility]rmc Physician GroupComment on above:Performed By: #### CBC ####[place] [address] [place] Lymphocytes/100 WBC (Bld)17.8 %Normal.The [facility]hrmc Physician GroupComment on above:Performed By: #### CBC ####[address] StreetMCH (RBC) [Entitic mass]28.1 doGtdfhb61.7-34.3The [facility]rmc Physician GroupComment on above:Performed By: #### CBC ####[address]MCV (RBC) [Entitic vol]83.5 jAKmxsfx72-812Xme [facility] Physician GroupComment on above:Performed By: #### CBC ####[place] [address] USAMean Corpuscular HGB Conc33.7 g/vGRkuhxn47.0-35.0The [facility]c Physician GroupComment on above:Performed By: #### CBC ####[place] [address] USAMonocytes (Bld) [#/Vol]1.0 10*3/uLHigh0.0-0.8The [facility]rmc Physician GroupComment on above:Performed By: #### CBC ####[place] [address] USAMonocytes/100 WBC (Bld)11.6 %Normal.The [facility]c Physician GroupComment on above:Performed By: #### CBC ####[place] [address] USANeutrophils (Bld) [#/Vol]5.3 10*3/uLNormal1.8-7.7The [facility]rmc Physician GroupComment on above:Performed By: #### CBC ####[place] [address] USANeutrophils/100 WBC (Bld)64.9 %Normal.The [facility]c Physician GroupComment on above:Performed By: #### CBC ####[place] [address] USANRBC%0.0 /100{WBC}Normal0-0.5The [facility]c Physician GroupComment on above: Performed By: #### CBC ####[place] [address] USAPlatelet mean volume (Bld) [Entitic vol]8.2 fLNormal 6.3-10.7The [facility]c Physician GroupComment on above:Performed By: #### CBC ####[place] [id number] [place] Platelets (Bld) [#/Vol]213 10*3/uGBypisk277-745Lqb [facility] Comment on above:Performed By: #### CBC ####[place] [address] USARBC (Bld) [#/Vol]3.22 10*6/uLLow3.60-5.00The [facility] Physician GroupComment on above:Performed By: #### CBC ####[facility] [address] [place] [address] USAWBC (Bld) [#/Vol]8.2 10*3/uLNormal3.8-11.6The [facility] Physician GroupComment on above:Performed By: #### CBC ####[place] [address] USAWhite Blood Count8.2 [CFU]/mLNormal3.8-11.6The [facility] Comment on above:Performed By: #### CBC ####[place] [address] USABasic Metabolic Panelon 64-86-1589Smzpm gap [Moles/Vol]7.6 mmol/LNormal6.0-15.0The [facility] Physician GroupComment on above:Performed By: #### CBC, BMP #### [facility] [address] [place] [address] USACalcium [Mass/Vol]8.3 mg/dLLow8.6-10.3The [facility] Physician GroupComment on above:Performed By: #### CBC, BMP #### [facility] [address] [place] [address] USAChloride [Moles/Vol]106 mmol/KCbbdzk10-886Cls [facility] Physician GroupComment on above:Performed By: #### CBC, BMP #### [facility] [address] [place] [address] USACO2 [Moles/Vol]27.1 mmol/VEakbql98.0-31.0The [facility]c Physician GroupComment on above:Performed By: #### CBC, BMP #### [facility] [address] [place] [address] USACreatinine [Mass/Vol]0.75 mg/dLNormal0.60-1.20The [facility] Physician GroupComment on above:Performed By: #### CBC, BMP #### [facility] [address] [place] [address] USACreatinine Clr Calc Sxmaampv80.77NormalThe [facility] Nhrmc Physician GroupComment on above:Result Comment: PERFORMED BY: [place] [address] PATHOLOGIST ENTERTAINER & COMIC ZAIN WHEELER M.D.Performed By: #### CBC, BMP #### [place] [address] USAGFR/1.73 sq M.predicted MDRD (S/P/Bld) [Vol rate/Area] mL/min/{1.73_m2}NormalThe [facility]c Physician GroupComment on above:Performed By: #### CBC, BMP #### [place] [address] USAGlucose [Mass/Vol]107 mg/nCDtps13-961Hma [facility] Physician GroupComment on above:Result Comment: Random Glucose Reference Range is dependent on time and content of last meal. Glucose of more than 200 mg/dL in a nonstressed, ambulatory subject supports the diagnosis of Diabetes Mellitus. ADA recommended reference rangePerformed By: #### CBC, BMP #### [place] [address] USAPotassium [Moles/Vol]3.7 mmol/LNormal3.5-5.1The [facility]c Physician GroupComment on above:Performed By: #### CBC, BMP #### [place] [address] USASodium [Moles/Vol]137 mmol/EHmasmw652-961Qzl [facility] Physician GroupComment on above:Performed By: #### CBC, BMP #### [place] [address] USAUrea nitrogen [Mass/Vol]12 mg/dLNormal7-25The [facility] Physician GroupComment on above:Performed By: #### CBC, BMP #### [place] [address] USAComplete Blood Count Auto Diffon 44-96-5924Mfnimtdhj (Bld) [#/Vol]0.1 10*3/uLNormal0.0-0.2The [facility] Physician GroupComment on above: Result Comment: PERFORMED BY: [place] [address] PATHOLOGIST ENTERTAINER & COMIC ZAIN WHEELER M.D.Performed By: #### CBC, BMP #### [place] [address] USABasophils/100 WBC (Bld)0.7 %Normal.The [facility] Physician GroupComment on above:Performed By: #### CBC, BMP #### [place] [address] USAEosinophils (Bld) [#/Vol]0.3 10*3/uLNormal0.0-0.45The [facility] Physician GroupComment on above:Performed By: #### CBC, BMP #### [place] [address] USAEosinophils/100 WBC (Bld)3.4 %Normal.The [facility] Physician GroupComment on above:Performed By: #### CBC, BMP #### [place] [address] USAErythrocyte distribution width (RBC) [Ratio]13.5 %Normal 11.9-15.3The [facility] Physician GroupComment on above:Performed By: #### CBC, BMP #### [place] [address] USAHematocrit (Bld) [Volume fraction]26.6 %Low34.0-46.4The [facility] Physician GroupComment on above:Performed By: #### CBC, BMP #### [place] [address] USAHemoglobin (Bld) [Mass/Vol]9.2 g/dLLow11.8-15.4The [facility] Physician GroupComment on above:Performed By: #### CBC, BMP #### [place] [address] USALymphocytes (Bld) [#/Vol]1.9 10*3/uLNormal1.00-4.8The [facility] Physician GroupComment on above:Performed By: #### CBC, BMP #### [facility] [address] [place] [address] USALymphocytes/100 WBC (Bld)18.9 %Normal.The [facility] Physician GroupComment on above:Performed By: #### CBC, BMP #### [facility] [address] [place] [address] USAMCH (RBC) [Entitic mass]28.9 ayGgnjam79.7-34.3The [facility] Physician GroupComment on above:Performed By: #### CBC, BMP #### [facility] [address] [place] [address] USAMCV (RBC) [Entitic vol]83.7 mMNudkyd46-531Aro [facility] Physician GroupComment on above:Performed By: #### CBC, BMP #### [place] [address] USAMean Corpuscular HGB Conc34.5 g/bBIqmnmh80.0-35.0The [facility] Physician GroupComment on above:Performed By: #### CBC, BMP #### [place] [address] USAMonocytes (Bld) [#/Vol]0.9 10*3/uLHigh0.0-0.8The [facility] Physician GroupComment on above:Performed By: #### CBC, BMP #### [place] [address] USAMonocytes/100 WBC (Bld)9.0 %Normal.The [facility] Physician GroupComment on above:Performed By: #### CBC, BMP #### [facility] [address] [place] [address] USANeutrophils (Bld) [#/Vol]6.8 10*3/uLNormal1.8-7.7The [facility] Physician GroupComment on above:Performed By: #### CBC, BMP #### [place] [address] USANeutrophils/100 WBC (Bld)68.0 %Normal.The [facility] Physician GroupComment on above:Performed By: #### CBC, BMP #### [facility] [address] [place] [address] USANRBC%0.1 /100{WBC}Normal0-0.5The [facility] Comment on above:Performed By: #### CBC, BMP #### [facility] [address] [place] [address] USAPlatelet mean volume (Bld) [Entitic vol]8.4 fLNormal 6.3-10.7The [facility] Physician GroupComment on above:Performed By: #### CBC, BMP #### [place] [address] USAPlatelets (Bld) [#/Vol]163 10*3/hMZdurcp187-505Ctk [facility] Physician GroupComment on above:Performed By: #### CBC, BMP #### [place] [address] USARBC (Bld) [#/Vol]3.18 10*6/uLLow3.60-5.00The [facility] Physician GroupComment on above:Performed By: #### CBC, BMP #### [facility] [address] [place] [address] USAWBC (Bld) [#/Vol]10.0 10*3/uLNormal3.8-11.6The [facility] Physician GroupComment on above:Performed By: #### CBC, BMP #### [place] [address] USAWhite Blood Count10.0 [CFU]/mLNormal3.8-11.6The [facility] Physician GroupComment on above:Performed By: #### CBC, BMP #### [place] [address] USABasic Metabolic Panelon 54-49-8818Whayb gap [Moles/Vol]7.7 mmol/LNormal6.0-15.0The [facility] Physician GroupComment on above:Performed By: #### FOL, EVON, B12, TIBC, BMP, CBC, FE ####[place] [address] [place] [id number] USACalcium [Mass/Vol]8.1 mg/dLLow8.6-10.3The [facility] Physician GroupComment on above:Performed By: #### FOL, EVON, B12, TIBC, BMP, CBC, FE ####[place] [address] USAChloride [Moles/Vol]105 mmol/QGbjhkf17-949Unf [facility] Physician GroupComment on above:Performed By: #### FOL, EVON, B12, TIBC, BMP, CBC, FE ####[place] [address] USACO2 [Moles/Vol]25.7 mmol/KSygzbd56.0-31.0The [facility] Physician GroupComment on above:Performed By: #### FOL, EVON, B12, TIBC, BMP, CBC, FE ####[place] [id number] USACreatinine [Mass/Vol] 0.69 mg/dLNormal0.60-1.20The [facility] Physician GroupComment on above:Performed By: #### FOL, EVON, B12, TIBC, BMP, CBC, FE ####[place] [id number] USACreatinine Clr Calc Acpjpwyk63.99 NormalThe [facility] / [facility]c Physician GroupComment on above:Result Comment: PERFORMED BY: [facility] [address] [place] [id number] PATHOLOGIST ENTERTAINER & COMIC ZAIN WHEELER M.D.Performed By: #### FOL, EVON, B12, TIBC, BMP, CBC, FE ####[place] [id number] [place] GFR/1.73 sq M.predicted MDRD (S/P/Bld) [Vol rate/Area]mL/min/{1.73_m2}NormalThe [facility] Physician GroupComment on above:Performed By: #### FOL, EVON, B12, TIBC, BMP, CBC, FE ####[place] [id number] USAGlucose [Mass/Vol]131 mg/eISxoc53-664Krk [facility] Comment on above:Result Comment: Random Glucose Reference Range is dependent on time and content of last meal. Glucose of more than 200 mg/dL in a nonstressed, ambulatory subject supports the diagnosis of Diabetes Mellitus. ADA recommended reference rangePerformed By: #### FOL, EVON, B12, TIBC, BMP, CBC, FE ####[place] [address] [place] Potassium [Moles/Vol]3.4 mmol/LLow3.5-5.1The [facility] Physician GroupComment on above:Performed By: #### FOL, EVON, B12, TIBC, BMP, CBC, FE ####[place] [address] USASodium [Moles/Vol]135 mmol/NXif111-578Wdb [facility] Physician GroupComment on above:Performed By: #### FOL, EVON, B12, TIBC, BMP, CBC, FE ####[place] [address] USAUrea nitrogen [Mass/Vol]12 mg/dLNormal7-25The [facility] Physician GroupComment on above:Performed By: #### FOL, EVON, B12, TIBC, BMP, CBC, FE ####[place] [address] USAComplete Blood Count Auto Diffon 90-25-1399Xdenhyhqm (Bld) [#/Vol] 0.1 10*3/uLNormal0.0-0.2The [facility] Physician GroupComment on above:Result Comment: PERFORMED BY: [facility] [address] [place] [address] PATHOLOGIST ENTERTAINER & COMIC ZAIN WHEELER M.D.Performed By: #### FOL, EVON, B12, TIBC, BMP, CBC, FE ####[place] [address] [place] Basophils/100 WBC (Bld)0.5 %Normal.The [facility] Physician GroupComment on above:Performed By: #### FOL, EVON, B12, TIBC, BMP, CBC, FE ####[place] [address] USAEosinophils (Bld) [#/Vol]0.1 10*3/uLNormal0.0-0.45The [facility] Physician GroupComment on above: Performed By: #### FOL, EVON, B12, TIBC, BMP, CBC, FE ####[place] [address] USAEosinophils/100 WBC (Bld)0.6 % Normal.The [facility] Physician GroupComment on above:Performed By: #### FOL, EVON, B12, TIBC, BMP, CBC, FE ####[place] [address] USAErythrocyte distribution width (RBC) [Ratio]13.6 % Vvuskw14.9-15.3The [facility] Physician GroupComment on above:Performed By: #### FOL, EVON, B12, TIBC, BMP, CBC, FE ####[place] [address] USAHematocrit (Bld) [Volume fraction]25.7 %Low34.0-46.4 The [facility] Physician GroupComment on above:Performed By: #### FOL, EVON, B12, TIBC, BMP, CBC, FE ####[place] [address] USAHemoglobin (Bld) [Mass/Vol]8.5 g/dLLow11.8-15.4The [facility] Physician GroupComment on above:Performed By: #### FOL, EVON, B12, TIBC, BMP, CBC, FE ####[place] [address] USALymphocytes (Bld) [#/Vol]1.8 10*3/uLNormal1.00-4.8The [facility] Physician GroupComment on above:Performed By: #### FOL, EVON, B12, TIBC, BMP, CBC, FE ####[address] [address] [place] Lymphocytes/100 WBC (Bld)14.0 %Normal.The [facility] Physician GroupComment on above:Performed By: #### FOL, EVON, B12, TIBC, BMP, CBC, FE ####[address]H (RBC) [Entitic mass]27.8 vpWmmkuo76.7-34.3The [facility] Physician GroupComment on above: Performed By: #### FOL, EVON, B12, TIBC, BMP, CBC, FE ####[address]V (RBC) [Entitic vol]83.8 fL Yymqdz01-980Kwy [facility] Physician GroupComment on above:Performed By: #### FOL, EVON, B12, TIBC, BMP, CBC, FE ####[place] [address] USAMean Corpuscular HGB Conc33.2 g/tKOqrmuc79.0-35.0The [facility] Physician GroupComment on above:Performed By: #### FOL, EVON, B12, TIBC, BMP, CBC, FE ####[place] [address] USAMonocytes (Bld) [#/Vol]1.2 10*3/uLHigh0.0-0.8The [facility] Physician GroupComment on above:Performed By: #### FOL, EVON, B12, TIBC, BMP, CBC, FE ####[place] [address] [place] Monocytes/100 WBC (Bld)9.6 %Normal.The [facility] Physician GroupComment on above:Performed By: #### FOL, EVON, B12, TIBC, BMP, CBC, FE ####[place] [address] USANeutrophils (Bld) [#/Vol]9.7 10*3/uLHigh1.8-7.7The [facility] Physician GroupComment on above: Performed By: #### FOL, EVON, B12, TIBC, BMP, CBC, FE ####[place] [id number] USANeutrophils/100 WBC (Bld)75.3 %Normal.The [facility] Physician GroupComment on above:Performed By: #### FOL, EVON, B12, TIBC, BMP, CBC, FE ####[address] [address] USANRBC%0.3 /100{WBC}Normal0-0.5The [facility] Physician GroupComment on above:Performed By: #### FOL, EVON, B12, TIBC, BMP, CBC, FE ####[place] [id number] [place] Platelet mean volume (Bld) [Entitic vol]8.7 fLNormal6.3-10.7The [facility] Physician GroupComment on above:Performed By: #### FOL, EVON, B12, TIBC, BMP, CBC, FE ####[place] [id number] USAPlatelets (Bld) [#/Vol]144 10*3/nHJqu550-957Gmc [facility] Comment on above:Performed By: #### FOL, EVON, B12, TIBC, BMP, CBC, FE ####[address] [address] USARBC (Bld) [#/Vol]3.06 10*6/uLLow3.60-5.00The [facility] Physician GroupComment on above:Performed By: #### FOL, EVON, B12, TIBC, BMP, CBC, FE ####[address] [address] USAWBC (Bld) [#/Vol]12.8 10*3/uLHigh3.8-11.6The [facility] Physician GroupComment on above:Performed By: #### FOL, EVON, B12, TIBC, BMP, CBC, FE ####[place] [address] USAWhite Blood Count12.8 [CFU]/mLHigh3.8-11.6The [facility] Physician GroupComment on above:Performed By: #### FOL, EVON, B12, TIBC, BMP, CBC, FE ####[place] [address] USAFerritinon 97-07-2395Yujssler [Mass/Vol]107.9 ng/fSHxtxyx87.0-306.8 The [facility] Physician GroupComment on above:Performed By: #### FOL, EVON, B12, TIBC, BMP, CBC, FE ####[place] [id number] USAFolateon 58-42-7474Oezytp21.7 ng/mLNormal>5.9The [facility]ician [facility] HospitalComment on above:Result Comment: Folate reference range: >5.9 ng/ml The WHO technical consultation on folate and vitamin b12 deficiencies has determined that folate concentrations less than 4 ng/ml are considered deficient. PERFORMED BY: [place] [id number] PATHOLOGIST ENTERTAINER & COMIC ZAIN WHEELER M.D.Performed By: #### FOL, EVON, B12, TIBC, BMP, CBC, FE ####[place] [id number] USAIronon 25-76-1441Xcrf [Mass/Vol]ug/zEVfm97-937Sja [facility] Physician GroupComment on above:Performed By: #### FOL, EVON, B12, TIBC, BMP, CBC, FE ####[place] [id number] USATotal Iron Binding Capacityon 15-14-3005Hblam Iron Binding Qhifvdvz651 ug/fSNdz863-900Myu [facility] Of PhiladelphiaComment on above:Performed By: #### FOL, EVON, B12, TIBC, BMP, CBC, FE ####[place] [id number] USATransferrin [Mass/Vol]163 mg/nTXfu933-207Hly [facility] Physician GroupComment on above:Performed By: #### FOL, EVON, B12, TIBC, BMP, CBC, FE ####[address] [place] [address] USAVitamin B12on 54-69-4555Oxboxlssa (Vitamin B12) [Mass/Vol]355 pg/eFEbiiil389-961Ynf [facility]ician GroupComment on above:Performed By: #### FOL, EVON, B12, TIBC, BMP, CBC, FE ####[facility] [address] [place] [address] USABasic Metabolic Panelon 36-34-6990Pmqlw gap [Moles/Vol]8.0 mmol/LNormal 6.0-15.0The [facility] Physician GroupComment on above:Performed By: #### BMP, CBC #### [facility] [address] [place] [address] USACalcium [Mass/Vol]8.2 mg/dLLow8.6-10.3The [facility] Physician GroupComment on above:Performed By: #### BMP, CBC #### [facility] [address] [place] [address] USAChloride [Moles/Vol]107 mmol/UZpblvt73-706Sca [facility] Physician GroupComment on above:Performed By: #### BMP, CBC #### [facility] [address] [place] [address] USACO2 [Moles/Vol]25.9 mmol/MIwkmuo39.0-31.0The [facility] Physician GroupComment on above:Performed By: #### BMP, CBC #### [facility] [address] [place] [address] USACreatinine [Mass/Vol]0.77 mg/dLNormal0.60-1.20The [facility] Physician GroupComment on above:Performed By: #### BMP, CBC #### [facility] [address] [place] [address] USACreatinine Clr Calc Rublupkq88.99NormalThe [facility] Physician GroupComment on above:Result Comment: PERFORMED BY: [place] [address] PATHOLOGIST [employer]TER[employer] & [employer]IC [employer]AIN WHEELER M.D.Performed By: #### BMP, CBC #### [facility] [address] [place] [address] USAGFR/1.73 sq M.predicted MDRD (S/P/Bld) [Vol rate/Area] mL/min/{1.73_m2}NormalThe [facility] / Nhrmc Physician GroupComment on above:Performed By: #### BMP, CBC #### [place] [address] USAGlucose [Mass/Vol]129 mg/[id number] [facility]hrmc Physician GroupComment on above:Result Comment: Random Glucose Reference Range is dependent on time and content of last meal. Glucose of more than 200 mg/dL in a nonstressed, ambulatory subject supports the diagnosis of Diabetes Mellitus. ADA recommended reference rangePerformed By: #### BMP, CBC #### [place] [address] USAPotassium [Moles/Vol]3.9 mmol/LNormal3.5-5.1The [facility] / Nhrmc Physician GroupComment on above:Performed By: #### BMP, CBC #### [place] [address] USASodium [Moles/Vol]137 mmol/MYvatgs058-272Orn [facility] Nhrmc Physician GroupComment on above:Performed By: #### ANT, CBC #### [place] [address] USAUrea nitrogen [Mass/Vol]14 mg/dLNormal7-25The [facility] Nhrmc Physician GroupComment on above:Performed By: #### BMP, CBC #### [place] [address] USAComplete Blood Count Auto Diffon [id number] (Bld) [#/Vol]0.1 10*3/uLNormal0.0-0.2The [facility] / [facility]c Physician GroupComment on above: Result Comment: PERFORMED BY: [place] [address] PATHOLOGIST ENTERTAINER & COMIC ZAIN WHEELER M.D.Performed By: #### BMP, CBC #### [place] [address] USABasophils/100 WBC (Bld)0.4 %Normal.The [facility]c Physician GroupComment on above:Performed By: #### BMP, CBC #### [place] [address] USAEosinophils (Bld) [#/Vol]0.0 10*3/uLNormal0.0-0.45The [facility]c Physician GroupComment on above:Performed By: #### BMP, CBC #### [place] [address] USAEosinophils/100 WBC (Bld)0.1 %Normal.The [facility]c Physician GroupComment on above:Performed By: #### BMP, CBC #### [place] [address] USAErythrocyte distribution width (RBC) [Ratio]13.4 %Normal 11.9-15.3The [facility] Physician GroupComment on above:Performed By: #### BMP, CBC #### [place] [address] USAHematocrit (Bld) [Volume fraction]29.0 %Low34.0-46.4The [facility]c Physician GroupComment on above:Performed By: #### BMP, CBC #### [place] [address] USAHemoglobin (Bld) [Mass/Vol]9.7 g/dLLow11.8-15.4The [facility] Physician GroupComment on above:Performed By: #### BMP, CBC #### [place] [address] USALymphocytes (Bld) [#/Vol]1.7 10*3/uLNormal1.00-4.8The [facility] Physician GroupComment on above:Performed By: #### BMP, CBC #### [place] [address] USALymphocytes/100 WBC (Bld)12.2 %Normal.The [facility]c Physician GroupComment on above:Performed By: #### BMP, CBC #### [address] [place] [address] USAH (RBC) [Entitic mass]28.1 qwOjmyai88.7-34.3The [facility] / [facility]c Physician GroupComment on above:Performed By: #### BMP, CBC #### [facility] [address] [place] [address] USAMCV (RBC) [Entitic vol]84.4 vMMnljwr23-108Rvq [facility] Physician GroupComment on above:Performed By: #### BMP, CBC #### [facility] [address] [place] [address] USAMean Corpuscular HGB Conc33.3 g/gKExnpfe49.0-35.0The [facility]c Physician GroupComment on above:Performed By: #### BMP, CBC #### [place] [address] USAMonocytes (Bld) [#/Vol]1.4 10*3/uLHigh0.0-0.8The [facility] Physician GroupComment on above:Performed By: #### BMP, CBC #### [place] [address] USAMonocytes/100 WBC (Bld)10.3 %Normal.The [facility] Physician GroupComment on above:Performed By: #### BMP, CBC #### [place] [address] USANeutrophils (Bld) [#/Vol]10.8 10*3/uLHigh1.8-7.7The [facility]c Physician GroupComment on above:Performed By: #### BMP, CBC #### [place] [address] USANeutrophils/100 WBC (Bld)77.0 %Normal.The [facility]c Physician GroupComment on above:Performed By: #### BMP, CBC #### [place] [address] USANRBC%0.1 /100{WBC}Normal0-0.5The [facility] Comment on above:Performed By: #### BMP, CBC #### [address] [place] [address] USAPlatelet mean volume (Bld) [Entitic vol]8.9 fLNormal 6.3-10.7The [facility]c Physician GroupComment on above:Performed By: #### BMP, CBC #### [place] [address] USAPlatelets (Bld) [#/Vol]148 10*3/wXXra552-863Gtm [facility] Physician GroupComment on above:Performed By: #### BMP, CBC #### [place] [address] USARBC (Bld) [#/Vol]3.43 10*6/uLLow3.60-5.00The [facility]c Physician GroupComment on above:Performed By: #### BMP, CBC #### [place] [address] USAWBC (Bld) [#/Vol]14.0 10*3/uLHigh3.8-11.6The [facility] Physician GroupComment on above:Performed By: #### BMP, CBC #### [place] [address] USAWhite Blood Count14.0 [CFU]/mLHigh3.8-11.6The [facility]c Physician GroupComment on above:Performed By: #### BMP, CBC #### [place] [address] USAXR lumbar spine 2-3V*on 75-81-6044HZ lumbar spine 2-3V* [place] [address] XRay Report Signed Patient: Dyllan Xiong MR#: [id number] : 1955 Acct:[id number] Age/Sex: 69 / F ADM Date: 03/25/25 Loc: 4N Room: 9Q2224-8 Type: ADM IN Attending Dr: Jairo Jimenez DO Copies to: Jairo Jimenez DO Ordering Provider: Jairo Jimenez DO Date of Service: 03/25/25 XR/XR lumbar spine 2-3V*: . Intraoperative study. Reason for exam: PLIF L2-S2 Findings: 196 images were obtained intraoperatively. Hardware was placed Cumulative Air Kerma in mGy: 23.9 mGy XR/XR lumbar spine 2-3V* Impression: Intraoperative study. Impression dictated by: Stephen Lay Jr., D.O. 03/27/2025 3:54 PM Dictation Location: RADIO-PC-22 Transcribed By: MONIQUE 03/27/25 155 Dictated By: Stephen Lay Jr, DO 03/27/25 155 Signed By: 03/27/25 1554[facility] Physician GroupXR lumbar spine 2-3V*[place] [address] XRay Report Signed Patient: Dyllan Xiong MR#: [id number] : 1955 Acct:[id number] Age/Sex: 69 / F ADM Date: 03/25/25 Loc: Room: [address] [place] [address] Type: ADM IN Attending Dr: Jairo Jimenez DO Copies to: Jairo Jimenez DO Ordering Provider: Jairo Jimenez DO Date of Service: 03/27/25 XR/XR lumbar spine 2-3V*: postop L2-pelvis psf LUMBAR SPINE - 2 views CLINICAL HISTORY: Postop lumbar spine surgery COMPARISON: Intraoperative study performed 03/25/2025. FINDINGS: Posterior hardware fixation involving the lumbar spine extending into the pelvis demonstrates no hardware complication. Soft tissues demonstrate postoperative change. Vertebral body heights appear maintained. XR/XR lumbar spine 2-3V* IMPRESSION: NO HARDWARE COMPLICATION. Impression dictated by: Stephen Lay Jr., D.O. 03/27/2025 9:14 AM Dictation Location: RADIO-PC-22 Transcribed By: MONIQUE 03/27/25 0914 Dictated By: Stephen Lay Jr, DO 03/27/25 0912 Signed By: 03/27/25 0914[facility] Physician GroupBasic Metabolic Panelon 34-31-0992Dssrv gap [Moles/Vol]8.8 mmol/LNormal6.0-15.0The [facility]c Physician GroupComment on above:Performed By: #### BMP, CBC ####[address] [address] USACalcium [Mass/Vol]8.3 mg/dLLow 8.6-10.3The [facility]c Physician GroupComment on above:Performed By: #### BMP, CBC ####[address] [address] USA Chloride [Moles/Vol]108 mmol/HAdsf84-921Oqd [facility] Physician GroupComment on above:Performed By: #### BMP, CBC ####[address] [address] USACO2 [Moles/Vol]27.0 mmol/JWdnmcf71.0-31.0The [facility] Physician GroupComment on above:Performed By: #### BMP, CBC ####[address] [address] [place] Creatinine [Mass/Vol]0.90 mg/dLNormal0.60-1.20The [facility] Comment on above:Performed By: #### BMP, CBC ####[address] [address] USACreatinine Clr Calc Nmthgotf03.56 NormalAdventhealth Palm Coast Physician GroupComment on above:Result Comment: PERFORMED BY: [place] [id number] PATHOLOGIST ENTERTAINER & COMIC ZAIN WHEELER M.D.Performed By: #### BMP, CBC ####[address] [address] USAGFR/1.73 sq M.predicted MDRD (S/P/Bld) [Vol rate/Area]mL/min/{1.73_m2}NormalAdventhealth Palm Coast Physician GroupComment on above:Performed By: #### BMP, CBC ####[address] [address] USAGlucose [Mass/Vol]166 mg/yKSskz20-097Zmr [facility] Physician GroupComment on above:Result Comment: Random Glucose Reference Range is dependent on time and content of last meal. Glucose of more than 200 mg/dL in a nonstressed, ambulatory subject supports the diagnosis of Diabetes Mellitus. ADA recommended reference rangePerformed By: #### BMP, CBC ####[place] [address] USAPotassium [Moles/Vol] 4.8 mmol/LNormal3.5-5.1The [facility] Physician GroupComment on above:Performed By: #### BMP, CBC ####[place] [address] USASodium [Moles/Vol]139 mmol/DFgxffb305-901Xir [facility] Physician GroupComment on above:Performed By: #### BMP, CBC ####[place] [address] USAUrea nitrogen [Mass/Vol]16 mg/dL Normal7-25The [facility] Physician GroupComment on above:Performed By: #### BMP, CBC ####[address] Complete Blood Count Auto Diffon 25-14-2194Rtcwslxkc (Bld) [#/Vol]0.0 10*3/uL Normal0.0-0.2The [facility] Physician [facility] HospitalComment on above:Result Comment: PERFORMED BY: [facility] [address] [place] [address] PATHOLOGIST ENTERTAINER & COMIC ZAIN WHEELER M.D.Performed By: #### BMP, CBC ####[place] [address] USABasophils/100 WBC (Bld)0.2 %Normal.The [facility] Physician GroupComment on above:Performed By: #### BMP, CBC ####[place] [address] [place] Eosinophils (Bld) [#/Vol]0.0 10*3/uLNormal0.0-0.45The [facility] Comment on above:Performed By: #### BMP, CBC ####[address] StreetEosinophils/100 WBC (Bld)0.0 %Normal. The [facility]c Physician GroupComment on above:Performed By: #### BMP, CBC ####[address] Erythrocyte distribution width (RBC) [Ratio]13.6 %Loywoc42.9-15.3The [facility] Physician GroupComment on above:Performed By: #### BMP, CBC ####[place] [address] USAHematocrit (Bld) [Volume fraction]33.9 %Low34.0-46.4The [facility] Physician GroupComment on above:Performed By: #### BMP, CBC ####[place] [address] USAHemoglobin (Bld) [Mass/Vol]11.3 g/dLLow11.8-15.4The [facility] Physician GroupComment on above:Performed By: #### BMP, CBC ####[place] [address] [place] Lymphocytes (Bld) [#/Vol]1.4 10*3/uLNormal1.00-4.8The [facility] Comment on above:Performed By: #### BMP, CBC ####[place] [address] USALymphocytes/100 WBC (Bld)10.0 %Normal. The [facility] Physician GroupComment on above:Performed By: #### BMP, CBC ####[place] [address] USAMCH (RBC) [Entitic mass]28.1 hiRqlxts40.7-34.3The [facility]c Physician GroupComment on above:Performed By: #### BMP, CBC ####[place] [address] USAMCV (RBC) [Entitic vol]84.8 kUVqcuva93-703Sjz [facility] Physician GroupComment on above:Performed By: #### BMP, CBC ####[address] [address] USAMean Corpuscular HGB Conc33.2 g/cRGvblpl48.0-35.0The [facility] Physician GroupComment on above:Performed By: #### BMP, CBC ####[address] [address] USAMonocytes (Bld) [#/Vol]1.3 10*3/uLHigh0.0-0.8 The [facility] Physician GroupComment on above:Performed By: #### BMP, CBC ####[place] [address] [place] Monocytes/100 WBC (Bld)9.4 %Normal.The [facility] Physician GroupComment on above:Performed By: #### BMP, CBC ####[place] [address] USANeutrophils (Bld) [#/Vol]11.5 10*3/uLHigh1.8-7.7The [facility] / [facility] Physician GroupComment on above:Performed By: #### BMP, CBC ####[place] [address] [place] Neutrophils/100 WBC (Bld)80.4 %Normal.The [facility] Physician GroupComment on above:Performed By: #### BMP, CBC ####[address] [address] USANRBC%0.1 /100{WBC}Normal0-0.5The [facility] Physician GroupComment on above:Performed By: #### BMP, CBC ####[address] [address] USAPlatelet mean volume (Bld) [Entitic vol]8.6 fLNormal6.3-10.7The [facility] / [facility]c Physician GroupComment on above: Performed By: #### BMP, CBC ####[address] [address] USAPlatelets (Bld) [#/Vol]195 10*3/gSLksgjw298-760Gpa [facility] Physician GroupComment on above:Performed By: #### BMP, CBC ####[place] [address] [place] [address] USARBC (Bld) [#/Vol]4.00 10*6/uLNormal3.60-5.00The [facility] / [facility] Physician GroupComment on above:Performed By: #### BMP, CBC ####[address] [address] USAWBC (Bld) [#/Vol]14.3 10*3/uLHigh3.8-11.6The [facility] Physician GroupComment on above:Performed By: #### BMP, CBC ####[address] [address] USAWhite Blood Count14.3 [CFU]/mLHigh3.8-11.6The [facility] Physician GroupComment on above:Performed By: #### BMP, CBC ####[place] [address] USAABO/Rh Retypeon 97-62-7792CPS/RH Recheck Result PositiveNormalThe Haven Behavioral Hospital Of PhiladelphiaComment on above:Result Comment: PERFORMED BY: [place] [address] PATHOLOGIST ENTERTAINER & COMIC ZAIN WHEELER M.D.ECG 12 lead ECGon 05-95-8759SJH 12 lead [facility] [address] Electrocardiograph Report Signed Patient: Dyllan Xiong MR#: [id number] : 1955 Acct:[id number] Age/Sex: 69 / F ADM Date: 03/25/25 Loc: Room: 7W0648-2 Type: DIS IN Attending Dr: Jairo Jimenez DO Ordering Provider: Jairo Jimenez DO Date of Service: 03/25/25 ECG/ECG 12 lead ECG: prn ekg Copies to: Test Reason : Blood Pressure : 126/63 mmHG Vent. Rate : 74 BPM Atrial Rate : 74 BPM P-R Int : 160 ms QRS Dur : 66 ms QT Int : 388 ms P-R-T Axes : 58 -1 6 degrees QTcB Int : 430 ms Normal sinus rhythm Septal infarct , age undetermined Abnormal ECG When compared with ECG of 11-Mar-2025 14:11, Septal infarct is now present Confirmed by BASSAM CUNNINGHAM FAC, FATEMEH ([id number]) on 04/01/2025 5:06:04 PM Referred By: Electronically Signed By: FATEMEH BANEGAS MD FAC Transcribed By: MUS Signed By Fatemeh Banegas MD, FACC 04/01/[address] [place] [address] Physician GroupAlanine aminotransferase [Enzymatic activity/volume] in Serum or PlasmaOrdered By: Christiano Goldberg on 29-99-5073AVW [Catalytic activity/Vol]32 U/L7-52[facility] CenterComment on above:Performed By: #### CBC, T4F, TSH3 wRFLX, CMP ####[facility] [address] [place] [address] USAAlbumin [Mass/volume] in Serum or Plasma by Bromocresol green (BCG) dye binding metho Ordered By: Christiano Goldberg on 63-58-3005Qiolypk BCG dye [Mass/Vol]4.3 g/dL3.5-5.7 [facility] Medical CenterAlkaline phosphatase [Enzymatic activity/volume] in Serum or PlasmaOrdered By: Christiano Goldberg on 46-44-4792YRV [Catalytic activity/Vol]83 U/W42-450HqzzulfsiMercy Health Springfield Regional Medical CenterComment on above:Performed By: #### CBC, T4F, TSH3 wRFLX, CMP ####[facility] [address] [place] [address] USAAspartate aminotransferase [Enzymatic activity/volume] in Serum or PlasmaOrdered By: Christiano Goldberg on 48-71-3222WAE [Catalytic activity/Vol]30 U/H30-37QmlsuywriMercy Health Springfield Regional Medical CenterComment on above:Performed By: #### CBC, T4F, TSH3 wRFLX, CMP ####[facility] [address] [place] [address] [place] Basophils [#/volume] in Blood by Automated countOrdered By: Christiano Goldberg on 59-37-7966Coqkdwgpg (Bld) [#/Vol]0.1 10*3/uL0.0-0.2FChildren's Hospital of ColumbusComment on above:Result Comment: PERFORMED BY: [facility] [address] [place] [id number] PATHOLOGIST ENTERTAINER & COMIC ZAIN WHEELER M.D.Performed By: #### CBC, T4F, TSH3 wRFLX, CMP ####[address] [address] USABasophils/100 leukocytes in Blood by Automated countOrdered By: Christiano Goldberg on 03-11-2025 Basophils/100 WBC (Bld)1.2 %.[facility] Medical CenterComment on above: Performed By: #### CBC, T4F, TSH3 wRFLX, CMP ####[address] [address] USABilirubin.total [Mass/volume] in Serum or PlasmaOrdered By: Christiano Goldberg on 37-47-8485Nexpurdkh [Mass/Vol]1.2 mg/dL High0.3-1.0[facility] Medical CenterComment on above:Performed By: #### CBC, T4F, TSH3 wRFLX, CMP ####[address] [address] USACalcium [Mass/volume] in Serum or PlasmaOrdered By: Christiano Goldberg on 54-40-1872Rkjpsph [Mass/Vol]9.2 mg/dL8.6-10.3FChildren's Hospital of ColumbusComment on above:Performed By: #### CBC, T4F, TSH3 wRFLX, CMP ####[address] [address] USACarbon dioxide, total [Moles/volume] in Serum or PlasmaOrdered By: Christiano Goldberg on 56-62-6010IO1 [Moles/Vol]28.1 mmol/L21.0-31.0[facility] Comment on above:Performed By: #### CBC, T4F, TSH3 wRFLX, CMP ####[place] [address] USAChloride [Moles/volume] in Serum or PlasmaOrdered By: Christiano Goldberg on 72-17-7669Wkasxpos [Moles/Vol]108 mmol/RTnki39-758OhuctzbdmMercy Health Springfield Regional Medical CenterComment on above:Performed By: #### CBC, T4F, TSH3 wRFLX, CMP ####[place] [address] USAComplete Blood Count Auto Diff on 11-76-1541Rngp Corpuscular HGB Conc33.6 g/jCNtjpxt48.0-35.0The [facility]c Physician GroupComment on above:Performed By: #### CBC, T4F, TSH3 wRFLX, CMP ####[place] [address] USANRBC% 0.0 /100{WBC}Normal0-0.5The [facility]ician [facility] HospitalComment on above:Performed By: #### CBC, T4F, TSH3 wRFLX, CMP ####[place] [address] USAWhite Blood Count6.0 [CFU]/mLNormal3.8-11.6The [facility] Physician GroupComment on above:Performed By: #### CBC, T4F, TSH3 wRFLX, CMP ####[place] [id number] USAComprehensive Metabolic Panelon 76-11-3867Idqbqyh [Mass/Vol]4.3 g/dLNormal 3.5-5.7The [facility] Physician GroupComment on above:Performed By: #### CBC, T4F, TSH3 wRFLX, CMP ####[place] [id number] USAGFR/1.73 sq M.predicted MDRD (S/P/Bld) [Vol rate/Area] mL/min/{1.73_m2}NormalThe [facility] Physician [facility] HospitalComment on above:Performed By: #### CBC, T4F, TSH3 wRFLX, CMP ####[place] [address] USACreatinine [Mass/volume] in Serum or PlasmaOrdered By: Christiano Goldberg on 23-79-9389Fizkpgdiiu [Mass/Vol]0.84 mg/dL0.60-1.20[facility] Medical CenterComment on above:Performed By: #### CBC, T4F, TSH3 wRFLX, CMP ####[facility] [address] [place] [address] [place] ECG 12 lead ECGon 87-19-2474INF 12 lead [facility] [address] [place] [address] [place] [id number] Electrocardiograph Report Signed Patient: Dyllan Xiong MR#: [id number] : 1955 Acct:[id number] Age/Sex: 69 / F ADM Date: 03/11/25 Loc: Room: Type: [facility] Attending Dr: Jairo Jimenez DO Ordering Provider: Jairo Jimenez DO Date of Service: 03/11/25 ECG/ECG 12 lead ECG: pre-op Copies to: Test Reason : Blood Pressure : */* mmHG Vent. Rate : 58 BPM Atrial Rate : 58 BPM P-R Int : 160 ms QRS Dur : 74 ms QT Int : 390 ms P-R-T Axes : 70 -12 43 degrees QTcB Int : 382 ms Sinus bradycardia Otherwise normal ECG No previous ECGs available Confirmed by Margarito Clarke ([id number]) on 03/11/2025 5:04:39 PM Referred By: Electronically Signed By: Margarito Clarke Transcribed By: MUS Signed By Margarito Clarke MD 03/11/[address] [place] [address] Physician GroupEosinophils [#/volume] in Blood by Automated countOrdered By: Christiano Goldberg on 93-72-9273Lawyggsooyx (Bld) [#/Vol]0.1 10*3/uL0.0-0.45[facility] Medical CenterComment on above: Performed By: #### CBC, T4F, TSH3 wRFLX, CMP ####[facility] [address] [place] [address] USAEosinophils/100 leukocytes in Blood by Automated countOrdered By: Christiano Goldberg on 31-70-5857Nypufrwtehh/100 WBC (Bld) 2.3 %.[facility] Medical CenterComment on above:Performed By: #### CBC, T4F, TSH3 wRFLX, CMP ####[facility] [address] [place] [address] USAErythrocyte distribution width [Ratio] by Automated count Ordered By: Christiano Goldberg on 51-63-6704Tpyfutapvjt distribution width (RBC) [Ratio]13.6 %11.9-15.3FChildren's Hospital of ColumbusComment on above: Performed By: #### CBC, T4F, TSH3 wRFLX, CMP ####[facility] [place] [address] USAErythrocytes [#/volume] in Blood by Automated countOrdered By: Christiano Goldberg on 06-78-1993PQC (Bld) [#/Vol]4.38 10*6/uL3.60-5.00[facility] Medical CenterComcorewell health zeeland hospital on above:Performed By: #### CBC, T4F, TSH3 wRFLX, CMP ####[facility] [place] [address] USAGlomerular filtration rate [Volume Rate/Area] in Serum, Plasma or Blood by CreatinineOrdered By: Christiano Goldberg on 03-11-2025 Glomerular filtration rate [Volume Rate/Area] in Serum, Plasma or Blood by Creatinine> 60.0 mL/MinMercy Health Springfield Regional Medical CenterGlucose [Mass/volume] in Serum or PlasmaOrdered By: Christiano Goldberg on 07-76-9391Zvmfrgf [Mass/Vol]96 mg/dL 70-100[facility] Medical CenterComcorewell health zeeland hospital on above:ADA recommended reference rangeRandom Glucose Reference Range is dependent on time and content of last meal. Glucose of more than 200 mg/dL in a nonstressed, ambulatory subject supports the diagnosisof Diabetes Mellitus.Result Comment: Random Glucose Reference Range is dependent on time and content of last meal. Glucose of more than 200 mg/dL in a nonstressed, ambulatory subject supports the diagnosis of Diabetes Mellitus. ADA recommended reference rangePerformed By: #### CBC, T4F, TSH3 wRFLX, CMP ####[place] [address] [place] [address] [facility] Hematocrit [Volume Fraction] of Blood by Automated countOrdered By: Christiano Goldberg on 69-79-2852Hnzqlegwri (Bld) [Volume fraction]37.3 %34.0-46.4FChildren's Hospital of ColumbusComment on above:Performed By: #### CBC, T4F, TSH3 wRFLX, CMP ####[place] [id number] [facility] Hemoglobin [Mass/volume] in BloodOrdered By: Christiano Goldberg on 03-11-2025 Hemoglobin (Bld) [Mass/Vol]12.5 g/dL11.8-15.4FChildren's Hospital of Columbus Comment on above:Performed By: #### CBC, T4F, TSH3 wRFLX, CMP ####[place] [address] USALeukoReduced RBCon 63-32-7254EbcjcNesifrt RBCTRANSFUSED 03/28/[address] [place] [address] Physician GroupLeukocytes [#/volume] corrected for nucleated erythrocytes in Blood by Automated counOrdered By: Christiano Goldberg on 87-33-0003PZN corrected for nucl RBC Auto (Bld) [#/Vol]6.0 10*3/uL3.8-11.6FChildren's Hospital of ColumbusLeukocytes [#/volume] in Blood by Automated countOrdered By: Christiano Goldberg on 35-74-1624QXO (Bld) [#/Vol]6.0 10*3/uL3.8-11.6FChildren's Hospital of ColumbusComment on above:Performed By: #### CBC, T4F, TSH3 wRFLX, CMP ####[place] [address] USALymphocytes [#/volume] in Blood by Automated countOrdered By: Christiano Goldberg on 51-27-3340Aefltxiaqjr (Bld) [#/Vol]1.5 10*3/uL1.00-4.8[facility] Medical CenterComment on above: Performed By: #### CBC, T4F, TSH3 wRFLX, CMP ####[address] [address] USALymphocytes/100 leukocytes in Blood by Automated countOrdered By: Christiano Goldberg on 69-02-8838Yxqsxxfwuca/100 WBC (Bld) 25.4 %.[facility] Medical CenterComment on above:Performed By: #### CBC, T4F, TSH3 wRFLX, CMP ####[address] [address] [facility] [Entitic mass] by Automated countOrdered By: Christiano Goldberg on 23-13-8442NML (RBC) [Entitic mass]28.6 pg24.7-34.3FChildren's Hospital of ColumbusComment on above:Performed By: #### CBC, T4F, TSH3 wRFLX, CMP ####[address] [address] [facility] Auto (RBC) [Mass/Vol]Ordered By: Christiano Goldberg on 66-01-1404FPDT (RBC) [Mass/Vol] 33.6 g/dL32.0-35.0[facility] Medical CenterV [Entitic volume] by Automated countOrdered By: Christiano Goldberg on 54-41-5453SAP (RBC) [Entitic vol]85.2 eB54-790NzxhexuzyMercy Health Springfield Regional Medical CenterComment on above:Performed By: #### CBC, T4F, TSH3 wRFLX, CMP ####[address] [address] USAMonocytes [#/volume] in Blood by Automated count Ordered By: Christiano Goldberg on 02-40-9250Nqgwawadh (Bld) [#/Vol]0.4 10*3/uL0.0-0.8 [facility] Medical CenterComment on above:Performed By: #### CBC, T4F, TSH3 wRFLX, CMP ####[address] [address] USAMonocytes/100 leukocytes in Blood by Automated countOrdered By: Christiano Goldberg on 85-03-3304Mkhiaxkwc/100 WBC (Bld)7.1 %.[facility] Medical CenterComment on above:Performed By: #### CBC, T4F, TSH3 wRFLX, CMP ####[place] [address] [place] [id number] [facility] Neutrophils [#/volume] in Blood by Automated countOrdered By: Christiano Goldberg on 65-99-8656Fsuxgiwxqkv (Bld) [#/Vol]3.9 10*3/uL1.8-7.7FChildren's Hospital of ColumbusComment on above:Performed By: #### CBC, T4F, TSH3 wRFLX, CMP ####[place] [address] [place] [address] [facility] Neutrophils/100 leukocytes in Blood by Automated countOrdered By: Christiano Goldberg on 84-93-5557Rptjedwlonl/100 WBC (Bld)64.0 %.[facility] Comment on above:Performed By: #### CBC, T4F, [facility] wRFLX, CMP ####[place] [address] [place] [id number] [facility] Panel Information Ordered By: Christiano Goldberg on [id number] Creatinine Clearance (ChemN/A [facility] Medical CenterNucleated erythrocytes [Presence] in Blood by Automated countOrdered By: Christiano Goldberg on [id number] RBC Auto Ql (Bld) 0.0 /100{WBC}0-0.5FChildren's Hospital of ColumbusPST Type and Screenon [id number] and Rh group Nom (Bld)Blood group O Rh(D) positiveNormNorthwest Florida Community Hospital Physician GroupComment on above:Order Comment: Date of Surgery: [id number] Comment: Date of Surgery: [id number] Comment: PERFORMED BY: [facility] [address] [place] [id number] PATHOLOGIST ENTERTAINER & COMIC ZAIN WHEELER M.D.Platelet mean volume [Entitic volume] in Blood by Automated countOrdered By: Christiano Goldberg on [id number] mean volume (Bld) [Entitic vol]8.3 fL6.3-10.7FChildren's Hospital of ColumbusComment on above:Performed By: #### CBC, T4F, TSH3 wRFLX, CMP ####[address] [address] USAPlatelets [#/volume] in Blood by Automated count Ordered By: Christiano Goldberg on 08-67-4408Cmnjvxrgx (Bld) [#/Vol]233 10*3/sT844-497 [facility] CenterComment on above:Performed By: #### CBC, T4F, TSH3 wRFLX, CMP ####[address] [address] USAPotassium [Moles/volume] in Serum or PlasmaOrdered By: Christiano Goldberg on 16-18-9407Mwpdgloov [Moles/Vol]4.1 mmol/L3.5-5.1FChildren's Hospital of ColumbusComment on above:Performed By: #### CBC, T4F, TSH3 wRFLX, CMP ####[address] [address] USAProtein [Mass/volume] in Serum or PlasmaOrdered By: Christiano Goldberg on 41-55-7729Daccrfy [Mass/Vol]6.6 g/dL6.4-8.9[facility] CenterComment on above: Performed By: #### CBC, T4F, TSH3 wRFLX, CMP ####[address] [address] USASerum globulin measurement by calculation (mass/volume)Ordered By: Christiano Goldberg on 53-58-1981Iisvsfkf (S) [Mass/Vol]2.3 g/dLMercy Health Springfield Regional Medical CenterComment on above:Performed By: #### CBC, T4F, TSH3 wRFLX, CMP ####[address] [address] USASerum or plasma albumin/globulin mass ratioOrdered By: Christiano Goldberg on 11-81-7534Fbvlhcb/Globulin [Mass ratio]1.9 {ratio}[facility] CenterComment on above:Performed By: #### CBC, T4F, TSH3 wRFLX, CMP ####[address] [address] [facility] Serum or plasma anion gap determinationOrdered By: Christiano Goldberg on 03-11-2025 Anion gap [Moles/Vol]9.0 mmol/L6.0-15.0[facility] CenterComment on above:Performed By: #### CBC, T4F, TSH3 wRFLX, CMP ####[address] [address] USASodium [Moles/volume] in Serum or PlasmaOrdered By: Christiano Goldberg on 25-86-8695Rjpabu [Moles/Vol]141 mmol/L 136-145[facility] CenterComment on above:Performed By: #### CBC, T4F, TSH3 wRFLX, CMP ####[address] [address] USAThyroid Stim Hormone w/Rflxon 73-15-6057Aaxphvr Stim Hormone w/Rflx3.07 u[iU]/mLNormal0.45-5.33The [facility]rmc Physician GroupComment on above: Result Comment: PERFORMED BY: [facility] [address] [place] [address] PATHOLOGIST ENTERTAINER & COMIC ZAIN WHEELER M.D.Performed By: #### CBC, T4F, TSH3 wRFLX, CMP ####[address] [address] USAThyrotropin [Units/volume] in Serum or PlasmaOrdered By: Christiano Goldberg on 07-27-9771MZL Qn 3.07 m[IU]/L0.45-5.33[facility] Medical CenterThyroxine (T4) free [Mass/volume] in Serum or PlasmaOrdered By: Christiano Goldberg on 72-45-9168Njpo T4 [Mass/Vol]1.16 ng/dLHigh0.61-1.12[facility] CenterComment on above:Performed By: #### CBC, T4F, TSH3 wRFLX, CMP ####[address] [address] USAUrea nitrogen [Mass/volume] in Serum or PlasmaOrdered By: Christiano Goldberg on 24-50-5557Vlny nitrogen [Mass/Vol]16 mg/dL7-25[facility] CenterComment on above:Performed By: #### CBC, T4F, TSH3 wRFLX, CMP ####[facility] [address] [place] [address] [facility] Panel Informationon [id number] Parnell, DO 02/27/2024 3:31 PM L Inj/Asp: L knee on 02/27/2024 10:19 AM Indications: pain Details: 21 G needle, anterolateral approach Medications: 2 mL SynoJoynt 20 MG/2ML Outcome: tolerated well, no immediate complications Procedure, treatment alternatives, risks and benefits explained, specific risks discussed. Consent was given by the patient. [facility] Panel Informationon [id number] Parnell, DO 02/20/2024 3:56 PM L Inj/Asp: L knee on 02/20/2024 10:26 AM Indications: pain Details: 21 G needle, anterolateral approach Medications: 2 mL SynoJoynt 20 MG/2ML Outcome: tolerated well, no immediate complications Procedure, treatment alternatives, risks and benefits explained, specific risks discussed. Consent was given by the patient. [facility] Panel Informationon [phone] Parnell, 02/13/2024 2:38 PM L Inj/Asp: L knee on 02/13/2024 12:27 PM Indications: pain Details: 21 G needle, anterolateral approach Medications: 2 mL SynoJoynt 20 MG/2ML Outcome: tolerated well, no immediate complications Procedure, treatment alternatives, risks and benefits explained, specific risks discussed. Consent was given by the patient. [facility] Panel Informationon [phone] Wynne NP 01/31/2024 11:07 AM L Inj/Asp: L knee on 01/31/2024 11:05 AM Indications: pain Details: 20 G needle, anterolateral approach Medications: 40 mg methylPREDNISolone acetate 40 MG/ML UTILIZING ASEPTIC TECHNIQUE PT GIVEN INJECTION IN LEFT KNEE, NEUROVASC INTACT S/P INJ, TOLERATED WELL Procedure, treatment alternatives, risks and benefits explained, specific risks discussed. Consent was given by the patient. [facility], [facility] AUTO DIFFon [id number] #0.1 103/ulNormal 0.0-0.1The [facility]'S HospitalComment on above:Performed By: #### CBC #### [facility] [address] [address] [address] Sharif FarooqBasophils/100 WBC (Bld)1.9 %Normal0.2-2.0The [facility] Comment on above:Performed By: #### CBC #### [facility] [address] [place] [address] Dr. Sharif Ponce #0.1 103/ulNormal0.0-0.7The [facility]'S HospitalComment on above: Performed By: #### CBC #### [facility] [address] [place] [address] Dr. Sharif Rodriguezosinophils/100 WBC (Bld)2.3 %Normal0.9-7.0The [facility] Comment on above:Performed By: #### CBC #### [facility] [address] [place] [address] Dr. Sharif Rodriguezrythrocyte distribution width (RBC) [Ratio]14.6 %Rqxnuo17.0-15.[address] [facility]'S HospitalComment on above:Performed By: #### CBC #### [facility] [address] [place] [address] Dr. Sharif FarooqHematocrit (Bld) [Volume fraction]41.7 %Fennmh50.0-48.0The [facility]'S HospitalComment on above:Performed By: #### CBC #### [facility] [address] [place] [address] Dr. Sharif FarooqHemoglobin (Bld) [Mass/Vol]13.7 g/oCKbncfb04.0-16.0The [facility]'S HospitalComment on above:Performed By: #### CBC #### [facility] [address] [place] [address] Dr. Sharif Jimenez #0.01 10e3/ulNormal0.00-0.03The [facility] Main Campusment on above:Performed By: #### CBC #### [facility] [address] [address] [address] Sharif Jimenez %0.2 %Normal0.0-0.5[facility] on above: Performed By: #### CBC #### [facility] [address] [place] [address] Dr. Sharif Bustamante #1.6 103/ulNormal1.2-3.8[facility] on above:Performed By: #### CBC #### [facility] [address] [place] [address] Dr. Sharif Carbajalhocytes/100 WBC (Bld)34.0 %Cectcv27.5-60.0[facility] on above:Performed By: #### CBC #### [facility] [address] [place] [address] Dr. Sharif Sung DIFF REQNONormalThe St. Anthony'S HospitalComment on above: Performed By: #### CBC #### [facility] [address] [place] [address] Dr. Sharif Cerda (RBC) [Entitic mass]27.5 xjRzclew50.7-34.0[facility] on above:Performed By: #### CBC #### [facility] [address] [place] [address] Dr. Sharif Sandoval (RBC) [Mass/Vol]32.9 g/dMSbfdud63.9-35.2[facility] on above:Performed By: #### CBC #### [facility] [address] [place] [address] Dr. Sharif Sandoval (RBC) [Entitic vol]83.7 tZCxjqrq94.0-99.0[facility] on above:Performed By: #### CBC #### [facility] [address] [place] [address] Dr. Sharif Soto #0.5 103/ulNormal0.3-0.8The Gonzalo HospitalComment on above:Performed By: #### CBC #### [facility] [address] [address] [address] Sharif Beltranocytes/100 WBC (Bld)9.5 %Normal1.7-12.0The [facility] on above:Performed By: #### CBC #### [facility] [address] [address] [address] Sharif GutierrezUT #2.5 103/ulNormal1.4-6.5The [facility]'S HospitalComment on above:Performed By: #### CBC #### [facility] [address] [place] [address] Dr. Sharif Gutierrezutrophils/100 WBC (Bld)52.1 %Amnqzt22.0-75.0The [facility]'S HospitalComment on above:Performed By: #### CBC #### [facility] [address] [place] [address] Dr. Sharif FarooqPlatelet mean volume (Bld) [Entitic vol]10.3 fLNormal9.5-13.5The St[facility]'S HospitalComment on above:Performed By: #### CBC #### [facility] [address] [place] [address] Dr. Sharif FarooqPLT250 103/wcCmxrus947-847Bna St. Anthony'S HospitalComment on above: Performed By: #### CBC #### [facility] [address] [place] [address] Dr. Sharif FarooqRBC4.98 106/ulNormal4.20-5.40The [facility]'S HospitalComment on above:Performed By: #### CBC #### [facility] [address] [place] [address] Dr. Sharif FarooqWBC4.8 103/ulNormal4.0-11.0The [facility] Anthony'S HospitalComcorewell health zeeland hospital on above: Performed By: #### CBC #### [facility] [address] [place] [address] Dr. Sharif FarooqGLYCOHEMOGLOBIN A1Con [id number] RECOMMENDATIONSEE BELOWNormal The St. Anthony'S HospitalComment on above:Result Comment: ADA RECOMMENDED LIMIT 4.0 - 6.0 ADA THERAPEUTIC TARGET < 7.0 ACTION SUGGESTED > 7.0Performed By: #### A1C #### [facility] [address] [address] [address] Sharif FarooqGlucose [Mass/Vol]111 mg/dLNoTriHealth Bethesda North HospitalComment on above:Performed By: #### A1C #### [facility] [address] [place] [address] Dr. Sharif FarooqHbA1c (Bld) [Mass fraction]5.5 %Normal4.5-6.2[facility] on above:Performed By: #### A1C #### [facility] [address] [place] [address] Dr. Sharif FraooqLIPID PROFILEon 65-91-7597RHOT-HDL RATIO NORMSEE BELOWCrystal Clinic Orthopedic CenterComcorewell health zeeland hospital on above:Result Comment: 3.3 - 4.4 LOW RISK 4.4 - 7.1 AVERAGE RISK 7.1 - 11.0 MODERATE RISK >11.0 HIGH RISKPerformed By: #### CBC #### [facility] [address] [place] [address] Dr. Sharif Solanoesterol [Mass/Vol]180 mg/dLNormal<=200The [facility] Comment on above:Performed By: #### CBC #### [facility] [address] [place] [address] Dr. Sharif FarooqCholesterol in HDL [Mass/Vol]61 mg/dLCritically hwxx73-38Owv [facility] on above:Performed By: #### CBC #### [facility] [address] [address] [address] Sharif Solanoesterol in LDL [Mass/Vol]103.2 mg/dLCrystal Clinic Orthopedic CenterComcorewell health zeeland hospital on above:Performed By: #### CBC #### [facility] [address] [place] [address] Dr. Sharif Solanoestercelio.total/Cholesterol in HDL [Mass ratio]3.0 {ratio} NormalThe St. Anthony'S HospitalComment on above:Performed By: #### CBC #### [facility] [address] [address] [address] Sharif Aguilera NORMAL> or = 60 mg/dl - LOW CARDIOVASCULAR RISK <40 mg/dl - HIGH CARDIOVASCULAR RISKCrystal Clinic Orthopedic CenterComcorewell health zeeland hospital on above:Performed By: #### CBC #### [facility] [address] [address] [address] Sharif FarooqLDL CALC NORMALSEE BELOWNoTriHealth Bethesda North HospitalComment on above:Result Comment: <100 mg/dl OPTIMAL 100 - 129 mg/dl NEAR OR ABOVE OPTIMAL 130 - 159 mg/dl BORDERLINE HIGH 160 - 189 mg/dl HIGH >190 mg/dl VERY HIGH Performed By: #### CBC #### [facility] [address] [place] [address] Dr. Sharif FarooqTriglyceride [Mass/Vol]79 mg/dLNormal<=150The [facility] Comment on above:Performed By: #### CBC #### [facility] [address] [address] [address] Sharif Zhu CALC15.8 mg/dLNoTriHealth Bethesda North HospitalComcorewell health zeeland hospital on above: Performed By: #### CBC #### [facility] [address] [address] [address] Sharif FarooqPROF 14(COMP METB)on 93-37-6997Fifykxc [Mass/Vol]3.9 g/dLNormal 3.4-5.0The [facility] on above:Performed By: #### CBC #### [facility] [address] [place] [address] Dr. Sharif FarooqAlbumin/Globulin [Mass ratio]1.0 {ratio}NormalThe St. Anthony'S HospitalComcorewell health zeeland hospital on above:Performed By: #### CBC #### [facility] [address] [place] [address] Dr. Sharif SamuelP [Catalytic activity/Vol]84 U/MWdrzjl80-476Zix [facility] on above:Performed By: #### CBC #### [facility] [address] [address] [address] Sharif SamuelT [Catalytic activity/Vol]37 U/SXvtnwf48-19Dks St. [facility]'S HospitalComment on above:Performed By: #### CBC #### [facility] [address] [address] [address] Sharif Torreson gap [Moles/Vol]13.4 mmol/LNormalLima City Hospital Comment on above:Performed By: #### CBC #### [facility] [address] [address] [address] Sharif FarooqAST [Catalytic activity/Vol]21 U/PKqojqh28-41Mmf St[facility]'S HospitalComment on above:Performed By: #### CBC #### [facility] [address] [place] [address] Dr. Sharif FarooqBilirubin [Mass/Vol]0.8 mg/dLNormal0.2-1.0[facility] Comment on above:Performed By: #### CBC #### [facility] [address] [place] [address] Dr. Sharif FarooqCalcium [Mass/Vol]9.7 mg/dLNormal8.5-10.1[facility] Comment on above:Performed By: #### CBC #### [facility] [address] [place] [address] Dr. Sharif FarooqChloride [Moles/Vol]105 mmol/IWtrsov00-952MzlLima City Hospital Comment on above:Performed By: #### CBC #### [facility] [address] [place] [address] Dr. Sharif FarooqCO2 [Moles/Vol]26.8 mmol/FMawauk65.0-32.0The [facility] Comment on above:Performed By: #### CBC #### [facility] [address] [place] [address] Dr. Sharif FarooqCreatinine [Mass/Vol]0.94 mg/dLNormal0.55-1.02The [facility]'S HospitalComment on above:Performed By: #### CBC #### [facility] [address] [place] [address] Dr. Sharif RodriguezGFR-AF SCOTTISH>60Normal>=60The [facility]'S HospitalComment on above:Performed By: #### CBC #### [facility] [address] [address] [address] Sharif RodriguezGFR-NON AF UOPNXOEG70 mL/min/1.97p9Sqimco>=60The [facility]'S HospitalComment on above:Performed By: #### CBC #### [facility] [address] [address] [address] Sharif FarooqGlobulin (S) [Mass/Vol]3.9 g/dLNormalThe St. [facility]'S HospitalComment on above:Performed By: #### CBC #### [facility] [address] [address] [address] Sharif FarooqGlucose [Mass/Vol]105 mg/kOCyiuai36-755AmtLima City Hospital Comment on above:Performed By: #### CBC #### [facility] [address] [address] [address] Sharif FarooqPotassium [Moles/Vol]4.2 mmol/LNormal3.5-5.1The [facility] Comment on above:Performed By: #### CBC #### [facility] [address] [address] [address] Sharif FarooqProtein [Mass/Vol]7.8 g/dLNormal6.4-8.2The [facility] Comment on above:Performed By: #### CBC #### [facility] [address] [address] [address] Sharif FarooqSodium [Moles/Vol]141 mmol/KHwycjc634-438Hqt [facility] Comment on above:Performed By: #### CBC #### [facility] [address] [address] [address] Sharif FarooqUrea nitrogen [Mass/Vol]21.0 mg/dLCritically high7.0-18.0The [facility]S HospitalComment on above:Performed By: #### CBC #### [facility] [address] [address] [address] Yilan ChangUrea nitrogen/Creatinine [Mass ratio]22.3 mg/mgNoTriHealth Bethesda North HospitalComment on above:Performed By: #### CBC #### [facility] [address] [id number] Sharif Garcia 16-26-1501PTL1.122 uIU/mLNormal0.358-3.740The St[facility]S HospitalComment on above:Performed By: #### CBC #### [facility] [address] [id number] Sharif FarooqMG MAMM SCREEN 3D OMAR CADon [id number] MAMM SCREEN 3D OMAR CAD Patient: DYLLAN XIONG Exam Date: 07/19/2022 : 1955 Gender:F Ordering : DR CHRISTIANO GOLDBERG M.D. Admission #: [id number] Family : Order #: [id number] CLICK HERE TO VIEW EXAM RADIOLOGY REPORT [...] cancer at age 62. LOCATION: [facility] BREAST COMPOSITION: Scattered areas fibroglandular density. [...] LUMP SHOULD BE BIOPSIED. Dictated by: Dottie Guevara MD on 07/20/2022 at 09:20 Approved by: Dottie Guevara MD on 07/20/2022 at 09:22[facility] Orthopedic CenterMRI KNEE LT WO CONon [id number] KNEE LT WO CONEXAMINATION: MRI KNEE LT WO CON HISTORY: Derangement of knee [...] of medial meniscus Electronically authenticated by: DOTTIE GUEVARA Date: 2022-01-20 18:22[facility] Orthopedic CenterXR KNEE LT 4V or >on 13-17-2100FD KNEE LT 4V or >EXAM: XR KNEE LT 4V or > HISTORY: [...] Electronically authenticated by: JOSH SHEA Date: 2021-12-06 18:26[facility] Orthopedic CenterCBC AUTO DIFFon [id number] #0.1 103/ulNormal0.0-0.1The [facility]'S HospitalComment on above:Performed By: #### CBC #### [facility] [address] [address] [address] Sharif FarooqBasophils/100 WBC (Bld)1.8 %Normal0.2-2.0[facility] Comment on above:Performed By: #### CBC #### [facility] [address] [address] [address] Sharif Ponce #0.1 103/ulNormal0.0-0.7The [facility]'S HospitalComment on above: Performed By: #### CBC #### [facility] [address] [place] [address] Dr. Sharif Rodriguezosinophils/100 WBC (Bld)2.0 %Normal0.9-7.0The [facility] Comment on above:Performed By: #### CBC #### [facility] [address] [place] [address] Dr. Sharif Rodriguezrythrocyte distribution width (RBC) [Ratio]14.1 %Zyvcmk90.0-15.0 The [facility] Campusment on above:Performed By: #### CBC #### [facility] [address] [place] [address] Dr. Sharif FarooqHematocrit (Bld) [Volume fraction]41.9 %Uqsatt15.0-48.0The [facility]'S HospitalComment on above:Performed By: #### CBC #### [facility] [address] [place] [address] Dr. Sharif FarooqHemoglobin (Bld) [Mass/Vol]13.6 g/eEJzxkje17.0-16.0The [facility] Campusment on above:Performed By: #### CBC #### [facility] [address] [place] [address] Dr. Sharif Jimenez #0.01 10e3/ulNormal0.00-0.03The [facility] Campusment on above:Performed By: #### CBC #### [facility] [address] [place] [address] Dr. Sharif Jimenez %0.2 %Normal0.0-0.5The [facility] Campusment on above: Performed By: #### CBC #### [facility] [address] [place] [address] Dr. Sharif Bustamante #2.1 103/ulNormal1.2-3.8The [facility]'S HospitalComment on above:Performed By: #### CBC #### [facility] [address] [place] [address] Dr. Sharif Lewismphocytes/100 WBC (Bld)34.7 %Gsfmyg93.5-60.0The [facility]'S HospitalComment on above:Performed By: #### CBC #### [facility] [address] [place] [address] Dr. Sharif RiveroUAL DIFF REQNONormalThe St. [facility]'S HospitalComment on above: Performed By: #### CBC #### [facility] [address] [place] [address] Dr. Sharif Sandoval (RBC) [Entitic mass]27.6 uqAacgep44.7-34.0The [facility]'S HospitalComment on above:Performed By: #### CBC #### [facility] [address] [place] [address] Dr. Sharif Sandoval (RBC) [Mass/Vol]32.5 g/fBAtfulx88.9-35.2The [facility]S HospitalComment on above:Performed By: #### CBC #### [facility] [address] [place] [address] Dr. Sharif Sandoval (RBC) [Entitic vol]85.[address] eYCimqdo58.0-99.0The [facility]'S HospitalComment on above:Performed By: #### CBC #### [facility] [address] [place] [address] Dr. Sharif Soto #0.6 103/ulNormal0.3-0.8The [facility]S HospitalComment on above:Performed By: #### CBC #### [facility] [address] [place] [address] Dr. Sharif Beltranocytes/100 WBC (Bld)9.8 %Normal1.7-12.0The [facility] Comment on above:Performed By: #### CBC #### [facility] [address] [place] [address] Dr. Sharif Harvey #3.1 103/ulNormal1.4-6.5The [facility]'S HospitalComment on above:Performed By: #### CBC #### [facility] [address] [address] [address] Sharif FarooqNeutrophils/100 WBC (Bld)51.5 %Uihtzl12.0-75.0[facility] on above:Performed By: #### CBC #### [facility] [address] [place] [address] Dr. Sharif FarooqPlatelet mean volume (Bld) [Entitic vol]9.9 fLNormal9.5-13.5[facility] on above:Performed By: #### CBC #### [facility] [address] [place] [address] Dr. Sharif FarooqPLT233 103/iiBrxqvf720-784Ply [facility] on above: Performed By: #### CBC #### [facility] [address] [place] [address] Dr. Sharif FarooqRBC4.92 106/ulNormal4.20-5.40[facility] on above:Performed By: #### CBC #### [facility] [address] [place] [address] Dr. Sharif FarooqWBC6.0 103/ulNormal4.0-11.0[facility] on above: Performed By: #### CBC #### [facility] [address] [place] [address] Dr. Sharif FarooqGLYCOHEMOGLOBIN A1Con 60-68-5130JLJ RECOMMENDATIONSEE BELOWNormMartins Ferry HospitalComcorewell health zeeland hospital on above:Result Comment: ADA RECOMMENDED LIMIT 4.0 - 6.0 ADA THERAPEUTIC TARGET < 7.0 ACTION SUGGESTED > 7.0Performed By: #### A1C #### [facility] [address] [place] [address] Dr. Sharif FarooqGlucose [Mass/Vol]114 mg/dLNormalThMetroHealth Parma Medical Center on above:Performed By: #### A1C #### [facility] [address] [place] [address] Dr. Sharif FarooqHbA1c (Bld) [Mass fraction]5.6 %Normal4.5-6.2[facility] HospitalComment on above:Performed By: #### A1C #### [facility] [address] [address] [address] Sharif ValenzuelaID PROFILEon [id number]-HDL RATIO NORMSTriHealth McCullough-Hyde Memorial HospitalComment on above:Result Comment: 3.3 - 4.4 LOW RISK 4.4 - 7.1 AVERAGE RISK 7.1 - 11.0 MODERATE RISK >11.0 HIGH RISKPerformed By: #### CBC #### [facility] [address] [address] [address] Sharif FarooqCholesterol [Mass/Vol]157 mg/dLNormal<=200The [facility] Comment on above:Performed By: #### CBC #### [facility] [address] [address] [address] Sharif FarooqCholesterol in HDL [Mass/Vol]68 mg/dLCritically xxcw99-91Ubh St. [facility]'S HospitalComment on above:Performed By: #### CBC #### [facility] [address] [address] [address] Sharif FarooqCholesterol in LDL [Mass/Vol]66.0 mg/dLCrystal Clinic Orthopedic CenterComcorewell health zeeland hospital on above:Performed By: #### CBC #### [facility] [facility] [address] [address] [address] Sharif Solanoesterol.total/Cholesterol in HDL [Mass ratio]2.3 {ratio} NormalThe St. Anthony'S HospitalComment on above:Performed By: #### CBC #### [facility] [address] [address] [address] Sharif FarooqHDL NORMAL> or = 60 mg/dl - LOW CARDIOVASCULAR RISK <40 mg/dl - HIGH CARDIOVASCULAR RISKCrystal Clinic Orthopedic CenterComcorewell health [facility] on above:Performed By: #### CBC #### [facility] [address] [address] [address] Sharif FarooqLDL CALC NORMALSEE UC Medical CenterComment on above:Result Comment: <100 mg/dl OPTIMAL 100 - 129 mg/dl NEAR OR ABOVE OPTIMAL 130 - 159 mg/dl BORDERLINE HIGH 160 - 189 mg/dl HIGH >190 mg/dl VERY HIGH Performed By: #### CBC #### [facility] [address] [place] [address] Dr. Sharif FarooqTriglyceride [Mass/Vol]115 mg/dLNormal<=150The [facility] Comment on above:Performed By: #### CBC #### [facility] [address] [place] [address] Dr. Sharif FarooqVLDL CALC23.0 mg/dLNormalThe St. Anthony'S HospitalComment on above: Performed By: #### CBC #### [facility] [address] [place] [address] Dr. Sharif FarooqPROF 14(COMP METB)on 48-48-9273Eaxfgin [Mass/Vol]4.0 g/dLNormal 3.4-5.0The St. [facility]'S HospitalComment on above:Performed By: #### CBC #### [facility] [address] [place] [address] Dr. Sharif FarooqAlbumin/Globulin [Mass ratio]1.1 {ratio}NormalLima City HospitalComment on above:Performed By: #### CBC #### [facility] [address] [place] [address] Dr. Sharif Frias [Catalytic activity/Vol]74 U/TLkcjbb73-301Uaf St[facility]'S HospitalComment on above:Performed By: #### CBC #### [facility] [address] [place] [address] Dr. Sharif Nixon [Catalytic activity/Vol]34 U/YQwxbih17-90Kuv St. [facility]'S HospitalComment on above:Performed By: #### CBC #### [facility] [address] [place] [address] Dr. Sharif Olivo gap [Moles/Vol]12.1 mmol/LNormalThe [facility] Comment on above:Performed By: #### CBC #### [facility] [address] [place] [address] Dr. Yilan ChangAST [Catalytic activity/Vol]22 U/WDlmsao68-07Ycl St[facility] Anthony'S HospitalComment on above:Performed By: #### CBC #### [facility] [address] [address] [address] Sharif FarooqBilirubin [Mass/Vol]1.5 mg/dLCritically high0.2-1.0The St. [facility]'S HospitalComment on above:Performed By: #### CBC #### [facility] [address] [place] [address] Dr. Sharif FarooqCalcium [Mass/Vol]9.1 mg/dLNormal8.5-10.1The [facility] Comment on above:Performed By: #### CBC #### [facility] [address] [place] [address] Dr. Sharif FarooqChloride [Moles/Vol]103 mmol/EUnontt76-202Hcr [facility] Comment on above:Performed By: #### CBC #### [facility] [address] [place] [address] Dr. Sharif FarooqCO2 [Moles/Vol]27.9 mmol/DMbwlby72.0-32.0The [facility] Comment on above:Performed By: #### CBC #### [facility] [address] [place] [address] Dr. Sharif FarooqCreatinine [Mass/Vol]0.93 mg/dLNormal0.55-1.02The St[facility]'S HospitalComment on above:Performed By: #### CBC #### [facility] [address] [place] [address] Dr. Sharif RodriguezGFR-AF SCOTTISH>60Normal>=60The St[facility]'S HospitalComment on above:Performed By: #### CBC #### [facility] [address] [place] [address] Dr. Sharif RodriguezGFR-NON AF SCOTTISH>60Normal>=60The [facility]'S HospitalComment on above:Performed By: #### CBC #### [facility] [address] [place] [address] Dr. Sharif FarooqGlobulin (S) [Mass/Vol]3.7 g/dLNoTriHealth Bethesda North HospitalComment on above:Performed By: #### CBC #### [facility] [address] [address] [address] Sharif FarooqGlucose [Mass/Vol]118 mg/dLCritically jdew98-908Whz St[facility]'S HospitalComment on above:Performed By: #### CBC #### [facility] [address] [address] [address] Sharif FarooqPotassium [Moles/Vol]4.0 mmol/LNormal3.5-5.1The [facility] Comment on above:Performed By: #### CBC #### [facility] [address] [address] [address] Sharif FarooqProtein [Mass/Vol]7.7 g/dLNormal6.1-8.2The [facility] Comment on above:Performed By: #### CBC #### [facility] [address] [address] [address] Sharif FarooqSodium [Moles/Vol]139 mmol/TKppksj711-139Feb [facility] Comment on above:Performed By: #### CBC #### [facility] [address] [place] [address] Dr. Sharif FarooqUrea nitrogen [Mass/Vol]14.0 mg/dLNormal7.0-18.0The St. [facility]'S HospitalComment on above:Performed By: #### CBC #### [facility] [address] [place] [address] Dr. Sharif FarooqUrea nitrogen/Creatinine [Mass ratio]15.1 mg/mgCrystal Clinic Orthopedic CenterComment on above:Performed By: #### CBC #### [facility] [address] [address] [address] Sharif Garcia 44-39-4160BCX8.998 uIU/mLNormal0.470-4.680The St. Anthony'S HospitalComment on above:Performed By: #### CBC #### [facility] [address] [place] [address] Dr. Sharif Darby RANGESEE UC Medical CenterComment on above: Result Comment: <0.34 UIU/ml HYPERTHYROID 0.34-5.60 UIU/ml EUTHYROID >5.60 UIU/ml HYPOTHYROIDPerformed By: #### CBC #### [facility] [address] [address] [address] Sharif FarooqCytology Cervical or vaginal smear or scraping studyon 04-23-2021 [facility] Vital Signs Date TimeVital SignValuePerforming NnlgkypskBqrljwmy19-63-3885 13:02-0500Body kwbpok36.5 kgChristiano Goldberg MD Work Phone: [phone] [place], [place] 2863611-03-2025 12:53-0500 Body ijnyof428.1 cmChristiano Goldberg MD Work Phone: [phone] [place], [place] 2863610-29-2025 10:20-0400 Body johnfj38.5 kgChristiano Goldberg MD Work Phone: [phone] [place], [place] 2863610-19-2025 08:00-0400 Body qaapxvaeaaq36 [degF]Christiano Goldberg MD Work Phone: [phone] [place], [place] 2863610-19-2025 08:00-0400 Diastolic blood pupjkrgb09 mm[Hg]Christiano Goldberg MD Work Phone: 1([phone] [place], [place] 2863610-19-2025 08:00-0400 Heart rate82 /Peggy Goldberg MD Work Phone: 1([phone] [place], [place] 2863610-19-2025 08:00-0400 Respiratory rate16 /Peggy Goldberg MD Work Phone: [phone] [place], [place] 2863610-19-2025 08:00-0400 SaO2% (BldA) [Mass fraction]99 %Christiano Goldberg MD Work Phone: 1(939)[address] [place], [place] 2863610-19-2025 08:00-0400 Systolic blood wuroekyp239 mm[Hg]Christiano Goldberg MD Work Phone: 1([phone] [place], [place] 2863610-19-2025 05:52-0400 Body runetc73.9 kgChristiano Goldberg MD Work Phone: [phone]10-14-2025 18:30-0400 Inhaled oxygen flow rate2 L/minChristiano Goldberg MD Work Phone: 1(125)[address] [place], [place] 2863610-14-2025 16:30-0400 Body ovvipl189.1 cmChristiano Goldberg MD Work Phone: 1(306)[address] [place], [place] 2863609-12-2025 10:35-0400 Body hkgfua97 kgChristiano Goldberg MD Work Phone: 1(785)[address] [place], [place] 2863609-11-2025 14:29-0400 Body .64 cmChristiano Goldberg MD Work Phone: 1(393)[address] [place], [place] 2863609-11-2025 14:29-0400 Body mass index (BMI) [Ratio]31.6 kg/v7AoirbcChristiano Goldberg MD Work Phone: 1(967)[address] [place], [place] 2863609-11-2025 14:29-0400 Body jpysxq39.9 kgChristiano Goldberg MD Work Phone: 1(801)[address] [place], [place] 2863609-11-2025 14:29-0400 Diastolic blood avtvjrwj08 mm[Hg]Christiano Goldberg MD Work Phone: 1(366)[address] [place], [place] 2863609-11-2025 14:29-0400 Heart rate63 /Peggy Goldberg MD Work Phone: 1(252)[address] [place], [place] 2863609-11-2025 14:29-0400 Systolic blood qviszwli676 mm[Hg]Christiano Goldberg MD Work Phone: 1(433)[address] [place], [place] 2863609-03-2025 10:22-0400 Body .64 cmChristiano Goldberg MD Work Phone: 1(132)[address] [place], [place] 2863609-03-2025 10:22-0400 Body mass index (BMI) [Ratio]32.2 kg/r5WrmshlChristiano Goldberg MD Work Phone: 1(081)[address] [place], [place] 2863609-03-2025 10:22-0400 Body kckigv42.6 kgChristiano Goldberg MD Work Phone: [facility]07-30-2025 10:50-0400 Body welbki23.1 Garima Goldberg MD Work Phone: [facility]07-08-2025 10:28-0400 Body vrcwjy30.7 Garima Goldberg MD Work Phone: [facility]05-07-2025 15:21-0400 Body mass index (BMI) [Ratio]32.93 kg/m2Rupal Leonardo PA Work Phone: [facility] NetworkHsybulkvrt17-68-1665 15:21-0400Body ywwfin61.53 kgAmy Jorden HERMAN Work Phone: [facility] NetworkHqrsfatkyo01-12-3390 15:21-0400Diastolic blood fczxiigb13 mm[Hg]Rupal HERMAN Work Phone: [facility] NetworkKabbdnlbbx77-91-3040 15:21-0400Systolic blood mm[Hg]Rupal HERMAN Work Phone: [facility] NetworkTcnzewuigz31-88-5894 10:16-0400Body .64 cmMer[facility]03-13-2025 10:16-0400Body mass index (BMI) [Ratio]32.3 kg/g8BgbkmtvhmMercy Health [facility]03-13-2025 10:16-0400Body cxfyic27.9 [facility]02-27-2025 14:38-0500Body height 167.64 cmMercy [facility]02-27-2025 14:38-0500Body mass index (BMI) [Ratio]32.3 kg/n9FsbysrvogMercy Health [facility]02-27-2025 14:38-0500 Body uilvfb31.7 [facility]02-14-2025 11:30-0500Body .64 cmMercy Health [facility]02-14-2025 11:30-0500Body mass index (BMI) [Ratio]33.2 kg/k1UqbrbzxecMercy Health [facility] Center02-14-2025 11:30-0500Body qakbyz64.44 kgMercy Health [facility] Center02-14-2025 11:30-0500Diastolic blood mm[Hg][facility] 07-26-2024 11:30-0500Heart rate61 /minMercy Health [facility] 07-26-2024 11:30-0500Systolic blood hokfktcs370 mm[Hg][facility]11-12-2024 13:50-0500Body insstg178.6 Nimco HERMAN Work Phone: [facility] NetworkNbsdxlgzlo31-73-6715 13:50-0500Body mass index (BMI) [Ratio]32.35 kg/m2Rupal HERMAN Work Phone: [facility] NetworkDkrglvards94-09-3610 13:50-0500Body bcdpdy58.9 kg Rupal Leonardo PA Work Phone: [facility] NetworkFahityqfxg80-98-2212 13:50-0500Diastolic blood bpvmqodj09 mm[Hg]Rupal Leonardo PA Work Phone: [facility] NetworkBbqhfscoco28-96-9220 13:50-0500Systolic blood iwusvmdb453 mm[Hg]Rupal Leonardo PA Work Phone: [facility] NetworkEghyxrwpgw77-29-3634 10:27-0400Body bqehvy489.6 cmKerrie Merazing COMMUNICATIONS DEPARTMENT CHAIRPERSON Work Phone: [facility] NetworkMldgwgqffx51-78-9512 10:27-0400Body mass index (BMI) [Ratio]32.28 kg/f6Earuw Apling COMMUNICATIONS DEPARTMENT CHAIRPERSON Work Phone: [facility] NetworkJzjradbzmz70-39-4051 10:27-0400Body xrasvf89.72 kgMaria Apling COMMUNICATIONS DEPARTMENT CHAIRPERSON Work Phone: [facility] Healthcare Encounters Encounter DateEncounter TypeCare ProviderFacilityStart: 04-21-2025 End: 49-67-6591qgtledpcqnFjenqd E Braun MD Work Phone: [phone] 949-9237347-8089-Ssfarlnop Health NeurosurgeryStart: 04-21-2025 End: 77-62-0472Qkkuoxg encounter procedureJairo Jimenez [facility] Work Phone: start: 04-14-2025 End: 20-30-6251rozizfgmivJwaopm E Braun MD Work Phone: [phone])087-4212723-3033-Xoxdlszdi Health NeurosurgeryStart: 04-14-2025 End: 03-29-5779Cnroelg encounter procedureEric N [facility] Work Phone: start: 04-09-2025 End: 26-88-5756vabuptsxqjQiqhkf E Braun MD Work Phone: [phone]-Offihsyyd Health NeurosurgeryStart: 04-09-2025 End: 05-67-3872Mzitalf encounter procedureEric N Barbara [facility] Work Phone: start: 17-92-4131Rqx-patient / Non-visitDaissa Goldberg MD-[facility] Work Phone: start: 11-27-3283Fvy-patient / Non-visitJooracio Iqbal MD-[facility] Work Phone: Start: 03-25-2025 End: 20-79-3356Flsbfiqeob and management of inpatientEric N Barbara [facility]: 03-11-2025 End: 10-63-7604Lvjwnbe encounter procedureEric Meera Jimenez HM-Azk-Dxbruukv Testing Work Phone: Start: 03-11-2025 End: 78-44-3993isirecrjrkNqqrxn E Braun MD Work Phone: [facility] Work Phone: Start: 98-57-4432Rcxknzcbf for preprocedural laboratory examinationEric N Nate [facility] Physician GroupStart: 15-26-8094Mgtdhtbdnyvz Angelina Goldberg MD Work Phone: [facility]: 02-21-2025 End: 88-91-1264oldnkvfwghPdckds E Braun MD Work Phone: [facility] Work Phone: Start: 02-21-2025 End: 70-72-5430Wsyvdey encounter procedureEric N [facility] Neurosurgery Work Phone: start: 02-20-2025 End: 45-30-9539uscekzzokbUtlksx E Braun MD Work Phone: [facility] Work Phone: Start: 02-20-2025 End: 26-50-2529Bqfwtif encounter procedureChristiano Goldberg [facility] Work Phone: Start: 02-20-2025 End: 05-00-6616Lihdbsdjaylt stateChristiano Goldberg MDMercy Health St. Charles Hospitaltart: 02-12-2025 End: 39-73-6052buxuwkclxyMhfbfh E Braun MD Work Phone: [facility] Work Phone: Start: 02-12-2025 End: 30-48-3927Gfhkuwa encounter procedureEric N [facility] Neurosurgery Work Phone: start: 02-05-2025 End: 17-93-6871etzsrvkqnvHnlxmm E Braun MD Work Phone: [facility] Work Phone: Start: 02-05-2025 End: 72-44-2023Wqjusux encounter procedureDeepti Beard DO-[facility] Neurology [place] Work Phone: Start: 01-08-2025 End: 39-38-0478nwiwhyecgsDauoqh E Braun MD Work Phone: [facility] Work Phone: Start: 01-08-2025 End: 30-67-5369Viqwpxb encounter procedureEric N [facility] Neurosurgery Work Phone: start: 12-17-2024 End: 19-19-0896akysimyyoiCaipnv E Braun MD Work Phone: [facility] Work Phone: Start: 12-17-2024 End: 24-76-0763Mzvkata encounter procedureHelene [facility] Neuro[facility] Work Phone: start: 11-25-2024 End: 45-83-6615uudivzpzukLziydxs Vytautas Giedraitis MDFacility:[facility] Start: 11-11-2024 End: 74-73-2444lllzadveehWeafbgq Vytautas Giedraitis MDFacility:[facility] Start: 10-16-2024 End: 66-37-4541Wralmk outpatient visit 10 minutesRupal HERMAN Work Phone: [facility] OBComment on above:Post-menopause; Follow-up encounter involving medicationStart: 10-16-2024 End: 93-13-2067fyynykbyauFBK RAMEYNot AvailableStart: 10-16-2024 End: 58-91-1054Uypdub Mamadou HERMAN Work Phone: [facility] OBStart: 10-16-2024 End: 26-33-9053Ymskvudiana HERMAN Work Phone: [facility] OBStart: 10-14-2024 End: 32-89-9615whusdoftrfSmfgtlf Vytautas Giedraitis MDFacility:[facility] Start: 09-23-2024 End: 31-64-3825axdqvnawuaJsyldeg Vytautas Giedraitis MDFacility:[facility] Start: 09-09-2024 End: 69-53-1490obwfmzsinjKqyrilu Vytautas Giedraitis MDFacility:[facility] Start: 09-02-2024 End: 30-15-3916hhzoaoqdmdAfnpxlj Vytautas Giedraitis MDFacility:[facility] [place] Start: 08-22-2024 End: 15-15-8996dtqgidakgwEmcftbtmfC[facility] Work Phone: Start: 08-22-2024 End: 54-68-8471Odwhmel encounter procedureNovant Health / [facility] Physician [facility] Work Phone: start: 08-08-2024 End: 55-04-6883xakhaooekhBvjhlqugeC[facility] Clinic [facility] Work Phone: Start: 08-08-2024 End: 98-93-8466Scbhlxv [facility] Work Phone: start: 07-26-2024 End: 95-63-7858yjbgyrbqtbCbcmrrbzuC[facility] Clinic [facility] Work Phone: Start: 07-26-2024 End: 40-74-6291Ojpvbol encounter procedureNovant Health / [facility] Physician [facility] Work Phone: Start: 04-23-2024 End: 77-05-3056Deopzc Mamadou HERMAN Work Phone: [facility]oms BCP OBStart: 04-23-2024 End: 92-40-8855Gxgvkq Mamadou HERMAN Work Phone: noms BCP OBStart: 04-23-2024 End: 44-48-3203Sgesbi outpatient visit 15 minutesAmy Jorden HERMAN Work Phone: noms BCP OBComment on above:Uterine prolapse; Menopausal stateStart: 04-23-2024 End: 34-85-2618pakajbemvkUEW RAMEYNot AvailableStart: 02-27-2024 End: 87-34-2390Qywryn flowsheetDerek Parnell DO Work Phone: [facility]THOPAEDICSStart: 02-27-2024 End: 35-94-2807Pxziou flowsheetJaefren A Soheila DO Work Phone: [facility] ORTHOPAEDICSStart: 02-27-2024 End: 27-37-6467Zclnax follow up visit related to original pxDerek Parnell DO Work Phone: noms CI ORTHOPAEDICSComment on above:Arthritis of left kneeStart: 02-27-2024 End: 65-63-6845hwmjtekmknSOLNH A HUDDLESTONNot AvailableStart: 02-20-2024 End: 79-61-7393Voxpxr Aaorn Parnell DO Work Phone: [facility] ORTHOPAEDICSStart: 02-20-2024 End: 92-45-1916Ekxmhb flowsTara Parnell DO Work Phone: NOL[facility] CI ORTHOPAEDICSStart: 02-20-2024 End: 29-83-1020Ckekdg follow up visit related to original Abbie Parnell DO Work Phone: noms CI ORTHOPAEDICSComment on above:Arthritis of left kneeStart: 02-20-2024 End: 92-91-8815zscsftqvovZZRISMargi PARNELLNot AvailableStart: 02-13-2024 End: 35-82-1145Lhlbxl Aaron Parnell DO Work Phone: [facility] ORTHOPAEDICSStart: 02-13-2024 End: 39-13-1273Ieohav Aaron Parnell DO Work Phone: [facility] ORTHOPAEDICSStart: 02-13-2024 End: 67-02-8525Rauqcs outpatient visit 25 minutesDerek Parnell DO Work Phone: [facility] CI ORTHOPAEDICSComment on above:Left knee pain, unspecified chronicity (Primary Dx); Arthritis of left kneeStart: 02-13-2024 End: 24-69-6838cgpygdkawwFKYJC A HUDDLESTONNot AvailableStart: 01-31-2024 End: 84-06-4116Fcaqul flowsheetMaria B Apling COMMUNICATIONS DEPARTMENT CHAIRPERSON Work Phone: [facility] ORTHOPAEDICSStart: 01-31-2024 End: 81-69-7236Jonvbb flowsheetMaria B Apling COMMUNICATIONS DEPARTMENT CHAIRPERSON Work Phone: [facility] ORTHOPAEDICSStart: 01-31-2024 End: 53-56-1322Pzcfdd outpatient visit 25 minutesMaria B Apling COMMUNICATIONS DEPARTMENT CHAIRPERSON Work Phone: [facility] CI ORTHOPAEDICSComment on above:Arthritis of left knee (Primary Dx); Left knee pain, unspecified chronicityStart: 01-31-2024 End: 24-72-6530kgfuqupdxtEMRUT B APLINGNot AvailableStart: 41-53-5616Xqfeedb encounter statusMercy Health St. Charles Hospitaltart: 72-27-2743Ibhfxlenf for general adult medical examination without abnormal findingsDR CHRISTIANO Mitchell [facility] for Rehabilitationtart: 09-27-2022 End: 76-70-1737nlpupldrfbWR CHRISTIANO GOLDBERGFacility:H2Zyklw: 09-27-2022 End: 91-68-3411Cpoxbpver for general adult medical examination without abnormal findingsDR CHRISTIANO GOLDBERGFacility:N6Dlwkb: 07-19-2022 End: 46-75-9542jhpygnvmdmPG DOTTIE GUEVARAFacility:X1Hggmb: 03-22-2022 End: 46-91-9399yzngporywaDU KORI KAN .Facility:V1Qsxry: 03-01-2022 ambulatoryDR CHRISTIANO GOLDBERGFacility:V6Hgahy: 02-22-2022 End: 66-76-0472trbrkrpukaAV William PARNELLFacility:S2Dgifs: 02-22-2022 End: 52-07-7106qqjbrfpvzrXE CHRISTIANO GOLDBERGFacility:G8Wkget: 01-20-2022 End: 69-69-0316jqqfphvlciWU DOTTIE GUEVARAFacility:K2Blxmw: 12-06-2021 End: 71-49-4404ihffvlvryeKW CHRISTIANO GOLDBERGFacility:L9Valuy: 10-12-2021 End: 30-90-9543vtqrsxdneeUA CHRISTIANO GOLDBERGFacility:H1 Procedures DateProcedureProcedure DetailPerforming ClinicianStart: 57-55-6195Joohbrkj screenMarcia BraunComment on above:Order Comment: Date of Surgery: 20250325 Result Comment: PERFORMED BY: [facility] [place] [address] PATHOLOGIST ENTERTAINER & COMIC ZAIN WHEELER M.D.Order Comment: Date of Surgery: [id number]: 02-27-2024 Arthrocentesis aspir&/inj major jt/bursa w/o usJames A Soheila DO Work Phone: Start: 93-09-5774Vhabxuezgtynvt aspir&/inj major jt/bursa w/o usJames A Soheila DO Work Phone: Start: 54-17-3860Svkgsomocgvggw aspir&/inj major jt/bursa w/o usJames A Soheila DO Work Phone: Start: 41-52-6425Mqwqtrrnkqyjqc aspir&/inj major jt/bursa w/o usMaria B Apling COMMUNICATIONS DEPARTMENT CHAIRPERSON Work Phone: Start: 13-53-9818Nejm cerv/vag auto thin layer prep mnl Roman Goldberg MD Work Phone: Plan of Treatment DateCare ActivityDetailAuthorStart: 34-59-4942OjihijjfaMer[facility] Health [facility] Start: 28-03-7004Oogmazdl to rehabilitation physicianMercy Health St. Charles Hospitaltart: 25-40-3306Fuwkbymt admissionMercy Health St. Charles Hospitaltart: 75-16-0073Mnucfmrt to clinical allergistMercy Health St. Charles Hospitaltart: 10-16-2024 End: 49-74-5092Hpsvyyw encounter alltvramm18/07/2025 2:40 PM EDT Office Visit [facility] [address] [place] [address] Rupal Leonardo PA [address] [place] [address] ArrivedNOCO BCP OBComment on above:ArrivedStart: 06-18-2024 End: 29-67-6702Jiogyuh encounter nidpnssnn46/07/2025 8:30 AM EST Office Visit [facility] [address] [place] [id number] Rupal Leonardo PA [address] [place] [address] [facility] BCP OBStart: 02-27-2024 End: 52-17-5471Rjxglbr encounter procedureNOMS CI ORTHOPAEDICSComment on above: Arthritis of left kneeStart: 02-20-2024 End: 76-20-4634Ulskndo encounter procedureNOMS CI ORTHOPAEDICSComment on above: Arthritis of left kneeStart: 02-13-2024 End: 87-31-5258Xxnznny encounter tuhygjfql97/03/2024 10:15 AM EDT Office Visit [facility] [address] [place] [address] Derek Parnell, [address] [place] [address] ArrivedNOMS CI ORTHOPAEDICSComment on above:ArrivedStart: 94-72-1913Mgyusjvih vaccinationInfluenza Vaccine (#1)[facility] HealthcareStart: 01-31-2024 End: 29-99-5657Imyifsj encounter jysdcqwfg51/21/2024 10:30 AM EDT Office Visit [facility] [address] [place] [address] Kerrie Wynne, COMMUNICATIONS DEPARTMENT CHAIRPERSON [address] [place] [address] Left knee pain, unspecified chronicity [facility] CI ORTHOPAEDICSComment on above:Left knee pain, unspecified chronicity Start: 69-12-4206Lzyzawtuf for malignant neoplasm of breastMammogramNOMS HealthcareStart: 65-40-0955Fdqwdobqi for malignant neoplasm of colonNOMS HealthcareComprehensive metabolic 2000 panel - Serum or PlasmaMercy Health [facility] Regional Medical CenterCT Lumbar spine WO [facility] HospitalCT Pelvis WO [facility] HospitalDXA Skeletal system.axial Views for bone densityMercy Health [facility] Regional Medical CenterElectromyographyMercy Health [facility] Medical CenterMR Lumbar spine WO [facility] HospitalPatient EducationTrihealth Work Phone: XR Hip - left 2 ViewsMercy Health [facility] Medical Center XR Lumbar spine 2 or 3 [facility] SystemXR Lumbar spine [facility] Immunizations Immunization DateImmunizationNotesCare LxsqlpdnRphwbsox48-81-6783hbegsmazq virus vaccine, unspecified formulationDerek Parnell DO Work Phone: NOSaint [facility] & Health ServicesBannetqqkq28-32-7480Ujfjfvubu, Seasonal, Quadrivalent, AdjuvantedMaria Apling COMMUNICATIONS DEPARTMENT CHAIRPERSON Work Phone: NOSaint [facility] & Health ServicesBwaosqttzi96-41-4414Xmcuqnimsqul Conjugate PCV 20 Kerrie Apling COMMUNICATIONS DEPARTMENT CHAIRPERSON Work Phone: NOSaint [facility] Health ServicesApqrsaavnk26-09-9074ahyejvvfp virus vaccine, unspecified formulationMaria Apling COMMUNICATIONS DEPARTMENT CHAIRPERSON Work Phone: NOSaint Francis [facility] & Health ServicesSkdtxapasq24-88-7790Xegnmhdys, injectable, Madin Cassandra Canine Kidney, preservative free, quadrivalentMaria Apling COMMUNICATIONS DEPARTMENT CHAIRPERSON Work Phone: NOSaint Francis [facility] & Health ServicesVqqrlrrjwd07-11-0711rbkiq pxqwciips-C3Z1-94, preservative-free, injectableMaria Apling COMMUNICATIONS DEPARTMENT CHAIRPERSON Work Phone: [place] [facility] Payers DatePayer CategoryPayerPolicy [id number] Health [id number] Health [id number] [id number] [id number] [id number] 2.16.840.1.629035.3.579.2.593 [id number] 2.16.840.1.470287.3.57[id number] 2.16.840.1.934435.3.57[id number] 2.16.840.1.137445.3.57[id number] 2.16.840.1.107115.3.57[id number] 2.16.840.1.956032.3.57[id number] 2..840.1.649069.3.57[id number] 2..840.1.503065.3.57[id number] 2.16.840.1.729964.3.57[id number] 2.16.840.1.248766.3.57[id number] 2.16.840.1.006336.3.57[id number] 2.16.840.1.320216.3.57[id number] 2.16.840.1.504474.3.57[id number] 2.16.840.1.320062.3.57[id number] 2.16.840.1.700518.3.579.[id number] 2.16.840.1.479287.3.57[id number] 2.16.840.1.980453.3.57[id number] 2..840.1.220526.3.57[id number] 2..840.1.733864.3.579.[id number] 2..840.1.585209.3.57[id number] 2.16.840.1.904[id number] 2..840.1.859655.3.579.2.531 [id number] 2.840.1.878047.3.579.2.531 Social History DateTypeDetailFacilityStart: 01-31-2024 End: 71-03-1854Wiyiyrb smoking status NHISNever smoked tobaccoNOMS Healthcare Start: 67-67-7517Pymbyzi use and exposureSmokeless tobacco non-userNOMS HealthcareStart: 59-98-0101Unzyyaz of Social functionNOMS HealthcareStart: 33-37-3946Fjenppp use panelNOMS HealthcareStart: 97-63-5889Ahi assigned at Not on fileNOMS HealthcareTobacco smoking status NHISTobacco smoking consumption unknownNOMS HealthcareStart: 07-26-2024 End: 29-99-6015AyuHjgtkh ([facility] Hospitaltart: 75-46-7464Gzl Assigned At BirthCentervilleNEGATED: Highlighted rowStart: NINFHistory of tobacco usePassive smokerNOMS Healthcare Medical Equipment Procedure CodeEquipment CodeEquipment Original TextEquipment IdentifierDates Spinal bone screw, non-bioabsorbable()[id number] FDAStart: 03-25-2025 Polymeric spinal fusion cage, non-sterile()[id number] FDAStart: 10-91-4263Pwjuaqjwy spinal fusion cage, non-sterile()[id number] FDAStart: 86-32-5977Obvt-screw internal spinal fixation system, non-sterile +[id number] FDAStart: 22-12-4639Gtbx-screw internal spinal fixation system, non-sterile+[id number] FDAStart: 10-93-3399Qhji-screw internal spinal fixation system, non-sterile+[id number] FDAStart: 56-26-0124Uqyz-screw internal spinal fixation system, non-sterile+[id number] FDAStart: 03-25-2025 Bone-screw internal spinal fixation system, non-sterile+[id number] FDAStart: 34-34-9572Xmyj-screw internal spinal fixation system, non-sterile+[id number] FDAStart: 52-79-8317Oadc-screw internal spinal fixation system, non-sterile +[id number] FDAStart: 71-40-6545Ailf-screw internal spinal fixation system, non-sterile+[id number] FDAStart: 10-49-8683Tnkp-screw internal spinal fixation system, non-sterile+[id number] FDAStart: 37-17-5427Jtcm-screw internal spinal fixation system connector()[id number] FDAStart: 03-25-2025 Spinal bone screw, non-bioabsorbable()[id number] FDAStart: 03-25-2025 Spinal fusion graft kit()[id number] FDAStart: 03-25-2025 Clinical Notes 02-22-2022 to 02-05-2025 Note Date & NjppPuprLjcqtwrc91-94-2658 Evaluation note* Diagnosis Onset Date Resolution Status [...] spinal stenosisresolvedOctober 2024 5:45amLow back painacuteOctober 2024 10:04am [facility] Work Phone: 1(567) 952-303308-27-2025 Evaluation note* Diagnosis Onset Date Resolution Status [...] 5:45amLow back painacuteOctober 2024 10:04amS/P lumbar spine operationacuteNov2024 12:53pm [facility] Work Phone: 1(153) 719-780707-30-2025 Evaluation note* Diagnosis Onset Date Resolution Status Admit Date Left lumbar radiculopathy acuteJuly 2024 10:26amLumbar radiculopathyacuteAugust 2024 2:12pm Numbness and tinglingacuteAugust 2024 2:12pmPeripheral neuropathy, idiopathicacuteAugust 2024 2:12pmNumbness and tinglingacuteSeptember 2024 10:08amHyperlipidemia, unspecifiedacuteSeptember 2024 2:20pm Hypothyroidism, unspecifiedacuteSeptember 2024 2:20pmLumbar radiculopathy acuteSeptember 2024 2:20pmPreoperative clearanceacuteSeptember 2024 2:20pmLumbar radiculopathyacuteSeptember 2024 10:27amBMI 36.0-36.9,adult acuteOctober 2024 5:45amEssential (primary) hypertensionacuteOctober 2024 5:45amHyperlipidemia, unspecifiedacuteOctober 2024 5:45am Hypothyroidism, unspecifiedacuteOctober 2024 5:45amImpaired mobility and activities of daily livingacuteOctober 2024 5:45amLeft lumbar radiculopathyacuteOctober 2024 5:45amLumbar radiculopathyacuteOctober 2024 5:45amNeurogenic claudication due to lumbar spinal stenosisacute October 2024 5:45amNumbness and tinglingacuteOctober 2024 5:45am Peripheral neuropathy, idiopathicacuteOctober 2024 5:45amS/P lumbar spine operationacuteOctober 2024 5:45am [facility] Work Phone: 1(544) 562-666707-08-2025 Evaluation note* Diagnosis Onset Date Resolution Status Admit Date Left hip pain acuteJuly 2024 10:24amLeft lumbar radiculopathyacuteJuly 2024 10:24am Low back painacuteJuly 2024 10:24amLeft lumbar radiculopathyacuteJuly 2024 10:26am [facility] Work Phone: 1(664) 876-842607-08-2025 Evaluation note* Diagnosis Onset Date Resolution Status Admit Date Left hip pain acuteJuly 2024 10:24amLeft lumbar radiculopathyacuteJuly 2024 10:24am Low back painacuteJuly 2024 10:24amLeft lumbar radiculopathyacuteJuly 2024 10:26amLumbar radiculopathyacuteAugust 2024 2:12pmNumbness and tinglingacuteAugust 2024 2:12pmPeripheral neuropathy, idiopathicacute February 05, 2025 2:12pm [facility] Work Phone: 1(862) 403-759507-08-2025 Evaluation note* Diagnosis Onset Date Resolution Status Admit Date Left hip pain acuteJuly 2024 10:24amLeft lumbar radiculopathyacuteJuly 2024 10:24am Low back painacuteJuly 2024 10:24amLeft lumbar radiculopathyacuteJuly 2024 10:26amLumbar radiculopathyacuteAugust 2024 2:12pmNumbness and tinglingacuteAugust 2024 2:12pmPeripheral neuropathy, idiopathicacute February 05, 2025 2:12pmNumbness and tinglingacuteSeptember 2024 10:08am Hyperlipidemia, unspecifiedacuteSeptember 2024 2:20pmHypothyroidism, unspecifiedacuteSeptember 2024 2:20pm [facility] Work Phone: 1(506) 850-236507-08-2025 Evaluation note* Diagnosis Onset Date Resolution Status Admit Date Left hip pain acuteJuly 2024 10:24amLeft lumbar radiculopathyacuteJuly 2024 10:24am Low back painacuteJuly 2024 10:24amLeft lumbar radiculopathyacuteJuly 2024 10:26amLumbar radiculopathyacuteAugust 2024 2:12pmNumbness and tinglingacuteAugust 2024 2:12pmPeripheral neuropathy, idiopathicacute February 05, 2025 2:12pmNumbness and tinglingacuteSeptember 2024 10:08am Hyperlipidemia, unspecifiedacuteSeptember 2024 2:20pmHypothyroidism, unspecifiedacuteSeptember 2024 2:20pmLumbar radiculopathyacuteSeptember 2024 10:27am [facility] Work Phone: 1(791) 127-505507-08-2025 Evaluation note* Diagnosis Onset Date Resolution Status Admit Date Left hip pain acuteJuly 2024 10:24amLeft lumbar radiculopathyacuteJuly 2024 10:24am Low back painacuteJuly 2024 10:24amLeft lumbar radiculopathyacuteJuly 2024 10:26amLumbar radiculopathyacuteAugust 2024 2:12pmNumbness and tinglingacuteAugust 2024 2:12pmPeripheral neuropathy, idiopathicacute [place] 2024 2:12pmNumbness and tinglingacuteSeptember 2024 10:08am Hyperlipidemia, unspecifiedacuteSept2024 2:20pmHypothyroidism, unspecifiedacuteSeptember 2024 2:20pmLumbar radiculopathyacuteSeptember 2024 2:20pmPreoperative clearanceacuteSept2024 2:20pmLumbar radiculopathyacuteSeptember 2024 10:27am [facility] Work Phone: 1(521) 479-342305-07-2025 History of Present illness Narrative* Sharlene Orourke, KRISTEN - 10/16/2024 2:40 PM EDT Reason for Appointment: Patient ID: Dyllan Xiong is a 68 y.o. female who [...] Ambulatory Problems Diagnosis Date Noted Essential hypertension (CMS/[facility]) 03/12/2013 Headache 03/12/2013 Pain in limb 01/31/2024 [...] Medical History: Diagnosis Date Hyperlipidemia (CMS/HCC) Hypertension ([facility]/HCC) Social History Tobacco Use Smoking status: Never [...] nursing note reviewed. Exam conducted with a line installer trolley present. Vitals: Estimated body mass index is [...] behalf of: VIRGIL Monzon documented in this encounterNortheast Missouri Rural Health [id number] Evaluation note* Diagnosis Onset Date Resolution Status Admit Date Left sided sciatica acuteFebruary 2024 11:21am [facility] Work Phone: 1(267) 456-137502-14-2025 Evaluation note* Diagnosis Onset Date Resolution Status Admit Date Left sided sciatica acuteFebruary 2024 11:21amLeft hip painacuteFebruary 2024 2:32pmLeft lumbar radiculopathyacuteFebruary 2024 2:32pmLeft sided sciaticaacute August 08, 2024 2:32pmLow back painacuteFebruary 2024 2:32pmLeft hip painacuteMarch 2024 10:17amLeft lumbar radiculopathyacuteMarch 2024 10:17amLow back painacuteMarch 2024 10:17am [facility] Work Phone: 1(316) 609-486411-12-2024 History of Present illness Narrative* VIRGIL Monzon - 04/23/2024 1:40 PM EST Reason for Appointment: Patient ID: Dyllan Xiong is a 68 y.o. female who [...] Ambulatory Problems Diagnosis Date Noted Essential hypertension ([facility]/HCC) 03/12/2013 Headache 03/12/2013 Pain in limb 01/31/2024 Hyperlipidemia ([facility]/HCC) 03/12/2013 Arthritis of left knee 01/31/2024 Internal derangement of left knee 01/31/2024 Other chronic pain 01/31/2024 Osteoarthritis of knee 01/31/2024 Primary osteoarthritis 01/31/2024 Resolved Ambulatory Problems Diagnosis Date Noted No Resolved Ambulatory Problems Past Medical History: Diagnosis Date Hypertension (CMS/HCC) HISTORY PAST MEDICAL HISTORY SOCIAL HISTORY Past Medical History: Diagnosis Date Hyperlipidemia ([facility]) Hypertension ([facility]) Social History Tobacco Use Smoking status: [...] behalf of: VIRGIL Monzon documented in this encounterNortheast Missouri Rural Health [id number] History of Present illness Narrative* Derek Parnell DO - 02/27/2024 10:15 AM EDTAssociated Order(s): L Inj/Asp: L knee Post-Procedure Diagnose(s): Arthritis of left knee Images from the original note were not included. Patient ID: Dyllan Xiong is a 68 y.o. female. L [...] scribe for Dr. Parnell/patrick documented in this encounterNortheast Missouri Rural Health NetworkEaovozvbrr30-01-1307 History of Present illness Narrative* Derek Parnell DO - 02/20/2024 10:15 AM EDTAssociated Order(s): L Inj/Asp: L knee Post-Procedure Diagnose(s): Arthritis of left knee Images from the original note were not included. Patient ID: Dyllan Xiong is a 68 y.o. female. L [...] scribe for Dr. Parnell/patrick documented in this encounterNortheast Missouri Rural Health [id number] History of Present illness Narrative* Derek Parnell DO - 02/13/2024 10:15 AM EDTAssociated Order(s): L Inj/Asp: L knee Post-Procedure Diagnose(s): Arthritis of left knee Images from the original note were not included. HISTORY OF PRESENT ILLNESS: Dyllan Xiong is an 68 y.o. @ female. Chief complaint LT knee pain LT Knee: 2 weeks s/p depo injx 01/30 by Erica with 15% improvement. Had two kenalog injections December 2021 (Erica) and had an MRI at [facility]. She went to pain management at [facility] with dr. Kan for injection (trigger [...] does not walk normally . [place]: XR [facility] 12/06/21, kenalog injection 12/22/21,and 01/05/22, MRI [facility] [...] X-rays of the left knee from the [facility] dated December 06, 2021. The x- rays are nonweightbearing. On the x-rays there are marginal osteophytes noted Both in the medial and lateral joint line. Patella is sitting laterally within the femoral trochlea. MRI from the [facility] dated January 20, 2022. MRI reveals absence [...] Parnell/patrick. Joe Parnell D.O. documented in this [facility]08-21-2024 History of Present illness Narrative* Kerrie Wynne, MARIANA - 01/31/2024 10:30 AM EDTAssociated Order(s): L Inj/Asp: L knee Post-Procedure Diagnose(s): Arthritis of left knee Subjective Patient ID: Dyllan Xiong is a 68 y.o. female. LT Knee no recent studies *Previously saw Erica in December of 2021 for LT knee pain and received two kenalog injections and had an MRI at [facility]. She went to pain management at [facility] with dr. Kan for injection (trigger [...] intermittent locking and twisting increases the pain) -03/21. She notes sometimes in the am she [...] have her f/U with [facility]. Parnell in [facility] to possible visco injections documented in this encounterNortheast Missouri Rural Health [id number] NoteCONSULTATION CONSULTATION DATE: 03/22/2022 CHIEF COMPLAINT: Bilateral [...] to return on a p.r.n. basis. CC: Christiano Goldberg M.D.[facility] [id number] NotePROCEDURE: XR KNEE RT 4V or > COMPARISON: None. HISTORY: Pain in right knee FINDINGS: BONES:No acute fracture or dislocation. Mild to moderate tricompartmental osteoarthropathy with marginal osteophyte formation SOFT TISSUES:Negative. No visible soft tissue swelling. EFFUSION:None visible. OTHER: Negative. IMPRESSION: Mild to moderate osteoarthritis Electronically authenticated by: DOTTIE GUEVARA Date: 2022-02-22 15:12[facility] HospitalNudpspuk24-23-0205 NoteCONSULTATION CONSULTATION DATE: 02/22/2022 CHIEF COMPLAINT: Bilateral [...] to progress. CC: Joe Parnell D.O.[facility] [id number] NoteCONSULTATION PROCEDURE DATE: 02/22/2022 PREOPERATIVE DIAGNOSIS: Bilateral [...] in the office in four weeks.[facility] HospitalEvaluation note* Diagnosis Uterine prolapse Uterine prolapse without mention of vaginal wall prolapse Menopausal state Symptomatic menopausal or female climacteric states documented in this encounter [facility] HealthcareEvaluation note* Diagnosis Arthritis of left knee documented in this encounter [facility] HealthcareEvaluation note* Diagnosis Arthritis of left knee- Primary Left knee pain, unspecified chronicity documented in this encounter [facility] HealthcareEvaluation note* Diagnosis Left knee pain, unspecified chronicity- Primary Arthritis of left knee documented in this encounter [facility] HealthcareEvaluation note* Diagnosis Arthritis of left knee documented in this encounter [facility] HealthcareEvaluation note* Diagnosis Onset Date Resolution Status Admit Date Left sided sciatica acuteFebruary 2024 11:21am [facility] Work Phone: Evaluation note* Diagnosis Post-menopause Asymptomatic postmenopausal status (age-related) (natural) Follow-up encounter involving medication documented in this encounter [facility] HealthcareEvaluation note* Diagnosis Onset Date Resolution Status Admit Date Left hip pain acuteJuly 2024 10:24amLeft lumbar radiculopathyacuteJuly 2024 10:24am Low back painacuteJuly 2024 10:24am [facility] Work Phone: Hospital Discharge instructionsAmbulatory Orders* Initiate Home Health Time Frame: 99 Days, Location: Determined By Patient Additional Instructions DISCHARGE INSTRUCTIONS FOR TRANSFORAMINAL LUMBAR INTERBODY FUSION DIET-regular home diet ACTIVITY - Wear brace when sitting and standing and out of bed - Activity as tolerated; No lifting over 5 pounds - Stairs as tolerated - Walk as much as possible - No driving until seen by physician; may ride in car -May shower Monday. When taking first shower leave dressing on complete shower remove dressing dry the wound and apply small amount of antibiotic ointment to the wound 1 time daily thereafter - Keep incision clean and dry OTHER - Call your provider's office for any fever, chills, nausea, vomiting, headache, numbness, or tingling. - Call your providers office and make an appointment to see your provider in 2 weeks. Use ice as needed for back spasm 20 minutes every 1-2 hours Use the prednisone provided if the leg pain returns to a significant degree after surgery. If it does not do not use the prednisoneMagruder Memorial Hospital Work Phone: Reason for referral (narrative)No reason for referral information availableTrihealth Work Phone: Summary Purpose Family History Relationship Condition Age at Onset Recorded Date/T kay father Myocardial infarction Unknown DeceasedUnknownmotherDeceasedUnknown Advance Directives Advance Directive Response Recorded Date/ Time Advance Directives No July 10:50am Advance Directive Response Recorded Date/ Time Advance Directives No July 11:50am Reason for Referral SpecialtyDiagnoses / ProceduresReferred By ContactReferred To ContactOrthopaedic Surgery Diagnoses Arthritis of left knee Procedures L Inj/Asp: L knee Derek Parnell, [address] [address] Referral IDStatusReasonStart DateExpiration DateVisits RequestedVisits [id number]/17/20243/[id number] / Procedures Referred By ContactReferred To ContactOrthopaedic Surgery Diagnoses Arthritis of left knee Procedures L Inj/Asp: L knee Kerrie Wynne, COMMUNICATIONS DEPARTMENT CHAIRPERSON [address] [place] [address] Referral IDStatusReasonStart DateExpiration DateVisits RequestedVisits [id number]/21/20242/586150Dapmqjyi IDStatusReasonStart Date Expiration DateVisits RequestedVisits [id number]/3/20243/07/2024 11Referral IDStatusReasonStart DateExpiration DateVisits RequestedVisits [id number]/10/20243/ Chief Complaint and Reason for Visit Chief [...] back pain August 22, 2024 10: 17am Chief Complaint Admit Date follow up lumbar pain December 17, 2024 10: 24am Reason for Visit Admit Date Left hip pain December 17, 2024 10:24 am Left lumbar radiculopathy December 17, 2024 10:24am Low back pain December 17, 2024 10:24 am Chief Complaint Admit Date follow up lumbar pain December 17, 2024 10: 24am image results January 08, 2025 10:2 6am Reason for Visit Admit Date Left hip pain December 17, 2024 10:24 am Left lumbar radiculopathy December 17, 2024 10:24am Low back pain December 17, 2024 10:24 am Left lumbar radiculopathy January 08 10:26am Chief Complaint Admit Date follow up lumbar pain December 17, 2024 10: 24am image results January 08, 2025 10:2 6am EMG BLE per Dr. Jairo Jimenez January 2:12pm Chief Complaint Admit Date follow up lumbar pain December 17, 2024 10: 24am image results January 08, 2025 10:2 6am EMG BLE per Dr. Jairo Jimenez January 2:12pm Review Imaging Results February 12 10:08am Reason for Visit Admit Date Left hip pain December 17, 2024 10:24 am Left lumbar radiculopathy December 17, 2024 10:24am Low back pain December 17, 2024 10:24 am Left lumbar radiculopathy January 08 10:26am Lumbar radiculopathy February 05, 2025 2 :12pm Numbness and tingling February 05, 2025 2:12pm Peripheral neuropathy, idiopathic February 05, 2025 2:12pm Chief Complaint Admit Date follow up lumbar pain December 17, 2024 10: 24am image results January 08, 2025 10:2 6am EMG BLE per Dr. Jairo Jimenez January 2:12pm Review Imaging Results February 12 10:08am Surgical Clearance February 20, 2025 2:20pm Reason for Visit Admit Date Left hip pain December 17, 2024 10:24 am Left lumbar radiculopathy December 17, 2024 10:24am Low back pain December 17, 2024 10:24 am Left lumbar radiculopathy January 08 10:26am Lumbar radiculopathy February 05, 2025 2 :12pm Numbness and tingling February 05, 2025 2:12pm Peripheral neuropathy, idiopathic February 05, 2025 2:12pm Numbness and tingling February 12 10:08am Hyperlipidemia, unspecified February 202024 2:20pm Hypothyroidism, unspecified February 202024 2:20pm Chief Complaint Admit Date follow up lumbar pain December 17, 2024 10: 24am image results January 08, 2025 10:2 6am EMG BLE per Dr. Jairo Jimenez January 2:12pm Review Imaging Results February 12 10:08am Surgical Clearance February 20, 2025 2:20pm surgery questions February 21, 2025 10:27am Reason for Visit Admit Date Left hip pain December 17, 2024 10:24 am Left lumbar radiculopathy December 17, 2024 10:24am Low back pain December 17, 2024 10:24 am Left lumbar radiculopathy January 08 10:26am Lumbar radiculopathy February 05, 2025 2 :12pm Numbness and tingling February 05, 2025 2:12pm Peripheral neuropathy, idiopathic February 05, 2025 2:12pm Numbness and tingling February 12 10:08am Hyperlipidemia, unspecified February 202024 2:20pm Hypothyroidism, unspecified February 202024 2:20pm Lumbar radiculopathy February 21 10:27am Chief Complaint Admit Date follow up lumbar pain December 17, 2024 10: 24am image results January 08, 2025 10:2 6am EMG BLE per Dr. Jairo Jimenez January 2:12pm Review Imaging Results February 12 10:08am Surgical Clearance February 20, 2025 2:20pm surgery questions February 21, 2025 10:27am lumbar stenosis March 11, 2025 1:39pm Reason for Visit Admit Date Left hip pain December 17, 2024 10:24 am Left lumbar radiculopathy December 17, 2024 10:24am Low back pain December 17, 2024 10:24 am Left lumbar radiculopathy January 08 10:26am Lumbar radiculopathy February 05, 2025 2 :12pm Numbness and tingling February 05, 2025 2:12pm Peripheral neuropathy, idiopathic February 05, 2025 2:12pm Numbness and tingling February 12 10:08am Hyperlipidemia, unspecified February 202024 2:20pm Hypothyroidism, unspecified February 202024 2:20pm Lumbar radiculopathy February 20 2:20pm Preoperative clearance February 20, 2 025 2:20pm Lumbar radiculopathy February 21 10:27am Chief Complaint Admit Date image results January 08, 2025 10:2 6am EMG BLE per Dr. Jairo Jimenez January 2:12pm Review Imaging Results February 12 10:08am Surgical Clearance February 20, 2025 2:20pm surgery questions February 21, 2025 10:27am lumbar stenosis March 11, 2025 1:39pm lumbar stenosis March 25, 2025 5 :45am Reason for Visit Admit Date Left lumbar radiculopathy January 08 10:26am Lumbar radiculopathy February 05, 2025 2 :12pm Numbness and tingling February 05, 2025 2:12pm Peripheral neuropathy, idiopathic February 05, 2025 2:12pm Numbness and tingling February 12 10:08am Hyperlipidemia, unspecified February 202024 2:20pm Hypothyroidism, unspecified February 202024 2:20pm Lumbar radiculopathy February 20 2:20pm Preoperative clearance February 20, 025 2:20pm Lumbar radiculopathy February 21 10:27am BMI 36.0-36.9,adult March 25, 2025 5 :45am Essential (primary) hypertension March 25, 2025 5:45am Hyperlipidemia, unspecified March 5:45am Hypothyroidism, unspecified March 5:45am Impaired mobility and activities of shawn y living March 25, 2025 5:45am Left lumbar radiculopathy March 25, 2025 5:45am Lumbar radiculopathy March 25, 2025 5:45am Neurogenic claudication due to lumbar sp inal stenosis March 25, 2025 5:45am Numbness and tingling March 25, 2025 5:45am Peripheral neuropathy, idiopathic Octobe r 2024 5:45am S/P lumbar spine operation March 25, 2025 5:45am Chief Complaint Admit Date EMG BLE per [...] week TLIF April 09, 2025 1 0:04am Reason for Visit Admit Date Numbness and tingling February 05, 2025 2:12pm Peripheral neuropathy, idiopathic February 05, 2025 2:12pm Lumbar radiculopathy February 05, 2025 2 :12pm Numbness and tingling February 12 10:08am Hyperlipidemia, unspecified February 202024 2:20pm Hypothyroidism, unspecified February 202024 2:20pm Preoperative clearance February 20, 025 2:20pm Lumbar radiculopathy February 20 2:20pm [...] back pain April 09, 2025 1 0:04am Chief Complaint Admit Date EMG BLE per [...] wound check April 14, 2025 1 2:53pm Chief Complaint Admit Date EMG BLE per [...] 2:53pm wound check April 21, 2025 1:10pm Reason for Visit Admit Date Numbness and [...] lumbar spine operation April 14, 2025 12:53pm Additional Source Comments INFORMATION SOURCE (unrecogn ized section and content) DATE CREATED AUTHOR 10/02/[address] [facility] DATE CREATED AUTHOR AUTHOR'S ORGANIZ ATION 10/19/2024 [facility] DATE CREATED AUTHOR AUTHOR'S ORGANIZ ATION 12/04/2024 [facility] DATE CREATED AUTHOR AUTHOR'S ORGANIZ ATION 04/10/2025 [facility] Care Teams (unrecognized sec tion and content) Team MemberRelationshipSpecialtyStart DateEnd Date Christiano Goldberg MD [address] [facility] [place] [phone] PCP - GeneralFamily Medicine01/31/24Team MemberRelationshipSpecialtyStart DateEnd Date Christiano Goldberg MD [address] [facility] [place] [phone] PCP - GeneralFamily Medicine01/31/24Team MemberRelationshipSpecialtyStart DateEnd Date Christiano Goldberg MD [address] [facility] [place] [phone] PCP - GeneralFamily Medicine01/31/24Team MemberRelationshipSpecialtyStart DateEnd Date Christiano Goldberg MD [address] [facility] [place] [address] PCP - GeneralFamily Medicine01/31/24Team MemberRelationshipSpecialtyStart DateEnd Date Christiano oGldberg MD [address] [facility] [place] [address] PCP - GeneralFamily Medicine01/31/24Team MemberRelationshipSpecialtyStart DateEnd Date Christiano Goldberg MD [address] [facility] [place] [address] PCP - GeneralFami Medicine01/31/24Team MemberRelationshipSpecialtyStart DateEnd Date Christiano Goldberg MD [address] [facility] [place] [address] PCP - GeneralFami Medicine01/31/24Team MemberRelationshipSpecialtyStart DateEnd Date Christiano Goldberg MD [address] [facility] [place] [address] PCP - GeneralFami Medicine01/31/24Team MemberRelationshipSpecialtyStart DateEnd Date Christiano Goldberg MD [address] [facility] [place] [address] PCP - GeneralFamily Medicine01/31/24Team MemberRelationshipSpecialtyStart DateEnd Date Christiano Goldberg MD [address] [facility] [place] [address] PCP - GeneralFamily Medicine01/31/24 Team Status: Active Member Role Status Dates Christiano Goldberg MD Primary Care Provider Active Team Status: Inactive Member Role Status Dates Christiano Goldberg MD Primary Care Provide r, Attending Provider Active Start: July 26, 2024 End: July 26, 2024 Team Status: Inactive Member Role Status Dates Christiano Goldberg MD Primary Care Provider Active Start: August 08, 2024 End: August 08, 2024Elena Turovskaya , APRNAttending ProviderActiveStart: August 08, 2024 End: August 08, 2024 Team Status: Inactive Member Role Status Dates Christiano Goldberg MD Primary Care Provider Active Start: August 22, 2024 End: August 22, 2024Elena Turovskaya , APRNAttending ProviderActiveStart: August 22, 2024 End: August 22, 2024 Team Status: Inactive Member Role Status Dates Christiano Goldberg MD Primary Care Provider Active Start: December 17, 2024 End: December 17, 2024Elena Melvaovskaya , APRNAttending ProviderActiveStart: December 17, 2024 End: December 17, 2024 Team Status: Inactive Member Role Status Dates Christiano Goldberg MD Primary Care Provider Active Start: January 08, 2025 End: January 08, 2025Eric N Barbara , DOAttending ProviderActiveStart: January 08, 2025 End: January 08, 2025 Team Status: Inactive Member Role Status Dates Christiano Goldberg MD Primary Care Provider Active Start: February 05, 2025 End: February 05, 2025Deepti Beard DOAttending ProviderActiveStart: February 05, 2025 End: February 05, 2025 Team Status: Inactive Member Role Status Dates Christiano Goldberg MD Primary Care Provider Active Start: February 12, 2025 End: February 12, 2025Eric N Barbara , DOAttending ProviderActiveStart: February 12, 2025 End: February 12, 2025 Team Status: Inactive Member Role Status Dates Christiano Goldberg MD Primary Care Provider Active Start: February 20, 2025 End: February 20, 2025Christiano Goldberg MDAttbraxton ProviderActiveStart: February 20, 2025 End: February 20, 2025 Team Status: Inactive Member Role Status Dates Christiano Goldberg MD Primary Care Provider Active Start: February 21, 2025 End: February 21, 2025Eric N Natii , DOAttending ProviderActiveStart: February 21, 2025 End: February 21, 2025 Team Status: Inactive Member Role Status Dates Christiano Goldberg MD Primary Care Provider Active Start: March 11, 2025 End: March 11, 2025Eric N Bialaski , DOAttending ProviderActiveStart: March 11, 2025 End: March 11, 2025 Team Status: Active Member Role/Relationship Status Dates Christiano Goldberg MD Primary Care Provider Active Team Status: Inactive Member Role/Relationship Status Dates Christiano Goldberg MD Primary Care Provider Active Start: January 08, 2025 End: January 08, 2025Eric N Bialaski , DOAttending ProviderActiveStart: January 08, 2025 End: January 08, 2025 Team Status: Inactive Member Role/Relationship Status Dates Christiano Goldberg MD Primary Care Provider Active Start: February 05, 2025 End: February 05, 2025Deepti Beard , DOAttending ProviderActiveStart: February 05, 2025 End: February 05, 2025 Team Status: Inactive Member Role/Relationship Status Dates Christiano Goldberg MD Primary Care Provider Active Start: February 12, 2025 End: February 12, 2025Eric N Bialaski , DOAttending ProviderActiveStart: February 12, 2025 End: February 12, 2025 Team Status: Inactive Member Role/Relationship Status Sandi Goldberg MD Primary Care Provider Active Start: February 20, 2025 End: February 20, 2025Christiano Goldberg MDAttending ProviderActiveStart: February 20, 2025 End: February 20, 2025 Team Status: Inactive Member Role/Relationship Status Sandi Goldberg MD Primary Care Provider Active Start: February 21, 2025 End: February 21, 2025Eric N Bialaski , DOAttending ProviderActiveStart: February 21, 2025 End: February 21, 2025 Team Status: Inactive Member Role/Relationship Status Sandi Goldberg MD Primary Care Provider Active Start: March 11, 2025 End: March 11, 2025Eric N Bialaski , DOAttending ProviderActiveStart: March 11, 2025 End: March 11, 2025 Team Status: Active Member Role/Relationship Status Sandi Goldberg MD Primary Care Provider Active Start: March 25, 2025 Jairo N Barbara , DOAdmit ProviderActiveStart: March 25, 2025 Jairo N Barbara , DOOther ProviderActiveStart: March 25, 2025 Darline Lerma RNOther ProviderActiveStart: March 25, 2025 Bonnie Bender , VALEOther ProviderActiveStart: March 25, 2025 Cassi Garcia , VALEOther ProviderActiveStart: March 25, 2025 Gaby Velarde , VALEOther ProviderActiveStart: March 25, 2025 Indu Hogan , RNOther ProviderActiveStart: March 25, 2025 Deepthi Iqbal , VALEOther ProviderActiveStart: March 25, 2025 Patrick Suarez MDOther ProviderActiveStart: March 25, 2025 Danielle Jackson , DOOther ProviderActiveStart: March 25, 2025 Avinash Moore MDOther ProviderActiveStart: March 25, 2025 Vinny Argueta , DOOther ProviderActiveStart: March 25, 2025 Robert Arevalo [...] MDOther ProviderActiveStart: March 25, 2025 Rupal Amezcua , COMMUNICATIONS DEPARTMENT CHAIRPERSON-COther ProviderActiveStart: March 25, 2025 Maria Alejandra Delgado , APRNOther ProviderActiveStart: March 25, 2025 Scott Meneses MDOther ProviderActiveStart: March 25, 2025 Raulito Yanes MDOther ProviderActiveStart: March 25, 2025 Cristofer Calles MDOther ProviderActiveStart: March 25, 2025 Fredy R Stan , DOOther ProviderActiveStart: March 25, 2025 Flores Quevedo , APRNOther ProviderActiveStart: March 25, 2025 Edson Broderick , DOOther ProviderActiveStart: March 25, 2025 Marcial Antonio [...] MDOther ProviderActiveStart: March 25, 2025 Naheed Womack RNOther ProviderActiveStart: March 25, 2025 Amanda Ann MDOther ProviderActiveStart: March 25, 2025 Stephen Iqbal MDAttending ProviderActiveStart: March 25, 2025 Stephen Iqbal MDOther ProviderActiveStart: March 25, 2025 Helene Swan , APRNOther ProviderActiveStart: March 25, 2025 Solomon Jones MDOther ProviderActiveStart: March 25, 2025 Team Status: Inactive Member Role/Relationship Status Dates Christiano Goldberg MD Primary Care Provider Active Start: February 05, 2025 End: February 05, 2025Deepti Beard , DOAttending ProviderActiveStart: February 05, 2025 End: February 05, 2025 Team Status: Inactive Member Role/Relationship Status Dates Christiano Goldberg MD Primary Care Provider Active Start: February 12, 2025 End: February 12, 2025Eric N Bialaski , DOAttending ProviderActiveStart: February 12, 2025 End: February 12, 2025 Team Status: Inactive Member Role/Relationship Status Dates Christiano Goldberg MD Primary Care Provider Active Start: February 20, 2025 End: February 20, 2025Christiano Goldberg MDAttbraxton ProviderActiveStart: February 20, 2025 End: February 20, 2025 Team Status: Inactive Member Role/Relationship Status Dates Christiano Goldberg MD Primary Care Provider Active Start: February 21, 2025 End: February 21, 2025Eric N Bialaski , DOAttending ProviderActiveStart: February 21, 2025 End: February 21, 2025 Team Status: Inactive Member Role/Relationship Status Dates Christiano Goldberg MD Primary Care Provider Active Start: March 11, 2025 End: March 11, 2025Eric N Bialaski , DOAttending ProviderActiveStart: March 11, 2025 End: March 11, 2025 Team Status: Active Member Role/Relationship Status Dates Christiano Goldberg MD Primary Care Provider Active Start: March 25, 2025 Jairo N Natii , DOAdmit ProviderActiveStart: March 25, 2025 Jairo N Estephaniaaski , DOOther ProviderActiveStart: March 25, 2025 Darline Lerma , RNOther ProviderActiveStart: March 25, 2025 Bonnie Bender , VALEOther ProviderActiveStart: March 25, 2025 Cassi Garcia , VALEOther ProviderActiveStart: March 25, 2025 Gaby Velarde , VALEOther ProviderActiveStart: March 25, 2025 Indu Hogan , VALEOther ProviderActiveStart: March 25, 2025 Deepthi Iqbal , VALEOther ProviderActiveStart: March 25, 2025 Patrick Suarez MDOther ProviderActiveStart: March 25, 2025 Ronobir Manuel , DOOther ProviderActiveStart: March 25, 2025 Avinash Moore MDOther ProviderActiveStart: March 25, 2025 Vinny Argueta , DOOther ProviderActiveStart: March 25, 2025 Robert Arevalo MDOther ProviderActiveStart: March 25, 2025 Berta Garcia MDOther ProviderActiveStart: March 25, 2025 Elie Freeman , DOOther ProviderActiveStart: March 25, 2025 Geronimo Parrish MDOther ProviderActiveStart: March 25, 2025 Shefali Flynn , APRNOther ProviderActiveStart: March 25, 2025 Hermila Hernández MDOther ProviderActiveStart: March 25, 2025 Kevon Payan MDOther ProviderActiveStart: March 25, 2025 Elvia Steel MDOther ProviderActiveStart: March 25, 2025 Elie Colby , DOOther ProviderActiveStart: March 25, 2025 Bev Higginbotham MDOther ProviderActiveStart: March 25, 2025 Shon Pierre MDOther ProviderActiveStart: March 25, 2025 Rupal Amezcua , COMMUNICATIONS DEPARTMENT CHAIRPERSON-COther ProviderActiveStart: March 25, 2025 Maria Alejandra Delgado , APRNOther ProviderActiveStart: March 25, 2025 Scott Meneses MDOther ProviderActiveStart: March 25, 2025 Raulito Yanes MDOther ProviderActiveStart: March 25, 2025 Cristofer Calles MDOther ProviderActiveStart: March 25, 2025 Fredy Pierce , DOOther ProviderActiveStart: March 25, 2025 Flores Quevedo , APRNOther ProviderActiveStart: March 25, 2025 Edson Broderick , DOOther ProviderActiveStart: March 25, 2025 Marcial Antonio MDOther ProviderActiveStart: March 25, 2025 Cordelia Valle , APRNOther ProviderActiveStart: March 25, 2025 Jen Baez , APRNOther ProviderActiveStart: March 25, 2025 Fred Ohara MDOther ProviderActiveStart: March 25, 2025 Noble Pineda MDOther ProviderActiveStart: March 25, 2025 Torileland Hodge , DOOther ProviderActiveStart: March 25, 2025 [...] MDOther ProviderActiveStart: March 25, 2025 Naheed Womack RNOther ProviderActiveStart: March 25, 2025 Amanda Ann MDOther ProviderActiveStart: March 25, 2025 Stephen Iqbal MDAttending ProviderActiveStart: March 25, 2025 Stephen Iqbal MDOther ProviderActiveStart: March 25, 2025 Helene Swan , APRNOther ProviderActiveStart: March 25, 2025 Solomon Jones MDOther ProviderActiveStart: March 25, 2025 Team Status: Active Member Role/Relationship Status Dates Christiano Goldberg MD Primary Care Provider Active Start: March 31, 2025 Mayra Alvarado CMAAttending ProviderActiveStart: March 31, 2025 Team Status: Active Member Role/Relationship Status Dates Christiano Goldberg MD Primary Care Provider Active Start: April 01, 2025 Jairo Jimenez , DOAdmit ProviderActiveStart: April 01, 2025 Jairo Jimenez , DOOther ProviderActiveStart: April 01, 2025 Darline Lerma , VALEOther ProviderActiveStart: April 01, 2025 Bonnie Bender , VALEOther ProviderActiveStart: April 01, 2025 Cassi Garcia , VALEOther ProviderActiveStart: April 01, 2025 Gaby Velarde , VALEOther ProviderActiveStart: April 01, 2025 Indu Hogan , VALEOther ProviderActiveStart: April 01, 2025 Deepthi Iqbal , VALEOther ProviderActiveStart: April 01, 2025 Patrick Suarez MDOther ProviderActiveStart: April 01, 2025 Danielle Jackson , DOOther ProviderActiveStart: April 01, 2025 Avinash Moore MDOther ProviderActiveStart: April 01, 2025 Vinny Argueta , DOOther ProviderActiveStart: April 01, 2025 Robert Arevalo MDOther ProviderActiveStart: April 01, 2025 Berta Garcia MDOther ProviderActiveStart: April 01, 2025 Elie Freeman DOOther ProviderActiveStart: April 01, 2025 Geronimo Parrish [...] ProviderActiveStart: April 01, 2025 Rupal Amezcua , COMMUNICATIONS DEPARTMENT CHAIRPERSON-COther ProviderActiveStart: April 01, 2025 Maria Alejandra Delgado [...] Jones MDOther ProviderActiveStart: April 01, 2025 Rohan Goldberg MDAttending ProviderActiveStart: April 01, 2025 Team Status: Inactive Member Role/Relationship Status Dates Christiano Goldberg MD Primary Care Provider Active Start: April 09, 2025 End: April 09, 2025Jairo Jimenez , DOAttending ProviderActiveStart: April 09, 2025 End: April 09, 2025 Team Status: Inactive Member Role/Relationship Status Dates Christiano Goldberg MD Primary Care Provider Active Start: April 14, 2025 End: April 14, 2025Maylin Royal ProviderActiveStart: April 14, 2025 End: April 14, 2025 Team Status: Inactive Member Role/Relationship Status Dates Christiano Goldberg MD Primary Care Provider Active Start: April 21, 2025 End: April 21, 2025Maylin Royal ProviderActiveStart: April 21, 2025 End: April 21, 2025 Reason for Visit (unrecogniz ed section and content) ReasonCommentsBladder ProlapsePatient voiced that about a week ago she felt a prolapse vaginally. Denies urinary incontinence, but does have frequency.Reason BauwqfdaGiowyypydfSrfisyTtedutbxRhnvri-gvLdqodtGwkijjprSagxuz-pdKd present today for a f/up medication visit. [...] BE BASED ON THE PRIMARY CLINICAL RECORDS. [employer] provides no warranty or guarantee of the accuracy or completeness of information in this document.
--- NOTE | 2025-05-05 12:15 | XR_ITS ---
The [place] [id number] Patient Name: DYLLAN CONWAY MRN: [id number] date: 1955 Sex: F Assigned Patient Location: [facility] Current Patient Location: [facility] Accession/Order Number: [id number] Exam Date: 05/05/2025 12:20 Report Date: 05/05/2025 16:38 At the request of: NILO HALL DO Procedure: XR lumbar spine 2-3V XR lumbar spine 2-3V 05/05/2025 12:25 PM SIGNS AND SYMPTOMS: ^radiculopathy, m54.16 PROTOCOLS: Frontal and lateral radiographs of the lumbar spine COMPARISON: 12/24/2024 FINDINGS: Posterior anterior intervertebral fusion is noted beginning at L2 and extending into the sacrum. No hardware complication. No fracture or subluxation. There is a dextro convex curvature of the lumbar spine. There is posterior decompression in the lower lumbar spine. Degenerative changes are noted in the sacroiliac joints. Surgical clips are noted in the right upper quadrant consistent with prior cholecystectomy. XR/XR lumbar spine 2-3V IMPRESSION: Posterior and intervertebral fusion is noted in the lumbosacral spine as above with posterior decompression. No hardware complication or malalignment. Impression dictated by: Dean Steel M.D. 05/05/2025 4:38 PM Dictation Location: [place] [address] Electronically authenticated by: [id number] Y Date: 05/05/2025 16:38
== END 2025-05-05 12:08 | disposition home or self-care (01) ==
PROVIDERS: PCP Family Medicine; Visit Provider Neurological Surgery
DX: M54.16 Radiculopathy, lumbar region (principal); M43.26 Fusion of spine, lumbar region
CPT/HCPCS: 72100